=== PATIENT | female | born 1950 | race Caucasian/White ===

== ENCOUNTER → 2016-10-18 | Day surgery (SDC) | payer OTHER, BC ==
[2016-10-15 11:25] VITALS: Ht 160 cm; Wt 55.5 kg
[~2016-10-18] VITALS: Ht 160 cm; Wt 55.5 kg
[~2016-10-18] MED LIST: 500ML BSS 0.3ML EPI 1:1000PF IRRIG ONE; ACETAMINOPHEN 325 MG TAB PO PRN; AMVISC PLUS 0.8ML SYRINGE INT OCU ONE; ATROPINE SULFATE 0.1 MG/ML 5ML SYR IV PRN; BRIMONIDINE TART 0.2% OP SOLN PER DROP CHARGE ONE; BSS FLUSH ONE; ENDOCOAT 0.85ML SYRINGE INT OCU ONE; EpHEDrine SULFATE INJ 50 MG/ML AMP IV PRN; EpINEphrine INJ 1MG/ML AMP 1 MG/ML AMP ONE; FLUO20CA20 PO; GABA-112 PO; LACTATED RINGER'S 1000ML 500 ML IV SCH; LIDOCAINE 4% OP SOLN DROP CHARGE ONE; LIDOCAINE 4% OP SOLN DROP CHARGE OPR SCH; LIDOCAINE HCL 1% MPF 2 ML VIAL ONE; MACULAR HEALTH PO; MELATAB2 PO; MIDAZOLAM HCL 1 MG/ML 2ML VIAL ONE; MOXIFLOXACIN OPH SOLN PER DROP CHARGE ONE; MULT-506 PO; POLYSOL4 OPB; POVIDONE-IODINE OP SOLN 30 ML BTL ONE; PREG1CAP36 PO; PROPARACAINE 0.5% OP SOLN PER DROP CHARGE OPR SCH; TOBRAMYCIN/DEXAMETHASONE OPH OINT PER APPLN CHARGE ONE; TRAZ100T29 PO
[2016-10-18] MEDS: PHENYLEPHRINE HCL 2.5% OP SOLN PER DROP CHARGE OPR SCH ×2 (10:38→10:43)
[2016-10-18] MEDS: TROPICAMIDE 1% OP SOLN PER DROP CHARGE OPR SCH ×2 (10:39→10:44)
[2016-10-18] MEDS: CYCLOPENTOLATE HCL 1% OP SOLN PER DROP CHARGE OPR SCH ×2 (10:40→10:45)
[2016-10-18] MEDS: KETOROLAC 0.5% OP SOLN PER DROP CHARGE OPR SCH ×2 (10:41→10:46)
[2016-10-18] MEDS: MOXIFLOXACIN OPH SOLN PER DROP CHARGE OPR SCH ×2 (10:42→10:52)
--- NOTE | 2016-10-18 11:25 | History & Physical Bridge - [place] ---
H&P Re-Evaluation Bridge Note: I have examined the patient, reviewed the History & Physical and in the interval since the performance of the History & Physical I have noted the following changes of clinical significance: No changes noted
--- NOTE | 2016-10-18 12:25 | Discharge Instructions-SurgCtr ---
Discharge Instructions Date of Service Oct 18, 2016. Visit Reason for Visit: Cataract Right Eye Discharge Discharge Diagnosis / Problem: cataract right eye Discharge Goals Goal(s): Improve function Activity Recommendations Activity Limitations: per Instructions/Follow-up section Lifting Limitations: no more than 5 pounds Anesthesia . Post Anesthesia Instructions: If you have had General Anesthesia or IV Sedation: * Do not drive today. * Resume driving when surgeon permits. * Do not make important decisions or sign legal documents today. * Call surgeon for: 1. Temperature elevations greater than 101 degrees F. 2. Uncontrollable pain. 3. Excessive bleeding. 4. Persistent nausea and vomiting. 5. Medication intolerance (nausea, vomiting or rash). * For nausea and vomiting use only clear liquids such as: tea, soda, bouillon until nausea subsides, then gradually increase diet as tolerated. * If you have any concerns or questions, call your surgeon's office. If physician is unavailable and it is an emergency, call 911 or go to the nearest emergency room. . Instructions / Follow-Up Instructions / Follow-Up ACTIVITY RECOMMENDATIONS: * Light activities * You may walk outside, read, watch television. * Mild irritation and blurred vision are common for the first few days, redness around the white part of the eye is common. MEDICATIONS: Resume previous medications unless instructed otherwise by your surgeon. Eye drops (today and tomorrow): Cipro - one drop in operative eye every 2 hours while awake Prednisolone 1% - one drop in operative eye every 2 hours while awake Bromfenac - one drop in operative eye once daily SPECIAL CARE INSTRUCTIONS: * If any problems or concerns, please call Dr. Lin's office at . * Keep plastic shield taped over eye to sleep at night. * Keep plastic shield taped over eye except to administer eye drops. * Keep plastic shield on until office visit the following day. FOLLOW UP VISIT: Follow-up with Dr. Lin in the [place] office as scheduled. If not already scheduled, please call the office at . Diet Recommendations Home Diet: resume previous diet Procedures Procedures Performed: Right Cataract Phacoemulsification With Intraocular Lens Implant Pending Studies Studies pending at discharge: no Medical Emergencies . Who to Call and When: Medical Emergencies: If at any time you feel your situation is an emergency, please call 911 immediately. . Non-Emergent Contact Non-Emergency issues call your: Moccasin Sewer . . "Provider Documentation" section prepared by Giancarlo Lin.
[2016-10-18 12:26] VITALS: TEMP 36.3
--- NOTE | 2016-10-18 12:27 | [facility] Post Operative Brief Note ---
Immediate Operative Summary Operative Date Oct 18, 2016. Pre-Operative Diagnosis Cataract Right Eye Post-Operative Diagnosis Same Procedure(s) Performed Right Cataract Phacoemulsification With Intraocular Lens Implant Surgeon Dr. Lin Surveyor Hydrographic Surgeon(s) None Estimated Blood Loss 0 Findings cataract right eye Specimens None Complication(s) None Disposition Recovery Room / PACU
--- NOTE | 2016-10-18 12:42 | OPERATIVE REPORT ---
DATE OF OPERATION: 10/18/2016 PREOPERATIVE DIAGNOSIS: Cataract, right eye. POSTOPERATIVE DIAGNOSIS: Cataract, right eye. PROCEDURE: Phacoemulsification cataract extraction with intraocular lens placement, right eye. SURGEON: Dr. Lin. COMPLICATIONS: None. ESTIMATED BLOOD LOSS: None. ANESTHESIA: Topical with sedation. OPERATION AND FINDINGS: After informed consent was obtained in the holding area the patient was wheeled back to the Operating Room where cardiac monitoring leads and oxygen by nasal cannula was administered by Anesthesia. Gentle IV sedation was given, and the patient's right eye was prepped and draped in usual sterile fashion. A wire lid speculum was placed into the right eye and the operating microscope was swung into position. Using 0.12 forceps and a Supersharp blade a paracentesis port was made 3 o'clock hours away from the 12 o'clock position of patient's right eye. 1% non-preserved Lidocaine was then injected into the anterior chamber for anesthesia. A 2.2 mm keratotome blade was then used to make a shelved clear corneal incision at the 12 o'clock position of her right eye. Amvisc was injected into the anterior chamber and a cystotome and Utrata forceps were used to perform a curvilinear capsulorrhexis. BSS on a hydrodissection cannula was used to hydrodissect the lens nucleus away from the capsular bag. The phacoemulsification handpiece was then used in a stop and chop fashion to remove the lens nucleus. The irrigation and aspiration handpiece was then used to remove the residual cortical material. Amvisc was injected into the capsular bag and anterior chamber and a Bausch \T\ Lomb MX60 24.5 Diopter intraocular lens was injected into the capsular bag. Irrigation and aspiration handpiece was used to remove the residual viscoelastic material. The wounds were hydrated and noted to be watertight. The wire lid speculum was removed from the eye. Vigamox, Brimonidine, and TobraDex ointment were placed on the eye and it was shielded. DISPOSITION: The patient tolerated the procedure well and was wheeled to the post anesthesia care unit in stable condition. I attest to the content of the Intraoperative Record and any orders documented therein. Any exceptions are noted below. It should be noted that EndoCoat was used during the case to protect the cornea endothelium. I attest to the content of the Intraoperative Record and any orders documented therein. Any exceptio ns are noted below.
[2016-10-18 12:55] VITALS: BP 112/70; PULSE 78; O2SAT 98
--- NOTE | 2016-10-18 13:00 | Anesthesia Progress Nt - [facility] ---
Anesthesia Post Op Note Date & Time Oct 18, 2016 at 13:00 Vital Signs Pain Intensity: 0 Vital Signs Past 12 Hours Date Time Temp Pulse Resp B/P Pulse Ox O2 Delivery O2 Flow Rate FiO2 10/18/16 12:26 36.3 78 16 114/68 98 Room Air 10/18/16 10:18 37.0 76 16 111/74 97 Room Air Notes Mental Status: alert / awake / arousable, participated in evaluation Pt Amnestic to Procedure: Yes Nausea / Vomiting: adequately controlled Pain: adequately controlled Airway Patency, RR, SpO2: stable & adequate BP & HR: stable & adequate Hydration State: stable & adequate Anesthetic Complications: no major complications apparent
== END | disposition home or self-care (01) ==
LOC: X.SURG 09:55
PROVIDERS: ATTEND Ophthalmology
DX: H25.11 Age-related nuclear cataract, right eye (principal); G35 Multiple sclerosis; Z96.642 Presence of left artificial hip joint

== ENCOUNTER → 2017-07-25 | Day surgery (SDC) | payer OTHER, BC ==
[2017-06-21 13:38] VITALS: Ht 160 cm; Wt 53.6 kg
[~2017-07-25] VITALS: Ht 160 cm; Wt 53.6 kg
[~2017-07-25] MED LIST changes: +FENTANYL CITRATE INJ 50 MCG/1 ML 2 ML VIAL ONE; +LIDOCAINE 4% OP SOLN DROP CHARGE OPL SCH; -LIDOCAINE 4% OP SOLN DROP CHARGE OPR SCH; +ONDANSETRON INJ 2 MG/ML 2 ML VIAL IV PRN; -PREG1CAP36 PO; +PROPARACAINE 0.5% OP SOLN PER DROP CHARGE OPL SCH; -PROPARACAINE 0.5% OP SOLN PER DROP CHARGE OPR SCH
[2017-07-25] MEDS: PHENYLEPHRINE HCL 2.5% OP SOLN PER DROP CHARGE OPL SCH ×2 (07:56→08:02)
[2017-07-25] MEDS: TROPICAMIDE 1% OP SOLN PER DROP CHARGE OPL SCH ×2 (07:57→08:03)
[2017-07-25] MEDS: CYCLOPENTOLATE HCL 1% OP SOLN PER DROP CHARGE OPL SCH ×2 (07:59→08:04)
[2017-07-25] MEDS: KETOROLAC 0.5% OP SOLN PER DROP CHARGE OPL SCH ×2 (08:00→08:05)
[2017-07-25] MEDS: MOXIFLOXACIN OPH SOLN PER DROP CHARGE OPL SCH ×2 (08:01→08:11)
--- NOTE | 2017-07-25 08:57 | [facility] Operative Report ---
Operative Report Operative Date Jul 25, 2017. Pre-Operative Diagnosis Cataract left eye Post-Operative Diagnosis same Procedure(s) Performed Left Cataract Phacoemulsification With Intraocular Lens Implant Surgeon Dr. Lin Tankroom Worker Surgeon(s) none Estimated Blood Loss 0 Findings cataract left eye Fluids (cc crystalloids) see anesthesia record Specimens none Drains none Anesthesia local with sedation Complication(s) None Disposition Recovery Room / PACU Implants [id number] 21.5 Indications decreased vision left eye Description of Procedure After informed consent was obtained in the holding area the patient was wheeled back to the operating room where cardiac monitoring leads and oxygen by nasal cannula was administered by Anesthesia. Gentle IV sedation was given, and the patient's left eye was prepped and draped in usual sterile fashion. A wire lid speculum was placed into the left eye and the operating microscope was swung into position. Using 0.12 forceps and a Supersharp blade a paracentesis port was made 2 o'clock hours away from the 3 o'clock position of the patient's left eye. 1% non-preserved Lidocaine was then injected into the anterior chamber for anesthesia. A 2.0 mm keratotome blade was then used to make a shelved clear corneal incision at the 3 o'clock position of the left eye. Amvisc was injected into the anterior chamber and a cystotome and Utrata forceps were used to perform a curvilinear capsulorrhexis. BSS on a hydrodissection cannula was used to hydrodissect the lens nucleus away from the capsular bag. The phacoemulsification handpiece was then used in a stop and chop fashion to remove the lens nucleus. The irrigation and aspiration handpiece was then used to remove the residual cortical material. Amvisc was injected into the capsular bag and anterior chamber and a Bausch & Lomb MX60 21.5 Diopter intraocular lens was injected into the capsular bag. Irrigation and aspiration handpiece was used to remove the residual viscoelastic material. The wounds were hydrated and noted to be watertight. The wire lid speculum was removed from the eye. Vigamox, Brimonidine, and TobraDex ointment were placed on the eye and it was shielded. It should be noted that EndoCoat was used extensively during the case to protect the cornea endothelium. DISPOSITION: The patient tolerated the procedure well and was wheeled to the post anesthesia care unit in stable condition. I attest to the content of the Intraoperative Record and any orders documented therein. Any exceptions are noted below. I attest to the content of the Intraoperative Record and any orders documented therein. Any exceptions are noted below.
--- NOTE | 2017-07-25 08:58 | Discharge Instructions-SurgCtr ---
Discharge Instructions Date of Service Jul 25, 2017. Visit Reason for Visit: Cataract Left Eye Discharge Discharge Diagnosis / Problem: cataract left eye Discharge Goals Goal(s): Improve function Activity Recommendations Activity Limitations: per Instructions/Follow-up section Lifting Limitations: no more than 5 pounds Anesthesia . Post Anesthesia Instructions: If you have had General Anesthesia or IV Sedation: * Do not drive today. * Resume driving when surgeon permits. * Do not make important decisions or sign legal documents today. * Call surgeon for: 1. Temperature elevations greater than 101 degrees F. 2. Uncontrollable pain. 3. Excessive bleeding. 4. Persistent nausea and vomiting. 5. Medication intolerance (nausea, vomiting or rash). * For nausea and vomiting use only clear liquids such as: tea, soda, bouillon until nausea subsides, then gradually increase diet as tolerated. * If you have any concerns or questions, call your surgeon's office. If physician is unavailable and it is an emergency, call 911 or go to the nearest emergency room. . Instructions / Follow-Up Instructions / Follow-Up ACTIVITY RECOMMENDATIONS: * Light activities * You may walk outside, read, watch television. * Mild irritation and blurred vision are common for the first few days, redness around the white part of the eye is common. MEDICATIONS: Resume previous medications unless instructed otherwise by your surgeon. Eye drops (today and tomorrow): Cipro - one drop in operative eye every 2 hours while awake Prednisolone 1% - one drop in operative eye every 2 hours while awake Bromfenac - one drop in operative eye once daily SPECIAL CARE INSTRUCTIONS: * If any problems or concerns, please call Dr. Lin's office at . * Keep plastic shield taped over eye to sleep at night. * Keep plastic shield taped over eye except to administer eye drops. * Keep plastic shield on until office visit the following day. FOLLOW UP VISIT: Follow-up with Dr. Lin in the [place] office as scheduled. If not already scheduled, please call the office at . Diet Recommendations Home Diet: resume previous diet Procedures Procedures Performed: Left Cataract Phacoemulsification With Intraocular Lens Implant Pending Studies Studies pending at discharge: no Medical Emergencies . Who to Call and When: Medical Emergencies: If at any time you feel your situation is an emergency, please call 911 immediately. . Non-Emergent Contact Non-Emergency issues call your: Water Technician . . "Provider Documentation" section prepared by Giancarlo Lin. .
[2017-07-25 09:00] VITALS: TEMP 36.6
--- NOTE | 2017-07-25 09:25 | Anesthesia Progress Nt - [facility] ---
Anesthesia Post Op Note Date & Time Jul 25, 2017 at 09:25 Vital Signs Pain Intensity: 0 Vital Signs Past 12 Hours Date Time Temp Pulse Resp B/P (MAP) Pulse Ox O2 Delivery O2 Flow Rate FiO2 07/25/17 09:00 36.6 80 16 106/66 (79) 96 Room Air 07/25/17 07:48 36.7 86 16 128/80 (96) 96 Room Air Notes Mental Status: alert / awake / arousable, participated in evaluation Pt Amnestic to Procedure: Yes Nausea / Vomiting: adequately controlled Pain: adequately controlled Airway Patency, RR, SpO2: stable & adequate BP & HR: stable & adequate Hydration State: stable & adequate Anesthetic Complications: no major complications apparent
[2017-07-25 09:29] VITALS: BP 110/66; PULSE 80; O2SAT 98
== END | disposition home or self-care (01) ==
LOC: X.SURG 07:16
PROVIDERS: ATTEND Ophthalmology
DX: H25.12 Age-related nuclear cataract, left eye (principal); G70.00 Myasthenia gravis without (acute) exacerbation; G35 Multiple sclerosis; J44.9 Chronic obstructive pulmonary disease, unspecified; M19.90 Unspecified osteoarthritis, unspecified site; F41.9 Anxiety disorder, unspecified; F32.9 Major depressive disorder, single episode, unspecified; Z79.899 Other long term (current) drug therapy

== ENCOUNTER 2017-10-12 14:41 | Emergency (ER) | payer OTHER, BC ==
[~2017-10-12] VITALS: Ht 160 cm; Wt 53.0 kg
[~2017-10-12 14:41] MED LIST changes: -500ML BSS 0.3ML EPI 1:1000PF IRRIG ONE; -ACETAMINOPHEN 325 MG TAB PO PRN; -AMVISC PLUS 0.8ML SYRINGE INT OCU ONE; -ATROPINE SULFATE 0.1 MG/ML 5ML SYR IV PRN; -BRIMONIDINE TART 0.2% OP SOLN PER DROP CHARGE ONE; -BSS FLUSH ONE; -ENDOCOAT 0.85ML SYRINGE INT OCU ONE; -EpHEDrine SULFATE INJ 50 MG/ML AMP IV PRN; -EpINEphrine INJ 1MG/ML AMP 1 MG/ML AMP ONE; -FENTANYL CITRATE INJ 50 MCG/1 ML 2 ML VIAL ONE; -LACTATED RINGER'S 1000ML 500 ML IV SCH; -LIDOCAINE 4% OP SOLN DROP CHARGE ONE; -LIDOCAINE 4% OP SOLN DROP CHARGE OPL SCH; -LIDOCAINE HCL 1% MPF 2 ML VIAL ONE; -MIDAZOLAM HCL 1 MG/ML 2ML VIAL ONE; -MOXIFLOXACIN OPH SOLN PER DROP CHARGE ONE; -ONDANSETRON INJ 2 MG/ML 2 ML VIAL IV PRN; -POVIDONE-IODINE OP SOLN 30 ML BTL ONE; -PROPARACAINE 0.5% OP SOLN PER DROP CHARGE OPL SCH; -TOBRAMYCIN/DEXAMETHASONE OPH OINT PER APPLN CHARGE ONE
[2017-10-12 14:47] VITALS: TEMP 36.9; Ht 160 cm; Wt 53.0 kg
[2017-10-12] MEDS ORDERED: MULT1CAP53 PO (15:20)
[2017-10-12] MEDS ORDERED: MELA1TAB54 PO (15:20)
[2017-10-12] MEDS ORDERED: MULT-602 PO (15:20)
[2017-10-12] MEDS ORDERED: FLUO20CA36 PO (15:20)
[2017-10-12] MEDS ORDERED: NRN100 PO (15:20)
--- NOTE | 2017-10-12 15:58 | DIAGNOSTIC IMAGING REPORT ---
HEAD WITHOUT CONTRAST (CT) CLINICAL HISTORY: 66 years-old Female presenting with Fall. Posterior head injury. TECHNIQUE: Multidetector CT imaging of the head was performed without the use of intravenous contrast. IV contrast: None. A dose lowering technique was used consistent with the principles of ALARA (as low as reasonably achievable). COMPARISON: MR brain from 01/14/2015. CT DOSE (mGy.cm): The estimated cumulative dose is 1003.45 mGycm. FINDINGS: Firearms Sales Associate topogram: Unremarkable. Proportional ventricular and sulcal prominence, likely age-related parenchymal volume loss. Brain parenchyma normal in appearance with preserved johnson-white differentiation. No mass effect or midline shift. No hemorrhage or acute territorial infarct. No extra-axial fluid collection. Postsurgical changes of right frontotemporal craniotomy with plate and screw fixation across the diastatic and smoothly sclerotic margins. Extra-axial hyperdense thin material likely postsurgical change. Paranasal sinuses and mastoid air cells clear. IMPRESSION: 1. No acute intracranial abnormality. 2. Stable postsurgical changes. Electronically signed by: Albaro Martell M.D. 10/12/2017 3:56 PM Dictated Date/Time: 10/12/2017 3:53 PM
[2017-10-12 16:34] VITALS: BP 99/78; PULSE 86; O2SAT 98
--- NOTE | 2017-10-12 21:57 | EMERGENCY ROOM VISIT NOTE ---
History First contact with patient: 15:00 Chief Complaint: FALL Stated Complaint: DIZZINESS, LIGHT IN HEAD AFTER FALL & HIT HEAD History of Present Illness The patient is a 66 year old female who presents to the Emergency Room with complaints of head pain and lightheadedness after falling yesterday. Patient states that she suffered a mechanical fall in her living room when she tripped over a rug, fell awkwardly, and struck the back of her head on a table. She did not lose consciousness. The patient is not on blood thinners. She is not reporting neck pain, chest pain, chest tightness, or shortness of breath. She woke up today and was feeling dizzy so she called her family doctor who referred her to the ER for evaluation. The patient does not have additional complaints and rates her current pain at 2/10. She has not taken anything over- the-counter for her discomfort. Review of Systems More than 10 systems were reviewed and otherwise negative with the exception of history of present illness. Past Medical/Surgical History Medical Problems: (1) Breast enlargement (2) Depression (3) Multiple sclerosis (4) Myasthenia gravis Surgical Problems: (1) H/O tubal ligation (2) Post-operative state (3) S/P T&A (status post tonsillectomy and adenoidectomy) (4) S/P total hip arthroplasty Family History Cancer FH: heart disease FH: suicide Kidney disease Stroke Social History Smoking Status: Never Smoker Alcohol Use: none Drug Use: none Marital Status: Housing Status: lives with family Occupation Status: employed Current/Historical Medications Scheduled Fluoxetine HCl (Fluoxetine HCl), 20 MG PO QAM Gabapentin (Gabapentin), 100 MG PO TID Melatonin (Melatonin), 5 MG PO HS Multiple Vitamins W/ Minerals (Womens 50+ Multi Vitamin), 1 TAB PO DAILY Multiple Vitamins W/ Minerals (Macular Health Formula), 1 CAP PO BID Trazodone Hcl (Trazodone), 100 MG PO HS Scheduled PRN Polyethylene Glycol-Propylene (Systane), 1 DROP OPB UD PRN for Dry Eye(s) Physical Exam Vital Signs Date Time Temp Pulse Resp B/P (MAP) Pulse Ox O2 Delivery O2 Flow Rate FiO2 10/12/17 16:34 86 16 99/78 98 10/12/17 14:47 36.9 81 18 110/76 96 Physical Exam VITALS: Vitals are noted on the nurse's note and reviewed by myself. Vital signs stable. GENERAL: Well-developed, well-nourished, white female, who is in no acute distress and resting comfortably. Patient is cooperative with the examination. HEAD: There is a small 1.5 cm hematoma appreciated on the left side occiput. No chua sign or raccoon eyes. EARS: External ear normal. External auditory canals clear, tympanic membranes pearly johnson without erythema or effusion bilaterally. EYES: Pupils equal round and reactive to light and accommodation. Conjunctivae without injection, sclerae without icterus. Extraocular movements intact. NOSE: Patent, turbinates without inflammation or discharge. MOUTH: Mucous membranes moist. Tonsils are not enlarged. Pharynx without erythema, blood, or exudate. Uvula midline. Airway patent. NECK: Supple without nuchal rigidity. No lymphadenopathy. No thyromegaly. Cervical spine is nontender. HEART: Regular rate and rhythm without murmurs gallops or rubs. LUNGS: Clear to auscultation bilaterally without wheezes, rales or rhonchi. No retractions or accessory muscle use. MUSCULOSKELETAL: No muscle atrophy, erythema, or edema noted. Full range of motion in all extremities. No tenderness to palpation. Normal gait. Strength 5/5 throughout. NEURO: Patient was alert and oriented to person place and time. CN II through XII grossly intact. No focal neurological deficits. Deep tendon reflexes 2+ throughout. SKIN: The skin was without rashes, erythema, edema, or bruising. Capillary refill less than 2 seconds. Medical Decision & Procedures ER Provider Diagnostic Interpretation: HEAD WITHOUT CONTRAST (CT) CLINICAL HISTORY: 66 years-old Female presenting with Fall. Posterior head injury. TECHNIQUE: Multidetector CT imaging of the head was performed without the use of intravenous contrast. IV contrast: None. A dose lowering technique was used consistent with the principles of ALARA (as low as reasonably achievable). COMPARISON: MR brain from 01/14/2015. CT DOSE (mGy.cm): The estimated cumulative dose is 1003.45 mGycm. FINDINGS: Cover Cutter Machine topogram: Unremarkable. Proportional ventricular and sulcal prominence, likely age-related parenchymal volume loss. Brain parenchyma normal in appearance with preserved johnson-white differentiation. No mass effect or midline shift. No hemorrhage or acute territorial infarct. No extra-axial fluid collection. Postsurgical changes of right frontotemporal craniotomy with plate and screw fixation across the diastatic and smoothly sclerotic margins. Extra-axial hyperdense thin material likely postsurgical change. Paranasal sinuses and mastoid air cells clear. IMPRESSION: 1. No acute intracranial abnormality. 2. Stable postsurgical changes. ED Course Physical exam and history were performed. Nursing notes, EMR, and Medication List were personally reviewed. Patient appears to have fallen yesterday and suffered a posterior head injury. I discussed options of care with the patient and we elected to perform a CT scan. The patient's CT scan does not show evidence of acute fracture or bleed per my and radiology's interpretation. Overall the patient appears well for discharge home. I suspect her symptoms are related to the head injury. She will need to have follow-up with her primary care physician in the next few days. She was otherwise invited back to the ER with any new, worsening, or concerning symptoms. The chart was completed utilizing [employer] Speech Voice Recognition Software. Grammatical errors, random word insertions, pronoun errors, and incomplete sentences are an occasional consequence of this system due to software limitations, ambient noise, and hardware issues. Any formal questions or concerns about the content, text, or information contained within the body of this dictation should be directly addressed to the provider for clarification. . Medical Decision Differential diagnosis: Etiologies such as concussion, contusion, fracture, subdural hematoma, epidural hematoma, intraparenchymal hemorrhage, as well as other traumatic pathologies were entertained. Impression Primary Impression: Fall Additional Impression: Closed head injury Departure Information Dispostion Home / Self-Care Condition GOOD Forms HOME CARE DOCUMENTATION FORM, IMPORTANT VISIT INFORMATION Patient Instructions [facility] Additional Instructions You were seen and evaluated today on an emergency basis only. This is not a substitute for, or an effort to provide, complete comprehensive medical care. It is not possible to recognize and treat all injuries or illnesses in a single emergency department visit. For this reason it is recommended that you followup with your primary care physician with any ongoing or persistent symptoms. You are welcome to return to the emergency department anytime with new, worsening, or concerning symptoms. Problem Qualifiers
== END 2017-10-12 16:35 | disposition home or self-care (01) ==
LOC: C.EDB 14:43 → C.EDD 16:35
DX: S09.90XA Unspecified injury of head, initial encounter (principal); W18.09XA Striking against other object with subsequent fall, initial encounter; G35 Multiple sclerosis; G70.00 Myasthenia gravis without (acute) exacerbation; F32.9 Major depressive disorder, single episode, unspecified; Z98.51 Tubal ligation status; Z96.649 Presence of unspecified artificial hip joint; Z90.89 Acquired absence of other organs; Z82.3 Family history of stroke; Z81.8 Family history of other mental and behavioral disorders; Z79.899 Other long term (current) drug therapy

== ENCOUNTER 2020-05-13 18:30 | Inpatient (IN) ==
[2020-05-13] MEDS ORDERED: SODIUM CHLORIDE 0.9% 1000ML 500 ML IV ONE (19:00)
--- NOTE | 2020-05-13 19:24 | CT Scan Report ---
CT head/brain wo con CLINICAL HISTORY: 69 years-old Female with Stroke evaluation . Acute strokelike symptoms with right- sided facial droop TECHNIQUE: Multiple axial CT images of the head were obtained without contrast. A dose lowering tech nique was utilized adhering to the principles of ALARA. CT DOSE: 912.22 mGycm COMPARISON: Head CT 10/12/2017 FINDINGS: No acute intracranial hemorrhage, midline shift, intracranial mass, hydrocephalus, territorial ischem ia or abnormal extra-axial collection. Motion degraded exam. Postoperative changes of prior right fro ntotemporal craniotomy. Senescent calcifications of the left lentiform nuclei. Cerebral vascular calc ifications. The calvarium is intact. The paranasal sinuses, mastoid air cells, and middle ear cavities are clear . IMPRESSION: Chronic findings as above without acute intracranial abnormality. ACT 112: Negative or not required by law. The above report was generated using voice recognition software. It may contain grammatical, syntax o r spelling errors. Electronically signed by: Yrn Biswas M.D. 05/13/2020 7:23 PM
[2020-05-13] MEDS ORDERED: OPTIRAY 320 125ml IV ONE (19:30)
[2020-05-13 19:40] LABS: Basophils # (auto) 0.01 K/uL (0-0.2); Basophils % (auto) 0.2 %; Eosinophils # (auto) 0.01 K/uL (0-0.5); Eosinophils % (auto) 0.2 %; Hematocrit (blood only) 39.2 % (37-47); Hemoglobin 13.2 g/dL (12.0-16.0); Immature Granulocytes # (auto) 0.01 K/uL (0.00-0.02); Immature Granulocytes % (auto) 0.2 %; Lymphocytes # (auto) 0.58 K/uL (1.2-3.4); Lymphocytes % (auto) 10.5 %; Mean Corpuscular Hemoglobin 31.6 pg (25-34); Mean Corpuscular Hgb Conc 33.7 g/dL (32-36); Mean Corpuscular Volume 93.8 fL (80-100); Mean Platelet Volume 10.9 fL (7.4-10.4); Monocytes # (auto) 0.04 K/uL (0.11-0.59); Monocytes % (auto) 0.7 %; Neutrophils # (auto) 4.89 K/uL (1.4-6.5); Neutrophils % (auto) 88.2 %; Platelet Count 302 K/uL (130-400); RDW Coefficient of Variation 12.5 % (11.5-14.5); RDW Standard Deviation 42.6 fL (36.4-46.3); Red Blood Count 4.18 M/uL (4.2-5.4); White Blood Count 5.54 K/uL (4.8-10.8)
--- NOTE | 2020-05-13 19:41 | Emergency Department Note ---
Impression & Plan Weakness, Myasthenia gravis, SOB (shortness of breath), Facial droop ED Provider Note NAME: TARAH FAM AGE: 69 SEX: F : 1950 ARRIVES VIA: Walk-In INFORMANT: [Patient][family] ED PROVIDER(S): [Baljeet Mcgregor MD] Patient initially was seen by me at 1855. CHIEF COMPLAINT: Shortness of breath and weakness HISTORY OF PRESENT ILLNESS: The patient is a 69-year-old female who presents to the ER with shortness of breath and weakness. The patient has a history of myasthenia gravis. In the last several months, she has had some more fatigability and some more difficulty with her right face. Her speech is noticeably slurred towards the evening. Since last week, her symptoms have escalated. Her right eye became droopy and her speech became worse. She saw her neurologist who placed her on prednisone. The patient states that today, about 3 hours ago or so, she suddenly felt short of breath walking around her house. There was no headache. No one arm or leg weakness. No chest pain. She has not had fever or increased cough. Patient presented to our triage. A stroke alert was called by the nursing staff and she was immediately taken to CT scan. REVIEW OF SYSTEMS: See HPI for pertinent positives and negatives. A total of ten systems were reviewed and were otherwise negative. PMHx/PSHx: See Below SOCIAL HISTORY: See Below. PHYSICAL EXAM: GENERAL: Patient is in no acute distress. HEENT: No acute trauma, normocephalic atraumatic, mucous membranes moist, no nasal congestion, no scleral icterus. NECK: No stridor, no adenopathy, no meningismus, trachea is midline. LUNGS: Clear to auscultation bilaterally, no wheeze, no rhonchi, breath sounds equal. Increased respiratory rate, seems short of breath with speaking. HEART: Without murmurs gallops or rubs, regular rate and rhythm. ABDOMEN: Soft, nontender, bowel sounds positive, no hernias, no peritonitis. EXTREMITIES: No cyanosis or edema, full range of motion of all the joints without pain or difficulty, no signs for acute trauma. NEUROLOGIC: Oriented x 3, patient does have a right facial droop and some speech thickening/slurring. There is no cerebellar dysfunction or extremity drift. SKIN: No rash, no jaundice, no diaphoresis. DIFFERENTIAL DIAGNOSIS: Infection, dehydration, metabolic abnormality, hypo/hyperglycemia, MS flare, myasthenia gravis flare, stroke, TIA, electrolyte disturbance, anemia, hypoxia, cardiac sources, intracerebral event, toxicologic, neurologic, as well as other pathologies. EMERGENCY DEPARTMENT COURSE/PROCEDURES: Continuous Cardiac Monitoring: An order was placed for continuous cardiac monitoring. The monitor shows a rate of 89 with normal sinus rhythm. Critical Care Note: I have personally spent 38 minutes of critical care time in the direct management of this patient. This includes bedside care, interpretation of diagnostic studies, and testing, discussion with consultants, patient, and family members, and other required patient management activities. This 38 minutes is in excess of all separately billable procedures. MEDICAL DECISION MAKING: There is no leukocytosis or concerning anemia. There is a normal platelet count. No coagulopathy. No significant electrolyte abnormality or kidney failure. No liver enzyme elevation. The patient appears to be in a euthyroid state. Urinalysis does not show evidence for infection. Urine tox was negative. Coronavirus testing was negative. Chest film did not show pneumonia or CHF. Brain CT showed no acute bleed or mass-effect. CT angiogram of the head and neck were performed, there was no stenosis, no thrombus seen. On my exam, the patient had a right facial droop and some slight thickening of her speech. Her right eyelid was droopy. No extremity deficits. She seemed to have an increased respiratory rate but she was not hypoxic, her lungs were clear. The patient was given oxygen, this helped her greatly. She felt markedly im proved. Patient was given a 500 cc saline bolus. I did speak with neurology. The patient certainly may be having a myasthenia gravis flare. The possibility of administering IVIG was discussed. Of note, the patient does not meet any criteria for TPA administration. Her symptoms began last week. I did speak to the patient, I spoke with case management. I did talk to the on- call hospitalist. Hospitalization, further work-up and care is required. Past Med/Surg History Medical History Depression Myasthenia gravis Social History Smoking Status: Never smoker Preferred Language: Macedonian Feels Safe at Home: Yes Allergies Allergies Allergy/AdvReac Type Severity Reaction Status Date / Time prochlorperazine Allergy Severe THROAT Verified 05/13/20 21:24 CONSTRICTING clarithromycin Allergy Intermediate RASH Verified 05/13/20 21:24 Penicillins Allergy Intermediate RASH Verified 05/13/20 21:24 carbamazepine Allergy Unknown UNKNOWN Verified 05/13/20 21:24 cephalexin Allergy Unknown RASH Verified 05/13/20 21:24 erythromycin base Allergy Unknown RASH Verified 05/13/20 21:24 amoxicillin Allergy Rash Verified 05/13/20 21:26 azithromycin Allergy Rash Verified 05/13/20 21:24 oxycodone AdvReac Unknown HALLUCINATI Verified 05/13/20 21:24 ONS promethazine AdvReac Unknown LEGS SHOOK Verified 05/13/20 21:24 aspirin [From Percodan] AdvReac Hallucinati Verified 05/13/20 21:26 ng Home Meds Home Medications Medication Instructions Recorded Confirmed Sustane 1 drp OPB BID PRN 05/13/20 05/13/20 acetaminophen [Tylenol Extra 1,000 mg PO Q6H PRN 05/13/20 05/13/20 Strength] albuterol sulfate 2 inh INHALATION Q4 PRN 05/13/20 05/13/20 fluoxetine [Prozac] 20 mg PO DAILY 05/13/20 05/13/20 gabapentin [Neurontin] 200 mg PO TID PRN 05/13/20 05/13/20 melatonin 5 mg PO HS 05/13/20 05/13/20 multivitamin 1 tab PO DAILY 05/13/20 05/13/20 prednisone 30 mg PO Q OTHER DAY 05/13/20 05/13/20 trazodone 100 mg PO HS 05/13/20 05/13/20 Results & Data (ED) Vital Signs Vital Signs - 24 hr 05/13/20 18:50 05/13/20 19:18 05/13/20 19:20 Temperature 36.9 C Temperature Source Oral Pulse Rate 80 88 Pulse Rate from SpO2 Sensor 89 Respiratory Rate 26 H 34 H Respiratory Effort / Characteristics Non-Labored Spontaneous Labored Short of Breath SOB on Exertion Respiratory Depth Normal Deep Respiratory Pattern Regular Blood Pressure 124/86 143/83 H Blood Pressure Mean 98 99 Blood Pressure Position Sitting Pulse Oximetry 98 99 Oxygen Delivery Method Room Air Room Air Oxygen Flow Rate Sepsis Recent Fever Within 48 Hours No Sepsis New/Unexplained Change in Mental Status N/A Sepsis Action Taken by Nursing No Action Required Oxygen Flow Rate - Titration Pulse Oximetry Post Tiitration 05/13/20 19:29 05/13/20 19:30 05/13/20 20:00 Temperature Temperature Source Pulse Rate 87 82 Pulse Rate from SpO2 Sensor 88 83 Respiratory Rate 31 H 18 Respiratory Effort / Characteristics Respiratory Depth Respiratory Pattern Blood Pressure 132/77 126/78 Blood Pressure Mean 87 92 Blood Pressure Position Pulse Oximetry 97 100 99 Oxygen Delivery Method Oxymask Oxymask Oxymask Oxygen Flow Rate 0 4 4 Sepsis Recent Fever Within 48 Hours Sepsis New/Unexplained Change in Mental Status Sepsis Action Taken by Nursing Oxygen Flow Rate - Titration 4 Pulse Oximetry Post Tiitration 100 05/13/20 20:30 05/13/20 20:54 05/13/20 21:00 Temperature Temperature Source Pulse Rate 83 85 84 Pulse Rate from SpO2 Sensor 83 87 82 Respiratory Rate 19 21 22 Respiratory Effort / Characteristics Respiratory Depth Respiratory Pattern Blood Pressure 126/79 130/74 127/73 Blood Pressure Mean 95 87 87 Blood Pressure Position Pulse Oximetry 99 98 98 Oxygen Delivery Method Oxymask Oxymask Oxygen Flow Rate 4 4 4 Sepsis Recent Fever Within 48 Hours Sepsis New/Unexplained Change in Mental Status Sepsis Action Taken by Nursing Oxygen Flow Rate - Titration Pulse Oximetry Post Tiitration 05/13/20 21:30 05/13/20 22:00 05/13/20 22:30 Temperature Temperature Source Pulse Rate 113 H 92 H 90 Pulse Rate from SpO2 Sensor 114 H 92 H Respiratory Rate 17 23 20 Respiratory Effort / Characteristics Respiratory Depth Respiratory Pattern Blood Pressure 137/81 133/80 125/73 Blood Pressure Mean 103 89 91 Blood Pressure Position Pulse Oximetry 98 98 98 Oxygen Delivery Method Oxymask Room Air Room Air Oxygen Flow Rate 4 Sepsis Recent Fever Within 48 Hours Sepsis New/Unexplained Change in Mental Status Sepsis Action Taken by Nursing Oxygen Flow Rate - Titration Pulse Oximetry Post Tiitration 05/13/20 23:00 05/13/20 23:01 05/13/20 23:30 Temperature Temperature Source Pulse Rate Pulse Rate from SpO2 Sensor 92 H Respiratory Rate 17 19 21 Respiratory Effort / Characteristics Respiratory Depth Respiratory Pattern Blood Pressure 121/70 124/77 Blood Pressure Mean 83 95 Blood Pressure Position Pulse Oximetry 95 Oxygen Delivery Method Oxygen Flow Rate Sepsis Recent Fever Within 48 Hours Sepsis New/Unexplained Change in Mental Status Sepsis Action Taken by Nursing Oxygen Flow Rate - Titration Pulse Oximetry Post Tiitration 05/13/20 23:31 Temperature Temperature Source Pulse Rate Pulse Rate from SpO2 Sensor 92 H Respiratory Rate 19 Respiratory Effort / Characteristics Respiratory Depth Respiratory Pattern Blood Pressure Blood Pressure Mean Blood Pressure Position Pulse Oximetry 95 Oxygen Delivery Method Oxygen Flow Rate Sepsis Recent Fever Within 48 Hours Sepsis New/Unexplained Change in Mental Status Sepsis Action Taken by Nursing Oxygen Flow Rate - Titration Pulse Oximetry Post Tiitration Home Medications Current Medication List: was personally reviewed by me Laboratory Data Attestation: I reviewed the patient's lab results. Result diagrams: 05/13/20 19:05/13/20 19: Lab Results 05/13/20 05/13/20 05/13/20 Range/Units 19:: 19: WBC 5.54 (4.8-10.8) K/uL RBC 4.18 L (4.2-5.4) M/uL Hgb 13.2 (12.0-16.0) g/dL Hct 39.2 (37-47) % MCV 93.8 (80-100) fL MCH 31.6 (25-34) pg MCHC 33.7 (32-36) g/dL RDW Std Deviation 42.6 (36.4-46.3) fL RDW Coeff of Sandra 12.5 (11.5-14.5) % Plt Count 302 (130-400) K/uL MPV 10.9 H (7.4-10.4) fL Immature Gran % (Auto) 0.2 % Neut % (Auto) 88.2 % Lymph % (Auto) 10.5 % [place] % (Auto) 0.7 % Eos % (Auto) 0.2 % Baso % (Auto) 0.2 % Neut # (Auto) 4.89 (1.4-6.5) K/uL Lymph # (Auto) 0.58 L (1.2-3.4) K/uL [place] # (Auto) 0.04 L (0.11-0.59) K/uL Eos # (Auto) 0.01 (0-0.5) K/uL Baso # (Auto) 0.01 (0-0.2) K/uL Immature Gran # (Auto) 0.01 (0.00-0.02) K/uL PT 10.8 (9.0-12.0) Seconds INR 1.0 (0.9-1.1) APTT 25.6 (21.0-31.0) Seconds PTT Ratio 0.9 D-Dimer (0-500) ug/L FEU Sodium (136-145) mmol/L Potassium (3.5-5.1) mmol/L Chloride (98-107) mmol/L Carbon Dioxide (21-32) mmol/L Anion Gap (3-11) BUN (7-18) mg/dl Creatinine (0.6-1.2) mg/dl Est Cr Clr Drug Dosing ml/min Est GFR ( Amer) Est GFR (Non-Af Amer) BUN/Creatinine Ratio (10-20) Glucose (70-99) mg/dl Calcium (8.5-10.1) mg/dl Magnesium (1.8-2.4) mg/dl Total Bilirubin (0.2-1) mg/dl AST (15-37) U/L ALT (12-78) U/L Alkaline Phosphatase (45-117) U/L Troponin I (0-0.045) ng/ml Total Protein (6.4-8.2) gm/dl Albumin (3.4-5.0) gm/dl Globulin (2.5-4.0) gm/dl Albumin/Globulin Ratio (0.9-2) TSH (0.300-4.500) uIu/ml Urine Color Urine Appearance (Clear) Urine pH (4.5-7.5) Ur Specific Lowman (1.000-1.030) Urine Protein (Negative) Urine Glucose (UA) (Negative) Urine Ketones (Negative) Urine Blood (Negative) Urine Nitrite (Negative) Urine Bilirubin (Negative) Urine Urobilinogen (Negative) Ur Leukocyte Esterase (Negative) Urine WBC (Auto) (0-5) /hpf Urine RBC (Auto) (0-4) /hpf U Hyaline Cast (Auto) (0-5) /lpf U Epithel Cells (Auto) (0-5) /lpf Urine Bacteria (Auto) (Negative) Urine Opiates Screen (Neg) Ur Methadone, Qual (Neg) Urine Barbiturates (Neg) Ur Phencyclidine (PCP) (Neg) U Amphetamin/Meth Scrn (Neg) MDMA (Ecstasy) Screen (Neg) U Benzodiazepines Scrn (Neg) Ur Cocaine Metabolite (Neg) U Marijuana (THC) Screen (Neg) COVID-19 Eval Order COVID-19 PCR (Negative) Blood Type A Positive Antibody Screen NEGATIVE 05/13/20 05/13/20 05/13/20 Range/Units 19:27 19:27 20:50 WBC (4.8-10.8) K/uL RBC (4.2-5.4) M/uL Hgb (12.0-16.0) g/dL Hct (37-47) % MCV (80-100) fL MCH (25-34) pg MCHC (32-36) g/dL RDW Std Deviation (36.4-46.3) fL RDW Coeff of Sandra (11.5-14.5) % Plt Count (130-400) K/uL MPV (7.4-10.4) fL Immature Gran % (Auto) % Neut % (Auto) % Lymph % (Auto) % [place] % (Auto) % Eos % (Auto) % Baso % (Auto) % Neut # (Auto) (1.4-6.5) K/uL Lymph # (Auto) (1.2-3.4) K/uL [place] # (Auto) (0.11-0.59) K/uL Eos # (Auto) (0-0.5) K/uL Baso # (Auto) (0-0.2) K/uL Immature Gran # (Auto) (0.00-0.02) K/uL PT (9.0-12.0) Seconds INR (0.9-1.1) APTT (21.0-31.0) Seconds PTT Ratio D-Dimer 390 (0-500) ug/L FEU Sodium 135 L (136-145) mmol/L Potassium 3.9 (3.5-5.1) mmol/L Chloride 104 (98-107) mmol/L Carbon Dioxide 28 (21-32) mmol/L Anion Gap 3.0 (3-11) BUN 15 (7-18) mg/dl Creatinine 0.86 (0.6-1.2) mg/dl Est Cr Clr Drug Dosing 49.6 ml/min Est GFR ( Amer) 78.8 Est GFR (Non-Af Amer) 68.0 BUN/Creatinine Ratio 17.1 (10-20) Glucose 97 (70-99) mg/dl Calcium 8.5 (8.5-10.1) mg/dl Magnesium 2.3 (1.8-2.4) mg/dl Total Bilirubin 0.6 (0.2-1) mg/dl AST 15 (15-37) U/L ALT 18 (12-78) U/L Alkaline Phosphatase 53 (45-117) U/L Troponin I < 0.015 (0-0.045) ng/ml Total Protein 6.7 (6.4-8.2) gm/dl Albumin 3.5 (3.4-5.0) gm/dl Globulin 3.2 (2.5-4.0) gm/dl Albumin/Globulin Ratio 1.1 (0.9-2) TSH 0.695 (0.300-4.500) uIu/ml Urine Color Yellow Urine Appearance Cloudy A (Clear) Urine pH 8.5 H (4.5-7.5) Ur Specific Lowman > 1.045 H (1.000-1.030) Urine Protein Negative (Negative) Urine Glucose (UA) Negative (Negative) Urine Ketones Trace H (Negative) Urine Blood Negative (Negative) Urine Nitrite Negative (Negative) Urine Bilirubin Negative (Negative) Urine Urobilinogen Negative (Negative) Ur Leukocyte Esterase Negative (Negative) Urine WBC (Auto) 1-5 (0-5) /hpf Urine RBC (Auto) 0-4 (0-4) /hpf U Hyaline Cast (Auto) 0 (0-5) /lpf U Epithel Cells (Auto) 10-20 H (0-5) /lpf Urine Bacteria (Auto) Negative (Negative) Urine Opiates Screen (Neg) Ur Methadone, Qual (Neg) Urine Barbiturates (Neg) Ur Phencyclidine (PCP) (Neg) U Amphetamin/Meth Scrn (Neg) MDMA (Ecstasy) Screen (Neg) U Benzodiazepines Scrn (Neg) Ur Cocaine Metabolite (Neg) U Marijuana (THC) Screen (Neg) COVID-19 Eval Order COVID-19 PCR (Negative) Blood Type Antibody Screen 05/13/20 05/13/20 05/13/20 Range/Units 20:50 22:15 22:15 WBC (4.8-10.8) K/uL RBC (4.2-5.4) M/uL Hgb (12.0-16.0) g/dL Hct (37-47) % MCV (80-100) fL MCH (25-34) pg MCHC (32-36) g/dL RDW Std Deviation (36.4-46.3) fL RDW Coeff of Sandra (11.5-14.5) % Plt Count (130-400) K/uL MPV (7.4-10.4) fL Immature Gran % (Auto) % Neut % (Auto) % Lymph % (Auto) % [place] % (Auto) % Eos % (Auto) % Baso % (Auto) % Neut # (Auto) (1.4-6.5) K/uL Lymph # (Auto) (1.2-3.4) K/uL [place] # (Auto) (0.11-0.59) K/uL Eos # (Auto) (0-0.5) K/uL Baso # (Auto) (0-0.2) K/uL Immature Gran # (Auto) (0.00-0.02) K/uL PT (9.0-12.0) Seconds INR (0.9-1.1) APTT (21.0-31.0) Seconds PTT Ratio D-Dimer (0-500) ug/L FEU Sodium (136-145) mmol/L Potassium (3.5-5.1) mmol/L Chloride (98-107) mmol/L Carbon Dioxide (21-32) mmol/L Anion Gap (3-11) BUN (7-18) mg/dl Creatinine (0.6-1.2) mg/dl Est Cr Clr Drug Dosing ml/min Est GFR ( Amer) Est GFR (Non-Af Amer) BUN/Creatinine Ratio (10-20) Glucose (70-99) mg/dl Calcium (8.5-10.1) mg/dl Magnesium (1.8-2.4) mg/dl Total Bilirubin (0.2-1) mg/dl AST (15-37) U/L ALT (12-78) U/L Alkaline Phosphatase (45-117) U/L Troponin I (0-0.045) ng/ml Total Protein (6.4-8.2) gm/dl Albumin (3.4-5.0) gm/dl Globulin (2.5-4.0) gm/dl Albumin/Globulin Ratio (0.9-2) TSH (0.300-4.500) uIu/ml Urine Color Urine Appearance (Clear) Urine pH (4.5-7.5) Ur Specific Low[place] (1.000-1.030) Urine Protein (Negative) Urine Glucose (UA) (Negative) Urine Ketones (Negative) Urine Blood (Negative) Urine Nitrite (Negative) Urine Bilirubin (Negative) Urine Urobilinogen (Negative) Ur Leukocyte Esterase (Negative) Urine WBC (Auto) (0-5) /hpf Urine RBC (Auto) (0-4) /hpf U Hyaline Cast (Auto) (0-5) /lpf U Epithel Cells (Auto) (0-5) /lpf Urine Bacteria (Auto) (Negative) Urine Opiates Screen Neg (Neg) Ur Methadone, Qual Neg (Neg) Urine Barbiturates Neg (Neg) Ur Phencyclidine (PCP) Neg (Neg) U Amphetamin/Meth Scrn Neg (Neg) MDMA (Ecstasy) Screen Neg (Neg) U Benzodiazepines Scrn Neg (Neg) Ur Cocaine Metabolite Neg (Neg) U Marijuana (THC) Screen Neg (Neg) COVID-19 Eval Order Covid19 Done at [facility] COVID-19 PCR NEGATIVE (Negative) Blood Type Antibody Screen Administered Medications Discontinued Medications Sodium Chloride (Nss 1000ml) 500 mls @ 999 mls/hr IV .Q31M ONE Stop: 05/13/20 19:30 Last Infusion: 05/13/20 20:36 Dose: 0 mls/hr Documented by: [id number] Admin: 05/13/20 19:40 Dose: 999 mls/hr Documented by: [id number] Parenteral Electrolytes (Normosol-R) 500 mls @ 999 mls/hr IV .Q31M ONE Stop: 05/13/20 22:09 Last Infusion: 05/13/20 23:32 Dose: 0 mls/hr Documented by: [id number] Admin: 05/13/20 22:36 Dose: 999 mls/hr Documented by: [id number] Ioversol (Optiray 320 125ml) 119 ml IV ONCE ONE Stop: 05/13/20 19:31 Last Admin: 05/13/20 19:30 Dose: 1 ml Documented by: [id number] Imaging Data Radiologist's Impression: XR chest 1V portable HISTORY: 69 years-old Female sob acute shortness of breath COMPARISON: Chest radiographs 08/16/2014 TECHNIQUE: Portable AP view of the chest FINDINGS: Cardiomediastinal and hilar silhouettes are within normal limits. Calcified breast implants. Pleural thickening of the lung apices. Mild chronic interstitial coarsening. No pneumothorax, pleural effusion, airspace consolidation or overt pulmonary edema. Degenerative changes of the shoulders and spine. Lumbar levoscoliosis. Contrast noted within the bilateral renal collecting systems. IMPRESSION: No acute process. CT head/brain wo con CLINICAL HISTORY: 69 years-old Female with Stroke evaluation . Acute strokelike symptoms with right-sided facial droop TECHNIQUE: Multiple axial CT images of the head were obtained without contrast. A dose lowering technique was utilized adhering to the principles of ALARA. CT DOSE: 912.22 mGycm COMPARISON: Head CT 10/12/2017 FINDINGS: No acute intracranial hemorrhage, midline shift, intracranial mass, hydrocephalus, territorial ischemia or abnormal extra-axial collection. Motion degraded exam. Postoperative changes of prior right frontotemporal craniotomy. Senescent calcifications of the left lentiform nuclei. Cerebral vascular calcif ications. The calvarium is intact. The paranasal sinuses, mastoid air cells, and middle ear cavities are clear. IMPRESSION: Chronic findings as above without acute intracranial abnormality. CT angio neck with con, CT angio head w con CLINICAL HISTORY: 69 years-old Female with stroke. Acute strokelike symptoms COMPARISON STUDY: Head CT of same day TECHNIQUE: Following the IV administration of 119 mL of Optiray 320, CT angiogram of the head and neck was performed from the aortic arch to the skull apex. Images are reviewed in the axial, sagittal, and coronal planes. 3-D MIPS images are created and assessed. IV contrast was administered without complication. All measurements were calculated based on NASCET criteria. A dose lowering technique was utilized adhering to the principles of ALARA. CT DOSE: 1092.36 mGycm FINDINGS: The imaged opacified pulmonary artery is patent. Three-vessel morphology of the thoracic aortic arch. Patency of the imaged subclavian arteries, innominate and common carotid arteries. No significant atherosclerotic plaque of the left carotid bulb. There is minimal calcified plaque of the right carotid bulb and proximal right ICA without significant stenosis. The bilateral middle and anterior cerebral arteries are patent. Dominant left vertebral artery. Bilateral vertebral arteries are widely patent and within normal limits. Basilar and posterior cerebral arteries are also widely patent. The cerebral venous sinuses are patent. There is no abnormal intracranial enhancement. Postoperative changes of right calvarial craniotomy. There is no pneumothorax. Multinodular thyroid. Calcifications with metallic density focus is noted within the posterior epidural distribution the foramen magnum. IMPRESSION:Unremarkable CTA of the head and neck without aneurysm, dissection, high-grade stenosis or proximal branch occlusion. Discharge Plan Visit Data Chief Complaint: Shortness of Breath/Dyspnea Stated Complaint: SOB ED Provider: Baljeet Mcgregor Discharge Problem: Weakness, Myasthenia gravis, SOB (shortness of breath), Facial droop Patient Disposition: Admitted As Inpatient Condition: Fair Forms Stand Alone Forms: [facility] Prescriptions Prescriptions: No Action multivitamin Tablet 1 tab PO DAILY RF: 0 prednisone 20 mg tablet 30 mg PO Q OTHER DAY RF: 0 acetaminophen [Tylenol Extra Strength] 500 mg Tablet 1,000 mg PO Q6H PRN (Reason: Pain) RF: 0 trazodone 100 mg tablet 100 mg PO HS RF: 0 gabapentin [Neurontin] 100 mg capsule 200 mg PO TID PRN (Reason: Pain) RF: 0 albuterol sulfate 90 mcg/actuation HFA aerosol inhaler 2 inh INHALATION Q4 PRN (Reason: Wheezing) RF: 0 fluoxetine [Prozac] 20 mg capsule 20 mg PO DAILY RF: 0 melatonin 5 mg Tablet 5 mg PO HS RF: 0 Sustane 1 drp OPB BID PRN (Reason: Dry Eyes) RF: 0 Referrals Referrals: Nafisa Fernandez MD [Primary Care Provider] -
[2020-05-13 19:58] LABS: Alanine Aminotransferase 18 U/L (12-78); Albumin Level 3.5 gm/dl (3.4-5.0); Aspartate Aminotransferase 15 U/L (15-37); BUN Creatinine Ratio 17.1 (10-20); Blood Urea Nitrogen 15 mg/dl (7-18); Calcium 8.5 mg/dl (8.5-10.1); Carbon Dioxide 28 mmol/L (21-32); Chloride 104 mmol/L (98-107); Creatinine Clr Calc Pharmacy 49.6 ml/min; Est GFR (African American) 78.8; Glucose 97 mg/dl (70-99); Magnesium 2.3 mg/dl (1.8-2.4); Potassium 3.9 mmol/L (3.5-5.1); Sodium 135 mmol/L (136-145)
--- NOTE | 2020-05-13 19:58 | XRay Report ---
XR chest 1V portable HISTORY: 69 years-old Female sob acute shortness of breath COMPARISON: Chest radiographs 08/16/2014 TECHNIQUE: Portable AP view of the chest FINDINGS: Cardiomediastinal and hilar silhouettes are within normal limits. Calcified breast implants. Pleural thickening of the lung apices. Mild chronic interstitial coarsening. No pneumothorax, pleural effusio n, airspace consolidation or overt pulmonary edema. Degenerative changes of the shoulders and spine. Lumbar levoscoliosis. Contrast noted within the bilateral renal collecting systems. IMPRESSION: No acute process. ACT 112: Negative or not required by law. The above report was generated using voice recognition software. It may contain grammatical, syntax o r spelling errors. Electronically signed by: Yrn Biswas M.D. 05/13/2020 7:57 PM
[2020-05-13 20:02] LABS: Partial Thromboplastin Ratio 0.9; Partial Thromboplastin Time 25.6 Seconds (21.0-31.0); Prothrombin Time 10.8 Seconds (9.0-12.0)
[2020-05-13 20:04] LABS: Albumin Globulin Ratio 1.1 (0.9-2); Alkaline Phosphatase 53 U/L (45-117); Bilirubin,Total 0.6 mg/dl (0.2-1); Globulin 3.2 gm/dl (2.5-4.0); Total Protein 6.7 gm/dl (6.4-8.2); Troponin I < 0.015 ng/ml (0-0.045)
--- NOTE | 2020-05-13 20:48 | CT Scan Report ---
CT angio neck with con, CT angio head w con CLINICAL HISTORY: 69 years-old Female with stroke. Acute strokelike symptoms COMPARISON STUDY: Head CT of same day TECHNIQUE: Following the IV administration of 119 mL of Optiray 320, CT angiogram of the head and nec k was performed from the aortic arch to the skull apex. Images are reviewed in the axial, sagittal, a nd coronal planes. 3-D MIPS images are created and assessed. IV contrast was administered without com plication. All measurements were calculated based on NASCET criteria. A dose lowering technique was utilized adhering to the principles of ALARA. CT DOSE: 1092.36 mGycm FINDINGS: The imaged opacified pulmonary artery is patent. Three-vessel morphology of the thoracic aortic arch. Patency of the imaged subclavian arteries, innominate and common carotid arteries. No significant at herosclerotic plaque of the left carotid bulb. There is minimal calcified plaque of the right carotid bulb and proximal right ICA without significant stenosis. The bilateral middle and anterior cerebral arteries are patent. Dominant left vertebral artery. Bilateral vertebral arteries are widely patent and within normal limits. Basilar and posterior cerebral arteries are also widely patent. The cerebra l venous sinuses are patent. There is no abnormal intracranial enhancement. Postoperative changes of right calvarial craniotomy. There is no pneumothorax. Multinodular thyroid. Calcifications with metallic density focus is noted w ithin the posterior epidural distribution the foramen magnum. IMPRESSION:Unremarkable CTA of the head and neck without aneurysm, dissection, high-grade stenosis or proximal branch occlusion. ACT 112: Negative or not required by law. The above report was generated using voice recognition software. It may contain grammatical, syntax o r spelling errors. Electronically signed by: Yrn Biswas M.D. 05/13/2020 8:47 PM
[2020-05-13 21:06] LABS: Appearance Urine Cloudy (Clear); Bacteria Urine Automated Negative (Negative); Bilirubin Urine Negative (Negative); Blood Urine Negative (Negative); Cast Urine Automated 0 /lpf (0-5); Color Urine Yellow; Glucose Urine UA Negative (Negative); Ketones Urine Trace (Negative); Leukocyte Esterase Urine Negative (Negative); Nitrite Urine Negative (Negative); Protein Urine Negative (Negative); RBC Urine Automated 0-4 /hpf (0-4); Specific Gravity Urine > 1.045 (1.000-1.030); Urobilinogen Urine Negative (Negative); pH Urine 8.5 (4.5-7.5)
[2020-05-13 21:35] LABS: Amphetamines+Metham, Urine Neg (Neg); Barbiturates, Urine Neg (Neg); Benzodiazepine, Urine Neg (Neg); Cocaine, Urine Neg (Neg); MDMA (Ecstacy), Urine Neg (Neg); Methadone, Urine Neg (Neg); Opiate, Urine Neg (Neg); Phencyclidine, Urine Neg (Neg)
[2020-05-13] MEDS ORDERED: NORMOSOL-R 500 ML IV ONE (21:39)
[2020-05-13 21:58] LABS: Thyroid Stimulating Hormone 0.695 uIu/ml (0.300-4.500)
--- NOTE | 2020-05-13 22:45 | History & Physical Report ---
Date of Service May 13, 2020 Assessment & Plan (1) SOB (shortness of breath): ? 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 Mac) DVT prophylaxis. Lovenox subcu Full code Patient's requesting updates from providers. Mr. Nicho Burgess, [phone]. Case discussed with Dr. Mac who is in agreement with plan of care and will make a decision regarding IVIG after he evaluates patient in AM. Text document was generated using [email or web address] voice recognition software. It may contain grammatical or spelling errors. Kindly contact undersigned for clarification of any documentation item in question. History of Present Illness Stroke, breast cancer, esophageal cancer, colon cancer Chief Complaint: Shortness of breath Primary Care Provider: Nafisa Fernandez MD History obtained from patient, family, and records. Medical history significant for multiple sclerosis, trigeminal neuralgia, myasthenia gravis, history of vestibular schwannoma surgery, Patient has had multiple sclerosis for about 20 years. 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 Better response to prednisone over Mestinon Rx. Some intolerance to Mestinon. CT chest in 2015 was negative for thymoma. 6 months ago patient noted trouble with chewing things and intermittent ptosis/double vision symptoms as per records. Some improvement with outpatient steroid prescription from neurologist. Patient also dealing with intermittent memory issues, urinary/fecal incontinence, some slurred speech symptoms, fatigue as well. Outpatient MRIs done last month. No new lesions on MRI brain and C-spine. MRI T-spine showed subtle focus within spinal cord at the level of T7 nonspecific but could represent demyelination focus. A few days ago, patient noted increased slurring speech, some incontinence symptoms. Neurologist recommended steroid course and outpatient appointment in a couple of days. After taking first dose of prednisone today, patient felt more short of breath. No chest pain. Usual dry cough symptoms. Some fluttering of the chest. 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 Patient directed by PCP to ER after being seen at the office today. Improvement of shortness of breath/tachypnea with IV fluid administration at the ER. 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 Allergies Allergy/AdvReac Type Severity Reaction Status Date / Time prochlorperazine Allergy Severe THROAT Verified 05/13/20 21:24 CONSTRICTING clarithromycin Allergy Intermediate RASH Verified 05/13/20 21:24 Penicillins Allergy Intermediate RASH Verified 05/13/20 21:24 carbamazepine Allergy Unknown UNKNOWN Verified 05/13/20 21:24 cephalexin Allergy Unknown RASH Verified 05/13/20 21:24 erythromycin base Allergy Unknown RASH Verified 05/13/20 21:24 amoxicillin Allergy Rash Verified 05/13/20 21:26 azithromycin Allergy Rash Verified 05/13/20 21:24 oxycodone AdvReac Unknown HALLUCINATI Verified 05/13/20 21:24 ONS promethazine AdvReac Unknown LEGS SHOOK Verified 05/13/20 21:24 aspirin [From Percodan] AdvReac Hallucinati Verified 05/13/20 21:26 ng Home Medications Home Medications Medication Instructions Recorded Confirmed Type Sustane 1 drp OPB BID PRN 05/13/20 05/13/20 History acetaminophen [Tylenol Extra 1,000 mg PO Q6H PRN 05/13/20 05/13/20 History Strength] albuterol sulfate 2 inh INHALATION Q4 PRN 05/13/20 05/13/20 History fluoxetine [Prozac] 20 mg PO DAILY 05/13/20 05/13/20 History gabapentin [Neurontin] 200 mg PO TID PRN 05/13/20 05/13/20 History melatonin 5 mg PO HS 05/13/20 05/13/20 History multivitamin 1 tab PO DAILY 05/13/20 05/13/20 History prednisone 30 mg PO Q OTHER DAY 05/13/20 05/13/20 History trazodone 100 mg PO HS 05/13/20 05/13/20 History Past Med/Surg History Medical History Depression Myasthenia gravis Social History Smoking Status: Never smoker Second Hand Exposure: No; Do You Dip or Chew Tobacco: No; Tobacco Cessation Education Requested by Patient: No Hx Alcohol Use: No Hx Substance Use: No Preferred Language: Telugu Communication Ability: Effective Physical Chemist Required: No Beliefs That Will Affect Care: None Current Living Situation: Spouse Other Information That Helps Us Care for You: No Feels Safe at Home: Yes Safety Concerns: Feels Safe At This Time Assistive Devices: None Review of Systems Review of Systems: As per HPI, all 10 systems reviewed, all other ROS negative Physical Exam Physical Exam: GENERAL: Comfortable, slightly anxious, no respiratory distress, mild dysarthria SKIN: Normal color, warm HEENT: Bespectacled, ptosis right, pink palpebral conjunctivae, dry buccal mucosa, nasal cannula in place NECK : Supple, no tenderness CHEST : CTA, no tenderness HEART : RRR, no obvious murmurs ABDOMEN: Some distention, nontender EXTREMITIES : No LE swelling/tenderness, no other conspicuous deformities noted NEUROLOGIC : Coherent, ptosis right, R facial asymmetry, gait and stance not assessed Results & Data Results & Data ([facility]) Vital Signs (Past 12 Hours) Vital Signs Temp Pulse Resp BP Pulse Ox 05/13/20 21:30 113 H 17 137/81 98 05/13/20 21:00 84 22 127/73 98 05/13/20 20:54 85 21 130/74 98 05/13/20 20:30 83 19 126/79 99 05/13/20 20:00 82 18 126/78 99 05/13/20 19:30 87 31 H 132/77 100 05/13/20 19:29 97 05/13/20 19:20 88 34 H 143/83 H 99 05/13/20 18:50 36.9 C 80 26 H 124/86 98 Laboratory Results 05/13/20 05/13/20 05/13/20 19:27 19:27 19:27 WBC 5.54 RBC 4.18 L Hgb 13.2 Hct 39.2 MCV 93.8 MCH 31.6 MCHC 33.7 RDW Std Deviation 42.6 RDW Coeff of Sandra 12.5 Plt Count 302 MPV 10.9 H Immature Gran % (Auto) 0.2 Neut % (Auto) 88.2 Lymph % (Auto) 10.5 [place] % (Auto) 0.7 Eos % (Auto) 0.2 Baso % (Auto) 0.2 Neut # (Auto) 4.89 Lymph # (Auto) 0.58 L [place] # (Auto) 0.04 L Eos # (Auto) 0.01 Baso # (Auto) 0.01 Immature Gran # (Auto) 0.01 PT 10.8 INR 1.0 APTT 25.6 PTT Ratio 0.9 D-Dimer Sodium Potassium Chloride Carbon Dioxide Anion Gap BUN Creatinine Est Cr Clr Drug Dosing Est GFR ( Amer) Est GFR (Non-Af Amer) BUN/Creatinine Ratio Glucose Calcium Magnesium Total Bilirubin AST ALT Alkaline Phosphatase Troponin I Total Protein Albumin Globulin Albumin/Globulin Ratio TSH Urine Color Urine Appearance Urine pH Ur Specific [place] Urine Protein Urine Glucose (UA) Urine Ketones Urine Blood Urine Nitrite Urine Bilirubin Urine Urobilinogen Ur Leukocyte Esterase Urine WBC (Auto) Urine RBC (Auto) U Hyaline Cast (Auto) U Epithel Cells (Auto) Urine Bacteria (Auto) Urine Opiates Screen Ur Methadone, Qual Urine Barbiturates Ur Phencyclidine (PCP) U Amphetamin/Meth Scrn MDMA (Ecstasy) Screen U Benzodiazepines Scrn Ur Cocaine Metabolite U Marijuana (THC) Screen COVID-19 Eval Order COVID-19 PCR Blood Type A Positive Antibody Screen NEGATIVE 05/13/20 05/13/20 05/13/20 19:27 19:27 20:50 WBC RBC Hgb Hct MCV MCH MCHC RDW Std Deviation RDW Coeff of Sandra Plt Count MPV Immature Gran % (Auto) Neut % (Auto) Lymph % (Auto) [place] % (Auto) Eos % (Auto) Baso % (Auto) Neut # (Auto) Lymph # (Auto) [place] # (Auto) Eos # (Auto) Baso # (Auto) Immature Gran # (Auto) PT INR APTT PTT Ratio D-Dimer 390 Sodium 135 L Potassium 3.9 Chloride 104 Carbon Dioxide 28 Anion Gap 3.0 BUN 15 Creatinine 0.86 Est Cr Clr Drug Dosing 49.6 Est GFR ( Amer) 78.8 Est GFR (Non-Af Amer) 68.0 BUN/Creatinine Ratio 17.1 Glucose 97 Calcium 8.5 Magnesium 2.3 Total Bilirubin 0.6 AST 15 ALT 18 Alkaline Phosphatase 53 Troponin I < 0.015 Total Protein 6.7 Albumin 3.5 Globulin 3.2 Albumin/Globulin Ratio 1.1 TSH 0.695 Urine Color Yellow Urine Appearance Cloudy A Urine pH 8.5 H Ur Specific [place] > 1.045 H Urine Protein Negative Urine Glucose (UA) Negative Urine Ketones Trace H Urine Blood Negative Urine Nitrite Negative Urine Bilirubin Negative Urine Urobilinogen Negative Ur Leukocyte Esterase Negative Urine WBC (Auto) 1-5 Urine RBC (Auto) 0-4 U Hyaline Cast (Auto) 0 U Epithel Cells (Auto) 10-20 H Urine Bacteria (Auto) Negative Urine Opiates Screen Ur Methadone, Qual Urine Barbiturates Ur Phencyclidine (PCP) U Amphetamin/Meth Scrn MDMA (Ecstasy) Screen U Benzodiazepines Scrn Ur Cocaine Metabolite U Marijuana (THC) Screen COVID-19 Eval Order COVID-19 PCR Blood Type Antibody Screen 05/13/20 05/13/20 05/13/20 20:50 22:15 22:15 WBC RBC Hgb Hct MCV MCH MCHC RDW Std Deviation RDW Coeff of Sandra Plt Count MPV Immature Gran % (Auto) Neut % (Auto) Lymph % (Auto) [place] % (Auto) Eos % (Auto) Baso % (Auto) Neut # (Auto) Lymph # (Auto) [place] # (Auto) Eos # (Auto) Baso # (Auto) Immature Gran # (Auto) PT INR APTT PTT Ratio D-Dimer Sodium Potassium Chloride Carbon Dioxide Anion Gap BUN Creatinine Est Cr Clr Drug Dosing Est GFR ( Amer) Est GFR (Non-Af Amer) BUN/Creatinine Ratio Glucose Calcium Magnesium Total Bilirubin AST ALT Alkaline Phosphatase Troponin I Total Protein Albumin Globulin Albumin/Globulin Ratio TSH Urine Color Urine Appearance Urine pH Ur Specific [place] Urine Protein Urine Glucose (UA) Urine Ketones Urine Blood Urine Nitrite Urine Bilirubin Urine Urobilinogen Ur Leukocyte Esterase Urine WBC (Auto) Urine RBC (Auto) U Hyaline Cast (Auto) U Epithel Cells (Auto) Urine Bacteria (Auto) Urine Opiates Screen Neg Ur Methadone, Qual Neg Urine Barbiturates Neg Ur Phencyclidine (PCP) Neg U Amphetamin/Meth Scrn Neg MDMA (Ecstasy) Screen Neg U Benzodiazepines Scrn Neg Ur Cocaine Metabolite Neg U Marijuana (THC) Screen Neg COVID-19 Eval Order Covid19 Done at [facility] COVID-19 PCR NEGATIVE Blood Type Antibody Screen Diagnostic Findings CT head: Chronic findings as above without acute intracranial abnormality. CTA head neck: Unremarkable CTA of the head and neck without aneurysm, dissection, high-grade stenosis or proximal branch occlusion. Chest x-ray : No acute process EKG as per my interpretation : Rate 85, NSR, LAD, LAFB, incomplete RBBB, T wave abnormalities septal leads
[2020-05-13 22:51] LABS: D Dimer 390 ug/L FEU (0-500)
[2020-05-14] MEDS ORDERED: GABAPENTIN 100 MG CAP PO PRN (04:47)
[2020-05-14] MEDS ORDERED: ONDANSETRON INJ 2 MG/ML 2 ML VIAL IV PRN (04:47)
[2020-05-14] MEDS ORDERED: ACETAMINOPHEN 325 MG TAB PO PRN (04:47)
[2020-05-14] MEDS ORDERED: ARTIFICIAL TEARS OP PRN (04:57)
[2020-05-14] MEDS ORDERED: MULTIVITAMIN TAB PO SCH (09:00)
[2020-05-14] MEDS ORDERED: ENOXAPARIN INJ 30 MG/0.3 ML SYR SQ SCH (09:00)
[2020-05-14] MEDS ORDERED: FLUoxetine HCL 20 MG CAP PO SCH (09:00)
--- NOTE | 2020-05-14 10:26 | Hospitalist Progress Note ---
Date of Service May 14, 2020 Assessment & Plan (1) Myasthenia gravis: History of myasthenia gravis, now with apparent flare. No acute findings on CT brain or CTA head & neck. Worsening symptoms despite initiation of prednisone as outpatient. NIF has worsened from -30 last night to -20 this morning. Patient is in no distress and is able to speak in full sentences; she is able to count to 39 with one breath. Case discussed with Neurology. Plasmapheresis recommended. It is not performed here, so pt will need transfer to tertiary care. (2) Dyspnea: Presented with SOB Oxymask 4 LPM utilized in ED, but no documented hypoxia. O2 sats now in mid 90's on RA. No infiltrates on chest x-ray. D-dimer normal, so pulmonary embolism very unlikely. SARS-CoV-2 PCR negative. NIFS -30 --> -20. Dyspnea probably secondary to flare of myasthenia gravis. (3) COVID-19 ruled out: SARS-CoV-2 in ED negative. (4) DVT prophylaxis: SQ enoxaparin. Ambulate. (5) Discharge planning issues: Patient requires transfer to tertiary care for plasmapheresis. Case discussed with Ko Buitrago (CCM at [facility]) who accepts the patient in transfer. Internal Medicine follow-up with Dr. Nafisa Fernandez. Neurology follow-up with Dr. Hanson. Daughter Vicky given update by phone. Admission and Anticipated Discharge Date Admission Date: May 14, 2020 Subjective Recheck for weakness and SOB. Patient seen in their room around 0910. Admitted last night with SOB, dysarthria, worsening right ptosis and right facial palsy. History of myasthenia gravis. Feels a little better this morning- less SOB. NIF performed by respiratory therapy was -20. Able to swallow her meds this morning, but having trouble swallowing saliva. No fever or cough. Ambulatory. Review of Systems: Constitutional- as noted above. Cardiac- no chest pain. Pulmonary- as noted above. GI- no nausea, vomiting, diarrhea, melena, hematochezia. - no urinary symptoms. Otherwise, as noted above. Physical Exam Constitutional: no acute distress Respiratory: no respiratory distress Auscultation: lungs clear to auscultation bilaterally Cardiovascular: Rate/Rhythm: regular rate and regular rhythm Heart Sounds: no gallop, no murmur and no cardiac rub Vessels: no JVD Extremities: no calf tenderness and no edema Gastrointestinal (Abdomen): normal bowel sounds, soft, nontender, no hepatosplenomegaly Musculoskeletal: Extremities: no cyanosis Skin: no rashes, warm and dry Neurologic: alert right ptosis right facial palsy pupils reactive moderate dysarthria motor strength upper and lower extremities 5/5 Psychiatric: Orientation: alert and oriented x 3 Results & Data Results & Data ([facility]) Vital Signs (Past 12 Hours) Vital Signs Temp Pulse Pulse Resp BP BP BP 05/14/20 06:59 37.1 C 81 19 116/70 05/14/20 02:12 37.0 C 79 18 131/83 05/13/20 23:31 19 05/13/20 23:30 21 124/77 05/13/20 23:01 19 05/13/20 23:00 17 121/70 05/13/20 22:30 90 20 125/73 Pulse Ox 05/14/20 06:59 96 05/14/20 02:12 96 05/13/20 23:31 95 05/13/20 23:30 95 05/13/20 23:01 05/13/20 23:00 05/13/20 22:30 98 Laboratory Results Laboratory Results - last 24 hr 05/13/20 05/13/20 05/13/20 19:27 19:27 19:27 WBC 5.54 RBC 4.18 L Hgb 13.2 Hct 39.2 MCV 93.8 MCH 31.6 MCHC 33.7 RDW Std Deviation 42.6 RDW Coeff of Sandra 12.5 Plt Count 302 MPV 10.9 H Immature Gran % (Auto) 0.2 Neut % (Auto) 88.2 Lymph % (Auto) 10.5 [place] % (Auto) 0.7 Eos % (Auto) 0.2 Baso % (Auto) 0.2 Neut # (Auto) 4.89 Lymph # (Auto) 0.58 L [place] # (Auto) 0.04 L Eos # (Auto) 0.01 Baso # (Auto) 0.01 Immature Gran # (Auto) 0.01 PT 10.8 INR 1.0 APTT 25.6 PTT Ratio 0.9 D-Dimer Sodium Potassium Chloride Carbon Dioxide Anion Gap BUN Creatinine Est Cr Clr Drug Dosing Est GFR ( Amer) Est GFR (Non-Af Amer) BUN/Creatinine Ratio Glucose Calcium Magnesium Total Bilirubin AST ALT Alkaline Phosphatase Troponin I Total Protein Albumin Globulin Albumin/Globulin Ratio TSH Urine Color Urine Appearance Urine pH Ur Specific [place] Urine Protein Urine Glucose (UA) Urine Ketones Urine Blood Urine Nitrite Urine Bilirubin Urine Urobilinogen Ur Leukocyte Esterase Urine WBC (Auto) Urine RBC (Auto) U Hyaline Cast (Auto) U Epithel Cells (Auto) Urine Bacteria (Auto) Urine Opiates Screen Ur Methadone, Qual Urine Barbiturates Ur Phencyclidine (PCP) U Amphetamin/Meth Scrn MDMA (Ecstasy) Screen U Benzodiazepines Scrn Ur Cocaine Metabolite U Marijuana (THC) Screen COVID-19 Eval Order COVID-19 PCR Blood Type A Positive Antibody Screen NEGATIVE 05/13/20 05/13/20 05/13/20 19:27 19:27 20:50 WBC RBC Hgb Hct MCV MCH MCHC RDW Std Deviation RDW Coeff of Sandra Plt Count MPV Immature Gran % (Auto) Neut % (Auto) Lymph % (Auto) [place] % (Auto) Eos % (Auto) Baso % (Auto) Neut # (Auto) Lymph # (Auto) [place] # (Auto) Eos # (Auto) Baso # (Auto) Immature Gran # (Auto) PT INR APTT PTT Ratio D-Dimer 390 Sodium 135 L Potassium 3.9 Chloride 104 Carbon Dioxide 28 Anion Gap 3.0 BUN 15 Creatinine 0.86 Est Cr Clr Drug Dosing 49.6 Est GFR ( Amer) 78.8 Est GFR (Non-Af Amer) 68.0 BUN/Creatinine Ratio 17.1 Glucose 97 Calcium 8.5 Magnesium 2.3 Total Bilirubin 0.6 AST 15 ALT 18 Alkaline Phosphatase 53 Troponin I < 0.015 Total Protein 6.7 Albumin 3.5 Globulin 3.2 Albumin/Globulin Ratio 1.1 TSH 0.695 Urine Color Yellow Urine Appearance Cloudy A Urine pH 8.5 H Ur Specific [place] > 1.045 H Urine Protein Negative Urine Glucose (UA) Negative Urine Ketones Trace H Urine Blood Negative Urine Nitrite Negative Urine Bilirubin Negative Urine Urobilinogen Negative Ur Leukocyte Esterase Negative Urine WBC (Auto) 1-5 Urine RBC (Auto) 0-4 U Hyaline Cast (Auto) 0 U Epithel Cells (Auto) 10-20 H Urine Bacteria (Auto) Negative Urine Opiates Screen Ur Methadone, Qual Urine Barbiturates Ur Phencyclidine (PCP) U Amphetamin/Meth Scrn MDMA (Ecstasy) Screen U Benzodiazepines Scrn Ur Cocaine Metabolite U Marijuana (THC) Screen COVID-19 Eval Order COVID-19 PCR Blood Type Antibody Screen 05/13/20 05/13/20 05/13/20 20:50 22:15 22:15 WBC RBC Hgb Hct MCV MCH MCHC RDW Std Deviation RDW Coeff of Sandra Plt Count MPV Immature Gran % (Auto) Neut % (Auto) Lymph % (Auto) [place] % (Auto) Eos % (Auto) Baso % (Auto) Neut # (Auto) Lymph # (Auto) [place] # (Auto) Eos # (Auto) Baso # (Auto) Immature Gran # (Auto) PT INR APTT PTT Ratio D-Dimer Sodium Potassium Chloride Carbon Dioxide Anion Gap BUN Creatinine Est Cr Clr Drug Dosing Est GFR ( Amer) Est GFR (Non-Af Amer) BUN/Creatinine Ratio Glucose Calcium Magnesium Total Bilirubin AST ALT Alkaline Phosphatase Troponin I Total Protein Albumin Globulin Albumin/Globulin Ratio TSH Urine Color Urine Appearance Urine pH Ur Specific [place] Urine Protein Urine Glucose (UA) Urine Ketones Urine Blood Urine Nitrite Urine Bilirubin Urine Urobilinogen Ur Leukocyte Esterase Urine WBC (Auto) Urine RBC (Auto) U Hyaline Cast (Auto) U Epithel Cells (Auto) Urine Bacteria (Auto) Urine Opiates Screen Neg Ur Methadone, Qual Neg Urine Barbiturates Neg Ur Phencyclidine (PCP) Neg U Amphetamin/Meth Scrn Neg MDMA (Ecstasy) Screen Neg U Benzodiazepines Scrn Neg Ur Cocaine Metabolite Neg U Marijuana (THC) Screen Neg COVID-19 Eval Order Covid19 Done at [facility] COVID-19 PCR NEGATIVE Blood Type Antibody Screen
--- NOTE | 2020-05-14 10:54 | Discharge Summary ---
Date of Service Date of Admission: 05/13/20 Date of Discharge: 05/14/20 Admission HPI Per Admitting Provider History obtained from patient, family, and records. Medical history significant for multiple sclerosis, trigeminal neuralgia, myasthenia gravis, history of vestibular schwannoma surgery, Patient has had multiple sclerosis for about 20 years. 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 Better response to prednisone over Mestinon Rx. Some intolerance to Mestinon. CT chest in 2015 was negative for thymoma. 6 months ago patient noted trouble with chewing things and intermittent ptosi s/double vision symptoms as per records. Some improvement with outpatient steroid prescription from neurologist. Patient also dealing with intermittent memory issues, urinary/fecal incontinence, some slurred speech symptoms, fatigue as well. Outpatient MRIs done last month. No new lesions on MRI brain and C-spine. MRI T-spine showed subtle focus within spinal cord at the level of T7 nonspecific but could represent demyelination focus. A few days ago, patient noted increased slurring speech, some incontinence symptoms. Neurologist recommended steroid course and outpatient appointment in a couple of days. After taking first dose of prednisone today, patient felt more short of breath. No chest pain. Usual dry cough symptoms. Some fluttering of the chest. 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 Patient directed by PCP to ER after being seen at the office today. Improvement of shortness of breath/tachypnea with IV fluid administration at the ER. Principal Diagnosis flare myasthenia gravis Discharge Data Allergies Allergy/AdvReac Type Severity Reaction Status Date / Time prochlorperazine Allergy Severe THROAT Verified 05/13/20 21:24 CONSTRICTING clarithromycin Allergy Intermediate RASH Verified 05/13/20 21:24 Penicillins Allergy Intermediate RASH Verified 05/13/20 21:24 carbamazepine Allergy Unknown UNKNOWN Verified 05/13/20 21:24 cephalexin Allergy Unknown RASH Verified 05/13/20 21:24 erythromycin base Allergy Unknown RASH Verified 05/13/20 21:24 amoxicillin Allergy Rash Verified 05/13/20 21:26 azithromycin Allergy Rash Verified 05/13/20 21:24 oxycodone AdvReac Unknown HALLUCINATI Verified 05/13/20 21:24 ONS promethazine AdvReac Unknown LEGS SHOOK Verified 05/13/20 21:24 aspirin [From Percodan] AdvReac Hallucinati Verified 05/13/20 21:26 ng Consultations 05/13/20 20:57 ED Decision to Admit Stat 05/14/20 10:03 Burn CD for patient Routine Ordered Studies 05/13/20 19:00 CT angio head w con Stat CT angio neck with con Stat CT head/brain wo con Stat Hospital Course (1) Myasthenia gravis: Presented to ED with weakness, right ptosis, right facial palsy, dysarthria, dysphagia (saliva), SOB. History of myasthenia gravis, now with apparent flare. No acute findings on CT brain or CTA head & neck. Worsening symptoms despite initiation of prednisone as outpatient. NIF has worsened from -30 last night to -20 this morning. Patient is in no distress and is able to speak in full sentences; she is able to count to 39 with one breath. Case discussed with Neurology. Plasmapheresis recommended. It is not performed here, so pt will need transfer to tertiary care. (2) Dyspnea: Presented with SOB Oxymask 4 LPM utilized in ED, but no documented hypoxia. O2 sats now in mid 90's on RA. No infiltrates on chest x-ray. D-dimer normal, so pulmonary embolism very unlikely. SARS-CoV-2 PCR negative. NIF's -30 --> -20. Dyspnea probably secondary to flare of myasthenia gravis. (3) COVID-19 ruled out: SARS-CoV-2 in ED negative. (4) DVT prophylaxis: SQ enoxaparin. Ambulate. (5) Discharge planning issues: Patient requires transfer to tertiary care for plasmapheresis. Case discussed with [facility] ([facility]) who accepts the patient in transfer. Internal Medicine follow-up with Dr. Nafisa Fernandez. Neurology follow-up with Dr. Hanson. Active Inpatient Medications Acetaminophen (Acetaminophen 325 Mg Tab) 650 mg PO Q4H PRN PRN Reason: Pain or Fever Stop: 06/13/20 04:46 Artificial Tears (Artificial Tears) 1 drops OP BID PRN PRN Reason: Dry Eyes Stop: 06/13/20 04:56 Enoxaparin Sodium (Enoxaparin Inj 30 Mg/0.3 Ml Syr) 30 mg SQ QAM CORNELIA Stop: 06/13/20 08:59 Last Admin: 05/14/20 08:15 Dose: 30 mg Documented by: Fluoxetine HCl (Fluoxetine Hcl 20 Mg Cap) 20 mg PO DAILY CORNELIA Stop: 06/13/20 08:59 Last Admin: 05/14/20 08:16 Dose: 20 mg Documented by: Gabapentin (Gabapentin 100 Mg Cap) 200 mg PO TID PRN PRN Reason: Pain Stop: 06/13/20 04:46 Last Admin: 05/14/20 08:16 Dose: 200 mg Documented by: Melatonin (Melatonin 3 Mg Tab) 3 mg PO HS CORNELIA Stop: 06/13/20 20:59 Multivitamins (Multivitamin Tab) 1 tab PO DAILY CORNELIA Stop: 06/13/20 08:59 Last Admin: 05/14/20 08:16 Dose: 1 tab Documented by: Ondansetron HCl (Ondansetron Inj 2 Mg/Ml 2 Ml Vial) 4 mg IV Q6H PRN PRN Reason: nv Stop: 06/13/20 04:46 Prednisone (Prednisone 10 Mg Tablet) 30 mg PO Q2D@0900 CORNELIA Stop: 06/14/20 08:59 Trazodone HCl (Trazodone Hcl 100 Mg Tab) 100 mg PO HS CORNELIA Stop: 06/13/20 20:59 Total Time Total Time Spent Total Time Spent (In Minutes): 50 Discharge Plan Discharge Items Patient Disposition: Transfer Acute Care Hospital Reason For Visit: weakness, shortness of breath Discharge Diagnosis: flare of myasthenia gravis Condition on Discharge: Fair Activity: As commented below Activity Comment: with assistance Non-emergency contact: Primary Care Provider and Neurologist Call non-emergency contact if: you have any medication questions and your symptoms worsen Follow-up/Referrals: Theo Hanson MD [Physician] - Nafisa Fernandez MD [Primary Care Provider] - Diet: Nothing by Mouth Addtl Attending Provider Instructions: NPO pending swallowing evaluation by [facility]. Aspiration precautions. Fall precautions. Images sent to [facility] PACS and should also accompany patient. Please note: Home medications noted below are patient's usual home medications. Current inpatient meds are listed at the end of Hospital Course in the DC summary. Thank you for receiving this patient in transfer. Please call or TigerText if you have any questions. hTeo Sánchez Pending Studies at Discharge: No Stand-Alone Forms: My [facility] Skilled Items Patient informed of condition?: Yes DNR: No Discharge Level of Care: Other Communicable Disease: No Discharge Prognosis: Stable Lines: Peripheral IV Urinary Catheter: No Medications and DC Order Prescriptions: Continued multivitamin Tablet 1 tab PO DAILY RF: 0 prednisone 20 mg tablet 30 mg PO Q OTHER DAY RF: 0 acetaminophen [Tylenol Extra Strength] 500 mg Tablet 1,000 mg PO Q6H PRN (Reason: Pain) RF: 0 trazodone 100 mg tablet 100 mg PO HS RF: 0 gabapentin [Neurontin] 100 mg capsule 200 mg PO TID PRN (Reason: Pain) RF: 0 albuterol sulfate 90 mcg/actuation HFA aerosol inhaler 2 inh INHALATION Q4 PRN (Reason: Wheezing) RF: 0 fluoxetine [Prozac] 20 mg capsule 20 mg PO DAILY RF: 0 melatonin 5 mg Tablet 5 mg PO HS RF: 0 Sustane 1 drp OPB BID PRN (Reason: Dry Eyes) RF: 0 Admission Data Admit Date/Time: 05/14/20 09:04 Attending Provider: Theo Sánchez Admit Provider: Reese Aguilar Primary Care Provider: Nafisa Fernandez Other Providers: Reese Aguilar
[2020-05-14] MEDS ORDERED: traZODone HCL 100 MG TAB PO SCH (21:00)
[2020-05-14] MEDS ORDERED: MELATONIN 3 MG TAB PO SCH (21:00)
[2020-05-15] MEDS ORDERED: predniSONE 10 MG TABLET PO SCH (09:00)
== END 2020-05-14 13:01 | disposition short-term general hospital (02) | DRG 57 ==
LOC: 2S 18:30 → ED 18:30 → 2S 05-14 02:01

== ENCOUNTER 2021-02-12 18:31 | Observation (INO) ==
[2021-02-12] MEDS ORDERED: SODIUM CHLORIDE 0.9% 1000ML 1,000 ML IV SCH (22:30)
--- NOTE | 2021-02-12 22:51 | Emergency Department Note ---
History of Present Illness General Chief complaint: Weakness Stated complaint: MYASTHENIA GRAVIS, RGT HIP CAN'T SUPPORT WT, Time Seen by Provider: 02/12/21 21:17 Source: patient and family Mode of arrival: wheelchair Limitations: no limitations History of Present Illness Provider complaint: needs admitted for evaluation for [facility] Maximum Pain Intensity: 7 This is a 70-year-old female presents the emergency department stating she needs admitted here overnight for neurology and cardiology evaluation prior to being able to be admitted at [facility]. Patient was recently admitted at a [facility] as while she was on vacation with family she had a flare of her myasthenia gravis. Family bedside states she spent 11 days in the ICU. States she was just discharged yesterday. They drove to family's house yesterday and then drove the rest of the way home today. The original plan from the [place] facility was for her to be admitted at [facility] where she has been previously. While they were driving here, they were called and told by [facility] that they could not be directly admitted there that they need to be reevaluated here as they had just been hospitalized elsewhere and should see her local neurologist Dr. Hanson. Patient also has a history of MS, she is on chronic steroids. Family states they did bring accompanying paperwork from the prior facility for review. Family also states there was some concern about pain in her right hip. Patient states this began while she was hospitalized and she feels it was from laying in certain positions for too long. Pt seen during a time of high acuity and national emergency pandemic while wearing PPE. Home Medications Medication Instructions Recorded Confirmed Type albuterol sulfate 90 mcg/actuation 2 inh INHALATION Q4 PRN 05/13/20 02/12/21 History aerosol inhaler fluoxetine 20 mg capsule (Prozac) 20 mg FEEDING TUBE QAM 05/13/20 02/12/21 History gabapentin 100 mg capsule 200 mg FEEDING TUBE TIDM 05/13/20 02/12/21 History (Neurontin) melatonin 5 mg tablet 5 mg FEEDING TUBE HS 05/13/20 02/12/21 History trazodone 100 mg tablet 100 mg FEEDING TUBE HS 05/13/20 02/12/21 History glycopyrrolate 1 mg tablet 1 mg FEEDING TUBE TIDM 12/19/20 02/12/21 History pyridostigmine bromide 60 mg tablet 60 mg FEEDING TUBE QID 12/19/20 02/12/21 History apixaban 5 mg tablet (Eliquis) 5 mg FEEDING TUBE AMHS 02/12/21 02/12/21 History azathioprine 50 mg tablet 50 mg FEEDING TUBE QAM 02/12/21 02/12/21 History famotidine 20 mg tablet 20 mg FEEDING TUBE QAM 02/12/21 02/12/21 History prednisone 20 mg tablet 60 mg FEEDING TUBE QAM 02/12/21 02/12/21 History amiodarone 200 mg PEG DAILY 02/13/21 02/13/21 History quetiapine 25 mg PEG HS 02/13/21 02/13/21 History Allergies Allergy/AdvReac Type Severity Reaction Status Date / Time prochlorperazine Allergy Severe THROAT Verified 02/12/21 21:21 CONSTRICTING clarithromycin Allergy Intermediate RASH Verified 02/12/21 21:21 Penicillins Allergy Intermediate RASH Verified 02/12/21 21:21 amoxicillin Allergy Mild Rash Verified 02/12/21 21:21 azithromycin Allergy Mild Rash Verified 02/12/21 21:21 cephalexin Allergy Mild RASH Verified 02/12/21 21:21 erythromycin base Allergy Mild RASH Verified 02/12/21 21:21 carbamazepine Allergy Unknown UNKNOWN Verified 02/12/21 21:21 aspirin [From Percodan] AdvReac Intermediate Hallucinati Verified 02/12/21 21:21 ng oxycodone AdvReac Intermediate HALLUCINATI Verified 02/12/21 21:21 ONS promethazine AdvReac Intermediate LEGS SHOOK Verified 02/12/21 21:21 Past Med/Surg History Medical History (Updated 02/14/21 @ 00:07 by Carmen Cifuentes) Depression Hip pain, right Multiple sclerosis Myasthenia gravis Myasthenia gravis Trochanteric bursitis of left hip Trochanteric bursitis, right hip Weakness Surgical History (Updated 12/19/20 @ 19:38 by Malick Alves DO) S/P T&A (status post tonsillectomy and adenoidectomy) S/P total hip arthroplasty Social History Smoking Status: Never smoker Tobacco Type: Cigarettes Second Hand Exposure: No; Do You Dip or Chew Tobacco: No; Tobacco Cessation Education Requested by Patient: No Hx Alcohol Use: No Hx Substance Use: No Preferred Language: Albanian Communication Ability: Effective Legal Compliance Officer Required: No Beliefs That Will Affect Care: None Current Living Situation: Spouse Other Information That Helps Us Care for You: No Feels Safe at Home: Yes Safety Concerns: Feels Safe At This Time Assistive Devices: None and Walker Review of Systems A total of 10 systems reviewed and were otherwise negative All systems reviewed & are unremarkable except as noted in HPI & below Physical Exam Vital Signs Vital Signs - 24 hr 02/12/21 18:59 02/12/21 21:40 02/12/21 21:43 Temperature 36.4 C L Temperature Source Temporal Artery Scan Pulse Rate 67 Pulse Rate [Radial] 65 Pulse Rhythm [Radial] Respiratory Rate 18 16 Respiratory Effort / Characteristics Non-Labored Spontaneous Respiratory Depth Normal Blood Pressure 110/65 Blood Pressure [Left Arm] 125/79 Blood Pressure Mean 80 Blood Pressure Mean [Left Arm] 94 Pulse Oximetry 96 97 Oxygen Delivery Method Room Air Room Air Room Air Sepsis Recent Fever Within 48 Hours No Sepsis New/Unexplained Change in Mental Status No Sepsis Action Taken by Nursing No Action Required 02/12/21 23:00 Temperature Temperature Source Pulse Rate Pulse Rate [Radial] 64 Pulse Rhythm [Radial] Regular Respiratory Rate 18 Respiratory Effort / Characteristics Respiratory Depth Blood Pressure Blood Pressure [Left Arm] 117/71 Blood Pressure Mean Blood Pressure Mean [Left Arm] 86 Pulse Oximetry 96 Oxygen Delivery Method Room Air Sepsis Recent Fever Within 48 Hours Sepsis New/Unexplained Change in Mental Status Sepsis Action Taken by Nursing GENERAL: alert, well appearing, well nourished, no distress, non-toxic EYE EXAM: normal conjunctiva, PERRL and EOM's grossly intact OROPHARYNX: no exudate, no erythema, lips, buccal mucosa, and tongue normal and mucous membranes are moist NECK: supple, no nuchal rigidity, no adenopathy, non-tender LUNGS: Clear to auscultation. Normal chest wall mechanics, no w/r/r HEART: no murmurs, S1 normal and S2 normal ABDOMEN: abdomen soft, non-tender, normo-active bowel sounds, no masses, no rebound or guarding. PEG tube noted. BACK: Back is symmetrical on inspection and there is no deformity, no midline tenderness, no CVA tenderness. SKIN: no rashes and no bruising UPPER EXTREMITIES: upper extremities are grossly normal. FROM, nml pulses b/l. LOWER EXTREMITIES: No pitting edema. FROM, nml pulses b/l. NEURO EXAM: Normal sensorium, cranial nerves II-XII grossly intact, normal speech, no gross weakness of arms, no gross weakness of legs. Gross sensation intact. Course Course 2310: Discussed with Dr. Mayers. Case management did confirm the events with [facility]. [facility] Mayers was aware that the patient may arrive. Administered Medications Discontinued Medications Acetaminophen (Acetaminophen Susp 325 Mg/10.15 Ml Udc) 325 mg PEG Q6H PRN PRN Reason: Mild Pain Stop: 03/15/21 03:25 Last Admin: 02/13/21 04:52 Dose: 325 mg Documented by: [id number] Apixaban (Apixaban 2.5 Mg Tab) 5 mg PO NOW STA Stop: 02/13/21 02:18 Last Admin: 02/13/21 04:44 Dose: 5 mg Documented by: [id number] Apixaban (Apixaban 5 Mg Tablet) 5 mg PO AMHS CORNELIA Stop: 03/15/21 08:59 Last Admin: 02/13/21 09:27 Dose: 5 mg Documented by: [id number] Azathioprine (Azathioprine 50 Mg Tab) 50 mg PO QAM CORNELIA Stop: 02/14/21 09:01 Last Admin: 02/13/21 09:27 Dose: 50 mg Documented by: [id number] Famotidine (Famotidine Susp 20 Mg/2.5 Ml Udp) 20 mg NG QAM CORNELIA Stop: 03/15/21 08:59 Last Admin: 02/13/21 09:28 Dose: 20 mg Documented by: [id number] Fluoxetine HCl (Fluoxetine Hcl 20 Mg/5 Ml Udp) 20 mg GT QAM CORNELIA Stop: 03/15/21 08:59 Last Admin: 02/13/21 09:28 Dose: 20 mg Documented by: [id number] Gabapentin (Gabapentin 250 Mg/5 Ml 470 Ml Btl) 200 mg PEG TIDM CORNELIA Stop: 03/15/21 07:59 Last Admin: 02/13/21 12:55 Dose: Not Given Documented by: [id number] Admin: 02/13/21 09:25 Dose: 200 mg Documented by: [id number] Gabapentin (Gabapentin 100 Mg Cap) 200 mg PO TIDM CORNELIA Stop: 03/15/21 11:59 Last Admin: 02/13/21 16:45 Dose: 200 mg Documented by: [id number] Admin: 02/13/21 12:38 Dose: 200 mg Documented by: [id number] Glycopyrrolate (Glycopyrrolate 1 Mg Tab) 1 mg PO TIDM CORNELIA Stop: 03/15/21 07:59 Last Admin: 02/13/21 17:27 Dose: 1 mg Documented by: [id number] Admin: 02/13/21 12:37 Dose: 1 mg Documented by: [id number] Admin: 02/13/21 09:26 Dose: 1 mg Documented by: [id number] Sodium Chloride (Nss 1000ml) 1,000 mls @ 125 mls/hr IV .Q8H CORNELIA Stop: 03/14/21 22:29 Last Infusion: 02/13/21 07:30 Dose: 0 mls/hr Documented by: [id number] Admin: 02/12/21 23:12 Dose: 125 mls/hr Documented by: [id number] Metoprolol Tartrate (Metoprolol Tartrate 50 Mg Tab) 50 mg PEG AMHS CORNELIA Stop: 03/15/21 08:59 Last Admin: 02/13/21 09:26 Dose: 50 mg Documented by: [id number] Prednisone (Prednisone 20 Mg Tab) 60 mg GT QAM CORNELIA Stop: 03/15/21 08:59 Last Admin: 02/13/21 09:26 Dose: 60 mg Documented by: [id number] Pyridostigmine Diana (Pyridostigmine Diana 60 Mg Tab) 60 mg PO QID CORNELIA Stop: 03/15/21 08:59 Last Admin: 02/13/21 16:45 Dose: 60 mg Documented by: [id number] Admin: 02/13/21 12:37 Dose: 60 mg Documented by: [id number] Admin: 02/13/21 09:27 Dose: 60 mg Documented by: [id number] Sterile Water (Tube Feeding Water Flush) 60 ml GT Q4H CORNELIA Stop: 03/15/21 14:59 Last Admin: 02/13/21 16:28 Dose: 60 ml Documented by: [id number] Medical Decision Making Differential Diagnosis Differential Diagnosis includes but is not limited to dehydration, stroke, anemia, hypoglycemia, hyponatremia, hypernatremia, urinary tract infection, pneumonia, bronchitis, sepsis, gastroenteritis, additional abdominal pathology, metabolic abnormalities and infections. Medical Records Attestation: I reviewed the patient's medical records. Home Medications Current Medication List: was personally reviewed by me Laboratory Data Attestation: I reviewed the patient's lab results. Result diagrams: 02/13/21 08:39 02/13/21 08:39 Lab Results 02/12/21 02/12/21 02/12/21 Range/Units 22:45 22:45 23:31 WBC 10.97 H (4.8-10.8) K/uL RBC 3.50 L (4.2-5.4) M/uL Hgb 11.0 L (12.0-16.0) g/dL Hct 32.2 L (37-47) % MCV 92.0 (80-100) fL MCH 31.4 (25-34) pg MCHC 34.2 (32-36) g/dL RDW Std Deviation 52.8 H (36.4-46.3) fL RDW Coeff of Sandra 17.0 H (11.5-14.5) % Plt Count 392 (130-400) K/uL MPV 10.3 (7.4-10.4) fL Immature Gran % (Auto) 0.5 % Neut % (Auto) 89.3 % Lymph % (Auto) 6.1 % Mcmullen % (Auto) 4.1 % Eos % (Auto) 0.0 % Baso % (Auto) 0.0 % Neut # (Auto) 9.80 H (1.4-6.5) K/uL Lymph # (Auto) 0.67 L (1.2-3.4) K/uL Mcmullen # (Auto) 0.45 (0.11-0.59) K/uL Eos # (Auto) 0.00 (0-0.5) K/uL Baso # (Auto) 0.00 (0-0.2) K/uL Immature Gran # (Auto) 0.05 H (0.00-0.02) K/uL Absolute Nucleated RBC 0.03 H (0-0) K/uL Nucleated RBC % (auto) 0.2 % Sodium 137 (136-145) mmol/L Potassium 4.3 (3.5-5.1) mmol/L Chloride 104 (98-107) mmol/L Carbon Dioxide 30 (21-32) mmol/L Anion Gap 3.0 (3-11) BUN 28 H (7-18) mg/dl Creatinine 0.83 (0.6-1.2) mg/dl Est Cr Clr Drug Dosing Not Reportable Est GFR ( Amer) 81.7 ml/min Est GFR (Non-Af Amer) 70.4 ml/min BUN/Creatinine Ratio 33.3 H (10-20) Glucose 94 (70-99) mg/dl Calcium 8.5 (8.5-10.1) mg/dl Magnesium 2.6 H (1.8-2.4) mg/dl Total Bilirubin 0.6 (0.2-1) mg/dl AST 43 H (15-37) U/L ALT 44 (12-78) U/L Alkaline Phosphatase 45 (45-117) U/L Total Creatine Kinase 15 L (26-192) U/L Total Protein 8.8 H (6.4-8.2) gm/dl Albumin 2.4 L (3.4-5.0) gm/dl Globulin 6.4 H (2.5-4.0) gm/dl Albumin/Globulin Ratio 0.4 L (0.9-2) Lipase 819 H (73-393) U/L TSH 0.468 (0.300-4.500) uIu/ml Urine Color Urine Appearance (Clear) Urine pH (4.5-7.5) Ur Specific Marshall (1.000-1.030) Urine Protein (Negative) Urine Glucose (UA) (Negative) Urine Ketones (Negative) Urine Blood (Negative) Urine Nitrite (Negative) Urine Bilirubin (Negative) Urine Urobilinogen (Negative) Ur Leukocyte Esterase (Negative) Urine WBC (Auto) (0-5) /hpf Urine RBC (Auto) (0-4) /hpf U Hyaline Cast (Auto) (0-5) /lpf U Epithel Cells (Auto) (0-5) /lpf Urine Bacteria (Auto) (Negative) Ur Renal Epithelial Cell (0-5) /lpf Urine Yeast (None Prsent) COVID-19 Eval Order Covid19 at [facility] SARS-CoV-2 (PCR) (Negative) 02/12/21 02/12/21 Range/Units 23:31 Unknown WBC (4.8-10.8) K/uL RBC (4.2-5.4) M/uL Hgb (12.0-16.0) g/dL Hct (37-47) % MCV (80-100) fL MCH (25-34) pg MCHC (32-36) g/dL RDW Std Deviation (36.4-46.3) fL RDW Coeff of Sandra (11.5-14.5) % Plt Count (130-400) K/uL MPV (7.4-10.4) fL Immature Gran % (Auto) % Neut % (Auto) % Lymph % (Auto) % Mcmullen % (Auto) % Eos % (Auto) % Baso % (Auto) % Neut # (Auto) (1.4-6.5) K/uL Lymph # (Auto) (1.2-3.4) K/uL Mcmullen # (Auto) (0.11-0.59) K/uL Eos # (Auto) (0-0.5) K/uL Baso # (Auto) (0-0.2) K/uL Immature Gran # (Auto) (0.00-0.02) K/uL Absolute Nucleated RBC (0-0) K/uL Nucleated RBC % (auto) % Sodium (136-145) mmol/L Potassium (3.5-5.1) mmol/L Chloride (98-107) mmol/L Carbon Dioxide (21-32) mmol/L Anion Gap (3-11) BUN (7-18) mg/dl Creatinine (0.6-1.2) mg/dl Est Cr Clr Drug Dosing Est GFR ( Amer) ml/min Est GFR (Non-Af Amer) ml/min BUN/Creatinine Ratio (10-20) Glucose (70-99) mg/dl Calcium (8.5-10.1) mg/dl Magnesium (1.8-2.4) mg/dl Total Bilirubin (0.2-1) mg/dl AST (15-37) U/L ALT (12-78) U/L Alkaline Phosphatase (45-117) U/L Total Creatine Kinase (26-192) U/L Total Protein (6.4-8.2) gm/dl Albumin (3.4-5.0) gm/dl Globulin (2.5-4.0) gm/dl Albumin/Globulin Ratio (0.9-2) Lipase (73-393) U/L TSH (0.300-4.500) uIu/ml Urine Color Yellow Urine Appearance Cloudy A (Clear) Urine pH 7.5 (4.5-7.5) Ur Specific Marshall 1.017 (1.000-1.030) Urine Protein Negative (Negative) Urine Glucose (UA) Negative (Negative) Urine Ketones Negative (Negative) Urine Blood Negative (Negative) Urine Nitrite Negative (Negative) Urine Bilirubin Negative (Negative) Urine Urobilinogen Negative (Negative) Ur Leukocyte Esterase 1+ H (Negative) Urine WBC (Auto) 5-10 H (0-5) /hpf Urine RBC (Auto) 0-4 (0-4) /hpf U Hyaline Cast (Auto) 1-5 (0-5) /lpf U Epithel Cells (Auto) >30 H (0-5) /lpf Urine Bacteria (Auto) Negative (Negative) Ur Renal Epithelial Cell 0-5 (0-5) /lpf Urine Yeast Budding A (None Prsent) COVID-19 Eval Order SARS-CoV-2 (PCR) NEGATIVE (Negative) Imaging Data My Impression: X-ray: I interpreted the following studies. Chest: A single view study of the chest was reviewed and was negative for cardiomegaly, focal infiltrate, effusion, pulmonary edema, or wide mediastinum. ECG Data Attestation: I personally reviewed and interpreted this ECG as follows: Indication: + weakness Rate (beats per minute): 64 Rhythm: + normal sinus ECG Intervals/blocks: + Normal QRS and + Normal QT ECG [place]: + Normal ECG ST segments: + Normal ST segments MDM Narrative This is a 70-year-old presents emergency department for inpatient neurology evaluation prior to going to [facility] rehab facility. Patient recently admitted for almost 2 weeks in a [facility] and [place] due to a flare of her myasthenia gravis. Patient states she does need inpatient rehab and has been at [facility] previously however after this was arranged and they were driving home she was told she needed to come here for additional local evaluation. Case discussed with hospitalist who was aware of the patient by name. Basic labs and chest x-ray ordered. IV fluids started. Case discussed with hospitalist for additional evaluation and management. An order was placed for continuous cardiac monitoring. The monitor shows a rate of _66_ with _normal sinus__ rhythm. Impression & Plan Weakness, Myasthenia gravis, Multiple sclerosis, Hip pain, right Discharge Plan Visit Data Chief Complaint: Weakness Stated Complaint: MYASTHENIA GRAVIS, RGT HIP CAN'T SUPPORT WT, ED Provider: Otilia Gibbs Discharge Problem: Weakness, Myasthenia gravis, Multiple sclerosis, Hip pain, right Patient Disposition: Admitted As Inpatient Condition: Fair Discharge Instructions Interventions: ED Discharge Assessment Last Done: 02/13/21 02:32
[2021-02-12 22:59] LABS: Hematocrit (blood only) 32.2 % (37-47); Immature Granulocytes # (auto) 0.05 K/uL (0.00-0.02); Immature Granulocytes % (auto) 0.5 %; Lymphocytes # (auto) 0.67 K/uL (1.2-3.4); Lymphocytes % (auto) 6.1 %; Mean Corpuscular Hemoglobin 31.4 pg (25-34); Mean Corpuscular Hgb Conc 34.2 g/dL (32-36); Mean Platelet Volume 10.3 fL (7.4-10.4); Monocytes # (auto) 0.45 K/uL (0.11-0.59); Monocytes % (auto) 4.1 %; Neutrophils % (auto) 89.3 %; Nucleated RBC # (auto) 0.03 K/uL (0-0); Nucleated RBC % (auto) 0.2 %; Platelet Count 392 K/uL (130-400); RDW Standard Deviation 52.8 fL (36.4-46.3); White Blood Count 10.97 K/uL (4.8-10.8)
[2021-02-12 23:15] LABS: Alanine Aminotransferase 44 U/L (12-78); Albumin Level 2.4 gm/dl (3.4-5.0); Aspartate Aminotransferase 43 U/L (15-37); BUN Creatinine Ratio 33.3 (10-20); Blood Urea Nitrogen 28 mg/dl (7-18); Calcium 8.5 mg/dl (8.5-10.1); Carbon Dioxide 30 mmol/L (21-32); Chloride 104 mmol/L (98-107); Est GFR (African American) 81.7 ml/min; Est GFR (Non-African American) 70.4 ml/min; Glucose 94 mg/dl (70-99); Lipase 819 U/L (73-393); Magnesium 2.6 mg/dl (1.8-2.4); Potassium 4.3 mmol/L (3.5-5.1); Sodium 137 mmol/L (136-145)
[2021-02-12 23:18] LABS: Albumin Globulin Ratio 0.4 (0.9-2); Alkaline Phosphatase 45 U/L (45-117); Bilirubin,Total 0.6 mg/dl (0.2-1); Globulin 6.4 gm/dl (2.5-4.0); Total Protein 8.8 gm/dl (6.4-8.2)
[2021-02-12 23:22] LABS: Appearance Urine Cloudy (Clear); Bacteria Urine Automated Negative (Negative); Bilirubin Urine Negative (Negative); Blood Urine Negative (Negative); Color Urine Yellow; Epithelial Cell Urine Auto >30 /lpf (0-5); Glucose Urine UA Negative (Negative); Ketones Urine Negative (Negative); Leukocyte Esterase Urine 1+ (Negative); Nitrite Urine Negative (Negative); Protein Urine Negative (Negative); RBC Urine Automated 0-4 /hpf (0-4); Specific Gravity Urine 1.017 (1.000-1.030); Urobilinogen Urine Negative (Negative); pH Urine 7.5 (4.5-7.5)
[2021-02-12 23:42] LABS: Renal Epithelial Cells Urine 0-5 /lpf (0-5)
[2021-02-12 23:57] LABS: Thyroid Stimulating Hormone 0.468 uIu/ml (0.300-4.500)
--- NOTE | 2021-02-13 00:52 | History & Physical Report ---
Date of Service February 13, 2021 Assessment & Plan (1) Hip pain, right: Plan: Rule out bleed given NOAC rx myasthenia gravis currently on steroid and azathioprine, sp recent myasthenic crisis hx PAF/paroxysmal atrial flutter, px NSR on Eliquis, new Amiodarone rx foll owing recent [place] confinement COPD as per records, stable multiple sclerosis, in remission pharyngoesophageal dysphagia, hx PEG tube placement New onset anemia noted on discharge from [facility] asymptomatic hyperlipasemia OBS Analgesia CT right hip Further management pending CT hip results Neurology consult Re: Follow-up eval post recent myasthenic crisis Follow serum lipase levels in a.m. PT OT Social service RE discharge planning ([facility] rehab placement) DVT prophylaxis. Eliquis if no bleed on right CT hip Full code Patient's family requesting updates from providers. Ms. Vicky Simpson (daughter), contact #[phone]. Mr. Conrad Puckett (son), contact #[phone]. Text document was generated using [employer] voice recognition software. It may contain grammatical or spelling errors. Kindly contact undersigned for clarification of any documentation item in question. History of Present Illness Chief Complaint: Right hip pain; need to be checked out by neurologist in the hospital before [facility] rehab as per family Primary Care Provider: Tish King MD History obtained from patient, family, and records. Medical history significant for PAF/paroxysmal atrial flutter as per records on Eliquis, COPD as per records, multiple sclerosis, trigeminal neuralgia, myasthenia gravis on steroid and azathioprine, pharyngoesophageal dysphagia, hx PEG tube placement, anemia (new baseline hemoglobin of 10 following recent confinement at [facility]). Patient confined at [facility] December 2020 for myasthenia gravis exacerbation status post IVIG. Metoprolol and Eliquis started for proximal A. fib during confinement. Feeding tube placed for nutrition secondary to oropharyngeal dysphagia. Patient still allowed liquid diet but prefers home medications to be administered via PEG tube. Patient subsequently discharged to [facility] rehab facility on steroid regimen where patient stayed until January 15, 2021. Patient Imuran later added to daily prednisone by [facility] neurologist for myasthenia gravis. Patient went to [place] with her family 2 weeks ago for a vacation. A day after arriving at [place], patient noted to have fever, cough symptoms, dysphagia symptoms, and generalized weakness, and hypotension. Patient admitted at [facility] from January 31-2020 for septic shock secondary to pneumonia, myasthenia gravis exacerbation. Patient went into rapid A. fib during confinement requiring amiodarone drip. Patient's Lopressor switched by cardiology to Amiodarone on discharge as per records. Seroquel also added to nighttime medications. [facility] recommended for PEG tube feeds on discharge. Hemoglobin noted to be 10 upon discharge from hospital. Recommendation was for patient to proceed to [facility] rehab facility upon discharge from [facility]. Patient noted achy right hip pain a few hours prior to leaving [facility] 2 days ago Unable to bear weight. No fever, no chills. Patient denies headache, chest pain, S OB, abdominal pain, black/bloody stools. Patient family notified en route to [facility] facility in [place] yesterday that they cannot be accepted as a direct admission at rehab facility. Neurology assessment required at local hospital prior to rehab facility admission. Patient directed to [facility] ER by local outpatient providers. 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, [employer] Allergies Allergy/AdvReac Type Severity Reaction Status Date / Time prochlorperazine Allergy Severe THROAT Verified 02/12/21 21:21 CONSTRICTING clarithromycin Allergy Intermediate RASH Verified 02/12/21 21:21 Penicillins Allergy Intermediate RASH Verified 02/12/21 21:21 amoxicillin Allergy Mild Rash Verified 02/12/21 21:21 azithromycin Allergy Mild Rash Verified 02/12/21 21:21 cephalexin Allergy Mild RASH Verified 02/12/21 21:21 erythromycin base Allergy Mild RASH Verified 02/12/21 21:21 carbamazepine Allergy Unknown UNKNOWN Verified 02/12/21 21:21 aspirin [From Percodan] AdvReac Intermediate Hallucinati Verified 02/12/21 21:21 ng oxycodone AdvReac Intermediate HALLUCINATI Verified 02/12/21 21:21 ONS promethazine AdvReac Intermediate LEGS SHOOK Verified 02/12/21 21:21 Home Medications Medication Instructions Recorded Confirmed Type albuterol sulfate 90 mcg/actuation 2 inh INHALATION Q4 PRN 05/13/20 02/12/21 History aerosol inhaler fluoxetine 20 mg capsule (Prozac) 20 mg FEEDING TUBE QAM 05/13/20 02/12/21 History gabapentin 100 mg capsule 200 mg FEEDING TUBE TIDM 05/13/20 02/12/21 History (Neurontin) melatonin 5 mg tablet 5 mg FEEDING TUBE HS 05/13/20 02/12/21 History trazodone 100 mg tablet 100 mg FEEDING TUBE HS 05/13/20 02/12/21 History glycopyrrolate 1 mg tablet 1 mg FEEDING TUBE TIDM 12/19/20 02/12/21 History pyridostigmine bromide 60 mg tablet 60 mg FEEDING TUBE QID 12/19/20 02/12/21 History apixaban 5 mg tablet (Eliquis) 5 mg FEEDING TUBE AMHS 02/12/21 02/12/21 History azathioprine 50 mg tablet 50 mg FEEDING TUBE QAM 02/12/21 02/12/21 History famotidine 20 mg tablet 20 mg FEEDING TUBE QAM 02/12/21 02/12/21 History prednisone 20 mg tablet 60 mg FEEDING TUBE QAM 02/12/21 02/12/21 History amiodarone 200 mg PEG DAILY 02/13/21 02/13/21 History quetiapine 25 mg PEG HS 02/13/21 02/13/21 History Past Med/Surg History Medical History (Updated 02/13/21 @ 02:02 by Otilia Gibbs DO) Depression Myasthenia gravis Trochanteric bursitis of left hip Trochanteric bursitis, right hip Surgical History (Updated 12/19/20 @ 19:38 by Malick Alves DO) S/P T&A (status post tonsillectomy and adenoidectomy) S/P total hip arthroplasty Social History Smoking Status: Never smoker Tobacco Type: Cigarettes Second Hand Exposure: No; Do You Dip or Chew Tobacco: No; Tobacco Cessation Education Requested by Patient: No Hx Alcohol Use: No Hx Substance Use: No Preferred Language: Vietnamese Communication Ability: Effective Hoist Mechanic Required: No Beliefs That Will Affect Care: None Current Living Situation: Spouse Other Information That Helps Us Care for You: No Feels Safe at Home: Yes Safety Concerns: Feels Safe At This Time Assistive Devices: None and Walker Review of Systems Review of Systems: As per HPI, all 10 systems reviewed, all other ROS negative Physical Exam Physical Exam: GENERAL: Comfortable, slightly anxious, no respiratory distress SKIN: Pallor, warm HEENT: Bespectacled, pale palpebral conjunctivae, dry buccal mucosa, nasal cannu la in place NECK : Supple, no tenderness CHEST : CTA, no tenderness HEART : RRR, no obvious murmurs ABDOMEN: Some distention, PEG tube in place, no tenderness EXTREMITIES : No LE swelling, minimal right hip tenderness, no other conspicuous deformities noted NEUROLOGIC : Coherent, no gross facial asymmetry, gait and stance not assessed Results & Data Results & Data ([facility]) Vital Signs (Past 12 Hours) Vital Signs Temp Pulse Pulse Resp BP BP Pulse Ox 02/12/21 23:00 64 18 117/71 96 02/12/21 21:43 65 16 125/79 97 02/12/21 18:59 36.4 C L 67 18 110/65 96 Laboratory Results Laboratory Results WBC 10.97 K/uL (4.8-10.8) H 02/12/21 22:45 RBC 3.50 M/uL (4.2-5.4) L 02/12/21 22:45 Hgb 11.0 g/dL (12.0-16.0) L 02/12/21 22:45 Hct 32.2 % (37-47) L 02/12/21 22:45 MCV 92.0 fL (80-100) 02/12/21 22:45 MCH 31.4 pg (25-34) 02/12/21 22:45 MCHC 34.2 g/dL (32-36) 02/12/21 22:45 RDW Std Deviation 52.8 fL (36.4-46.3) H 02/12/21 22:45 RDW Coeff of Sandra 17.0 % (11.5-14.5) H 02/12/21 22:45 Plt Count 392 K/uL (130-400) 02/12/21 22:45 MPV 10.3 fL (7.4-10.4) 02/12/21 22:45 Immature Gran % (Auto) 0.5 % 02/12/21 22:45 Neut % (Auto) 89.3 % 02/12/21 22:45 Lymph % (Auto) 6.1 % 02/12/21 22:45 [place] % (Auto) 4.1 % 02/12/21 22:45 Eos % (Auto) 0.0 % 02/12/21 22:45 Baso % (Auto) 0.0 % 02/12/21 22:45 Neut # (Auto) 9.80 K/uL (1.4-6.5) H 02/12/21 22:45 Lymph # (Auto) 0.67 K/uL (1.2-3.4) L 02/12/21 22:45 [place] # (Auto) 0.45 K/uL (0.11-0.59) 02/12/21 22:45 Eos # (Auto) 0.00 K/uL (0-0.5) 02/12/21 22:45 Baso # (Auto) 0.00 K/uL (0-0.2) 02/12/21 22:45 Immature Gran # (Auto) 0.05 K/uL (0.00-0.02) H 02/12/21 22:45 Absolute Nucleated RBC 0.03 K/uL (0-0) H 02/12/21 22:45 Nucleated RBC % (auto) 0.2 % 02/12/21 22:45 Sodium 137 mmol/L (136-145) 02/12/21 22:45 Potassium 4.3 mmol/L (3.5-5.1) 02/12/21 22:45 Chloride 104 mmol/L (98-107) 02/12/21 22:45 Carbon Dioxide 30 mmol/L (21-32) 02/12/21 22:45 Anion Gap 3.0 (3-11) 02/12/21 22:45 BUN 28 mg/dl (7-18) H 02/12/21 22:45 Creatinine 0.83 mg/dl (0.6-1.2) 02/12/21 22:45 Est Cr Clr Drug Dosing Not Reportable 02/12/21 22:45 Est GFR ( Amer) 81.7 ml/min 02/12/21 22:45 Est GFR (Non-Af Amer) 70.4 ml/min 02/12/21 22:45 BUN/Creatinine Ratio 33.3 (10-20) H 02/12/21 22:45 Glucose 94 mg/dl (70-99) 02/12/21 22:45 Calcium 8.5 mg/dl (8.5-10.1) 02/12/21 22:45 Magnesium 2.6 mg/dl (1.8-2.4) H 02/12/21 22:45 Total Bilirubin 0.6 mg/dl (0.2-1) 02/12/21 22:45 AST 43 U/L (15-37) H 02/12/21 22:45 ALT 44 U/L (12-78) 02/12/21 22:45 Alkaline Phosphatase 45 U/L (45-117) 02/12/21 22:45 Total Protein 8.8 gm/dl (6.4-8.2) H 02/12/21 22:45 Albumin 2.4 gm/dl (3.4-5.0) L 02/12/21 22:45 Globulin 6.4 gm/dl (2.5-4.0) H 02/12/21 22:45 Albumin/Globulin Ratio 0.4 (0.9-2) L 02/12/21 22:45 Lipase 819 U/L (73-393) H 02/12/21 22:45 TSH 0.468 uIu/ml (0.300-4.500) 02/12/21 22:45 Urine Color Yellow 02/12/21 Unknown Urine Appearance Cloudy (Clear) A 02/12/21 Unknown Urine pH 7.5 (4.5-7.5) 02/12/21 Unknown Ur Specific [place] 1.017 (1.000-1.030) 02/12/21 Unknown Urine Protein Negative (Negative) 02/12/21 Unknown Urine Glucose (UA) Negative (Negative) 02/12/21 Unknown Urine Ketones Negative (Negative) 02/12/21 Unknown Urine Blood Negative (Negative) 02/12/21 Unknown Urine Nitrite Negative (Negative) 02/12/21 Unknown Urine Bilirubin Negative (Negative) 02/12/21 Unknown Urine Urobilinogen Negative (Negative) 02/12/21 Unknown Ur Leukocyte Esterase 1+ (Negative) H 02/12/21 Unknown Urine WBC (Auto) 5-10 /hpf (0-5) H 02/12/21 Unknown Urine RBC (Auto) 0-4 /hpf (0-4) 02/12/21 Unknown U Hyaline Cast (Auto) 1-5 /lpf (0-5) 02/12/21 Unknown U Epithel Cells (Auto) >30 /lpf (0-5) H 02/12/21 Unknown Urine Bacteria (Auto) Negative (Negative) 02/12/21 Unknown Ur Renal Epithelial Cell 0-5 /lpf (0-5) 02/12/21 Unknown Urine Yeast Budding (None Prsent) A 02/12/21 Unknown COVID-19 Eval Order Covid19 at [facility] 02/12/21 23:31 SARS-CoV-2 (PCR) NEGATIVE (Negative) 02/12/21 23:31 Diagnostic Findings Chest x-ray as per my interpretation hyperinflation, cardiomegaly EKG as per my interpretation : Rate 65, NSR, normal axis, incomplete RBBB, T wave flattening septal leads
[2021-02-13 02:05] LABS: Creatine Kinase 15 U/L (26-192)
[2021-02-13] MEDS ORDERED: APIXABAN 2.5 MG TAB PO STA (02:17)
[2021-02-13] MEDS ORDERED: ALBUTEROL HFA 8 GM INHALER INH PRN (03:26)
[2021-02-13] MEDS ORDERED: ACETAMINOPHEN SUSP 325 MG/10.15 ML UDC PEG PRN (03:26)
[2021-02-13] MEDS ORDERED: ONDANSETRON INJ 2 MG/ML 2 ML VIAL IV PRN (03:26)
[2021-02-13] MEDS ORDERED: MELATONIN 3 MG TAB PO PRN (03:47)
--- NOTE | 2021-02-13 07:48 | XRay Report ---
XR chest 1V portable HISTORY: difficulty swallowing COMPARISON: Chest 12/19/2020. FINDINGS: No pneumothorax. No pleural effusions. Hyperexpanded lungs with emphysema, unchanged. The h eart remains enlarged. No new focal lung consolidations to suggest pneumonia. No evidence for pulmona ry edema. IMPRESSION: No significant change compared to the prior study. No acute process. Emphysema is again noted. ACT 112: Negative or not required by law. Electronically signed by: Trenton Orourke M.D. 02/13/2021 7:47 AM
[2021-02-13] MEDS ORDERED: azaTHIOprine 50 MG TAB PO SCH (09:00)
[2021-02-13] MEDS ORDERED: FAMOTIDINE SUSP 20 MG/2.5 ML UDP NG SCH (09:00)
[2021-02-13] MEDS ORDERED: predniSONE 20 MG TAB GT SCH (09:00)
[2021-02-13] MEDS ORDERED: METOPROLOL TARTRATE 50 MG TAB PEG SCH (09:00)
[2021-02-13] MEDS ORDERED: APIXABAN 5 MG TABLET PO SCH (09:00)
[2021-02-13 09:05] VITALS: BP 114/64; PULSE 64; TEMP 98.6; O2SAT 97
[2021-02-13 09:17] LABS: Eosinophils # (auto) 0.02 K/uL (0-0.5); Eosinophils % (auto) 0.2 %; Hematocrit (blood only) 31.1 % (37-47); Hemoglobin 10.3 g/dL (12.0-16.0); Immature Granulocytes # (auto) 0.03 K/uL (0.00-0.02); Immature Granulocytes % (auto) 0.3 %; Lymphocytes # (auto) 1.14 K/uL (1.2-3.4); Lymphocytes % (auto) 13.1 %; Mean Corpuscular Hemoglobin 31.2 pg (25-34); Mean Corpuscular Hgb Conc 33.1 g/dL (32-36); Mean Corpuscular Volume 94.2 fL (80-100); Mean Platelet Volume 10.5 fL (7.4-10.4); Monocytes # (auto) 0.65 K/uL (0.11-0.59); Monocytes % (auto) 7.4 %; Neutrophils # (auto) 6.89 K/uL (1.4-6.5); Platelet Count 393 K/uL (130-400); RDW Coefficient of Variation 17.6 % (11.5-14.5); RDW Standard Deviation 54.6 fL (36.4-46.3); Reticulocyte % 6.1 % (0.5-2.0); White Blood Count 8.73 K/uL (4.8-10.8)
[2021-02-13] MEDS: GABAPENTIN 250 MG/5 ML 470 ML BTL PEG SCH ×2 (09:25→12:55)
[2021-02-13] MEDS: GLYCOPYRROLATE 1 MG TAB PO SCH ×3 (09:26→17:27)
[2021-02-13] MEDS: PYRIDOSTIGMINE BROMIDE 60 MG TAB PO SCH ×3 (09:27→16:45)
--- NOTE | 2021-02-13 09:37 | CT Scan Report ---
CT hip RT wo con CT DOSE: 182.44 mGy.cm CLINICAL HISTORY: R hip pain TECHNIQUE: A dose lowering technique was utilized adhering to the principles of ALARA. COMPARISON STUDY: None. Correlation is made with CT of the abdomen and pelvis performed on January 22, 2014. FINDINGS: Interval total right hip replacement. No evidence of acute fracture or dislocation. Appropriate position of the prosthetic components. No d efinite evidence of loosening however evaluation is limited due to beam hardening artifact. Mild oste openia. Visualized portion of the lower pelvis show stool-filled loops of bowel and mild diverticulosis of di stal sigmoid colon. IMPRESSION: Interval right total hip arthroplasty without evidence of fracture or dislocation. ACT 112: Negative or not required by law. The above report was generated using voice recognition software. It may contain grammatical, syntax o r spelling errors. Electronically signed by: Ana Grewal DO 02/13/2021 9:36 AM
--- NOTE | 2021-02-13 09:45 | Electrocardiogram Report ---
Test Reason : Blood Pressure : / mmHG Vent. Rate : 064 BPM Atrial Rate : 064 BPM P-R Int : 192 ms QRS Dur : 092 ms QT Int : 454 ms P-R-T Axes : 039 -19 025 degrees QTc Int : 468 ms Normal sinus rhythm Left atrial enlargement Incomplete right bundle branch block Old Septal infarct Abnormal ECG When compared with ECG of 19-DEC-2020 20:03, Criteria for Septal infarct is now Present Confirmed by Josh Devlin ([id number]) on 02/13/2021 9:44:38 AM Referred By: REFERRED SELF Confirmed By:Josh Devlin
--- NOTE | 2021-02-13 09:55 | Consultation Report ---
DATE OF CONSULTATION: 02/13/2021. Distribution of this note is to no specific providers. CHIEF COMPLAINT: Myasthenia gravis. 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 The patient was in [place] for vacation and underwent a myasthenia exacerbation and received treatment. She then traveled back to [place] and arrived last night and was unable to be admitted to [facility]. She states she feels tired this morning, although denies any other specific complaints. She does wish to try eating solid foods. She does have an NG tube. She is on prednisone and reports compliance with her medications. She denies any pain or difficulty breathing. She did get up to go to the bathroom this morning with assistance. Neurology was consulted upon admission for assessment. ALLERGIES: PROCHLORPERAZINE, CLARITHROMYCIN, PENICILLIN, AMOXICILLIN, AZITHROMYCIN, CEPHALEXIN, ERYTHROMYCIN, CARBAMAZEPINE, ASPIRIN, OXYCODONE, PROMETHAZINE. HOME MEDICATIONS: Albuterol, Prozac, gabapentin, melatonin, trazodone, glycopyrrolate, Mestinon, apixaban, Imuran 50 mg in the morning, Pepcid, prednisone 60 mg daily, metoprolol tartrate 50 mg. PAST MEDICAL HISTORY: Acetylcholine receptor antibody positive, myasthenia gravis, multiple sclerosis, depression. PAST SURGICAL HISTORY: Status post tonsillectomy and adenoidectomy, hip arthroplasty. FAMILY HISTORY: No family history of myasthenia gravis. SOCIAL HISTORY: She is a nonsmoker. No illicit drug use. No alcohol use. ROS: Right hip pain, otherwise, negative except as noted above in the HPI. PHYSICAL EXAMINATION: VITAL SIGNS: Blood pressure 114/64, pulse is 64, respiratory rate 18, temperature 37.0 degrees Celsius, oxygen saturation 97% on room air. GENERAL: The patient appears stated age. She is in no distress, thin-appearing woman. HEENT: Her head is normocephalic and atraumatic. She has normal eyelids and normal conjunctivae and mild right eye ptosis. NECK: Supple. CHEST: Normal respiratory effort. CARDIAC: Pulses were normal. ABDOMEN: Nontender. DERM: No skin rash. No swelling in the lower extremities. PSYCHIATRIC: Normal mood and normal affect. NEUROLOGICAL: She is in no distress. She is awake, alert and oriented to person, place, and time. Memory is normal. Attention is normal. Knowledge is appropriate. Comprehension is intact and she is following commands. She is able to repeat. Speech is clear, although soft. Pupils are symmetric. Eyes are midline. Extraocular muscles are intact. Facial sensation is intact. She has a chronic right facial droop due to previous acoustic neuroma surgery. Tongue is midline without fasciculations or atrophy. Shoulder shrug is normal. Palate is symmetric. Intact hearing. Gait evaluation, deferred. She has no tremor or myoclonic jerks. No ataxia with [id number] testing. Sensation is intact to light touch. Muscle tone is normal. Muscle examination is 5/5 in the upper and lower extremities. No focal weakness appreciated. Reflexes, negative Farhan sign bilaterally. No ankle clonus. DIAGNOSTIC TESTING AND LABORATORY VALUES: WBC 8.73, hemoglobin 10.3, platelet count 393. Sodium 137, potassium 4.3, chloride 104, carbon dioxide 30, BUN 28, creatinine 0.83, AST is 43, mildly elevated, ALT is 44, total creatine kinase is 15. Urinalysis showed cloudy appearance, 1+ leukocyte esterase, greater than 30 epithelial cells, budding yeast. ASSESSMENT AND PLAN: A pleasant 70-year-old woman well known to Neurology for acetylcholine receptor antibody positive, myasthenia gravis, currently being treated with Imuran 50 mg daily and prednisone 60 mg daily, admitted and pending an admission to rehabilitation. The patient is certainly not in any myasthenia exacerbation or crisis. Neurological condition appears stable. I would recommend to continue current myasthenia gravis medications. No additional neurodiagnostic testing is needed on this admission. Please contact Neurology with any additional questions, or concerns. In regards to her swallowing, I would recommend she be seen by speech therapy for recommendations on diet modifications. Otherwise, physical therapy and occupational for rehabilitation needs. Job ID: [id number] [facility]
[2021-02-13 10:00] LABS: Albumin Globulin Ratio 0.4 (0.9-2); Albumin Level 2.1 gm/dl (3.4-5.0); BUN Creatinine Ratio 30.2 (10-20); Bilirubin,Total 0.8 mg/dl (0.2-1); Creatinine Clr Calc Pharmacy 54.6 ml/min; Est GFR (African American) 89.4 ml/min; Est GFR (Non-African American) 77.1 ml/min; Ferritin 382.4 ng/ml (8-388); Globulin 5.7 gm/dl (2.5-4.0); Potassium 3.4 mmol/L (3.5-5.1); Total Protein 7.8 gm/dl (6.4-8.2)
[2021-02-13 10:11] LABS: Folate (Folic Acid) 10.8 ng/ml (>5.38)
[2021-02-13] MEDS ORDERED: Nursing to Pharmacy Communication SCH (12:00)
[2021-02-13] MEDS ORDERED: ACETAMINOPHEN 325 MG TAB PO PRN (12:03)
[2021-02-13] MEDS: GABAPENTIN 100 MG CAP PO SCH ×2 (12:38→16:45)
[2021-02-13] MEDS ORDERED: TUBE FEEDING WATER FLUSH GT SCH (15:00)
--- NOTE | 2021-02-13 15:48 | Discharge Summary ---
Date of Service February 13, 2021 Admission HPI Per Admitting Provider History obtained from patient, family, and records. Medical history significant for PAF/paroxysmal atrial flutter as per records on Eliquis, COPD as per records, multiple sclerosis, trigeminal neuralgia, myasthenia gravis on steroid and azathioprine, pharyngoesophageal dysphagia, hx PEG tube placement, anemia (new baseline hemoglobin of 10 following recent confinement at [facility]). Patient confined at [facility] December 2020 for myasthenia gravis exacerbation status post IVIG. Metoprolol and Eliquis started for proximal A. fib during confinement. Feeding tube placed for nutrition secondary to oropharyngeal dysphagia. Patient still allowed liquid diet but prefers home medications to be administered via PEG tube. Patient subsequently discharged to [facility] rehab facility on steroid regimen where patient stayed until January 15, 2021. Patient Imuran later added to daily prednisone by [facility] neurologist for myasthenia gravis. Patient went to [place] with her family 2 weeks ago for a vacation. A day after arriving at [place], patient noted to have fever, cough symptoms, dysphagia symptoms, and generalized weakness, and hypotension. Patient admitted at [facility] from January 31-2020 for septic shock secondary to pneumonia, myasthenia gravis exacerbation. Patient went into rapid A. fib during confinement requiring amiodarone drip. Patient's Lopressor switched by cardiology to Amiodarone on discharge as per records. Seroquel also added to nighttime medications. Jevity recommended for PEG tube feeds on discharge. Hemoglobin noted to be 10 upon discharge from hospital. Recommendation was for patient to proceed to [facility] rehab facility upon discharge from [facility]. Patient noted achy right hip pain a few hours prior to leaving [facility] 2 days ago Unable to bear weight. No fever, no chills. Patient denies headache, chest pain, S OB, abdominal pain, black/bloody stools. Patient family notified en route to [facility] facility in [place] yesterday that they cannot be accepted as a direct admission at rehab facility. Neurology assessment required at local hospital prior to rehab facility admission. Patient directed to [facility] ER by local outpatient providers. 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 Admission Exam Per Admitting Provider GENERAL: Comfortable, slightly anxious, no respiratory distress SKIN: Pallor, warm HEENT: Bespectacled, pale palpebral conjunctivae, dry buccal mucosa, nasal cannula in place NECK : Supple, no tenderness CHEST : CTA, no tenderness HEART : RRR, no obvious murmurs ABDOMEN: Some distention, PEG tube in place, no tenderness EXTREMITIES : No LE swelling, minimal right hip tenderness, no other conspicuous deformities noted NEUROLOGIC : Coherent, no gross facial asymmetry, gait and stance not assessed Principal Diagnosis Right hip pain Myasthenia gravis-not in exacerbation Paroxysmal atrial fibrillation on anticoagulation Multiple sclerosis, in remission Pharyngeal esophageal dysphagia status post PEG tube placement but tolerating oral intake with solid food. Asymptomatic hypelipasemia Anemia Discharge Exam CONSTITUTIONAL: WNWD, vitals stable, generally well-appearing EYES: normal conjunctivae, no scleral icterus ENT: external ear and nose normal, MMM RESPIRATORY: clear to auscultation bilaterally, no crackles, rales or wheezes, normal respiratory effort CARDIOVASCULAR: regular rate and rhythm, S1 and 2 heard without murmurs, gallops or rubs, no JVD, no peripheral edema GASTROINTESTINAL: soft, nontender, ND, +PEG tube, no surrounding erythema, no guarding MUSCULOSKELETAL: moves all extremities equally SKIN: warm and dry NEUROLOGIC: CN 2-12 grossly intact, normal cognition, normal speech, no tremor PSYCHIATRIC: alert and cooperative, answers questions appropriately but cannot accurately remember recent events. Discharge Data Allergies Allergy/AdvReac Type Severity Reaction Status Date / Time prochlorperazine Allergy Severe THROAT Verified 02/12/21 21:21 CONSTRICTING clarithromycin Allergy Intermediate RASH Verified 02/12/21 21:21 Penicillins Allergy Intermediate RASH Verified 02/12/21 21:21 amoxicillin Allergy Mild Rash Verified 02/12/21 21:21 azithromycin Allergy Mild Rash Verified 02/12/21 21:21 cephalexin Allergy Mild RASH Verified 02/12/21 21:21 erythromycin base Allergy Mild RASH Verified 02/12/21 21:21 carbamazepine Allergy Unknown UNKNOWN Verified 02/12/21 21:21 aspirin [From Percodan] AdvReac Intermediate Hallucinati Verified 02/12/21 21:21 ng oxycodone AdvReac Intermediate HALLUCINATI Verified 02/12/21 21:21 ONS promethazine AdvReac Intermediate LEGS SHOOK Verified 02/12/21 21:21 Consultations 02/12/21 23:19 ED Decision to Admit Stat 02/13/21 01:04 Consult Neurology Routine Ordered Studies 02/13/21 00:39 CT hip RT wo con Urgent Hospital Course (1) Hip pain, right: Rule out bleed given NOAC rx myasthenia gravis currently on steroid and azathioprine, sp recent myasthenic crisis hx PAF/paroxysmal atrial flutter, px NSR on Eliquis, new Amiodarone rx following recent [place] confinement COPD as per records, stable multiple sclerosis, in remission pharyngoesophageal dysphagia, hx PEG tube placement New onset anemia noted on discharge from [facility] asymptomatic hyperlipasemia OBS Analgesia CT right hip Further management pending CT hip results Neurology consult Re: Follow-up eval post recent myasthenic crisis Follow serum lipase levels in a.m. PT OT Social service RE discharge planning ([facility] rehab placement) DVT prophylaxis. Eliquis if no bleed on right CT hip Full code Patient's family requesting updates from providers. Ms. Vicky Simpson (daughter), contact #[phone]. Mr. Conrad Puckett (son), contact #[phone]. Text document was generated using [employer] voice recognition software. It may contain grammatical or spelling errors. Kindly contact undersigned for clarification of any documentation item in question. (2) DVT prophylaxis: (3) Weakness: (4) Myasthenia gravis: (5) Multiple sclerosis: The patient is a 70-year-old female who presents to the ER with right leg weakness. She was recently at a [facility] on vacation with her family when she reportedly had a flare of her myasthenia gravis. Per ER notes the family stated she spent 11 days in the ICU and was recently discharged 1 day prior to arrival, 02/11. The family had called a local rehab, [facility], who required the patient to be evaluated at an inpatient facility and specifically by a neurologist prior to admission. The patient's local neurologist is Dr. Hanson from [facility]. She has a history of MS in addition to myasthenia and is on chronic steroids. There is no paperwork available from her recent hospi talization to review. She was admitted to the hospitalist team. Per neurology consultation notes, she is well-known for acetylcholine receptor antibody positive myasthenia gravis currently being treated with Imuran 50 mg daily and prednisone 60 mg daily. It is felt that she is certainly not in any myasthenia exacerbation or crisis at this time and her neurologic condition appears stable. Continuing her current myasthenia gravis medications was recommended with no additional neurodiagnostic testing this admission. There was also some question of her ability to swallow and she does have a PEG tube present. She had recently been confined at [facility] in December 2020 for myasthenia gravis exacerbation status post IVIG. During that admission metoprolol and Eliquis were started for paroxysmal atrial fibrillation that had developed. She also had a feeding tube placed for nutrition secondary to oropharyngeal dysphagia. She was subsequently discharged to [facility] rehab facility on a steroid regimen where she stayed until January 15, 2021. Imuran was later added to daily prednisone by [facility] neurology for myasthenia gravis. Per recent notes, her family took her to [place] for vacation. Shortly after arriving she was noted to have fever, cough, dysphagia and generalized weakness with hypotension. She was admitted to [facility] from January 31- for septic shock secondary to pneumonia as well as a myasthenia gravis exacerbation. She went into rapid atrial fibrillation during confinement requiring an amiodarone drip. Her Lopressor was switched by cardiology to amiodarone on discharge per records. Seroquel was also added to nighttime medications. Jevity was recommended for PEG tube feeds on discharge. She was recommended to proceed to [facility] rehab facility upon discharge from the [facility]. A few hours prior to leaving [facility] she was unable to bear weight noting acute right hip pain. The patient is unable to give a history of any of the events listed above and is also uncertain about her hip pain today. A CT scan was performed without contrast of the right hip revealing history of right hip placement with no evidence of acute fracture or dislocation. Prosthetic components appear to be in appropriate positioning. Mild osteopenia was noted. She was evaluated by physical therapy who felt her functional ability was independent with a rolling walker. Her gait was described as slow and shuffling, antalgic. Deficits in gait and balance coordination were noted. Rehabilitation was recommended. She was tolerating food and drink by mouth with no issues. Total Time Total Time Spent Total Time Spent (In Minutes): 60 Discharge Plan Discharge Items Patient Disposition: Transfer Inpatient Rehab Fac Reason For Visit: R HIP PAIN, WEAKNESS Discharge Diagnosis: Right hip pain Myasthenia gravis-not in exacerbation Paroxysmal atrial fibrillation on anticoagulation Multiple sclerosis, in remission Pharyngeal esophageal dysphagia status post PEG tube placement but tolerating oral intake with solid food. Asymptomatic hypelipasemia Anemia Condition on Discharge: Fair Activity: Resume your previous activity Non-emergency contact: Primary Care Provider Call non-emergency contact if: you have any medication questions, your symptoms worsen, your pain is not controlled, your pain is worsening, your pain is unusual for you and your pain is concerning for you Follow-up/Referrals: Tish King MD [Primary Care Provider] - Diet: Heart Healthy Diet Texture: Easy to Chew Addtl Attending Provider Instructions: Please take all medications as instructed on discharge list below. Please continue with rehab and use Tylenol as needed for right hip pain. You were evaluated in the hospital with a CT scan and there is no evidence of displaced hardware, fracture or bleeding in your hip to cause pain. Please follow-up with your primary care physician within one week to ensure they are touching base with you after multiple significant hospitalizations and medication changes. It was a pleasure taking care of you! Please call if you have any questions or problems. You can reach a [facility] hospitalist on duty at [facility] 24 hours a day by calling [phone]. Take care of yourself. Natasha Melendez, DO [facility] Hospitalist Pending Studies at Discharge: No Stand-Alone Forms: My [facility] Skilled Items Patient informed of condition?: Yes DNR: No Discharge Level of Care: Acute rehab Communicable Disease: No Discharge Prognosis: Stable Lines: None Urinary Catheter: No Medications and DC Order Prescriptions: Continued trazodone 100 mg tablet 100 mg feeding tube HS RF: 0 gabapentin [Neurontin] 100 mg capsule 200 mg feeding tube TIDM RF: 0 albuterol sulfate 90 mcg/actuation HFA aerosol inhaler 2 inh INHALATION Q4 PRN (Reason: Wheezing) RF: 0 fluoxetine [Prozac] 20 mg capsule 20 mg feeding tube QAM RF: 0 melatonin 5 mg Tablet 5 mg feeding tube HS RF: 0 glycopyrrolate 1 mg tablet 1 mg feeding tube TIDM RF: 0 pyridostigmine bromide 60 mg tablet 60 mg feeding tube QID RF: 0 prednisone 20 mg tablet 60 mg feeding tube QAM RF: 0 azathioprine 50 mg tablet 50 mg feeding tube QAM RF: 0 famotidine 20 mg tablet 20 mg feeding tube QAM RF: 0 Eliquis 5 mg tablet 5 mg feeding tube AMHS RF: 0 amiodarone 200 mg PEG DAILY RF: 0 quetiapine 25 mg PEG HS RF: 0 Discharge Orders: Discharge Order (Routine); Ordered 02/13/21 Ordered By: Natasha Melendez Admission Data Admit Date/Time: 02/13/21 00:54 Attending Provider: Natasha Melendez Admit Provider: Reese Aguilar Primary Care Provider: Tish King Other Providers: Reese Aguilar ; Susan Ruiz ; Theo Hanson ; Susan Mims ; Po Mac ; [facility] Other Interventions: Discharge Summary Assessment (RN) Last Done: 02/13/21 16:56
[2021-02-13] MEDS ORDERED: QUEtiapine FUMARATE 25 MG TABLET PO SCH (21:00)
[2021-02-13] MEDS ORDERED: traZODone HCL 100 MG TAB PO SCH (21:00)
[2021-02-14] MEDS ORDERED: AMIODARONE 200 MG TAB PO SCH (09:00)
[2021-02-14] MEDS ORDERED: FAMOTIDINE 20 MG TAB PO SCH (09:00)
[2021-02-14] MEDS ORDERED: FLUoxetine HCL 20 MG CAP PO SCH (09:00)
[2021-02-15] MEDS ORDERED: azaTHIOprine 50 MG TAB PO SCH (09:00)
== END 2021-02-13 19:10 ==
LOC: 3W 18:31 → ED 18:31 → SUATTDRO 02-13 00:54 → 3W 02-13 02:32

== ENCOUNTER 2021-03-10 13:32 | Inpatient (IN) ==
[2021-03-10] MEDS ORDERED: HYDROmorphone INJ 0.5 MG/0.5 ML SYR IV STA ×2 (13:39→15:03)
[2021-03-10] MEDS ORDERED: ONDANSETRON INJ 2 MG/ML 2 ML VIAL IV STA (13:39)
--- NOTE | 2021-03-10 13:46 | Emergency Department Note ---
History of Present Illness General Chief complaint: Hip Pain Time Seen by Provider: 03/10/21 13:33 Source: patient and EMS Mode of arrival: EMS History of Present Illness Provider complaint: Right hip pain Onset (ago): hour(s) Location: hip and right Severity: severe Pain Consistency: + constant Maximum Pain Intensity: 2 Quality: + sharp Relieved By: + medication (IV fentanyl) Exacerbated By: + movement Associated symptoms: no chest pain, no cough, no fever/chills, no headaches, no nausea/vomiting or no shortness of breath Treatments prior to arrival: other (100 mcg of IV fentanyl) This is a 70-year-old female with a history of right hip replacement presenting with right hip pain starting approximately an hour prior to arrival. The patient states that she was in the shower shaving her leg when she felt her right hip pop out. She has severe pain to the right leg. Is worse with movement. She describes it as sharp. No associated numbness or weakness in her toes. She denies any fall. She was unable to get to a phone for about an hour but eventually EMS was called. She has no recent illness and denies fever, vomiting, cough or cold symptoms, headache, chest pain, shortness of breath, abdominal pain, diarrhea or urinary symptoms. Home Medications Medication Instructions Recorded Confirmed Type albuterol sulfate 90 mcg/actuation 2 inh INHALATION Q4 PRN 05/13/20 03/10/21 History aerosol inhaler fluoxetine 20 mg capsule (Prozac) 20 mg PO QAM 05/13/20 03/10/21 History gabapentin 100 mg capsule 200 mg PO TID 05/13/20 03/10/21 History (Neurontin) melatonin 5 mg tablet 5 mg PO HS 05/13/20 03/10/21 History trazodone 100 mg tablet 100 mg PO HS 05/13/20 03/10/21 History glycopyrrolate 1 mg tablet 1 mg PO TIDM 12/19/20 03/10/21 History pyridostigmine bromide 60 mg tablet 60 mg PO QID 12/19/20 03/10/21 History apixaban 5 mg tablet (Eliquis) 5 mg PO DAILY 02/12/21 03/10/21 History azathioprine 50 mg tablet 100 mg PO QAM 02/12/21 03/10/21 History famotidine 20 mg tablet 20 mg PO QAM 02/12/21 03/10/21 History prednisone 20 mg tablet 60 mg PO QAM 02/12/21 03/10/21 History amiodarone 200 mg tablet 200 mg PO DAILY 03/10/21 03/10/21 History metoprolol tartrate 50 mg tablet 50 mg PO BID 03/10/21 03/10/21 History Allergies Allergy/AdvReac Type Severity Reaction Status Date / Time prochlorperazine Allergy Severe THROAT Verified 03/10/21 16:52 CONSTRICTING clarithromycin Allergy Intermediate RASH Verified 03/10/21 16:52 Penicillins Allergy Intermediate RASH Verified 03/10/21 16:52 amoxicillin Allergy Mild Rash Verified 03/10/21 16:52 azithromycin Allergy Mild Rash Verified 03/10/21 16:52 cephalexin Allergy Mild RASH Verified 03/10/21 16:52 erythromycin base Allergy Mild RASH Verified 03/10/21 16:52 carbamazepine Allergy Unknown UNKNOWN Verified 03/10/21 16:52 aspirin [From Percodan] AdvReac Intermediate Hallucinati Verified 03/10/21 16:52 ng oxycodone AdvReac Intermediate HALLUCINATI Verified 03/10/21 16:52 ONS promethazine AdvReac Intermediate LEGS SHOOK Verified 03/10/21 16:52 Past Med/Surg History Medical History Depression Hip pain, right Multiple sclerosis Myasthenia gravis Myasthenia gravis Trochanteric bursitis of left hip Trochanteric bursitis, right hip Weakness Surgical History S/P T&A (status post tonsillectomy and adenoidectomy) S/P total hip arthroplasty Social History Smoking Status: Never smoker Tobacco Type: Cigarettes Second Hand Exposure: No; Hx Alcohol Use: No Hx Substance Use: No Preferred Language: Cymraes Communication Ability: Effective 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 and A total of 10 systems reviewed and were otherwise negative Physical Exam Vital Signs Vital Signs - 24 hr 03/10/21 13:38 03/10/21 14:22 03/10/21 14:36 Temperature 36.9 C Temperature Source Oral Pulse Rate 61 58 L Pulse Rate [Apical] 94 H Pulse Rate from SpO2 Sensor 60 57 L Pulse Rhythm Regular Pulse Rhythm [Apical] Regular Pulse Strength Normal Pulse Strength [Apical] Respiratory Rate 24 19 16 Respiratory Effort / Characteristics Non-Labored Spontaneous Non-Labored Spontaneous Respiratory Depth Normal Normal Respiratory Pattern Regular Regular Blood Pressure 156/80 H 136/62 Blood Pressure [Right Arm] 122/68 Blood Pressure Mean 105 86 Blood Pressure Mean [Right Arm] 86 Blood Pressure Position Lying Blood Pressure Position [Right Arm] Lying Pulse Oximetry 96 97 98 Oxygen Delivery Method Room Air Room Air Oxygen Flow Rate Sepsis Recent Fever Within 48 Hours No Sepsis New/Unexplained Change in Mental Status N/A Sepsis Action Taken by Nursing No Action Required End-Tidal CO2 End Tidal CO2 (18-54mmHg) 03/10/21 17:24 03/10/21 17:30 03/10/21 17:55 Temperature Temperature Source Pulse Rate 63 60 55 L Pulse Rate [Apical] Pulse Rate from SpO2 Sensor 63 60 Pulse Rhythm Pulse Rhythm [Apical] Pulse Strength Pulse Strength [Apical] Respiratory Rate 17 18 Respiratory Effort / Characteristics Respiratory Depth Respiratory Pattern Blood Pressure 162/86 H 149/76 H Blood Pressure [Right Arm] 149/76 H 128/74 Blood Pressure Mean 111 100 Blood Pressure Mean [Right Arm] Blood Pressure Position Blood Pressure Position [Right Arm] Pulse Oximetry 97 95 99 Oxygen Delivery Method Nasal Cannula Oxygen Flow Rate 6 Sepsis Recent Fever Within 48 Hours Sepsis New/Unexplained Change in Mental Status Sepsis Action Taken by Nursing End-Tidal CO2 29 27 End Tidal CO2 (18-54mmHg) 31 27 03/10/21 18:00 03/10/21 18:05 03/10/21 18:31 Temperature 36.7 C Temperature Source Oral Pulse Rate 54 L 54 L Pulse Rate [Apical] 55 L 58 L Pulse Rate from SpO2 Sensor 53 L Pulse Rhythm Pulse Rhythm [Apical] Regular Pulse Strength Pulse Strength [Apical] Normal Respiratory Rate 18 16 20 Respiratory Effort / Characteristics Respiratory Depth Respiratory Pattern Blood Pressure 140/72 140/71 Blood Pressure [Right Arm] 140/72 140/71 133/76 Blood Pressure Mean 94 94 Blood Pressure Mean [Right Arm] 94 95 Blood Pressure Position Blood Pressure Position [Right Arm] Semi-fowlers Pulse Oximetry 98 100 94 Oxygen Delivery Method Nasal Cannula Non-rebreather Oxygen Flow Rate 6 Sepsis Recent Fever Within 48 Hours Sepsis New/Unexplained Change in Mental Status Sepsis Action Taken by Nursing End-Tidal CO2 22 End Tidal CO2 (18-54mmHg) 28 25 Constitutional: Vital signs reviewed. Eyes: Pupils are equal round reactive to light. Conjunctiva are noninjected. ENT: Pharynx is clear without erythema or exudate. Mucous membranes are moist. Neck supple without meningeal signs. Respiratory: Clear to auscultation bilaterally. Breath sounds are equal bilaterally. Cardiovascular: Regular rate and rhythm. No rubs or gallops. GI: Soft, nondistended and nontender. Bowel sounds are present. Musculoskeletal: The right leg is held at flexion at the hip and joint. Normal distal pulse in the right foot. Integumentary: No cyanosis. or jaundice. Neurological: The patient is awake and alert. No focal deficits. Neurovascularly intact in the right foot. Psychiatric: Anxious. Procedures Free Text Procedures Procedural Sedation Indication right hip dislocation. Total time: 35 minutes. Written consent was obtained after the risks and benefits were explained to the the patient and her , including, but not limited to aspiration, allergic reaction, breathing difficulties, cardiac complications, vomiting, pain, event recall, bleeding, and/or infection. Pre-sedation examination and paperwork completed. The patient was on 100% oxygen via NRB prior to the procedure. Continous end tidal CO2 monitoring, pulse oximetry, and cardiac monitoring were utilized. Suction, airway equipment, medications, respiratory equipment, and appropriate personnel were prepared prior to the initiation of the procedure. A time out was taken. Sedation was achieved utilizing 25 mg of ketamine and 25 mg of propofol IV. She was not deeply sedated enough and she was given another total of 50 mg of propofol in additional boluses. Multiple attempts were made and unsuccessful. She did require [id number] briefly. Her O2 saturation never dipped below 88. We did have a brief pause. She was awake and alert. She was able to speak. We did explain to her that the reduction was unsuccessful and she is willing to give it another attempt. I did treat her with propofol 55 mg IV.. After I observed the patient had reached the appropriate level of sedation the main procedure was performed but without success. sedation was discontinued and the monitoring continued. The patient was taken to the operating room for reduction under general anesthesia. Course Administered Medications Discontinued Medications Hydromorphone HCl (Hydromorphone Inj 0.5 Mg/0.5 Ml Syr) 0.25 mg IV NOW STA Stop: 03/10/21 13:40 Last Admin: 03/10/21 13:50 Dose: 0.25 mg Documented by: [id number] Hydromorphone HCl (Hydromorphone Inj 0.5 Mg/0.5 Ml Syr) 0.25 mg IV NOW STA Stop: 03/10/21 15:04 Last Admin: 03/10/21 15:10 Dose: 0.25 mg Documented by: [id number] Ketamine HCl (Ketamine Hcl Inj 50 Mg/Ml 10 Ml Vial) Confirm Administered Dose 500 mg .ROUTE .STK-MED ONE Stop: 03/10/21 16:00 Last Increment: 03/10/21 18:50 Dose: 25 mg Documented by: [id number] Ondansetron HCl (Ondansetron Inj 2 Mg/Ml 2 Ml Vial) 4 mg IV NOW STA Stop: 03/10/21 13:40 Last Admin: 03/10/21 13:50 Dose: 4 mg Documented by: [id number] Propofol (Propofol Iv Emulsion 10 Mg/Ml 20 Ml Vial) Confirm Administered Dose 200 mg IV .STK-MED ONE Stop: 03/10/21 16:00 Last Admin: 03/10/21 18:51 Dose: 130 mg Documented by: [id number] Cosigned by: [id number] Medical Decision Making Differential Diagnosis Hip dislocation, hip fracture, periprosthetic fracture, prostatic disarticulation, muscle strain, pelvic fracture Medical Records Attestation: I reviewed the patient's medical records. I did perform a limited focused review of portions of the patient's old chart on the electronic medical record. The patient was seen by orthopedics March 03 for trochanteric bursitis and was treated with injection of Kenalog. Home Medications Current Medication List: was personally reviewed by me Laboratory Data Attestation: I reviewed the patient's lab results. Result diagrams: 03/10/21 13:49 03/10/21 13:49 Lab Results 03/10/21 03/10/21 03/10/21 Range/Units 13:45 13:45 13:49 WBC (4.8-10.8) K/uL RBC (4.2-5.4) M/uL Hgb (12.0-16.0) g/dL Hct (37-47) % MCV (80-100) fL MCH (25-34) pg MCHC (32-36) g/dL RDW Std Deviation (36.4-46.3) fL RDW Coeff of Sandra (11.5-14.5) % Plt Count (130-400) K/uL MPV (7.4-10.4) fL Immature Gran % (Auto) % Neut % (Auto) % Lymph % (Auto) % [place] % (Auto) % Eos % (Auto) % Baso % (Auto) % Neut # (Auto) (1.4-6.5) K/uL Lymph # (Auto) (1.2-3.4) K/uL [place] # (Auto) (0.11-0.59) K/uL Eos # (Auto) (0-0.5) K/uL Baso # (Auto) (0-0.2) K/uL Immature Gran # (Auto) (0.00-0.02) K/uL Sodium 143 (136-145) mmol/L Potassium 4.2 (3.5-5.1) mmol/L Chloride 113 H (98-107) mmol/L Carbon Dioxide 26 (21-32) mmol/L Anion Gap 4.0 (3-11) BUN 15 (7-18) mg/dl Creatinine 0.82 (0.6-1.2) mg/dl Est Cr Clr Drug Dosing 51.3 ml/min Est GFR ( Amer) 82.9 ml/min Est GFR (Non-Af Amer) 71.5 ml/min BUN/Creatinine Ratio 18.4 (10-20) Glucose 130 H (70-99) mg/dl Calcium 8.4 L (8.5-10.1) mg/dl COVID-19 Eval Order Covid19 at [facility] SARS-CoV-2 (PCR) NEGATIVE (Negative) 03/10/21 Range/Units 13:49 WBC 7.09 (4.8-10.8) K/uL RBC 3.96 L (4.2-5.4) M/uL Hgb 12.8 (12.0-16.0) g/dL Hct 40.0 (37-47) % MCV 101.0 H (80-100) fL MCH 32.3 (25-34) pg MCHC 32.0 (32-36) g/dL RDW Std Deviation 63.2 H (36.4-46.3) fL RDW Coeff of Sandra 16.9 H (11.5-14.5) % Plt Count 329 (130-400) K/uL MPV 10.3 (7.4-10.4) fL Immature Gran % (Auto) 0.1 % Neut % (Auto) 93.5 % Lymph % (Auto) 5.6 % [place] % (Auto) 0.8 % Eos % (Auto) 0.0 % Baso % (Auto) 0.0 % Neut # (Auto) 6.62 H (1.4-6.5) K/uL Lymph # (Auto) 0.40 L (1.2-3.4) K/uL [place] # (Auto) 0.06 L (0.11-0.59) K/uL Eos # (Auto) 0.00 (0-0.5) K/uL Baso # (Auto) 0.00 (0-0.2) K/uL Immature Gran # (Auto) 0.01 (0.00-0.02) K/uL Sodium (136-145) mmol/L Potassium (3.5-5.1) mmol/L Chloride (98-107) mmol/L Carbon Dioxide (21-32) mmol/L Anion Gap (3-11) BUN (7-18) mg/dl Creatinine (0.6-1.2) mg/dl Est Cr Clr Drug Dosing ml/min Est GFR ( Amer) ml/min Est GFR (Non-Af Amer) ml/min BUN/Creatinine Ratio (10-20) Glucose (70-99) mg/dl Calcium (8.5-10.1) mg/dl COVID-19 Eval Order SARS-CoV-2 (PCR) (Negative) Imaging Data Attestation: I personally reviewed and interpreted this imaging study as follows: Radiologist's Impression: Hip/Pelvis X-Ray 03/10/21 13:39 XR hip RT 2V w pelvis CLINICAL HISTORY: Right hip pain. COMPARISON STUDY: Right hip 02/03/2016. FINDINGS: There is superior dislocation of the right femoral prosthesis in relation to the acetabular cup. No fractures within the pelvis or hips. There is evidence for a left total hip arthroplasty. IMPRESSION: Superior dislocation of the right femoral prosthesis in relation to the acetabular cup. No fractures. ACT 112: Negative or not required by law. Electronically signed by: Trenton Orourke M.D. 03/10/2021 2:58 PM Hip X-Ray 03/10/21 17:42 XR hip RT 1V CLINICAL HISTORY: post reduction COMPARISON: Right hip radiographs March 10, 2021 at 1:55 PM. FINDINGS: There is persistent superior dislocation of the femoral component of the right hip arthroplasty with respect to the acetabular cup. No acute fracture is identified. IMPRESSION: Persistent superior dislocation of the femoral component of the right hip arthroplasty. ACT 112: Negative or not required by law. Electronically signed by: Ayaz Infante M.D. 03/10/2021 6:03 PM MDM Narrative I did evaluate the patient as noted above. She is presenting with what appears to be clinically a hip dislocation. It occurred spontaneously as she was shaving her legs in the shower. She was given fentanyl 100 mcg IV prior to arrival. I did place an order for continuous cardiac monitoring. The monitor showed normal sinus rhythm at a rate of 60 bpm. She is still in pain and was given Dilaudid 0.25 mg IV and Zofran 4 mg IV. I did order and personally rev iewed the images of the patient's right hip and pelvis x-rays as described above. She has a hip dislocation without fracture. The patient had continued pain and was given Dilaudid 0.25 mg IV. I did order and review the patient's blood work as noted in the electronic medical record. CBC is unremarkable without leukocytosis or anemia. Electrolytes are unremarkable other than a chloride of 113. I did discuss the case with Dr. De Leon of orthopedics. He stated since the hip was placed by Dr. Vernon I should call [facility]. We did attempt to call [facility]. After multiple pages I did speak to Reyes Lennon. He stated that he cannot put the hip back in and I would need an attending to help. Dr. He called back and came in to reduce the hip. I did obtain conscious sedation consent from the patient and . She stated that she last ate at 6 AM although she told the nurse at 9 AM. Conscious sedation was performed by myself and Dr. He did attempt reduction of the hip. This was unsuccessful and the patient was immediately taken to the operating room for further care. Impression & Plan Hip dislocation, right Discharge Plan Visit Data Chief Complaint: Hip Pain ED Provider: Quentin Mares Discharge Problem: Hip dislocation, right Patient Disposition: Admitted As Inpatient Discharge Instructions Interventions: ED Discharge Assessment Last Done: 03/10/21 18:52 Discharge Problem: Hip dislocation, right Qualifiers: Encounter type: initial encounter Qualified Code(s): S73.004A - Unspecified dislocation of right hip, initial encounter
[2021-03-10 14:01] LABS: Hemoglobin 12.8 g/dL (12.0-16.0); Immature Granulocytes # (auto) 0.01 K/uL (0.00-0.02); Immature Granulocytes % (auto) 0.1 %; Lymphocytes % (auto) 5.6 %; Mean Corpuscular Hemoglobin 32.3 pg (25-34); Mean Platelet Volume 10.3 fL (7.4-10.4); Monocytes # (auto) 0.06 K/uL (0.11-0.59); Monocytes % (auto) 0.8 %; Neutrophils # (auto) 6.62 K/uL (1.4-6.5); Neutrophils % (auto) 93.5 %; Platelet Count 329 K/uL (130-400); RDW Coefficient of Variation 16.9 % (11.5-14.5); RDW Standard Deviation 63.2 fL (36.4-46.3); Red Blood Count 3.96 M/uL (4.2-5.4); White Blood Count 7.09 K/uL (4.8-10.8)
[2021-03-10 14:23] LABS: BUN Creatinine Ratio 18.4 (10-20); Calcium 8.4 mg/dl (8.5-10.1); Creatinine Clr Calc Pharmacy 51.3 ml/min; Est GFR (African American) 82.9 ml/min; Est GFR (Non-African American) 71.5 ml/min; Potassium 4.2 mmol/L (3.5-5.1)
--- NOTE | 2021-03-10 14:59 | XRay Report ---
XR hip RT 2V w pelvis CLINICAL HISTORY: Right hip pain. COMPARISON STUDY: Right hip 02/03/2016. FINDINGS: There is superior dislocation of the right femoral prosthesis in relation to the acetabular cup. No fractures within the pelvis or hips. There is evidence for a left total hip arthroplasty. IMPRESSION: Superior dislocation of the right femoral prosthesis in relation to the acetabular cup. No fractures. ACT 112: Negative or not required by law. Electronically signed by: Trenton Orourke M.D. 03/10/2021 2:58 PM
[2021-03-10] MEDS ORDERED: KETAMINE HCL INJ 50 MG/ML 10 ML VIAL ONE (15:59)
[2021-03-10] MEDS ORDERED: PROPOFOL IV EMULSION 10 MG/ML 20 ML VIAL IV ONE ×3 (15:59→19:34)
--- NOTE | 2021-03-10 17:12 | Emergency Department Note ---
Pre Sedation Assessment Vital Signs Temp Pulse Pulse Resp BP BP Pulse Ox 03/10/21 14:36 94 H 16 122/68 98 03/10/21 14:22 58 L 19 136/62 97 03/10/21 13:38 36.9 C 61 24 156/80 H 96 Cardiovascular RRR, no murmur, no edema Respiratory normal respiratory effort, lungs clear to auscultation Pre-Sedation Airway Assessment Smoking Status: Never smoker Hx Sleep Apnea: No Short, Thick Neck: No Thyromental Distance: > or= 3.5 Finger Breadths Oral Cavity: + WNL Mallampati Class: II ASA: ASA2 NPO Status Date of Last Intake of Fluids: 03/10/21 Time of Last Intake of Fluids: 09:00 Date of Last Intake of Solid Food: 03/10/21 Time of Last Intake of Solid Foods: 09:00 Procedure Planning Contraindications for Sedation: none Current Medications Reviewed: Yes Notes The planned sedation has been discussed with the patient. Informed Consent was obtained. I have identified the patient, determined the appropriateness of sedation and have assessed the patient immediately prior to the procedure. All medicine(s) and interventions are by my order.
--- NOTE | 2021-03-10 18:05 | XRay Report ---
XR hip RT 1V CLINICAL HISTORY: post reduction COMPARISON: Right hip radiographs March 10, 2021 at 1:55 PM. FINDINGS: There is persistent superior dislocation of the femoral component of the right hip arthrop lasty with respect to the acetabular cup. No acute fracture is identified. IMPRESSION: Persistent superior dislocation of the femoral component of the right hip arthroplasty. ACT 112: Negative or not required by law. Electronically signed by: Ayaz Infante M.D. 03/10/2021 6:03 PM
[2021-03-10] MEDS ORDERED: LIDOCAINE 2% 2 ML VIAL/AMP(20MG/ML) INFIL ONE (18:13)
[2021-03-10] MEDS ORDERED: SUCCINYLCHOLINE CHLORIDE 20 MG/ML 10 ML VIAL IV ONE (18:13)
[2021-03-10] MEDS ORDERED: fentaNYL citrate 100 MCG/2 ML VIAL ONE (18:14)
--- NOTE | 2021-03-10 18:19 | Anesthesiology Consultation ---
Date of Service March 10, 2021 Assessment & Plan (1) Encounter for pre-operative examination: Chart Review Chart Review: Acceptable Risk for Surgery and Patient NOT seen in Pre Admission Testing Consults Requested none ASA [id number] Proposed Anesthesia Anesthesia Type: General Risk / Benefits Reviewed With: PT / POA / Parent / Guardian, Accepts Plan and Informed Consent Obtained History Surgery Operation Date: 03/10/21 18:30 Proposed Procedures p Closed Reduction Extremity - Santos He DO Height/Weight Height: 5 ft 3 in Weight: 53.9 kg Allergies Allergy/AdvReac Type Severity Reaction Status Date / Time prochlorperazine Allergy Severe THROAT Verified 03/10/21 16:52 CONSTRICTING clarithromycin Allergy Intermediate RASH Verified 03/10/21 16:52 Penicillins Allergy Intermediate RASH Verified 03/10/21 16:52 amoxicillin Allergy Mild Rash Verified 03/10/21 16:52 azithromycin Allergy Mild Rash Verified 03/10/21 16:52 cephalexin Allergy Mild RASH Verified 03/10/21 16:52 erythromycin base Allergy Mild RASH Verified 03/10/21 16:52 carbamazepine Allergy Unknown UNKNOWN Verified 03/10/21 16:52 aspirin [From Percodan] AdvReac Intermediate Hallucinati Verified 03/10/21 16:52 ng oxycodone AdvReac Intermediate HALLUCINATI Verified 03/10/21 16:52 ONS promethazine AdvReac Intermediate LEGS SHOOK Verified 03/10/21 16:52 Medications Home Medications Medication Instructions Recorded Confirmed Last Taken albuterol sulfate 90 mcg/actuation 2 inh INHALATION Q4 PRN 05/13/20 03/10/21 Unknown aerosol inhaler fluoxetine 20 mg capsule (Prozac) 20 mg PO QAM 05/13/20 03/10/21 02/12/21 gabapentin 100 mg capsule 200 mg PO TID 05/13/20 03/10/21 02/12/21 (Neurontin) melatonin 5 mg tablet 5 mg PO HS 05/13/20 03/10/21 02/11/21 trazodone 100 mg tablet 100 mg PO HS 05/13/20 03/10/21 02/11/21 glycopyrrolate 1 mg tablet 1 mg PO TIDM 12/19/20 03/10/21 02/12/21 pyridostigmine bromide 60 mg tablet 60 mg PO QID 12/19/20 03/10/21 02/12/21 18:00 apixaban 5 mg tablet (Eliquis) 5 mg PO DAILY 02/12/21 03/10/21 02/12/21 08:00 azathioprine 50 mg tablet 100 mg PO QAM 02/12/21 03/10/21 02/12/21 famotidine 20 mg tablet 20 mg PO QAM 02/12/21 03/10/21 02/12/21 prednisone 20 mg tablet 60 mg PO QAM 02/12/21 03/10/21 02/12/21 amiodarone 200 mg tablet 200 mg PO DAILY 03/10/21 03/10/21 Unknown metoprolol tartrate 50 mg tablet 50 mg PO BID 03/10/21 03/10/21 Unknown NPO Date Last Intake of Fluids: 03/10/21 Time Last Intake of Fluids: 09:00 Date Last Intake of Solids: 03/10/21 Time Last Intake of Solids: 09:00 Past Medical History Medical History Depression Hip pain, right Multiple sclerosis Myasthenia gravis Myasthenia gravis Trochanteric bursitis of left hip Trochanteric bursitis, right hip Weakness Exercise / Class Metabolic Activity II 4-5 Yardwork/Stairs/Walk up hill Past Surgical History Surgical History S/P T&A (status post tonsillectomy and adenoidectomy) S/P total hip arthroplasty Past Anesthesia History No Hx of Anesthesia Complications and No Family Hx of Anesthesia Complications History of PONV No Hx of PONV and No Hx of Motion Sickness Social History Smoking Status: Never smoker Hx Alcohol Use: No Hx Substance Use: No substance use type: does not use Physical Exam Vital Signs Last Vital Signs Temp 36.9 C 03/10/21 13:38 Pulse 63 03/10/21 17:24 Resp 16 03/10/21 14:36 BP 162/86 H 03/10/21 17:24 Pulse Ox 97 03/10/21 17:24 ENMT Mouth: no dentition abnormality Thyromental Distance: > or= 3.5 Finger Breadths Mallampati Class: II Neck normal visual inspection Respiratory normal respiratory effort Auscultation: lungs clear to auscultation bilaterally Cardiovascular Rate/Rhythm: regular rate and regular rhythm Psychiatric Orientation: alert Testing Laboratory Results 03/10/21 13:49 03/10/21 13:49
[2021-03-10] MEDS ORDERED: ePHEDrine sulfate 50 MG/ML AMP IV PRN (18:28)
[2021-03-10] MEDS ORDERED: ONDANSETRON INJ 2 MG/ML 2 ML VIAL IV PRN ×2 (18:28→21:28)
[2021-03-10] MEDS ORDERED: fentaNYL citrate 100 MCG/2 ML VIAL IV PRN (18:28)
[2021-03-10] MEDS ORDERED: ATROPINE SULFATE 0.1 MG/ML 10ML SYR IV PRN (18:28)
--- NOTE | 2021-03-10 18:28 | History & Physical Bridge Note ---
Date of Service March 10, 2021 History & Physical Bridge Note I have examined the patient, reviewed the History & Physical and in the interval since the performance of the History & Physical I have noted the following changes of clinical significance: Patient had multiple attempts at conscious sedation with closed reduction multiple attempts right hip in the emergency department earlier today. Failed to achieve adequate sedation and relaxation due to concern for airway management therefore patient will need to go to the operating room for general anesthesia for right total hip arthroplasty close reduction.
--- NOTE | 2021-03-10 18:39 | History & Physical Report ---
Date of Service March 10, 2021 Assessment & Plan (1) Hip dislocation, right: Plan: Maintain n.p.o. Consent signed and on chart. Plan general anesthesia with close reduction right hip dislocation. Abduction pillow brace. Total hip precautions. Discharge home with close follow-up by Dr. Vernon preferably next week. (2) Right hip pain: History of Present Illness Chief Complaint: Right dislocated total hip arthroplasty. Primary Care Provider: Tish King MD Patient attempted to shave her legs earlier today and felt a painful pop of her right total of arthroplasty and noted something was wrong. She was unable to ambulate. She then transported to [facility] for further care and management. ER physician attempted to contact [facility]/ Dr. Garnett who the patient was under his care for, however since the patient had prior arthroplasty by Dr. Vernon there is service argued that this was a [facility] patient and the patient was then referred to [facility]. Allergies Allergy/AdvReac Type Severity Reaction Status Date / Time prochlorperazine Allergy Severe THROAT Verified 03/10/21 16:52 CONSTRICTING clarithromycin Allergy Intermediate RASH Verified 03/10/21 16:52 Penicillins Allergy Intermediate RASH Verified 03/10/21 16:52 amoxicillin Allergy Mild Rash Verified 03/10/21 16:52 azithromycin Allergy Mild Rash Verified 03/10/21 16:52 cephalexin Allergy Mild RASH Verified 03/10/21 16:52 erythromycin base Allergy Mild RASH Verified 03/10/21 16:52 carbamazepine Allergy Unknown UNKNOWN Verified 03/10/21 16:52 aspirin [From Percodan] AdvReac Intermediate Hallucinati Verified 03/10/21 16:52 ng oxycodone AdvReac Intermediate HALLUCINATI Verified 03/10/21 16:52 ONS promethazine AdvReac Intermediate LEGS SHOOK Verified 03/10/21 16:52 Home Medications Medication Instructions Recorded Confirmed Type albuterol sulfate 90 mcg/actuation 2 inh INHALATION Q4 PRN 05/13/20 03/10/21 History aerosol inhaler fluoxetine 20 mg capsule (Prozac) 20 mg PO QAM 05/13/20 03/10/21 History gabapentin 100 mg capsule 200 mg PO TID 05/13/20 03/10/21 History (Neurontin) melatonin 5 mg tablet 5 mg PO HS 05/13/20 03/10/21 History trazodone 100 mg tablet 100 mg PO HS 05/13/20 03/10/21 History glycopyrrolate 1 mg tablet 1 mg PO TIDM 12/19/20 03/10/21 History pyridostigmine bromide 60 mg tablet 60 mg PO QID 12/19/20 03/10/21 History apixaban 5 mg tablet (Eliquis) 5 mg PO DAILY 02/12/21 03/10/21 History azathioprine 50 mg tablet 100 mg PO QAM 02/12/21 03/10/21 History famotidine 20 mg tablet 20 mg PO QAM 02/12/21 03/10/21 History prednisone 20 mg tablet 60 mg PO QAM 02/12/21 03/10/21 History amiodarone 200 mg tablet 200 mg PO DAILY 03/10/21 03/10/21 History metoprolol tartrate 50 mg tablet 50 mg PO BID 03/10/21 03/10/21 History Past Med/Surg History Medical History Depression Hip pain, right Multiple sclerosis Myasthenia gravis Myasthenia gravis Trochanteric bursitis of left hip Trochanteric bursitis, right hip Weakness Surgical History S/P T&A (status post tonsillectomy and adenoidectomy) S/P total hip arthroplasty Social History Smoking Status: Never smoker Tobacco Type: Cigarettes Second Hand Exposure: No; Hx Alcohol Use: No Hx Substance Use: No Preferred Language: Togolese Communication Ability: Effective Closing Specialist Required: No Beliefs That Will Affect Care: None Current Living Situation: Spouse Feels Safe at Home: Yes Assistive Devices: None and Walker Review of Systems Musculoskeletal: Right hip pain with obvious deformity. Physical Exam Constitutional: No acute distress with the exception of right hip pain. Eyes: EOMI, PERRLA Neck: Supple, nontender, no JVD Respiratory: CTAB bilateral Cardiovascular: Regular rate and rhythm. Chest (Breasts): Additional Comments: Symmetric. Gastrointestinal (Abdomen): Soft nontender nondistended. Musculoskeletal: Unable to ambulate due to right hip pain and obvious dislocation. Right hip abnormality and obvious deformity. Well-healed anterior surgical scar. Right lower limb shortened and internally rotated compared to left. Limited range of motion right hip due to pain and dislocation. Strength limited right lower extremity. Pedal pulses 2/4 bilateral lower extremities. Feet warm. Cap refill less than 2 seconds bilateral. Skin: Warm, dry, intact Neurologic: Tearful, CN II through XII GI. A&O x3. Psychiatric: Anxious, tearful. Genitourinary: N/A Lymphatic: No lymphedema. Results & Data Results & Data ([facility]) Vital Signs (Past 12 Hours) Vital Signs Temp Pulse Pulse Resp BP BP Pulse Ox 03/10/21 18:05 140/71 03/10/21 18:00 53 L 140/72 100 03/10/21 17:30 60 149/76 H 95 03/10/21 17:24 63 162/86 H 97 03/10/21 14:36 94 H 16 122/68 98 03/10/21 14:22 58 L 19 136/62 97 03/10/21 13:38 36.9 C 61 24 156/80 H 96 Diagnostic Findings Radiographs right hip demonstrate dislocated total hip arthroplasty. No obvious fractures. Stable acetabular component. Stable femoral component. Code Status & VTE Plan VTE Prophylaxis Plan Reason for no VTE mechanical prophylaxis: Treatment not indicated
--- NOTE | 2021-03-10 18:49 | Emergency Department Note ---
Post Sedation Assessment Vital Signs Temp Pulse Pulse Resp BP BP Pulse Ox 03/10/21 18:31 36.7 C 58 L 20 133/76 94 03/10/21 18:05 140/71 03/10/21 18:00 53 L 55 L 18 140/72 140/72 100 03/10/21 17:30 60 149/76 H 95 03/10/21 17:24 63 162/86 H 97 03/10/21 14:36 94 H 16 122/68 98 03/10/21 14:22 58 L 19 136/62 97 03/10/21 13:38 36.9 C 61 24 156/80 H 96 Recovery Score Activity: Moves 4 extremities Respiration: Deep Breath/Cough Circulation: +/-20% PreAnes Value Consciousness: Fully Awake Oxygen Saturation: > 92% On Room Air Post Anesthesia Score: 10 Discharge Sedation Unexpected Event: Ambu Bag Post Sedation Plan The patient was taken directly to the operating room for hip reduction under general anesthesia. Sedation Data Time Out Team Members Agree on the Following: Correct Patient, Correct Procedure, Correct Site-Side and Allergies Verified Site Marking Visible after Draping: Yes Team Agrees: Yes Time Out Performed Time: 17:24 Sedation Times Sedation Start Date: 03/10/21 Sedation Start Time: 17:25 Sedation End Date: 03/10/21 Sedation End Time: 18:00 Total Sedation Time: 35 Procedure Times Procedure Start Time:: 17:25 Procedure End Time: 18:00
--- NOTE | 2021-03-10 19:37 | Fluoroscopy Report ---
FL hip RT 2-3V CLINICAL HISTORY: POST REDUCTION W/ DR. ARMIJO COMPARISON STUDY: Right hip radiographs March 10, 2021 at 5:36 PM. FLUOROSCOPY TIME: 2 minutes. FLUOROSCOPIC IMAGES: 2 FINDINGS: Fluoroscopy was provided during reduction of the right hip arthroplasty. Alignment appears anatomic on this exam. IMPRESSION: Fluoroscopy provided during reduction of the right hip arthroplasty. Anatomic alignment. ACT 112: Negative or not required by law. Electronically signed by: Ayaz Infante M.D. 03/10/2021 7:36 PM
--- NOTE | 2021-03-10 19:54 | Post Operative Brief Note ---
Immediate Post Op Note v1 Date of Surgery March 10, 2021 Pre & Post Diagnosis Operation Date: 03/10/21 18:30 Pre-Op Diagnosis: Right hip dislocation total hip arthroplasty, right hip pain, myasthenia gravis Post-Op Diagnosis: Right hip dislocation total hip arthroplasty, right hip pain, myasthenia gravis I identified the patient and participated in the time-out.: Yes Procedure Operation Date: 03/10/21 18:30 Actual Procedures p Closed Reduction Right dislocated total hip arthroplasty (Right) - Santos He DO Surgeon Santos He DO Mechanical Maintenance Supervisor None Estimated Blood Loss 0 Findings Consistent with Post-Op Diagnosis Anesthesia Type General Complications none Disposition Accompanied Patient To Recovery: Yes
--- NOTE | 2021-03-10 20:24 | Anesthesiology Progress Note ---
Date of Service March 10, 2021 Anesthesia Post Procedure Vital Signs Vital Signs: Temp Pulse Pulse Resp BP BP Pulse Ox 03/10/21 20:15 63 16 136/78 98 03/10/21 20:00 36.3 C L 53 L 18 139/68 99 03/10/21 19:45 58 L 18 134/64 99 03/10/21 19:35 58 L 18 125/65 96 03/10/21 19:27 36.2 C L 59 L 12 121/68 98 03/10/21 18:31 36.7 C 58 L 20 133/76 94 03/10/21 18:05 54 L 16 140/71 140/71 100 03/10/21 18:00 54 L 55 L 18 140/72 140/72 98 03/10/21 17:55 55 L 18 128/74 99 03/10/21 17:30 60 17 149/76 H 149/76 H 95 03/10/21 17:24 63 162/86 H 97 03/10/21 14:36 94 H 16 122/68 98 03/10/21 14:22 58 L 19 136/62 97 03/10/21 13:38 36.9 C 61 24 156/80 H 96 Pain Intensity Right Hip: Pain Intensity: 2 Transfer of Care Handoff Completed per policy Notes Mental Status: alert / awake / arousable Patient Amnestic to Procedure: Yes Nausea / Vomiting: adequately controlled Pain: adequately controlled Airway Patency, RR, SpO2: stable & adequate BP & HR: stable & adequate Hydration State: stable & adequate Anesthetic Complications: no major complications apparent
[2021-03-10] MEDS ORDERED: traZODone HCL 100 MG TAB PO SCH (21:28)
[2021-03-10] MEDS ORDERED: bisacodyL 10 MG SUPP PR PRN (21:28)
[2021-03-10] MEDS ORDERED: ALBUTEROL HFA 8 GM INHALER INH PRN (21:28)
[2021-03-10] MEDS ORDERED: NALOXONE HCL 0.4 MG/1 ML VIAL/CARP IV PRN (21:28)
[2021-03-10] MEDS ORDERED: SODIUM CHLORIDE 0.9% 1000ML 1,000 ML IV SCH (21:28)
[2021-03-10] MEDS ORDERED: MAGNESIUM HYDROXIDE SUSP 30 ML UDC PO PRN (21:28)
[2021-03-10] MEDS ORDERED: MELATONIN 3 MG TAB PO SCH (21:28)
[2021-03-10] MEDS ORDERED: HYDROCODONE/ACETAMOPHEN 5/325MG TAB PO PRN ×2 (21:28→21:48)
[2021-03-10] MEDS ORDERED: HYDROmorphone INJ 0.5 MG/0.5 ML SYR IV PRN (21:28)
[2021-03-10] MEDS ORDERED: SODIUM CHLORIDE 0.45 % 1,000 ML IV ONE (22:26)
--- NOTE | 2021-03-10 22:32 | Hospitalist Consultation ---
Date of Consultation March 10, 2021 Assessment & Plan (1) Hip dislocation, right: Final Assessment and Recommendations as follows : Right hip dislocation status post surgery Clinically well myasthenia gravis, at baseline on current steroid and azathioprine regimen hx PAF/paroxysmal atrial flutter, px NSR on Amiodarone COPD as per records, stable multiple sclerosis, in remission pharyngoesophageal dysphagia sp PEG tube placement, patient tolerating oral intake since last confinement. Steroid-induced hyperglycemia rule out DM Chronic anemia, hemoglobin better than baseline Patient requesting to follow-up with Dr. Garnett ([facility]) upon discharge. Resume home Eliquis for PAF once bleeding risk is deemed to be minimal and negligible pending orthopedics postop eval. Check hemoglobin A1c DVT prophylaxis. SCDs as per postop orthopedic orders. Thank you very much for this consultation. Dr. Wood will follow patient's progress. Text document was generated using [employer] 14[employer] voice recognition software. It may contain grammatical or spelling errors. Kindly contact undersigned for clarification of any documentation item in question. History of Present Illness Reason for Consultation: Medical management Requesting Physician: Dr. He Attending Physician: Santos He DO History of Present Illness PCP : Dr. King History obtained from patient and records. Medical history significant for PAF/paroxysmal atrial flutter as per records on Eliquis, COPD as per records, multiple sclerosis, trigeminal neuralgia, myasthenia gravis on steroid and azathioprine, pharyngoesophageal dysphagia sp PEG tube placement, chronic anemia (baseline hemoglobin of 10) Last confinement January 2021 for right hip pain. Patient subsequently discharged to [facility] facility. Outpatient steroid injection by [facility] for right lateral hip pain attributed to greater trochanteric bursitis. Patient was in the shower today shaving her leg when she felt her right hip pop out. Worsening pain with motion. Right hip dislocation noted on imaging at the ER. Unsuccessful closed reduction of dislocated right hip under conscious sedation in the ER. Patient subsequently underwent closed reduction of dislocated right total hip arthroplasty under general anesthesia. Patient currently comfortable. Denies chest pain, S OB. Complaining of some swelling on the right upper lip. Patient was told that she may have bit her lip inadvertently during the procedure. 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 Allergies Allergy/AdvReac Type Severity Reaction Status Date / Time prochlorperazine Allergy Severe THROAT Verified 03/10/21 16:52 CONSTRICTING clarithromycin Allergy Intermediate RASH Verified 03/10/21 16:52 Penicillins Allergy Intermediate RASH Verified 03/10/21 16:52 amoxicillin Allergy Mild Rash Verified 03/10/21 16:52 azithromycin Allergy Mild Rash Verified 03/10/21 16:52 cephalexin Allergy Mild RASH Verified 03/10/21 16:52 erythromycin base Allergy Mild RASH Verified 03/10/21 16:52 carbamazepine Allergy Unknown UNKNOWN Verified 03/10/21 16:52 aspirin [From Percodan] AdvReac Intermediate Hallucinati Verified 03/10/21 16:52 ng oxycodone AdvReac Intermediate HALLUCINATI Verified 03/10/21 16:52 ONS promethazine AdvReac Intermediate LEGS SHOOK Verified 03/10/21 16:52 Home Medications Medication Instructions Recorded Confirmed Type albuterol sulfate 90 mcg/actuation 2 inh INHALATION Q4 PRN 05/13/20 03/10/21 History aerosol inhaler fluoxetine 20 mg capsule (Prozac) 20 mg PO QAM 05/13/20 03/10/21 History gabapentin 100 mg capsule 200 mg PO TID 05/13/20 03/10/21 History (Neurontin) melatonin 5 mg tablet 5 mg PO HS 05/13/20 03/10/21 History trazodone 100 mg tablet 100 mg PO HS 05/13/20 03/10/21 History glycopyrrolate 1 mg tablet 1 mg PO TIDM 12/19/20 03/10/21 History pyridostigmine bromide 60 mg tablet 60 mg PO QID 12/19/20 03/10/21 History apixaban 5 mg tablet (Eliquis) 5 mg PO DAILY 02/12/21 03/10/21 History azathioprine 50 mg tablet 100 mg PO QAM 02/12/21 03/10/21 History famotidine 20 mg tablet 20 mg PO QAM 02/12/21 03/10/21 History prednisone 20 mg tablet 60 mg PO QAM 02/12/21 03/10/21 History amiodarone 200 mg tablet 200 mg PO DAILY 03/10/21 03/10/21 History metoprolol tartrate 50 mg tablet 50 mg PO BID 03/10/21 03/10/21 History hydrocodone 5 mg-acetaminophen 325 1 - 2 tab PO Q6H PRN #18 tab MDD 6 03/11/21 Rx mg tablet Patient History Medical History Depression Hip pain, right Multiple sclerosis Myasthenia gravis Myasthenia gravis Trochanteric bursitis of left hip Trochanteric bursitis, right hip Weakness Surgical History S/P T&A (status post tonsillectomy and adenoidectomy) S/P total hip arthroplasty Social History Smoking Status: Never smoker Tobacco Type: Cigarettes Second Hand Exposure: No; Do You Dip or Chew Tobacco: No; Tobacco Cessation Education Requested by Patient: No Hx Alcohol Use: No Hx Substance Use: No Preferred Language: Yi Communication Ability: Effective Hospital Intern Required: No Beliefs That Will Affect Care: None Current Living Situation: Spouse Current Living Situation Comment: Caregivers at night Other Information That Helps Us Care for You: No Feels Safe at Home: Yes Safety Concerns: Feels Safe At This Time Assistive Devices: Walker Review of Systems Review of Systems: As per HPI, all 10 systems reviewed, all other ROS negative Physical Exam Physical Exam: GENERAL: Comfortable, slightly anxious, no respiratory distress SKIN: Pallor, warm HEENT: Bespectacled, pale palpebral conjunctivae, moist buccal mucosa, right nasolabial fold flattening with minimal tenderness NECK : Supple, no tenderness CHEST : CTA, no tenderness HEART : Bradycardic, no obvious murmurs ABDOMEN: Some distention, PEG tube in place, no tenderness EXTREMITIES : No LE swelling, minimal right hip tenderness, no other conspicuous deformities noted NEUROLOGIC : Coherent, facial asymmetry, gait and stance not assessed Results & Data Results & Data ([facility]) Vital Signs (Past 12 Hours) Vital Signs Temp Pulse Pulse Resp BP BP Pulse Ox 03/10/21 21:52 36.9 C 03/10/21 21:42 36.8 C 55 L 16 135/72 99 03/10/21 20:45 55 L 16 135/68 95 03/10/21 20:30 57 L 12 139/65 96 03/10/21 20:15 63 16 136/78 98 03/10/21 20:00 36.3 C L 53 L 18 139/68 99 03/10/21 19:45 58 L 18 134/64 99 03/10/21 19:35 58 L 18 125/65 96 03/10/21 19:27 36.2 C L 59 L 12 121/68 98 03/10/21 18:31 36.7 C 58 L 20 133/76 94 03/10/21 18:05 54 L 16 140/71 140/71 100 03/10/21 18:00 54 L 55 L 18 140/72 140/72 98 03/10/21 17:55 55 L 18 128/74 99 03/10/21 17:30 60 17 149/76 H 149/76 H 95 03/10/21 17:24 63 162/86 H 97 03/10/21 14:36 94 H 16 122/68 98 03/10/21 14:22 58 L 19 136/62 97 03/10/21 13:38 36.9 C 61 24 156/80 H 96 Laboratory Results Laboratory Results WBC 7.09 K/uL (4.8-10.8) 03/10/21 13:49 RBC 3.96 M/uL (4.2-5.4) L 03/10/21 13:49 Hgb 12.8 g/dL (12.0-16.0) 03/10/21 13:49 Hct 40.0 % (37-47) 03/10/21 13:49 MCV 101.0 fL (80-100) H 03/10/21 13:49 MCH 32.3 pg (25-34) 03/10/21 13:49 MCHC 32.0 g/dL (32-36) 03/10/21 13:49 RDW Std Deviation 63.2 fL (36.4-46.3) H 03/10/21 13:49 RDW Coeff of Sandra 16.9 % (11.5-14.5) H 03/10/21 13:49 Plt Count 329 K/uL (130-400) 03/10/21 13:49 MPV 10.3 fL (7.4-10.4) 03/10/21 13:49 Immature Gran % (Auto) 0.1 % 03/10/21 13:49 Neut % (Auto) 93.5 % 03/10/21 13:49 Lymph % (Auto) 5.6 % 03/10/21 13:49 [place] % (Auto) 0.8 % 03/10/21 13:49 Eos % (Auto) 0.0 % 03/10/21 13:49 Baso % (Auto) 0.0 % 03/10/21 13:49 Neut # (Auto) 6.62 K/uL (1.4-6.5) H 03/10/21 13:49 Lymph # (Auto) 0.40 K/uL (1.2-3.4) L 03/10/21 13:49 [place] # (Auto) 0.06 K/uL (0.11-0.59) L 03/10/21 13:49 Eos # (Auto) 0.00 K/uL (0-0.5) 03/10/21 13:49 Baso # (Auto) 0.00 K/uL (0-0.2) 03/10/21 13:49 Immature Gran # (Auto) 0.01 K/uL (0.00-0.02) 03/10/21 13:49 Sodium 143 mmol/L (136-145) 03/10/21 13:49 Potassium 4.2 mmol/L (3.5-5.1) 03/10/21 13:49 Chloride 113 mmol/L (98-107) H 03/10/21 13:49 Carbon Dioxide 26 mmol/L (21-32) 03/10/21 13:49 Anion Gap 4.0 (3-11) 03/10/21 13:49 BUN 15 mg/dl (7-18) 03/10/21 13:49 Creatinine 0.82 mg/dl (0.6-1.2) 03/10/21 13:49 Est Cr Clr Drug Dosing 51.3 ml/min 03/10/21 13:49 Est GFR ( Amer) 82.9 ml/min 03/10/21 13:49 Est GFR (Non-Af Amer) 71.5 ml/min 03/10/21 13:49 BUN/Creatinine Ratio 18.4 (10-20) 03/10/21 13:49 Glucose 130 mg/dl (70-99) H 03/10/21 13:49 Calcium 8.4 mg/dl (8.5-10.1) L 03/10/21 13:49 COVID-19 Eval Order Covid19 at [facility] 03/10/21 13:45 SARS-CoV-2 (PCR) NEGATIVE (Negative) 03/10/21 13:45 Impressions Hip/Pelvis X-Ray 03/10/21 13:39 XR hip RT 2V w pelvis CLINICAL HISTORY: Right hip pain. COMPARISON STUDY: Right hip 02/03/2016. FINDINGS: There is superior dislocation of the right femoral prosthesis in relation to the acetabular cup. No fractures within the pelvis or hips. There is evidence for a left total hip arthroplasty. IMPRESSION: Superior dislocation of the right femoral prosthesis in relation to the acetabular cup. No fractures. ACT 112: Negative or not required by law. Electronically signed by: Trenton Orourke M.D. 03/10/2021 2:58 PM Hip X-Ray 03/10/21 18:02 FL hip RT 2-3V CLINICAL HISTORY: POST REDUCTION W/ DR. HE COMPARISON STUDY: Right hip radiographs March 10, 2021 at 5:36 PM. FLUOROSCOPY TIME: 2 minutes. FLUOROSCOPIC IMAGES: 2 FINDINGS: Fluoroscopy was provided during reduction of the right hip arthroplasty. Alignment appears anatomic on this exam. IMPRESSION: Fluoroscopy provided during reduction of the right hip arthroplasty. Anatomic alignment. ACT 112: Negative or not required by law. Electronically signed by: Ayaz Infante M.D. 03/10/2021 7:36 PM (1) Hip dislocation, right Encounter type: initial encounter Qualified Code(s): S73.004A - Unspecified dislocation of right hip, initial encounter
[2021-03-10] MEDS: GABAPENTIN 100 MG CAP PO SCH (22:58)
[2021-03-10] MEDS: METOPROLOL TARTRATE 50 MG TAB PO SCH (23:00)
--- NOTE | 2021-03-10 23:05 | Consultation Report ---
EMERGENCY ROOM CONSULTATION DATE OF CONSULTATION: 03/10/2021. HISTORY OF PRESENT ILLNESS: This is a 70-year-old female who was shaving her legs at home sometime e jose this morning. She felt a painful pop in her right hip, unable to ambulate, had obvious deformi ty and was then transferred to [facility]. She was evaluated. Radiographs were ob tained and noted to have a dislocation of her right hip arthroplasty. The patient had been under the care of Dr. Garnett over the last several years; however, when contacted, stated that the patient walton d a prior hip replacement by Dr. Vernon. Therefore, he preferred that she be under the care of [facility]. ER physician then contacted our service who then therefore contacted me and then I consulted for car e of this patient. The patient had no other falls. No other injuries. No other associated complain ts. The patient had never had a dislocation of her hip prior to today. She has been receiving troch anteric bursa injections with steroids from Dr. Garnett for the last approximately 2-3 years. PAST MEDICAL HISTORY: Myasthenia gravis, depression, osteoarthritis, multiple sclerosis, left hip tr ochanteric bursitis, chronic right hip weakness. PAST SURGICAL HISTORY: T and A, total hip arthroplasty bilateral, left ileostomy. ALLERGIES: PROCHLORPERAZINE, CLARITHROMYCIN, PENICILLIN, AMOXICILLIN, AZITHROMYCIN, CEPHALEXIN, ERYT HROMYCIN BASE, CARBAMAZEPINE, ASPIRIN, OXYCODONE, PROMETHAZINE. MEDICATIONS: Albuterol sulfate, fluoxetine, gabapentin, melatonin, trazodone, glycopyrrolate, pyrido stigmine bromide, apixaban 5 mg, azathioprine, famotidine, prednisone 20 mg, amiodarone 200 mg and az toprolol tartrate 50 mg. SOCIAL HISTORY: She is . She denies tobacco. Denies alcohol use. Denies drug use. She is . PHYSICAL EXAMINATION: GENERAL: This is a 70-year-old female lying in ER bed with her present. She has obvious dis comfort due to her right hip. She is alert and oriented x3. She is tearful. Speech is clear and fl uent. EXTREMITIES: Examination of the right hip demonstrated shortened and internally rotated right hip. Leg length discrepancy. Limited range of motion, limited strength due to pain and guarding. Cap ref ill less than 2 seconds. Bilateral pedal pulses 2/4. Sensation intact. RADIOGRAPHS: Demonstrate a superiorly dislocated right total hip arthroplasty. The femoral stem and acetabular component appeared well fixed. IMPRESSION: 1. Right dislocation of total hip arthroplasty. 2. Right hip pain. 3. Myasthenia gravis. RECOMMENDATION: Conscious sedation, closed reduction and discharge home in an abduction pillow brace. DESCRIPTION OF PROCEDURE: After obtaining oral and written consent for reduction of right total hip arthroplasty, the patient was sedated by the Emergency Department physician and multiple attempts wer e made at closed reduction using a counterforce on the pelvis by an refinery operator assistant. I could not achieve t he adequate or deep enough sedation. After multiple attempts, this was abandoned as a treatment moda lity and the patient was then scheduled to the operative department for full anesthetic and greater c ontrol of the airway due to the mitigating circumstances surrounding her myasthenia gravis. The jackie ent was then awakened and she was then transported to the operative suite as indicated. Further docu mentation to follow. Job ID: [id number]
--- NOTE | 2021-03-10 23:07 | Operative Report (OR) ---
DATE OF PROCEDURE: 03/10/2021. PREOPERATIVE DIAGNOSES: 1. Right total hip dislocation. 2. Pain. 3. Myasthenia gravis. POSTOPERATIVE DIAGNOSES: 1. Right total hip dislocation. 2. Pain. 3. Myasthenia gravis. PROCEDURE: Closed reduction, right dislocated total hip arthroplasty. SURGEON: Santos He DO PROPOSAL LEAD WRITER: None. ANESTHESIA: General. SPECIMENS: None. DRAINS: None. COMPLICATIONS: None. ESTIMATED BLOOD LOSS: Zero. PERTINENT HISTORY: This is a 70-year-old female with myasthenia gravis, who had prior right anterior total hip arthroplasty performed by Dr. Bertram Vernon. The patient was shaving her legs at home ea rlier today, felt a painful clunk in her right hip, unable to ambulate, felt obvious deformity, and w as then transported to [facility] where she was evaluated. Radiographs were obtain ed and then orthopedic consult was attempted by Dr. Garnett who had been treating her multiple times over the last 2 to 3 years; however, he referred her back to [facility] due to the fact Dr. Vernon had done her right hip replacement. I had seen the patient, noted hip dislocation. Radiographs were reviewed and multiple attempts were made at closed reduction using sedation with the assistance of the ER physician. Unable to achieve adequate sedation and the patient was then schedu led for general anesthesia with greater ability to protect her airway. The patient was scheduled for surgery as indicated. All potential risks, benefits, complications, alternatives, rehab potential for incomplete relief of symptoms, need for further surgery, DVT, PE, , persistent pain, swelling, scarring, weakness, ne urovascular injury, wound complications, hardware failure, need for further reconstructive procedure was discussed with the patient. The patient decided to proceed with the procedure as indicated. DESCRIPTION OF PROCEDURE: The patient was taken to the operative suite and placed supine on the oper ating room table. After review of consent and identification of proper operative site, the patient w as anesthetized and bag valve mask was used to maintain airway. Next, using gentle stabilization of the pelvis, the right total hip arthroplasty and right lower extremity was then gently manipulated un erika live fluoroscopic assistance to achieve closed reduction of the right total hip arthroplasty. Th e patient tolerated it well. She was awakened and then taken to recovery after final radiographs wer e obtained with an abduction pillow brace. The patient tolerated the procedure well. Job ID: [id number]
[2021-03-11] MEDS: TUBE FEEDING WATER FLUSH GT SCH ×2 (00:48→09:10)
--- NOTE | 2021-03-11 06:38 | Orthopedic Progress Note ---
Date of Service March 11, 2021 Assessment & Plan (1) Hip dislocation, right: Plan: POD#1 right hip closed reduction by Dr. He -PT/OT, hip precautions, abduction pillow -AM labs pending -DVT prophylaxis-SCDs -Pain management -D/C planning-plan on discharge home likely today if PT goes well. Discussed f/u with Dr. Vernon with [facility] as he did her hip replacement however she prefers to follow up with Dr. Garnett. Admission and Anticipated Discharge Date Admission Date: March 10, 2021 Subjective Patient is resting in bed comfortably. No pain currently. No other complaints. Denies chest pain, sob, dizziness, headache, fever, chills. Review of Systems Review of Systems: All systems reviewed & are unremarkable except as noted in Subjective Physical Exam Physical Exam: Right leg is non tender. Distally, n/v status and sensation are intact, good dorsiflexion. No calf tenderness. Hip is in neutral position. Leg lengths equal Results & Data ([facility]) Vital Signs (Past 12 Hours) Vital Signs Temp Pulse Pulse Resp BP Pulse Ox 03/11/21 02:54 36.5 C 55 L 14 119/67 97 03/10/21 23:11 75 112/63 03/10/21 22:36 36.9 C 62 16 106/54 L 96 03/10/21 21:52 36.9 C 03/10/21 21:42 36.8 C 55 L 16 135/72 99 03/10/21 20:45 55 L 16 135/68 95 03/10/21 20:30 57 L 12 139/65 96 03/10/21 20:15 63 16 136/78 98 03/10/21 20:00 36.3 C L 53 L 18 139/68 99 03/10/21 19:45 58 L 18 134/64 99 03/10/21 19:35 58 L 18 125/65 96 03/10/21 19:27 36.2 C L 59 L 12 121/68 98 (1) Hip dislocation, right Encounter type: initial encounter Qualified Code(s): S73.004A - Unspecified dislocation of right hip, initial encounter
[2021-03-11 07:09] LABS: Hematocrit (blood only) 38.5 % (37-47); Hemoglobin 12.2 g/dL (12.0-16.0); Mean Corpuscular Hemoglobin 32.2 pg (25-34); Mean Corpuscular Hgb Conc 31.7 g/dL (32-36); Mean Corpuscular Volume 101.6 fL (80-100); Mean Platelet Volume 10.1 fL (7.4-10.4); Platelet Count 281 K/uL (130-400); RDW Standard Deviation 63.3 fL (36.4-46.3); Red Blood Count 3.79 M/uL (4.2-5.4); White Blood Count 8.17 K/uL (4.8-10.8)
[2021-03-11 07:43] LABS: Estimated Average Glucose 80 mg/dl; Hemoglobin A1C 4.4 % (4.5-5.6)
[2021-03-11 07:49] LABS: BUN Creatinine Ratio 19.3 (10-20); Calcium 8.1 mg/dl (8.5-10.1); Est GFR (African American) 100.8 ml/min; Potassium 3.7 mmol/L (3.5-5.1)
[2021-03-11] MEDS ORDERED: FLUoxetine HCL 20 MG CAP PO SCH (09:00)
[2021-03-11] MEDS ORDERED: azaTHIOprine 50 MG TAB PO SCH (09:00)
[2021-03-11] MEDS ORDERED: predniSONE 20 MG TAB PO SCH (09:00)
[2021-03-11] MEDS ORDERED: FAMOTIDINE 20 MG TAB PO SCH (09:00)
[2021-03-11] MEDS ORDERED: AMIODARONE 200 MG TAB PO SCH (09:00)
[2021-03-11] MEDS ORDERED: MULTIVITAMIN TAB PO SCH (09:00)
[2021-03-11] MEDS: GABAPENTIN 100 MG CAP PO SCH (09:09)
[2021-03-11] MEDS: GLYCOPYRROLATE 1 MG TAB PO SCH ×2 (09:10→11:36)
[2021-03-11] MEDS: METOPROLOL TARTRATE 50 MG TAB PO SCH (09:10)
--- NOTE | 2021-03-11 12:04 | Hospitalist Progress Note ---
Date of Service March 11, 2021 Assessment & Plan (1) Hip dislocation, right: Plan: Was unable to move her right lower extremity following a pop in the right hip while she was shaving Appreciate Ortho input and recommendation Status post the position of the right hip Has had PT and OT evaluation and the patient will be going home this afternoon Medically stable to be discharged Start anticoagulation as soon as possible (2) Myasthenia gravis: Plan: No acute symptoms (3) Facial droop: Plan: Has been chronic with a new problem with communication Admission and Anticipated Discharge Date Admission Date: March 10, 2021 Subjective 03/11/2021 The patient was seen and examined in medical floor She is status post closed reduction of right hip She has had physical therapy and recommended that she can be discharged today Review of Systems Review of Systems: All systems reviewed and are unremarkable except as noted below Musculoskeletal: Right hip pain with movement Physical Exam Physical Exam: Lying in bed comfortably Constitutional: well developed and well nourished; not ill appearing Eyes: PERRL, conjunctivae normal, anicteric sclerae ENMT: external ear and nose normal, oropharynx normal Neck: trachea midline, no thyromegaly Respiratory: normal respiratory effort, lungs clear to auscultation Cardiovascular: Rate/Rhythm: regular rate, regular rhythm and + bradycardic Heart Sounds: normal S1 and normal S2; no murmur Gastrointestinal (Abdomen): normal bowel sounds, soft, nontender, no h epatosplenomegaly Musculoskeletal: No acute arthritis involving any joint Neurologic: Alert, awake and oriented x3. Has left facial asymmetry but conversing well Results & Data Results & Data ([facility]) Vital Signs (Past 12 Hours) Vital Signs Temp Pulse Pulse Resp BP Pulse Ox 03/11/21 07:14 36.8 C 49 L 16 120/69 96 03/11/21 02:54 36.5 C 55 L 14 119/67 97 Laboratory Results Short CBC 03/10/21 03/11/21 Range/Units 13:49 07:00 WBC 7.09 8.17 (4.8-10.8) K/uL Hgb 12.8 12.2 (12.0-16.0) g/dL Hct 40.0 38.5 (37-47) % Plt Count 329 281 (130-400) K/uL BMP 03/10/21 03/11/21 13:49 07:00 Sodium 143 142 Potassium 4.2 3.7 Chloride 113 H 111 H Carbon Dioxide 26 27 BUN 15 13 Creatinine 0.82 0.69 Glucose 130 H 81 Calcium 8.4 L 8.1 L Medications Administered Current Inpatient Medications Hydrocodone Bitart/Acetaminophen (Hydrocodone/Acetamophen 5/325mg Tab) 1 - 2 tab PO Q6H PRN PRN Reason: Pain Stop: 03/24/21 21:47 Last Admin: 03/11/21 09:11 Dose: 2 tab Documented by: Albuterol (Albuterol Hfa 8 Gm Inhaler) 2 puffs INH Q4 PRN PRN Reason: Wheezing Stop: 04/09/21 21:27 Amiodarone HCl (Amiodarone 200 Mg Tab) 200 mg PO DAILY [facility] Stop: 04/10/21 08:59 Last Admin: 03/11/21 09:10 Dose: 200 mg Documented by: Azathioprine (Azathioprine 50 Mg Tab) 100 mg PO QAM [facility] Stop: 04/10/21 08:59 Last Admin: 03/11/21 09:09 Dose: 100 mg Documented by: Bisacodyl (Bisacodyl 10 Mg Supp) 10 mg MI DAILY PRN PRN Reason: Constipation Stop: 04/09/21 21:27 Famotidine (Famotidine 20 Mg Tab) 20 mg PO QAM [facility] Stop: 04/10/21 08:59 Last Admin: 03/11/21 09:09 Dose: 20 mg Documented by: Fluoxetine HCl (Fluoxetine Hcl 20 Mg Cap) 20 mg PO QAM [facility] Stop: 04/10/21 08:59 Last Admin: 03/11/21 09:09 Dose: 20 mg Documented by: Gabapentin (Gabapentin 100 Mg Cap) 200 mg PO TID [facility] Stop: 04/09/21 21:27 Last Admin: 03/11/21 09:09 Dose: 200 mg Documented by: Glycopyrrolate (Glycopyrrolate 1 Mg Tab) 1 mg PO TIDM [facility] Stop: 04/10/21 07:59 Last Admin: 03/11/21 11:36 Dose: 1 mg Documented by: Hydromorphone HCl (Hydromorphone Inj 0.5 Mg/0.5 Ml Syr) 0.25 mg IV Q4H PRN PRN Reason: Pain or Pre PT Stop: 03/24/21 21:27 Magnesium Hydroxide (Magnesium Hydroxide Susp 30 Ml Udc) 30 ml PO Q6H PRN PRN Reason: Constipation Stop: 04/09/21 21:27 Melatonin (Melatonin 3 Mg Tab) 6 mg PO [facility] Stop: 04/09/21 21:27 Last Admin: 03/10/21 22:59 Dose: 6 mg Documented by: Metoprolol Tartrate (Metoprolol Tartrate 50 Mg Tab) 50 mg PO BID [facility] Stop: 04/09/21 21:27 Last Admin: 03/11/21 09:10 Dose: Not Given Documented by: Multivitamins (Multivitamin Tab) 1 tab PO QAM [facility] Stop: 04/10/21 08:59 Last Admin: 03/11/21 09:08 Dose: 1 tab Documented by: Naloxone HCl (Naloxone Hcl 0.4 Mg/1 Ml Vial/Carp) 0.1 mg IV Q5M PRN PRN Reason: Oversedation/Resp Depression Stop: 04/09/21 21:27 Ondansetron HCl (Ondansetron Inj 2 Mg/Ml 2 Ml Vial) 4 mg IV Q6H PRN PRN Reason: Nausea And Vomiting Stop: 04/09/21 21:27 Prednisone (Prednisone 20 Mg Tab) 60 mg PO QAM [facility] Stop: 04/10/21 08:59 Last Admin: 03/11/21 09:08 Dose: 60 mg Documented by: Sterile Water (Tube Feeding Water Flush) 30 ml GT QID [facility] Stop: 04/09/21 23:34 Last Admin: 03/11/21 09:10 Dose: 30 ml Documented by: Trazodone HCl (Trazodone Hcl 100 Mg Tab) 100 mg PO [facility] Stop: 04/09/21 21:27 Last Admin: 03/10/21 23:03 Dose: 100 mg Documented by: (1) Hip dislocation, right Encounter type: initial encounter Qualified Code(s): S73.004A - Unspecified dislocation of right hip, initial encounter
--- NOTE | 2021-03-13 06:49 | Discharge Summary ---
Date of Service March 13, 2021 Admission HPI Per Admitting Provider Patient attempted to shave her legs earlier today and felt a painful pop of her right total of arthroplasty and noted something was wrong. She was unable to ambulate. She then transported to [facility] for further care and management. ER physician attempted to contact [facility]/ Dr. Garnett who the patient was under his care for, however since the patient had prior arthroplasty by Dr. Vernon there is service argued that this was a [facility] patient and the patient was then [place] [facility] [place] Admission Exam Per Admitting Provider Constitutional: No acute distress with the exception of right hip pain. Eyes: EOMI, PERRLA Neck: Supple, nontender, no JVD Respiratory: CTAB bilateral Cardiovascular: Regular rate and rhythm. Chest (Breasts): Additional Comments: Symmetric. Gastrointestinal (Abdomen): Soft nontender nondistended. Musculoskeletal: Unable to ambulate due to right hip pain and obvious dislocation. Right hip abnormality and obvious deformity. Well-healed anterior surgical scar. Right lower limb shortened and internally rotated compared to left. Limited range of motion right hip due to pain and dislocation. Strength limited right lower extremity. Pedal pulses 2/4 bilateral lower extremities. Feet warm. Cap refill less than 2 seconds bilateral. Skin: Warm, dry, intact Neurologic: Tearful, CN II through XII GI. A&O x3. Psychiatric: Anxious, tearful. Genitourinary: N/A Lymphatic: No lymphedema. Principal Diagnosis Right total hip disolocation Discharge Exam Right leg is non tender. Distally, n/v status and sensation are intact, good dorsiflexion. No calf tenderness. Hip is in neutral position. Leg lengths equal Constitutional well developed and well nourished; no acute distress Discharge Data Allergies Allergy/AdvReac Type Severity Reaction Status Date / Time prochlorperazine Allergy Severe THROAT Verified 03/10/21 16:52 CONSTRICTING clarithromycin Allergy Intermediate RASH Verified 03/10/21 16:52 Penicillins Allergy Intermediate RASH Verified 03/10/21 16:52 amoxicillin Allergy Mild Rash Verified 03/10/21 16:52 azithromycin Allergy Mild Rash Verified 03/10/21 16:52 cephalexin Allergy Mild RASH Verified 03/10/21 16:52 erythromycin base Allergy Mild RASH Verified 03/10/21 16:52 carbamazepine Allergy Unknown UNKNOWN Verified 03/10/21 16:52 aspirin [From Percodan] AdvReac Intermediate Hallucinati Verified 03/10/21 16:52 ng oxycodone AdvReac Intermediate HALLUCINATI Verified 03/10/21 16:52 ONS promethazine AdvReac Intermediate LEGS SHOOK Verified 03/10/21 16:52 Consultations 03/10/21 21:28 Consult Hospitalist Routine Procedures Performed Operation Date: 03/10/21 18:30 Actual Procedures p Closed Reduction Right Extremity(Right) - Santos He DO Ordered Studies 03/10/21 18:02 FL hip RT 2-3V Routine Hospital Course (1) Hip dislocation, right: Patient presented to the emergency room on 03/10/21 after suffering a right hip injury. She was found to have a dislocated right total hip. She was subsequently brought the the operating room and a closed reduction was successfully completed. She tolerated the procedure well. On POD#1 her activity was progressed and well tolerated. She did well with therapy. After exam on 03/11/21 patient was felt to be stable for discharge home, following posterior hip precautions. She will follow up in the office for reevaluation post operatively. POD#1 right hip closed reduction by Dr. He -PT/OT, hip precautions, abduction pillow -AM labs pending -DVT prophylaxis-SCDs -Pain management -D/C planning-plan on discharge home likely today if PT goes well. Discussed f/u with Dr. Vernon with [facility] as he did her hip replacement however she prefers to follow up with Dr. Garnett. Total Time Total Time Spent Total Time Spent (In Minutes): 20 Discharge Plan Discharge Items Patient Disposition: Home - Self-Care Reason For Visit: FALL Discharge Diagnosis: Right hip dislocation Activity: Per Instructions section Non-emergency contact: Surgeon Call non-emergency contact if: you have any medication questions, your pain is not controlled, your pain is worsening, you have a fever and your temperature is above 101 Follow-up/Referrals: Tish King MD [Primary Care Provider] - Diet: Regular Addtl Attending Provider Instructions: ACTIVITY RECOMMENDATIONS: SELF CARE INSTRUCTIONS AFTER TOTAL HIP REPLACEMENT Until the incision and soft tissues around your hip have healed, there is a possibility that the hip prosthesis could dislocate. A. Observe the following precautions to prevent dislocation: 1. Don't bend your hip greater than 90 degrees. 2. Avoid crossing your legs or ankles while standing or lying. 3. Sit with your feet placed 6 inches apart. 4. When sitting, keep your knees below your hips. Sit on a firm surface, avoid deep, soft chairs and couches. Use an elevated toilet seat in the bathroom. 5. Don't bend over at the waist. Use a long handled shoehorn and a sock aid to help you put on your shoes and socks. A physician coding specialist can help you corn picker objects that are too high or too low to reach. 6. Keep car riding to a minimum for at least one month after surgery. B. Your balance may be shaky for a while. Use crutches or a walker until directed by your doctor. C. Use hand rails when walking on stairs. D. Wear low heeled shoes with non-slip soles. E. Be sure that your floors are free of things that could trip you - throw rugs, electrical cords, small objects. Avoid wet and waxed floors, especially with crutches and canes. F. Try to walk several times a day with rest periods between. G. Continue with all the exercises taught to you in the hospital. Again, make walking a part of your daily routine. SPECIAL CARE INSTRUCTIONS: . Please call the office at if you have any concerns or questions about your operation or recovery. * WEAR EVELYN HOSE 20 HOURS PER DAY FOR 2 WEEKS. * YOU SHOULD USE A WALKER OR CRUTCHES FOR 2-4 WEEKS. THIS WILL HELP PREVENT STRAIN ON YOUR HIP MUSCLE AND ALLOW IT TO HEAL PROPERLY. YOU MAY WEAN TO A CANE TOLERATED. FOLLOW UP VISIT: If appointment is not already scheduled: Please call [facility] to make a follow-up appointment for next week at with Dr. Vernon if you wish. If you decide you would like to follow up with another provider you may call there office for an appointment as well to follow up next week. Stand-Alone Forms: My [employer], Opioid Pain Management, Smoking Cessation Medications and DC Order Prescriptions: New tramadol 50 mg tablet 50 mg PO Q6H PRN (Reason: pain) Qty: 30 RF: 0 Continued trazodone 100 mg tablet 100 mg PO HS RF: 0 gabapentin [Neurontin] 100 mg capsule 200 mg PO TID RF: 0 albuterol sulfate 90 mcg/actuation HFA aerosol inhaler 2 inh INHALATION Q4 PRN (Reason: Wheezing) RF: 0 fluoxetine [Prozac] 20 mg capsule 20 mg PO QAM RF: 0 melatonin 5 mg Tablet 5 mg PO HS RF: 0 glycopyrrolate 1 mg tablet 1 mg PO TIDM RF: 0 pyridostigmine bromide 60 mg tablet 60 mg PO QID RF: 0 prednisone 20 mg tablet 60 mg PO QAM RF: 0 azathioprine 50 mg tablet 100 mg PO QAM RF: 0 famotidine 20 mg tablet 20 mg PO QAM RF: 0 Eliquis 5 mg tablet 5 mg PO DAILY RF: 0 amiodarone 200 mg tablet 200 mg PO DAILY RF: 0 metoprolol tartrate 50 mg tablet 50 mg PO BID RF: 0 Discharge Orders: Discharge Order (Routine); Ordered 03/11/21 Ordered By: Theo Duarte/Other Patient Handouts: Hip Safety: Mastering Daily Tasks, Hip Safety: Dressing, Hip Precautions, Hip Safety: Sleeping Positions, Hip Safety: Sitting, Hip Safety: Using the Toilet Admission Data Admit Date/Time: 03/10/21 19:59 Attending Provider: Santos He Admit Provider: Santos He Primary Care Provider: Tish King Other Providers: Pita Wood Other Interventions: Discharge Summary Assessment (RN) Last Done: 03/11/21 12:02
== END 2021-03-11 13:43 | disposition home or self-care (01) | DRG 921 ==
LOC: ED 13:32 → OR 17:08 → 3W 19:59
DX: G35 Multiple sclerosis; Y82.8 Other medical devices associated with adverse incidents; D64.9 Anemia, unspecified; T85.698A Other mechanical complication of other specified internal prosthetic devices, implants and grafts, initial encounter; F32.9 Major depressive disorder, single episode, unspecified; R29.810 Facial weakness; Z88.0 Allergy status to penicillin; Z88.5 Allergy status to narcotic agent; G70.00 Myasthenia gravis without (acute) exacerbation; Z88.6 Allergy status to analgesic agent; Z96.641 Presence of right artificial hip joint

== ENCOUNTER 2021-09-02 14:32 | Inpatient (IN) ==
[2021-09-02] MEDS ORDERED: SODIUM CHLORIDE 0.9% 500 ML IV STA (14:56)
[2021-09-02 15:06] LABS: Eosinophils # (auto) 0.01 K/uL (0-0.5); Eosinophils % (auto) 0.1 %; Hematocrit (blood only) 41.5 % (37-47); Hemoglobin 13.5 g/dL (12.0-16.0); Immature Granulocytes # (auto) 0.04 K/uL (0.00-0.02); Immature Granulocytes % (auto) 0.4 %; Lymphocytes # (auto) 1.25 K/uL (1.2-3.4); Lymphocytes % (auto) 11.2 %; Mean Corpuscular Hemoglobin 31.5 pg (25-34); Mean Corpuscular Hgb Conc 32.5 g/dL (32-36); Mean Corpuscular Volume 96.7 fL (80-100); Mean Platelet Volume 10.1 fL (7.4-10.4); Monocytes # (auto) 0.37 K/uL (0.11-0.59); Monocytes % (auto) 3.3 %; Neutrophils # (auto) 9.47 K/uL (1.4-6.5); Platelet Count 254 K/uL (130-400); RDW Coefficient of Variation 15.6 % (11.5-14.5); RDW Standard Deviation 55.2 fL (36.4-46.3); Red Blood Count 4.29 M/uL (4.2-5.4); White Blood Count 11.14 K/uL (4.8-10.8)
[2021-09-02 15:23] LABS: INR 0.9 (0.9-1.1); Prothrombin Time 9.4 Seconds (9.0-12.0)
[2021-09-02 15:29] LABS: Alanine Aminotransferase 24 U/L (7-52); Albumin Globulin Ratio 1.3 (0.9-2); Albumin Level 3.4 gm/dl (3.4-5.0); Alkaline Phosphatase 45 U/L (34-104); Anion Gap 7 (3-11); Aspartate Aminotransferase 33 U/L (13-39); BUN Creatinine Ratio 11.1 (10-20); Bilirubin,Total 0.5 mg/dl (0.2-1.0); Blood Urea Nitrogen 11 mg/dl (6-23); Calcium 8.4 mg/dl (8.5-10.1); Carbon Dioxide 28 mmol/L (21-32); Chloride 104 mmol/L (98-107); Creatinine Clr Calc Pharmacy 47.2 ml/min; Est GFR (Non-African American) 56.9 ml/min; Globulin 2.7 gm/dl (2.5-4.0); Glucose 74 mg/dl (70-99(Fasting)); Lipase 36 U/L (11-82); Potassium 3.7 mmol/L (3.5-5.1); Sodium 139 mmol/L (136-145); Total Protein 6.1 gm/dl (6.0-8.3)
[2021-09-02 15:30] LABS: Troponin I < 0.03 ng/ml (0-0.04)
--- NOTE | 2021-09-02 15:30 | XRay Report ---
XR chest 1V portable CLINICAL HISTORY: Fever, hypoxia TECHNIQUE: Single frontal radiograph of the chest was obtained. Comparison: Comparison is made to rib series 06/03/2021 FINDINGS: No lines and tubes are seen. Cardiomegaly is noted. Airspace opacity is seen in the right lower lung. No evidence of pleural effusion or pneumothorax. IMPRESSION: Airspace opacity in the right lower lung may represent atelectasis, pneumonia, and/or aspiration. ACT 112: Negative or not required by law. Electronically signed by: Kenrick Méndez M.D. 09/02/2021 3:28 PM
[2021-09-02] MEDS ORDERED: MEROPENEM 500 MG in SYRINGE 0 ML IV ONE (15:43)
[2021-09-02] MEDS ORDERED: dexAMETHasone**PF** 10 MG/ML VIAL IV ONE (15:43)
[2021-09-02] MEDS ORDERED: MEROPENEM CONSULT ACTIVE PRN (15:43)
[2021-09-02] MEDS ORDERED: DOXYCYCLINE HYCLATE 100 MG CAP PO STA (15:43)
--- NOTE | 2021-09-02 15:53 | Emergency Department Note ---
Impression & Plan COVID-19, Myasthenia gravis, RLL pneumonia, Hypoxia, Weakness ED Provider Note Provider: Alex Myers MD DATE OF SERVICE: 09/02/2021 CHIEF COMPLAINT: Shortness of breath, weakness HISTORY OF PRESENT ILLNESS: Patient is a 70-year-old female past medical history of myasthenia gravis, multiple sclerosis, paroxysmal atrial flutter on amiodarone as well as Eliquis presenting the ambulance today reported for the past approximately week increasing shortness of breath and now mildly productive cough. Having some generalized weakness. Patient denies any difficulty swallowing or choking. Patient denies any abdominal pain or chest pain. Denies any falls. Denies sick contact. She states he is vaccinated and boosted for coronavirus. Has been on her home medications which include immunosuppressants and has been taking her anticoagulants. No history of smoking or oxygen usage. EMS report the patient was in the mid 80s on oxygen at home. Did desaturate here for us. Patient denies leg swelling. REVIEW OF SYSTEMS: A total of 10 review of systems was obtained and negative except as stated above in the HPI. PAST MEDICAL HISTORY: As noted above MEDICATIONS: Reviewed home medications SOCIAL HISTORY: Lives at home, non-smoker PHYSICAL EXAM: GENERAL: alert and oriented in no acute distress on stretcher fatigued in appearance occasionally coughing Head: normocephalic and atraumatic EYES: No injection, discharge or icterus. NECK: Trachea midline. Supple. ENT: Mucous membranes pink and moist. LUNGS: Airway patent. No retractions. Breath sounds clear with occasional cough HEART: Regular rate and rhythm. No chest wall tenderness ABDOMEN: Soft and non-tender, without guarding or rebound. SKIN: Acyanotic, warm, dry, without rashes EXTREMITIES: Without swelling, tenderness or deformity NEUROLOGICAL: No focal deficits. No aphasia. No facial droop or slurred speech. EK bpm normal sinus rhythm left anterior fascicular block. No PVC or PAC. No acute ST segment elevation or depression with a QTC of 456. CONTINUOUS CARDIAC MONITORING: was ordered and showed a heart rate of 70s-90s bpm in normal sinus rhythm Patient's laboratory studies and imaging reviewed. Differential includes Infection, dehydration, metabolic abnormality, hypo/hyperglycemia, electrolyte disturbance, anemia, hypoxia, cardiac sources, intracerebral event, toxicologic, neurologic, as well as other pathologies. IMPRESSION/MEDICAL DECISION MAKING: Patient hypoxic but on anticoagulation lowers a physician for PE. Febrile upon arrival. Tylenol ordered. Given a small amount of IV fluids upon arrival. X- ray concerning for possible right lower lobe pneumonia. Covid test does return positive. Mild leukocytosis. Procalcitonin not severely elevated. Not hypotensive or tachycardic. Doubt sepsis or shock at this time. Question pneumonia plus some component of Covid pneumonia. Discussed with pharmacy given her significant allergy list as well as myasthenia restrictions. Covered with meropenem and doxycycline at this time. MRSA nasal swab is ordered. Given small amount of dexamethasone given hypoxia with a COVID. EKG and troponin not indicative of acute heart injury at this time. No evidence of hepatitis or pancreatitis based on labs. Urinalysis pending collection. Discussed with the patient finding him her hypoxia as well as her comorbidities and Covid/pneumonia will discuss with the hospitalist further care here at the hospital. Lactate not elevated. Influenza negative. DIAGNOSIS: COVID-19, hypoxia, right lower lobe pneumonia, myasthenia gravis, weakness DISPOSITION: Hospitalist will evaluate Patient was agreeable with this plan. Past Med/Surg History Medical History (Updated 09/02/21 @ 16:21 by Jennifer Moss PA-C) Depression Hip pain, right Multiple sclerosis Myasthenia gravis Myasthenia gravis Trochanteric bursitis of left hip Trochanteric bursitis, right hip Weakness Surgical History S/P T&A (status post tonsillectomy and adenoidectomy) S/P total hip arthroplasty Social History Smoking Status: Never smoker Tobacco Type: Cigarettes Second Hand Exposure: No; Hx Alcohol Use: No Hx Substance Use: No Preferred Language: Belarusian Communication Ability: Effective Dinker Required: No Beliefs That Will Affect Care: None Current Living Situation: Spouse Current Living Situation Comment: Caregivers at night Feels Safe at Home: Yes Assistive Devices: Walker Allergies Allergies Allergy/AdvReac Type Severity Reaction Status Date / Time prochlorperazine Allergy Severe THROAT Verified 06/03/21 19:07 CONSTRICTING clarithromycin Allergy Intermediate RASH Verified 06/03/21 19:07 Penicillins Allergy Intermediate RASH Verified 06/03/21 19:07 amoxicillin Allergy Mild Rash Verified 06/03/21 19:07 azithromycin Allergy Mild Rash Verified 06/03/21 19:07 cephalexin Allergy Mild RASH Verified 06/03/21 19:07 erythromycin base Allergy Mild RASH Verified 06/03/21 19:07 aspirin [From Percodan] AdvReac Intermediate Hallucinati Verified 06/03/21 19:07 ng carbamazepine AdvReac Intermediate ELEVATED Verified 06/03/21 19:07 LFT LEVELS oxycodone AdvReac Intermediate HALLUCINATI Verified 06/03/21 19:07 ONS promethazine AdvReac Intermediate LEGS SHOOK Verified 06/03/21 19:07 Home Meds Home Medications Medication Instructions Recorded Confirmed albuterol sulfate 90 mcg/actuation 2 inh INHALATION Q4 PRN 05/13/20 09/02/21 aerosol inhaler fluoxetine 20 mg capsule (Prozac) 20 mg PO QAM 05/13/20 09/02/21 gabapentin 100 mg capsule 200 mg PO TIDM 05/13/20 09/02/21 (Neurontin) melatonin 5 mg tablet 5 mg PO HS 05/13/20 09/02/21 trazodone 100 mg tablet 100 mg PO HS 05/13/20 09/02/21 glycopyrrolate 1 mg tablet 1 mg PO TIDM 12/19/20 09/02/21 pyridostigmine bromide 60 mg tablet 60 mg FEEDING TUBE QID 12/19/20 09/02/21 apixaban 5 mg tablet (Eliquis) 5 mg PO BIDM 02/12/21 09/02/21 azathioprine 50 mg tablet (Imuran) 150 mg PO DAILY 02/12/21 09/02/21 famotidine 20 mg tablet 20 mg FEEDING TUBE QAM 02/12/21 09/02/21 prednisone 20 mg tablet 30 mg PO Q2D 02/12/21 09/02/21 amiodarone 200 mg tablet 200 mg PO QAM 03/10/21 09/02/21 [id number] 5 mg-zeaxanth 1 cap PO QAM 05/26/21 09/02/21 1 mg-bilberry 7.5 mg-herbal capsule (Macular Health Formula) multivitamin 1 tab PO QAM 05/26/21 09/02/21 acetaminophen 500 mg tablet 500 mg PO HS 06/03/21 09/02/21 (Tylenol Extra Strength) acetaminophen 500 mg tablet 500 mg PO Q6H PRN 06/03/21 09/02/21 (Tylenol Extra Strength) peg 400-propylene glycol 0.4 %-0.3 1 drp OPHTHALMIC (EYE) DIRECTED 06/03/21 09/02/21 % eye drops (Systane (propylene PRN glycol)) simethicone 40 mg/0.6 mL oral 20 mg FEEDING TUBE Q6H PRN 06/03/21 09/02/21 drops,suspension meloxicam 7.5 mg tablet 7.5 mg PO DAILY 09/02/21 09/02/21 Results & Data (ED) Vital Signs Vital Signs - 24 hr 09/02/21 14:39 Temperature 38.3 C H Temperature Source Oral Pulse Rate 89 Respiratory Rate 20 Respiratory Effort / Characteristics Non-Labored Spontaneous Respiratory Depth Normal Respiratory Pattern Regular Blood Pressure 120/64 Blood Pressure Mean 82 Blood Pressure Position Sitting Pulse Oximetry 93 Oxygen Delivery Method Nasal Cannula Oxygen Flow Rate 4 Sepsis Recent Fever Within 48 Hours Yes Sepsis New/Unexplained Change in Mental Status N/A Sepsis Action Taken by Nursing No Action Required Laboratory Data Result diagrams: 09/02/21 14:48 09/02/21 14:48 Lab Results 09/02/21 09/02/21 09/02/21 Range/Units 14:48 14:48 14:48 WBC 11.14 H (4.8-10.8) K/uL RBC 4.29 (4.2-5.4) M/uL Hgb 13.5 (12.0-16.0) g/dL Hct 41.5 (37-47) % MCV 96.7 (80-100) fL MCH 31.5 (25-34) pg MCHC 32.5 (32-36) g/dL RDW Std Deviation 55.2 H (36.4-46.3) fL RDW Coeff of Sandra 15.6 H (11.5-14.5) % Plt Count 254 (130-400) K/uL MPV 10.1 (7.4-10.4) fL Immature Gran % (Auto) 0.4 % Neut % (Auto) 85.0 % Lymph % (Auto) 11.2 % [place] % (Auto) 3.3 % Eos % (Auto) 0.1 % Baso % (Auto) 0.0 % Neut # (Auto) 9.47 H (1.4-6.5) K/uL Lymph # (Auto) 1.25 (1.2-3.4) K/uL [place] # (Auto) 0.37 (0.11-0.59) K/uL Eos # (Auto) 0.01 (0-0.5) K/uL Baso # (Auto) 0.00 (0-0.2) K/uL Immature Gran # (Auto) 0.04 H (0.00-0.02) K/uL PT 9.4 (9.0-12.0) Seconds INR 0.9 (0.9-1.1) Sodium 139 (136-145) mmol/L Potassium 3.7 (3.5-5.1) mmol/L Chloride 104 (98-107) mmol/L Carbon Dioxide 28 (21-32) mmol/L Anion Gap 7 (3-11) BUN 11 (6-23) mg/dl Creatinine 0.99 (0.6-1.2) mg/dl Est Cr Clr Drug Dosing 47.2 ml/min Est GFR ( Amer) 66.0 ml/min Est GFR (Non-Af Amer) 56.9 ml/min BUN/Creatinine Ratio 11.1 (10-20) Glucose 74 (70-99(Fasting)) mg/dl Lactate (0.4-2.0) mmol/L Calcium 8.4 L (8.5-10.1) mg/dl Total Bilirubin 0.5 (0.2-1.0) mg/dl AST 33 (13-39) U/L ALT 24 (7-52) U/L Alkaline Phosphatase 45 (34-104) U/L Troponin I < 0.03 (0-0.04) ng/ml C-Reactive Protein (0-0.5) mg/dl Total Protein 6.1 (6.0-8.3) gm/dl Albumin 3.4 (3.4-5.0) gm/dl Globulin 2.7 (2.5-4.0) gm/dl Albumin/Globulin Ratio 1.3 (0.9-2) Lipase 36 (11-82) U/L Procalcitonin (0-0.5) ng/ml Influ A Molecular Assay (Negative) Influ B Molecular Assay (Negative) SARS-CoV-2, RNA, NAAT (NEGATIVE) 09/02/21 09/02/21 09/02/21 Range/Units 14:48 15:08 16:15 WBC (4.8-10.8) K/uL RBC (4.2-5.4) M/uL Hgb (12.0-16.0) g/dL Hct (37-47) % MCV (80-100) fL MCH (25-34) pg MCHC (32-36) g/dL RDW Std Deviation (36.4-46.3) fL RDW Coeff of Sandra (11.5-14.5) % Plt Count (130-400) K/uL MPV (7.4-10.4) fL Immature Gran % (Auto) % Neut % (Auto) % Lymph % (Auto) % [place] % (Auto) % Eos % (Auto) % Baso % (Auto) % Neut # (Auto) (1.4-6.5) K/uL Lymph # (Auto) (1.2-3.4) K/uL [place] # (Auto) (0.11-0.59) K/uL Eos # (Auto) (0-0.5) K/uL Baso # (Auto) (0-0.2) K/uL Immature Gran # (Auto) (0.00-0.02) K/uL PT (9.0-12.0) Seconds INR (0.9-1.1) Sodium (136-145) mmol/L Potassium (3.5-5.1) mmol/L Chloride (98-107) mmol/L Carbon Dioxide (21-32) mmol/L Anion Gap (3-11) BUN (6-23) mg/dl Creatinine (0.6-1.2) mg/dl Est Cr Clr Drug Dosing ml/min Est GFR ( Amer) ml/min Est GFR (Non-Af Amer) ml/min BUN/Creatinine Ratio (10-20) Glucose (70-99(Fasting)) mg/dl Lactate 0.9 (0.4-2.0) mmol/L Calcium (8.5-10.1) mg/dl Total Bilirubin (0.2-1.0) mg/dl AST (13-39) U/L ALT (7-52) U/L Alkaline Phosphatase (34-104) U/L Troponin I (0-0.04) ng/ml C-Reactive Protein (0-0.5) mg/dl Total Protein (6.0-8.3) gm/dl Albumin (3.4-5.0) gm/dl Globulin (2.5-4.0) gm/dl Albumin/Globulin Ratio (0.9-2) Lipase (11-82) U/L Procalcitonin 0.12 (0-0.5) ng/ml Influ A Molecular Assay (Negative) Influ B Molecular Assay (Negative) SARS-CoV-2, RNA, NAAT POSITIVE A* (NEGATIVE) 09/02/21 09/02/21 Range/Units 16:15 16:16 WBC (4.8-10.8) K/uL RBC (4.2-5.4) M/uL Hgb (12.0-16.0) g/dL Hct (37-47) % MCV (80-100) fL MCH (25-34) pg MCHC (32-36) g/dL RDW Std Deviation (36.4-46.3) fL RDW Coeff of Sandra (11.5-14.5) % Plt Count (130-400) K/uL MPV (7.4-10.4) fL Immature Gran % (Auto) % Neut % (Auto) % Lymph % (Auto) % [place] % (Auto) % Eos % (Auto) % Baso % (Auto) % Neut # (Auto) (1.4-6.5) K/uL Lymph # (Auto) (1.2-3.4) K/uL [place] # (Auto) (0.11-0.59) K/uL Eos # (Auto) (0-0.5) K/uL Baso # (Auto) (0-0.2) K/uL Immature Gran # (Auto) (0.00-0.02) K/uL PT (9.0-12.0) Seconds INR (0.9-1.1) Sodium (136-145) mmol/L Potassium (3.5-5.1) mmol/L Chloride (98-107) mmol/L Carbon Dioxide (21-32) mmol/L Anion Gap (3-11) BUN (6-23) mg/dl Creatinine (0.6-1.2) mg/dl Est Cr Clr Drug Dosing ml/min Est GFR ( Amer) ml/min Est GFR (Non-Af Amer) ml/min BUN/Creatinine Ratio (10-20) Glucose (70-99(Fasting)) mg/dl Lactate (0.4-2.0) mmol/L Calcium (8.5-10.1) mg/dl Total Bilirubin (0.2-1.0) mg/dl AST (13-39) U/L ALT (7-52) U/L Alkaline Phosphatase (34-104) U/L Troponin I (0-0.04) ng/ml C-Reactive Protein 7.27 H (0-0.5) mg/dl Total Protein (6.0-8.3) gm/dl Albumin (3.4-5.0) gm/dl Globulin (2.5-4.0) gm/dl Albumin/Globulin Ratio (0.9-2) Lipase (11-82) U/L Procalcitonin (0-0.5) ng/ml Influ A Molecular Assay Negative (Negative) Influ B Molecular Assay Negative (Negative) SARS-CoV-2, RNA, NAAT (NEGATIVE) Administered Medications Remdesivir 200 mg/ Sodium (Chloride) 250 mls @ 125 mls/hr IV ONE STA; Protocol Stop: 09/02/21 18:27 Last Admin: 09/02/21 17:12 Dose: 125 mls/hr Documented by: [id number] Discontinued Medications Acetaminophen (Acetaminophen 500 Mg Tab) 1,000 mg PO NOW STA Stop: 09/02/21 15:55 Last Admin: 09/02/21 16:04 Dose: 1,000 mg Documented by: [id number] Dexamethasone Sodium Phosphate (DexamethasonePf 10 Mg/Ml Vial) 6 mg IV NOW ONE Stop: 09/02/21 15:44 Last Admin: 09/02/21 16:05 Dose: 6 mg Documented by: [id number] Doxycycline Hyclate (Doxycycline Hyclate 100 Mg Cap) 100 mg PO NOW STA Stop: 09/02/21 15:44 Last Admin: 09/02/21 16:04 Dose: 100 mg Documented by: [id number] Sodium Chloride (Nss) 500 mls @ 999 mls/hr IV .Q31M STA Stop: 09/02/21 15:26 Last Infusion: 09/02/21 16:26 Dose: 0 mls/hr Documented by: [id number] Admin: 09/02/21 15:15 Dose: 999 mls/hr Documented by: [id number] Meropenem 500 mg/ Syringe 10 mls @ 2 mls/min IV ONCE ONE; Protocol Stop: 09/02/21 15:47 Last Admin: 09/02/21 16:05 Dose: 2 mls/min Documented by: [id number] Imaging Data Radiologist's Impression: Chest X-Ray 09/02/21 14:56 XR chest 1V portable CLINICAL HISTORY: Fever, hypoxia TECHNIQUE: Single frontal radiograph of the chest was obtained. Comparison: Comparison is made to rib series 06/03/2021 FINDINGS: No lines and tubes are seen. Cardiomegaly is noted. Airspace opacity is seen in the right lower lung. No evidence of pleural effusion or pneumothorax. IMPRESSION: Airspace opacity in the right lower lung may represent atelectasis, pneumonia, and/or aspiration. ACT 112: Negative or not required by law. Electronically signed by: Kenrick Méndez M.D. 09/02/2021 3:28 PM Discharge Plan Visit Data Chief Complaint: Shortness of Breath/Dyspnea Stated Complaint: SOB, COUGH, WEAKNESS ED Provider: Alex Myers Discharge Problem: COVID-19, Myasthenia gravis, RLL pneumonia, Hypoxia, Weakness Patient Disposition: Being Evaluated by Hospitalist Forms Stand Alone Forms: [facility] Prescriptions Prescriptions: No Action trazodone 100 mg tablet 100 mg PO HS RF: 0 gabapentin [Neurontin] 100 mg capsule 200 mg PO TIDM RF: 0 albuterol sulfate 90 mcg/actuation HFA aerosol inhaler 2 inh INHALATION Q4 PRN (Reason: Wheezing) RF: 0 fluoxetine [Prozac] 20 mg capsule 20 mg PO QAM RF: 0 melatonin 5 mg Tablet 5 mg PO HS RF: 0 glycopyrrolate 1 mg tablet 1 mg PO TIDM RF: 0 pyridostigmine bromide 60 mg tablet 60 mg feeding tube QID RF: 0 prednisone 20 mg tablet 30 mg PO Q2D RF: 0 azathioprine [Imuran] 50 mg tablet 150 mg PO DAILY RF: 0 famotidine 20 mg tablet 20 mg feeding tube QAM RF: 0 Eliquis 5 mg tablet 5 mg PO BIDM RF: 0 amiodarone 200 mg tablet 200 mg PO QAM RF: 0 multivitamin Tablet 1 tab PO QAM RF: 0 Macular Health Formula 5-1-7.5 mg Capsule 1 cap PO QAM RF: 0 acetaminophen [Tylenol Extra Strength] 500 mg Tablet 500 mg PO Q6H PRN (Reason: Pain) RF: 0 acetaminophen [Tylenol Extra Strength] 500 mg Tablet 500 mg PO HS RF: 0 simethicone 40 mg/0.6 mL Drops,Suspension 20 mg feeding tube Q6H PRN (Reason: Gastric Reflux) RF: 0 Systane (propylene glycol) 0.4-0.3 % Drops 1 drp OPHTHALMIC (EYE) DIRECTED PRN (Reason: Dry Eyes) RF: 0 meloxicam 7.5 mg Tablet 7.5 mg PO DAILY RF: 0 Referrals Referrals: Tish King MD [Primary Care Provider] - Discharge Problem: RLL pneumonia Qualifiers: Pneumonia type: due to unspecified organism Qualified Code(s): J18.9 - Pneumonia, unspecified organism
[2021-09-02] MEDS ORDERED: ACETAMINOPHEN 500 MG TAB PO STA (15:54)
--- NOTE | 2021-09-02 16:08 | History & Physical Report ---
Date of Service September 02, 2021 Assessment & Plan (1) COVID-19: (2) RLL pneumonia: (3) Acute respiratory failure with hypoxia: Plan: - COVID-19 positive, symptoms started 1 week ago and progressively worsening, unknown source. Pt is vaccinated and boosted. - Procalcitonin 0.12 - Lymphocytes 1.25, neutrophils 9.47 - CXR reviewed: Airspace opacity in the right lower lung may represent atelectasis, pneumonia, and/or aspiration. - O2 sats in mid 80s on room air at rest, currently on 4L via NC maintaining sats at 93% - WBC = 11K - Remdesivir 200 mg IV x 1 then 100 mg daily therafter - Cont decadron 6 mg IV daily - hold [place] prednisone - Continue meropenum and doxycycline with risk of aspiration pna with CXR findings in the RLL, peg tube in place. Does take some meds and food PO. - Proning, supportive therapy, pulmonary toilet including incentive spirometry, flutter, albuterol inhaler - Anticoagulated on Eliquis, see below (4) Myasthenia gravis: Plan: - On Imuran 150 mg daily as immunosuppresant, as well as pyridostigmine bromide 60 mg daily, simethicone via PEG tube - Chronic, stable for now - Pt is high risk for myasthenia crisis - discussed with her neurologist - ok to continue dexamethasone without prednisone. Dosing converted to give equivalent steroid to help prevent crisis. At home pt takes prednisone 30 mg and 50 mg alternating doses daily. She did not take meds this morning. (5) Multiple sclerosis: Plan: - Hx of such, stable (6) Paroxysmal A-fib: (7) Paroxysmal atrial flutter: Plan: - Continue on amiodarone, eliquis BID, follows with Dr. Grider as outpt DVT ppx: - teds, scds, Eliquis twice daily CODE: Full code Dispo: From home, likely to remain in the hospital x 1-2 days. If any worsening or decompensation the patient will likely need transfer to [facility]. History of Present Illness Chief Complaint: Cough, fever, shortness of breath Primary Care Provider: Tish King MD This is a 70 yo F with PMHx of myasthenia gravis, multiple sclerosis with PEG tube, paroxysmal A. fib/a flutter on Eliquis, chronic anemia, osteoarthritis, depression, who presents with acute onset of shortness of breath, cough and fever over the past 1 week. No history of smoking or COPD. She is vaccinated and boosted for COVID-19, however has tested positive. Here in the ER she is requiring 4 L to maintain adequate O2 sats as she was in the mid 80s off oxygen. She is found to be febrile with temp of 38.3 once here in the ER. Patient notes today and yesterday she feel significantly worse, increased cough, significant fatigue where she feels like she cannot do anything. Patient is having difficulty speaking to me over the phone because of her cough and feeling so worn out. She cannot confirm her meds, but says she didn't take them today. She is agreeable to intubation in the setting of supportive ventilation for short timeframe but does not wish to remain on artificial life support. Allergies Allergy/AdvReac Type Severity Reaction Status Date / Time prochlorperazine Allergy Severe THROAT Verified 06/03/21 19:07 CONSTRICTING clarithromycin Allergy Intermediate RASH Verified 06/03/21 19:07 Penicillins Allergy Intermediate RASH Verified 06/03/21 19:07 amoxicillin Allergy Mild Rash Verified 06/03/21 19:07 azithromycin Allergy Mild Rash Verified 06/03/21 19:07 cephalexin Allergy Mild RASH Verified 06/03/21 19:07 erythromycin base Allergy Mild RASH Verified 06/03/21 19:07 aspirin [From Percodan] AdvReac Intermediate Hallucinati Verified 06/03/21 19:07 ng carbamazepine AdvReac Intermediate ELEVATED Verified 06/03/21 19:07 LFT LEVELS oxycodone AdvReac Intermediate HALLUCINATI Verified 06/03/21 19:07 ONS promethazine AdvReac Intermediate LEGS SHOOK Verified 06/03/21 19:07 Home Medications Medication Instructions Recorded Confirmed Type albuterol sulfate 90 mcg/actuation 2 inh INHALATION Q4 PRN 05/13/20 09/02/21 History aerosol inhaler fluoxetine 20 mg capsule (Prozac) 20 mg PO QAM 05/13/20 09/02/21 History gabapentin 100 mg capsule 200 mg PO TIDM 05/13/20 09/02/21 History (Neurontin) melatonin 5 mg tablet 5 mg PO HS 05/13/20 09/02/21 History trazodone 100 mg tablet 100 mg PO HS 05/13/20 09/02/21 History glycopyrrolate 1 mg tablet 1 mg PO TIDM 12/19/20 09/02/21 History pyridostigmine bromide 60 mg tablet 60 mg FEEDING TUBE QID 12/19/20 09/02/21 History apixaban 5 mg tablet (Eliquis) 5 mg PO BIDM 02/12/21 09/02/21 History azathioprine 50 mg tablet (Imuran) 150 mg PO DAILY 02/12/21 09/02/21 History famotidine 20 mg tablet 20 mg FEEDING TUBE QAM 02/12/21 09/02/21 History prednisone 20 mg tablet 30 mg PO Q2D 02/12/21 09/02/21 History amiodarone 200 mg tablet 200 mg PO QAM 03/10/21 09/02/21 History kganshpp-cze-xjjmss 5 mg-zeaxanth 1 cap PO QAM 05/26/21 09/02/21 History 1 mg-bilberry 7.5 mg-herbal capsule ([employer] Formula) multivitamin 1 tab PO QAM 05/26/21 09/02/21 History acetaminophen 500 mg tablet 500 mg PO HS 06/03/21 09/02/21 History (Tylenol Extra Strength) acetaminophen 500 mg tablet 500 mg PO Q6H PRN 06/03/21 09/02/21 History (Tylenol Extra Strength) peg 400-propylene glycol 0.4 %-0.3 1 drp OPHTHALMIC (EYE) DIRECTED 06/03/21 09/02/21 History % eye drops (Systane (propylene PRN glycol)) simethicone 40 mg/0.6 mL oral 20 mg FEEDING TUBE Q6H PRN 06/03/21 09/02/21 History drops,suspension meloxicam 7.5 mg tablet 7.5 mg PO DAILY 09/02/21 09/02/21 History Past Med/Surg History Medical History (Updated 09/02/21 @ 16:21 by Jennifer Moss PA-C) Depression Hip pain, right Multiple sclerosis Myasthenia gravis Myasthenia gravis Trochanteric bursitis of left hip Trochanteric bursitis, right hip Weakness Surgical History S/P T&A (status post tonsillectomy and adenoidectomy) S/P total hip arthroplasty Social History Smoking Status: Never smoker Tobacco Type: Cigarettes Second Hand Exposure: No; Hx Alcohol Use: No Hx Substance Use: No Preferred Language: Khmer Communication Ability: Effective Community Living Coach Required: No Beliefs That Will Affect Care: None Current Living Situation: Spouse Current Living Situation Comment: caregivers HS Other Information That Helps Us Care for You: No Feels Safe at Home: Yes Safety Concerns: Feels Safe At This Time Assistive Devices: Oxygen - Continuous and Walker Review of Systems Review of Systems: Constitutional: +fever, sweats and chills, fatigue Eyes: No diplopia, no worsening or blurred vision ENT: normal hearing, no trouble swallowing Respiratory: +cough, occasional sputum, no dyspnea at rest, + dyspnea on exertion Cardiovascular: No chest pain, tightness or palpitations Abdomen: No pain, nausea, vomiting, diarrhea or constipation Musculoskeletal: No joint pain, calf pain, swelling Neurologic: + weakness, no numbness/tingling, or balance problems, hx of myasthenia gravis Psychiatric: No anxiety or depression Skin: No rash or itch Physical Exam Physical Exam: Please refer to attending addendum as I did not see the patient in person due to being COVID-19 positive. Results & Data Results & Data ([facility]) Vital Signs (Past 12 Hours) Vital Signs Temp Pulse Resp BP Pulse Ox 09/02/21 14:39 38.3 C H 89 20 120/64 93 Laboratory Results 09/02/21 15:07 Aerobic Blood Culture - Pending Blood Anaerobic Blood Culture - Pending 09/02/21 14:48 Aerobic Blood Culture - Pending Blood Anaerobic Blood Culture - Pending 09/02/21 09/02/21 09/02/21 15:08 14:48 14:48 WBC RBC Hgb Hct MCV MCH MCHC RDW Std Deviation RDW Coeff of Sandra Plt Count MPV Immature Gran % (Auto) Neut % (Auto) Lymph % (Auto) [place] % (Auto) Eos % (Auto) Baso % (Auto) Neut # (Auto) Lymph # (Auto) [place] # (Auto) Eos # (Auto) Baso # (Auto) Immature Gran # (Auto) PT INR Sodium 139 Potassium 3.7 Chloride 104 Carbon Dioxide 28 Anion Gap 7 BUN 11 Creatinine 0.99 Est Cr Clr Drug Dosing 47.2 Est GFR ( Amer) 66.0 Est GFR (Non-Af Amer) 56.9 BUN/Creatinine Ratio 11.1 Glucose 74 Calcium 8.4 L Total Bilirubin 0.5 AST 33 ALT 24 Alkaline Phosphatase 45 Troponin I < 0.03 Total Protein 6.1 Albumin 3.4 Globulin 2.7 Albumin/Globulin Ratio 1.3 Lipase 36 Procalcitonin 0.12 SARS-CoV-2, RNA, NAAT POSITIVE A* 09/02/21 09/02/21 14:48 14:48 WBC 11.14 H RBC 4.29 Hgb 13.5 Hct 41.5 MCV 96.7 MCH 31.5 MCHC 32.5 RDW Std Deviation 55.2 H RDW Coeff of Sandra 15.6 H Plt Count 254 MPV 10.1 Immature Gran % (Auto) 0.4 Neut % (Auto) 85.0 Lymph % (Auto) 11.2 [place] % (Auto) 3.3 Eos % (Auto) 0.1 Baso % (Auto) 0.0 Neut # (Auto) 9.47 H Lymph # (Auto) 1.25 [place] # (Auto) 0.37 Eos # (Auto) 0.01 Baso # (Auto) 0.00 Immature Gran # (Auto) 0.04 H PT 9.4 INR 0.9 Sodium Potassium Chloride Carbon Dioxide Anion Gap BUN Creatinine Est Cr Clr Drug Dosing Est GFR ( Amer) Est GFR (Non-Af Amer) BUN/Creatinine Ratio Glucose Calcium Total Bilirubin AST ALT Alkaline Phosphatase Troponin I Total Protein Albumin Globulin Albumin/Globulin Ratio Lipase Procalcitonin SARS-CoV-2, RNA, NAAT Diagnostic Findings Chest X-Ray 09/02/21 14:56 XR chest 1V portable CLINICAL HISTORY: Fever, hypoxia TECHNIQUE: Single frontal radiograph of the chest was obtained. Comparison: Comparison is made to rib series 06/03/2021 FINDINGS: No lines and tubes are seen. Cardiomegaly is noted. Airspace opacity is seen in the right lower lung. No evidence of pleural effusion or pneumothorax. IMPRESSION: Airspace opacity in the right lower lung may represent atelectasis, pneumonia, and/or aspiration. ACT 112: Negative or not required by law. Electronically signed by: Kenrick Méndez M.D. 09/02/2021 3:28 PM ECG Additional Comments: 02-SEP-2021 15:09:54 [facility]-EDSTAT ROUTINE RETRIEVAL Normal sinus rhythm Left anterior fascicular block Abnormal ECG When compared with ECG of 12-FEB-2021 22:37, Criteria for Septal infarct are no longer Present 25mm/s10mm/[id number] 241CID: 13 Unconfirmed Vent. rate 79 BPM IN interval 166 ms QRS duration 86 ms QT/QTc 398/456 ms Code Status & VTE Plan Code Status Full code- discussed with the patient at bedside Supervising Physician Co-Signing Physician Notes Patient is a 70-year-old female with history of myasthenia gravis, multiple sclerosis, paroxysmal atrial fibrillation on chronic anticoagulation with Eliquis and other medical problems presents with history of worsening shortness of breath, cough, fever since 1 week duration. She was tested positive for Covid while in ED. She is vaccinated and positive for COVID-19. Please review HPI for complete details of presentation. At work suggestive of leukocytosis 11K, CRP elevated at 7.27. Chest x-ray showed airspace opacity in the right lower lung. Physical Exam: Vitals signs as noted above General Appearance:Moderately built and nourished, no apparent distress Head: normocephalic, Atraumatic Eyes: normal inspection, EOMI Neck: supple, Trachea midline Respiratory/Chest: Decreased breath sounds, CTA, No accessory muscle use Cardiovascular: S1, S2, No murmur Abdomen/GI:Soft, Non tender, Bowel sounds present Extremities/Musculoskeletal:normal inspection, no edema Neurologic/Psych:AAOX3, grossly no focal neurological deficits Skin: normal color, warm Acute respiratory failure with hypoxia COVID-19 pneumonia Started on dexamethasone, remdesivir Patient agrees with starting remdesivir. Started on broad-spectrum antibiotics given immunocompromised state Lasix, nebs as needed Encouraged to prone Continue supplemental oxygen as needed Monitor respiratory status closely given history of myasthenia gravis Consider pulmonology evaluation if needed I personally reviewed the record. Patient is interviewed and examined at bedside. Patient's care is coordinated with Jennifer Moss PA-C. Please refer to the documentation above for details of patient's presentation and for discussion of other issues. (1) RLL pneumonia Pneumonia type: due to unspecified organism Qualified Code(s): J18.9 - Pneumonia, unspecified organism
[2021-09-02] MEDS ORDERED: REMDESIVIR 200 MG in SODIUM CHLORIDE 0.9% 210 ML IV STA (16:28)
[2021-09-02] MEDS ORDERED: traMADol HCL 50 MG TABLET PO PRN (16:30)
[2021-09-02] MEDS ORDERED: predniSONE 10 MG TABLET PO SCH (16:45)
[2021-09-02 16:47] LABS: Influenza A virus by PCR Negative (Negative); Influenza B virus by PCR Negative (Negative)
[2021-09-02] MEDS ORDERED: ONDANSETRON INJ 2 MG/ML 2 ML VIAL IV PRN (18:59)
[2021-09-02] MEDS ORDERED: ALBUTEROL HFA 8 GM INHALER INH PRN (19:17)
[2021-09-02] MEDS ORDERED: CONSULT PHARMACY STA (19:19)
[2021-09-02] MEDS: GLYCOPYRROLATE 1 MG TAB PO SCH (20:23)
[2021-09-02] MEDS: GABAPENTIN 100 MG CAP PO SCH (20:23)
[2021-09-02] MEDS: PYRIDOSTIGMINE BROMIDE 60 MG TAB PO SCH ×2 (20:24→20:26)
[2021-09-02] MEDS: APIXABAN 5 MG TABLET PO SCH (20:24)
[2021-09-02] MEDS: ALBUTEROL HFA 8 GM INHALER INH SCH (20:42)
[2021-09-02] MEDS: ACETAMINOPHEN 325 MG TAB PO PRN (21:45)
[2021-09-02] MEDS: DOXYCYCLINE HYCLATE 100 MG CAP PO SCH (21:46)
[2021-09-02] MEDS: BENZONATATE 100 MG CAPSULE PO SCH (21:46)
[2021-09-03] MEDS: MEROPENEM 500 MG in SYRINGE 0 ML IV SCH ×2 (00:04→08:53)
[2021-09-03 00:46] LABS: Appearance Urine Clear (Clear); Bacteria Urine Automated Negative (Negative); Bilirubin Urine Negative (Negative); Blood Urine 1+ (Negative); Color Urine Yellow; Epithelial Cell Urine Auto 20-30 /lpf (0-5); Glucose Urine UA 2+ (Negative); Ketones Urine Negative (Negative); Leukocyte Esterase Urine Negative (Negative); Nitrite Urine Negative (Negative); Protein Urine Trace (Negative); RBC Urine Automated 0-4 /hpf (0-4); Specific Gravity Urine 1.015 (1.000-1.030); Urobilinogen Urine Negative (Negative); pH Urine 5.5 (4.5-7.5)
[2021-09-03 07:03] LABS: Hematocrit (blood only) 41.8 % (37-47); Hemoglobin 13.4 g/dL (12.0-16.0); Mean Corpuscular Hemoglobin 31.2 pg (25-34); Mean Corpuscular Hgb Conc 32.1 g/dL (32-36); Mean Corpuscular Volume 97.4 fL (80-100); Mean Platelet Volume 9.9 fL (7.4-10.4); Platelet Count 264 K/uL (130-400); RDW Coefficient of Variation 15.8 % (11.5-14.5); RDW Standard Deviation 56.3 fL (36.4-46.3); Red Blood Count 4.29 M/uL (4.2-5.4); White Blood Count 8.71 K/uL (4.8-10.8)
[2021-09-03 07:29] LABS: Albumin Globulin Ratio 1.3 (0.9-2); Albumin Level 3.2 gm/dl (3.4-5.0); Bilirubin,Total 0.4 mg/dl (0.2-1.0); Calcium 8.4 mg/dl (8.5-10.1); Creatinine Clr Calc Pharmacy 60.8 ml/min; Est GFR (African American) 92.3 ml/min; Est GFR (Non-African American) 79.6 ml/min; Globulin 2.5 gm/dl (2.5-4.0); Magnesium 2.2 mg/dl (1.7-2.4); Potassium 4.2 mmol/L (3.5-5.1); Total Protein 5.7 gm/dl (6.0-8.3)
[2021-09-03] MEDS: ALBUTEROL HFA 8 GM INHALER INH SCH ×2 (07:33→13:09)
[2021-09-03] MEDS ORDERED: Nursing to Pharmacy Communication SCH (08:00)
[2021-09-03] MEDS: azaTHIOprine 50 MG TAB PO SCH (08:11)
[2021-09-03] MEDS: DEXTROMETHORPHAN POLYMR COMPLX 30 MG/5 ML UDP PO PRN ×2 (08:11→17:53)
[2021-09-03] MEDS: AMIODARONE 200 MG TAB PO SCH (08:11)
[2021-09-03] MEDS: DOXYCYCLINE HYCLATE 100 MG CAP PO SCH (08:12)
[2021-09-03] MEDS: PYRIDOSTIGMINE BROMIDE 60 MG TAB PO SCH ×4 (08:12→21:16)
[2021-09-03] MEDS: APIXABAN 5 MG TABLET PO SCH ×2 (08:12→17:14)
[2021-09-03] MEDS: GABAPENTIN 100 MG CAP PO SCH ×3 (08:12→17:14)
[2021-09-03] MEDS: FLUoxetine HCL 20 MG CAP PO SCH (08:12)
[2021-09-03] MEDS: dexAMETHasone 6 MG in SYRINGE 0 ML IV SCH (08:12)
[2021-09-03] MEDS: BENZONATATE 100 MG CAPSULE PO SCH ×3 (08:12→20:37)
[2021-09-03] MEDS: GLYCOPYRROLATE 1 MG TAB PO SCH ×3 (08:12→17:14)
[2021-09-03] MEDS: FAMOTIDINE 20 MG TAB PO SCH (08:13)
[2021-09-03] MEDS ORDERED: FAMOTIDINE 20 MG TAB JT SCH (09:00)
[2021-09-03] MEDS: REMDESIVIR 100 MG in SODIUM CHLORIDE 0.9% 230 ML IV SCH (11:57)
[2021-09-03] MEDS ORDERED: ALBUTEROL HFA 8 GM INHALER INH PRN (13:10)
--- NOTE | 2021-09-03 14:46 | Electrocardiogram Report ---
Test Reason : Blood Pressure : / mmHG Vent. Rate : 079 BPM Atrial Rate : 079 BPM P-R Int : 166 ms QRS Dur : 086 ms QT Int : 398 ms P-R-T Axes : 028 -45 039 degrees QTc Int : 456 ms Normal sinus rhythm Left anterior fascicular block Abnormal ECG When compared with ECG of 12-FEB-2021 22:37, Criteria for Septal infarct are no longer Present Confirmed by Josh Devlin ([id number]) on 09/03/2021 2:46:35 PM Referred By: Confirmed By:Josh Devlin
--- NOTE | 2021-09-03 15:01 | Critical Care Consultation ---
Date of Consultation September 03, 2021 Assessment & Plan (1) Myasthenia gravis: (2) COVID-19: (3) Hypoxia: Impression: 70-year-old female with history of myasthenia on chronic immune suppression in the form of prednisone and azathioprine admitted now with hypoxemic respiratory failure and positive Covid test. Recommendations: 1. Covid pneumonitis: The patient is hypoxemic. Her situation is somewhat complicated she is already chronically immunosuppressed. She is on dexamethasone 6 mg daily and I would certainly not increase it beyond that. She is not a candidate for other immune suppression regimens given her chronic immune suppressed status with azathioprine. Her CRP is elevated but would not recommend additional therapy based on the above explanation. 2. Myasthenia: The patient's negative inspiratory force currently is adequate. Will observe her for the next 24 hours and see how she does. We will ask respiratory therapy to perform twice daily assessments of negative inspiratory force and forced vital capacity. Should the patient's clinical status deteriorate, consideration for noninvasive positive pressure ventilation may be appropriate. 3. The patient has a normal white blood cell count and a normal procalcitonin. Do not believe additional antimicrobial agents are required. These will be discontinued. We will follow clinically. 4. The patient is fully anticoagulated for her atrial fibrillation so do not think additional evaluation for hypoxemia is required currently. We will follow the patient closely at this point in time. If she demonstrates clinical stability with improved oxygenation and improved respiratory muscle strength parameters over the next 24 hours, she can likely be returned back to telemetry with continued monitoring. The above recommendations and plan were discussed with the patient in detail. She expressed understanding with the plan as outlined History of Present Illness Attending Physician: David Martins MD History of Present Illness Asked by hospitalist to evaluate this patient with a history of myasthenia admitted with Covid. Neurology had recommended ICU monitoring. History is obtained from reviewed electronic medical record as well as discussion with the patient. Patient is a 70-year-old female with a longstanding history of myasthenia who is followed in the [facility] neurology clinic. She is fully vaccinated against Covid. She also has a history of atrial fibrillation on chronic Eliquis. She is immunosuppressed with azathioprine and prednisone. She presented to the emergency room 09/02/2021 with 1 week history of cough and subjective fevers. She tested positive for Covid. She required oxygen at 4 L/min which is new for her. She was also febrile. She was admitted to the hospitalist service. Neurology consultation was obtained. Their formal consult is currently pending but there was concern about potential myasthenic crisis. The patient has had crisis previously requiring IVIG. She has never been intubated but is willing to undergo mechanical ventilation if needed. Patient reports that her breathing is okay currently. Her only complaint is c ough. She is having no difficulty taking deep breath. No diplopia. No dysphagia. She is not having any difficulty clearing secretions or swallowing. Allergies Allergy/AdvReac Type Severity Reaction Status Date / Time prochlorperazine Allergy Severe THROAT Verified 06/03/21 19:07 CONSTRICTING clarithromycin Allergy Intermediate RASH Verified 06/03/21 19:07 Penicillins Allergy Intermediate RASH Verified 06/03/21 19:07 amoxicillin Allergy Mild Rash Verified 06/03/21 19:07 azithromycin Allergy Mild Rash Verified 06/03/21 19:07 cephalexin Allergy Mild RASH Verified 06/03/21 19:07 erythromycin base Allergy Mild RASH Verified 06/03/21 19:07 aspirin [From Percodan] AdvReac Intermediate Hallucinati Verified 06/03/21 19:07 ng carbamazepine AdvReac Intermediate ELEVATED Verified 06/03/21 19:07 LFT LEVELS oxycodone AdvReac Intermediate HALLUCINATI Verified 06/03/21 19:07 ONS promethazine AdvReac Intermediate LEGS SHOOK Verified 06/03/21 19:07 Home Medications Medication Instructions Recorded Confirmed Type albuterol sulfate 90 mcg/actuation 2 inh INHALATION Q4 PRN 05/13/20 09/02/21 History aerosol inhaler fluoxetine 20 mg capsule (Prozac) 20 mg PO QAM 05/13/20 09/02/21 History gabapentin 100 mg capsule 200 mg PO TIDM 05/13/20 09/02/21 History (Neurontin) melatonin 5 mg tablet 5 mg PO HS 05/13/20 09/02/21 History trazodone 100 mg tablet 100 mg PO HS 05/13/20 09/02/21 History glycopyrrolate 1 mg tablet 1 mg PO TIDM 12/19/20 09/02/21 History pyridostigmine bromide 60 mg tablet 60 mg PO QID 12/19/20 09/03/21 History apixaban 5 mg tablet (Eliquis) 5 mg PO BIDM 02/12/21 09/02/21 History azathioprine 50 mg tablet (Imuran) 150 mg PO DAILY 02/12/21 09/02/21 History famotidine 20 mg tablet 20 mg PO QAM 02/12/21 09/03/21 History prednisone 20 mg tablet 30 mg PO Q2D 02/12/21 09/02/21 History amiodarone 200 mg tablet 200 mg PO QAM 03/10/21 09/02/21 History uxuztcgi-hvj-mliqsg 5 mg-zeaxanth 1 cap PO QAM 05/26/21 09/02/21 History 1 mg-bilberry 7.5 mg-herbal capsule ([employer] Formula) multivitamin 1 tab PO QAM 05/26/21 09/02/21 History acetaminophen 500 mg tablet 500 mg PO HS 06/03/21 09/02/21 History (Tylenol Extra Strength) acetaminophen 500 mg tablet 500 mg PO Q6H PRN 06/03/21 09/02/21 History (Tylenol Extra Strength) peg 400-propylene glycol 0.4 %-0.3 1 drp OPHTHALMIC (EYE) DIRECTED 06/03/21 09/02/21 History % eye drops (Systane (propylene PRN glycol)) simethicone 40 mg/0.6 mL oral 20 mg PO Q6H PRN 06/03/21 09/03/21 History drops,suspension meloxicam 7.5 mg tablet 7.5 mg PO DAILY 09/02/21 09/02/21 History Patient History Medical History (Updated 09/02/21 @ 16:21 by Jennifer Moss PA-C) Depression Hip pain, right Multiple sclerosis Myasthenia gravis Myasthenia gravis Trochanteric bursitis of left hip Trochanteric bursitis, right hip Weakness Surgical History S/P T&A (status post tonsillectomy and adenoidectomy) S/P total hip arthroplasty Social History Smoking Status: Never smoker Tobacco Type: Cigarettes Second Hand Exposure: No; Hx Alcohol Use: No Hx Substance Use: No Preferred Language: Slovenian Communication Ability: Effective Soda Clerk Required: No Beliefs That Will Affect Care: None Current Living Situation: Spouse Current Living Situation Comment: caregivers HS Other Information That Helps Us Care for You: No Feels Safe at Home: Yes Safety Concerns: Feels Safe At This Time Assistive Devices: Walker Review of Systems Review of Systems: All systems reviewed & are unremarkable except as noted in HPI & below Physical Exam Constitutional: WD/WN, vitals as above Cushingoid appearance Neck: trachea midline, no thyromegaly Respiratory: normal respiratory effort, lungs clear to auscultation Cardiovascular: RRR, no murmur, no edema Gastrointestinal (Abdomen): normal bowel sounds, soft, nontender, no hepatosplenomegaly Musculoskeletal: Extremities: extremities normal to inspection Skin: no rashes, warm and dry Neurologic: Nonfocal exam Lymphatic: no cervical lymphadenopathy Results & Data Results & Data ([facility]) Vital Signs (Past 12 Hours) Vital Signs Temp Pulse Pulse Resp BP Pulse Ox Pulse Ox 09/03/21 10:58 36.8 C 78 22 125/75 95 09/03/21 09:58 90 09/03/21 08:06 94 09/03/21 07:34 68 22 92 09/03/21 07:13 36.9 C 83 20 132/60 88 L 09/03/21 07:00 65 09/03/21 04:11 75 09/03/21 03:40 37.4 C 68 21 125/75 97 Pulse Ox Pulse Ox 09/03/21 10:58 09/03/21 09:58 92 92 09/03/21 08:06 09/03/21 07:34 09/03/21 07:13 09/03/21 07:00 09/03/21 04:11 09/03/21 03:40 Critical Care Results & Data Vital Signs (Past 12 Hours) Vital Signs Temp Pulse Pulse Resp BP Pulse Ox Pulse Ox 09/03/21 10:58 36.8 C 78 22 125/75 95 09/03/21 09:58 90 09/03/21 08:06 94 09/03/21 07:34 68 22 92 09/03/21 07:13 36.9 C 83 20 132/60 88 L 09/03/21 07:00 65 09/03/21 04:11 75 09/03/21 03:40 37.4 C 68 21 125/75 97 Pulse Ox Pulse Ox 09/03/21 10:58 09/03/21 09:58 92 92 09/03/21 08:06 09/03/21 07:34 09/03/21 07:13 09/03/21 07:00 09/03/21 04:11 09/03/21 03:40 Lab & Micro Results (Past 24 Hours) RBC 4.29 M/uL (4.2-5.4) 09/03/21 WBC 8.71 K/uL (4.8-10.8) 09/03/21 Hgb 13.4 g/dL (12.0-16.0) 09/03/21 Hct 41.8 % (37-47) 09/03/21 MCV 97.4 fL (80-100) 09/03/21 MCH 31.2 pg (25-34) 09/03/21 MCHC 32.1 g/dL (32-36) 09/03/21 RDW Standard Deviation 56.3 fL (36.4-46.3) H 09/03/21 RDW Coefficient of Variation 15.8 % (11.5-14.5) H 09/03/21 Plt Count 264 K/uL (130-400) 09/03/21 MPV 9.9 fL (7.4-10.4) 09/03/21 Na 140 mmol/L (136-145) 09/03/21 K 4.2 mmol/L (3.5-5.1) 09/03/21 Cl 108 mmol/L (98-107) H 09/03/21 CO2 26 mmol/L (21-32) 09/03/21 Anion Gap 6 (3-11) 09/03/21 BUN 15 mg/dl (6-23) 09/03/21 Creatinine 0.75 mg/dl (0.6-1.2) 09/03/21 Estimated GFR ( Amer) 92.3 ml/min 09/03/21 Estimated GFR (Non-Af Amer) 79.6 ml/min 09/03/21 BUN/Creatinine Ratio 20.0 (10-20) 09/03/21 Glu 91 mg/dl (70-99(Fasting)) 09/03/21 Ca 8.4 mg/dl (8.5-10.1) L 09/03/21 Total Bilirubin 0.4 mg/dl (0.2-1.0) 09/03/21 AST 31 U/L (13-39) 09/03/21 ALT 23 U/L (7-52) 09/03/21 Alkaline Phosphatase 42 U/L (34-104) 09/03/21 TP 5.7 gm/dl (6.0-8.3) L 09/03/21 Albumin 3.2 gm/dl (3.4-5.0) L 09/03/21 Globulin 2.5 gm/dl (2.5-4.0) 09/03/21 Albumin/Globulin Ratio 1.3 (0.9-2) 09/03/21 Mg 2.2 mg/dl (1.7-2.4) 09/03/21 06:46 09/03/21 Calcium Level 8.4 mg/dl (8.5-10.1) L 09/03/21 06:46 09/03/21 Microbiology 09/03/21 09:30 Gram Stain - Final Sputum, Expectorated Diagnostic Findings (Past 24 Hours) Chest X-Ray 09/02/21 14:56 XR chest 1V portable CLINICAL HISTORY: Fever, hypoxia TECHNIQUE: Single frontal radiograph of the chest was obtained. Comparison: Comparison is made to rib series 06/03/2021 FINDINGS: No lines and tubes are seen. Cardiomegaly is noted. Airspace opacity is seen in the right lower lung. No evidence of pleural effusion or pneumothorax. IMPRESSION: Airspace opacity in the right lower lung may represent atelectasis, pneumonia, and/or aspiration. ACT 112: Negative or not required by law. Electronically signed by: Kenrick Méndez M.D. 09/02/2021 3:28 PM I & O Totals 24 Hours 09/02/21 09/03/21 09/04/21 06:59 06:59 06:59 Intake Total 870 / 870 250 / 250 Output Total 400 / 400 Balance 470 / 470 250 / 250 Cumulative 09/02/21 14:15 thru 09/03/21 14:29 Intake Total 1120 Output Total 400 Balance 720 RT Ventilator Mngmt (Last Documented) Ventilator Ordered Settings Respiratory Rate 22 09/03/21 10:58 Ventilator - PT Measurements Respiratory Rate 22 Coding Level of Care Code 37370 Inpt Consult Level 4 Diagnoses Myasthenia gravis G70.00 COVID-19 U07.1 Hypoxia R09.02
--- NOTE | 2021-09-03 16:31 | Communication Note ---
Date of Service: September 03, 2021 Colleen is 70 years old and is well-known to me from about 20+ years of caring for her initially for gait disturbance that was subsequently found to be due to primary progressive multiple sclerosis which fortunately has been relatively quiesced sent save for the production of incontinence of bowel and bladder which recently has been flaring up a bit. She has a long history of bilateral ptosis and in fact had oculoplastic surgery but then developed full-blown myasthenia gravis within the past several years manifested by increasing ptosis diplopia and dysphagia but during those intervals of time there was not a lot of muscular weakness and no particular respiratory insufficiency She had a protracted myasthenic crisis last spring was in [place] received IVIG and emerged from that in a fairly stable condition but we then started immunosuppressive therapy with azathioprine and high-dose prednisone. Unfortunately she had another flareup while on vacation in [place] I believe in December and required hospitalization there was some IVIG then emerged and has done reasonably well. She initially had a PEG tube in place but that was removed in June I believe by the GI service We have had trouble communicating with her regarding increasing her medications and eventually we have reached a target dose of Imuran at 150 mg a day and are beginning to shave off on the daily prednisone now down to 50 mg alternating with 30 mg but for a while she was on 60 mg daily and is quite cushingoid because of Unfortunately despite having two mRNA vaccines had a booster she developed Covid during the last several days and then a Covid pneumonitis with productive cough and hypoxemia with saturations being 80% on room air and requiring 3 to 4 L of oxygen to maintain 90% saturation. She was admitted to the hospital is now on antibiotics which have been reviewed and are not of the kind that will exacerbate her myasthenia and has been maint ained on her Imuran, she is on Decadron and doses equivalent to her daily steroid doses and continues on her Mestinon Her other medications are listed below along with her other medical problems which in addition to the myasthenia and multiple sclerosis include recurrent trochanteric bursitis status post total hip arthroplasty, left shoulder osteoarthritis and paroxysmal atrial fibrillation for which she is currently on Eliquis Neurologic systems review reveals some flareup of her longstanding MS related incontinence and she has had imaging studies of her cervical spine and thoracic spine done on an outpatient basis but I do not know the results as yet and was due to have an MRI of her brain to restage the illness in anticipation of a consultation with our multiple sclerosis group in [place]. I find it unlikely that any active disease modifying therapy will be recommended but I think she was interested in the steering this Otherwise from a myasthenia point of view she denies any diplopia she has not had any dysphagia she feels her breathing has been fine and her muscular strength is been fine so it appears that the pneumonia is at least at this point the primary cause of her hypoxemia Exam at present time reveals blood pressure 129/78 pulse 69 respirations are 20 and she is afebrile Incentive spirometry at the bedside reveals she can easily place a ball at the top of the container and it appears that her negative volumes are around 1000 cc and she did this consistently on 3 sequential trials without fatigue I certainly encouraged her to continue to do this frequently but unfortunately the effort does exacerbate her cough which is quite prominent and interferes with conversation. Mentally she is alert she never has been able to name her medications or really understand her drug regimen so her inability to do this now is not that different and I do not pick up driver any gross memory deficits or evidence for encephalopathy and she denies a headache. Eye movements are fine there is no ptosis facial movements are fine she can puff her cheeks against resistance her neck flexors are strong neck extensors are strong left shoulder pain prevents testing of proximal muscles on that side but on the right her proximal muscles are excellent including the deltoid supra and infraspinatus biceps triceps and forearm flexors extensors and finger muscles are excellent she can extend her lower extremities I cannot break her quadriceps dorsiflexion of the feet is normal and sensory examination is normal than the limits of this type of interaction and I did not test reflexes as I did not bring my reflex hammer into the Covid unit I reviewed the recommendations of the intensive care unit teamcenter consultant and agree at this point that her myasthenia seems to be under excellent control but that in this setting she could deteriorate at any time and will need close observation frequent negative inspiratory force assessments, and some index of her negative inspiratory force can easily be assessed by looking at her incentive promontory efforts at the bedside I would make no changes in her myasthenic regimen we will continue the Decadron at the current dosing long with the remdesivir and the antibiotics I have made Dr. Po Mac aware of her presence in the hospital long with Susan Ruiz PA-C and Susan Mims MD who will be assuming neurologic consult service on Tuesday and Tuesday I also spoke with Dr. Antoni Saxena at [facility] who is a neurologist compensation business partner this weekend and all of us are on board with the policy of keeping her here at [facility] as well as her myasthenic status remained stable and her negative inspiratory forces other indices of respiratory function remain unimpaired by the myasthenia Should she decline due to myasthenia then we can either transfer to [place] if there is a bed available for which things with the use of IVIG Hopefully the latter will not be necessary Theo Hanson MD The above note was generated utilizing voice recognition technology and may have punctuation error spelling errors pronoun usage errors and syntax errors
--- NOTE | 2021-09-03 17:37 | Hospitalist Progress Note ---
Date of Service September 03, 2021 Assessment & Plan (1) COVID-19: (2) RLL pneumonia: (3) Acute respiratory failure with hypoxia: Plan: per admitting service notes with addendum: - COVID-19 positive, symptoms started 1 week ago and progressively worsening, unknown source. Pt is vaccinated and boosted. - Procalcitonin 0.12 - Lymphocytes 1.25, neutrophils 9.47 - CXR reviewed: Airspace opacity in the right lower lung may represent atelectasis, pneumonia, and/or aspiration. - O2 sats in mid 80s on room air at rest, currently on 4L via NC maintaining sats at 93% - WBC = 11K - Remdesivir 200 mg IV x 1 then 100 mg daily therafter - Cont decadron 6 mg IV daily - hold CANE PUSHER prednisone - Continue meropenum and doxycycline with risk of aspiration pna with CXR findings in the RLL, peg tube in place. Does take some meds and food PO. - Proning, supportive therapy, pulmonary toilet including incentive spirometry, flutter, albuterol inhaler - Anticoagulated on Eliquis, see below 09/03 remains on 4 L NC continue Decadron, Remdesivir, Meropenem, Doxycycline Incentive spirometer, flutter valve on Eliquis discussed with Dr. Hanson, recommend transfer to [facility] recommends to have patient staty in [facility], IVIg if patient develops MG Crisis NIF qshift continue usual MG medication regimen monitor closely in ICU discussed with Dr. San (4) Myasthenia gravis: Plan: - On Imuran 150 mg daily as immunosuppresant, as well as pyridostigmine bromide 60 mg daily, simethicone via PEG tube - Chronic, stable for now - Pt is high risk for myasthenia crisis - discussed with her neurologist - ok to continue dexamethasone without prednisone. Dosing converted to give equivalent steroid to help prevent crisis. At home pt takes prednisone 30 mg and 50 mg alternating doses daily. She did not take meds this morning. 09/03 management per above (5) Multiple sclerosis: Plan: monitor closely (6) Paroxysmal A-fib: (7) Paroxysmal atrial flutter: Plan: - Continue on amiodarone, eliquis BID, follows with Dr. Grider as outpt DVT ppx: - teds, scds, Eliquis twice daily CODE: Full code Dispo: pending will need PT/OT evaluation lives at home with her plan of care discussed with patient in detail and at length all questions answered she is understanding, agreeable, comfortable with the plan of care Admission and Anticipated Discharge Date Admission Date: September 02, 2021 Subjective ff up for COVID 19 pneumonia, MG, etc seen resting in bed, on 4 L NC not in distress appears comfortable states she feels about the same has dry cough on exam no dyspnea on exam no chest pain, palpitations, dizziness no leg pain no dysphagia, weakness/numbness no other symptoms Review of Systems Review of Systems: all noted and negative except for above Physical Exam Physical Exam: General- oriented x 3, not in distress, speaks in sentences with no effort or accessory muscle use Head- atraumatic Eyes- PERRL, EOMI, anicteric ENT- oropharynx clear Neck- supple, no JVD, no adenopathy, no thyromegaly; carotids +2/2, no bruits appreciated Lungs- (+) mild rhonchi in the right lower lobe Heart- normal rate, regular rhythm; no murmur, no gallop, no rub appreciated Abdomen- normal bowel sounds, nondistended, soft, nontender, no masses or hepatosplenomegaly Extremities- no pretibial edema, no calf tenderness; peripheral pulses intact Neuro- alert, oriented x 3; CN 2-12 grossly intact; motor 5/5 bilaterally;sensation 100% on all extremities; no other gross focal neurologic deficits Skin- warm & dry Results & Data Results & Data ([facility]) Vital Signs (Past 12 Hours) Vital Signs Temp Pulse Pulse Resp BP Pulse Ox Pulse Ox 09/03/21 15:19 36.6 C 69 20 129/78 97 09/03/21 15:00 72 09/03/21 10:58 36.8 C 78 22 125/75 95 09/03/21 09:58 90 09/03/21 08:06 94 09/03/21 07:34 68 22 92 09/03/21 07:13 36.9 C 83 20 132/60 88 L 09/03/21 07:00 65 Pulse Ox Pulse Ox 09/03/21 15:19 09/03/21 15:00 09/03/21 10:58 09/03/21 09:58 92 92 09/03/21 08:06 09/03/21 07:34 09/03/21 07:13 09/03/21 07:00 all noted and reviewed including below (1) RLL pneumonia Pneumonia type: due to unspecified organism Qualified Code(s): J18.9 - Pneumonia, unspecified organism
[2021-09-03] MEDS ORDERED: ICU PROTOCOL FOR HYPERGLYCEMIA PRN (18:55)
[2021-09-03] MEDS ORDERED: COUGH DROP (SUGAR FREE) LOZ 24 LOZ/1 BOX BUCCAL STA (22:56)
[2021-09-03] MEDS: ACETAMINOPHEN 325 MG TAB PO PRN (22:57)
[2021-09-04 07:18] LABS: Hematocrit (blood only) 40.7 % (37-47); Hemoglobin 13.3 g/dL (12.0-16.0); Mean Corpuscular Hemoglobin 31.2 pg (25-34); Mean Corpuscular Hgb Conc 32.7 g/dL (32-36); Mean Corpuscular Volume 95.5 fL (80-100); Mean Platelet Volume 10.2 fL (7.4-10.4); Platelet Count 269 K/uL (130-400); RDW Coefficient of Variation 15.4 % (11.5-14.5); RDW Standard Deviation 53.9 fL (36.4-46.3); Red Blood Count 4.26 M/uL (4.2-5.4); White Blood Count 11.26 K/uL (4.8-10.8)
[2021-09-04 07:34] LABS: Albumin Globulin Ratio 1.2 (0.9-2); Albumin Level 3.2 gm/dl (3.4-5.0); BUN Creatinine Ratio 24.7 (10-20); Bilirubin,Total 0.6 mg/dl (0.2-1.0); C Reactive Protein 9.48 mg/dl (0-0.5); Calcium 8.2 mg/dl (8.5-10.1); Creatinine Clr Calc Pharmacy 57.6 ml/min; Est GFR (African American) 95.4 ml/min; Est GFR (Non-African American) 82.3 ml/min; Globulin 2.7 gm/dl (2.5-4.0); Total Protein 5.9 gm/dl (6.0-8.3)
--- NOTE | 2021-09-04 09:15 | Critical Care Progress Note ---
Date of Service September 04, 2021 Assessment & Plan (1) Myasthenia gravis: (2) COVID-19: (3) Hypoxia: Plan: Impression: 70-year-old female with history of myasthenia on chronic immune suppression in the form of prednisone and azathioprine admitted now with hypoxemic respiratory failure and positive Covid test. Recommendations: 1. Covid pneumonitis: The patient is hypoxemic. Her situation is somewhat complicated she is already chronically immunosuppressed. She is on dexamethasone 6 mg daily and I would not increase it beyond that. She is not a candidate for other immune suppression regimens given her chronic immune suppressed status with azathioprine. Her CRP is elevated but would not recommend additional therapy based on the above explanation. 2. Myasthenia: The patient's negative inspiratory force and forced vital capacity are both within normal limits. Continue twice daily assessments with respiratory therapy. She appears stable and can downgrade out of the ICU at this point in time. If her if should fall below -20 her forced vital capacity should decrease below a liter, reconsultation of critical care may be appropriate as she may benefit from noninvasive positive pressure ventilation. 3. Follow clinically for signs of secondary infection 4. The patient is fully anticoagulated for her atrial fibrillation so do not think additional evaluation for hypoxemia is required currently. Case was discussed on multidisciplinary rounds and with the bedside critical care nurse as well as with the patient at bedside. Critical care services will sign off at this point time. Feel free to contact us should the patient's clinical condition change. Admission and Anticipated Discharge Date Admission Date: September 02, 2021 Subjective Patient seen and examined. EMR reviewed. The patient is awake alert. She is ambulatory to the bathroom. She is complaining of a cough. Is nonproductive. She is not experiencing any shortness of breath. Her respiratory muscle strength assessments remain normal. Neph is greater than 40 and forced vital capacity is about 1.4 L. Review of Systems Review of Systems: All systems reviewed & are unremarkable except as noted in Subjective Physical Exam Constitutional: WD/WN, vitals as above Neck: trachea midline, no thyromegaly Respiratory: normal respiratory effort, lungs clear to auscultation Cardiovascular: RRR, no murmur, no edema Gastrointestinal (Abdomen): normal bowel sounds, soft, nontender, no hepatosplenomegaly Musculoskeletal: Extremities: extremities normal to inspection Skin: no rashes, warm and dry Lymphatic: no cervical lymphadenopathy Results & Data Results & Data ([facility]) Vital Signs (Past 12 Hours) Vital Signs Temp Pulse Pulse Resp BP BP Pulse Ox 09/04/21 07:46 37.5 C 74 20 152/85 H 91 09/04/21 07:00 72 19 95 09/04/21 06:50 69 29 H 95 09/04/21 06:40 69 28 H 95 09/04/21 06:30 68 28 H 94 09/04/21 06:20 68 20 95 09/04/21 06:10 75 26 H 95 09/04/21 06:00 69 25 H 95 09/04/21 05:50 65 30 H 95 09/04/21 05:40 68 28 H 95 09/04/21 05:30 71 18 95 09/04/21 05:20 67 28 H 94 09/04/21 05:10 68 30 H 94 09/04/21 05:00 76 23 87 L 09/04/21 04:40 68 17 95 09/04/21 04:30 69 18 94 09/04/21 04:20 71 19 95 09/04/21 04:10 70 19 95 09/04/21 04:03 36.8 C 09/04/21 04:00 91 H 20 143/67 H 92 09/04/21 03:50 73 16 94 09/04/21 03:40 68 15 97 09/04/21 03:30 65 24 96 09/04/21 03:20 67 25 H 97 09/04/21 03:10 63 22 96 09/04/21 03:00 64 22 96 09/04/21 02:50 66 22 96 09/04/21 02:40 66 21 96 09/04/21 02:30 64 24 96 09/04/21 02:20 67 26 H 96 09/04/21 02:10 70 21 95 09/04/21 02:00 79 23 95 09/04/21 01:50 66 26 H 96 09/04/21 01:40 70 26 H 95 09/04/21 01:30 72 24 93 09/04/21 01:10 71 23 96 09/04/21 01:00 69 24 96 09/04/21 00:50 70 26 H 96 09/04/21 00:40 70 27 H 96 09/04/21 00:30 66 23 96 09/04/21 00:20 69 17 96 09/04/21 00:10 68 22 96 09/04/21 00:00 72 17 131/79 95 09/03/21 23:50 70 23 95 09/03/21 23:40 71 23 96 09/03/21 23:30 72 25 H 96 09/03/21 23:20 70 22 94 09/03/21 23:10 74 19 95 09/03/21 23:00 76 23 135/80 92 09/03/21 22:59 37.2 C 90 70 28 H 143/79 H 135/80 93 09/03/21 22:50 70 24 95 09/03/21 22:40 70 32 H 95 09/03/21 22:30 74 25 H 94 09/03/21 22:20 89 18 86 L 09/03/21 22:10 85 32 H 87 L 09/03/21 21:50 80 14 92 09/03/21 21:40 70 21 94 09/03/21 21:30 72 18 92 09/03/21 21:20 76 22 93 Critical Care Results & Data Vital Signs (Past 12 Hours) Vital Signs Temp Pulse Pulse Resp BP BP Pulse Ox 09/04/21 07:46 37.5 C 74 20 152/85 H 91 09/04/21 07:00 72 19 95 09/04/21 06:50 69 29 H 95 09/04/21 06:40 69 28 H 95 09/04/21 06:30 68 28 H 94 09/04/21 06:20 68 20 95 09/04/21 06:10 75 26 H 95 09/04/21 06:00 69 25 H 95 09/04/21 05:50 65 30 H 95 09/04/21 05:40 68 28 H 95 09/04/21 05:30 71 18 95 09/04/21 05:20 67 28 H 94 09/04/21 05:10 68 30 H 94 09/04/21 05:00 76 23 87 L 09/04/21 04:40 68 17 95 09/04/21 04:30 69 18 94 09/04/21 04:20 71 19 95 09/04/21 04:10 70 19 95 09/04/21 04:03 36.8 C 09/04/21 04:00 91 H 20 143/67 H 92 09/04/21 03:50 73 16 94 09/04/21 03:40 68 15 97 09/04/21 03:30 65 24 96 09/04/21 03:20 67 25 H 97 09/04/21 03:10 63 22 96 09/04/21 03:00 64 22 96 09/04/21 02:50 66 22 96 09/04/21 02:40 66 21 96 09/04/21 02:30 64 24 96 09/04/21 02:20 67 26 H 96 09/04/21 02:10 70 21 95 09/04/21 02:00 79 23 95 09/04/21 01:50 66 26 H 96 09/04/21 01:40 70 26 H 95 09/04/21 01:30 72 24 93 09/04/21 01:10 71 23 96 09/04/21 01:00 69 24 96 09/04/21 00:50 70 26 H 96 09/04/21 00:40 70 27 H 96 09/04/21 00:30 66 23 96 09/04/21 00:20 69 17 96 09/04/21 00:10 68 22 96 09/04/21 00:00 72 17 131/79 95 09/03/21 23:50 70 23 95 09/03/21 23:40 71 23 96 09/03/21 23:30 72 25 H 96 09/03/21 23:20 70 22 94 09/03/21 23:10 74 19 95 09/03/21 23:00 76 23 135/80 92 09/03/21 22:59 37.2 C 90 70 28 H 143/79 H 135/80 93 09/03/21 22:50 70 24 95 09/03/21 22:40 70 32 H 95 09/03/21 22:30 74 25 H 94 09/03/21 22:20 89 18 86 L 09/03/21 22:10 85 32 H 87 L 09/03/21 21:50 80 14 92 09/03/21 21:40 70 21 94 09/03/21 21:30 72 18 92 09/03/21 21:20 76 22 93 Lab & Micro Results (Past 24 Hours) RBC 4.26 M/uL (4.2-5.4) 09/04/21 WBC 11.26 K/uL (4.8-10.8) H 09/04/21 Hgb 13.3 g/dL (12.0-16.0) 09/04/21 Hct 40.7 % (37-47) 09/04/21 MCV 95.5 fL (80-100) 09/04/21 MCH 31.2 pg (25-34) 09/04/21 MCHC 32.7 g/dL (32-36) 09/04/21 RDW Standard Deviation 53.9 fL (36.4-46.3) H 09/04/21 RDW Coefficient of Variation 15.4 % (11.5-14.5) H 09/04/21 Plt Count 269 K/uL (130-400) 09/04/21 MPV 10.2 fL (7.4-10.4) 09/04/21 Na 138 mmol/L (136-145) 09/04/21 K 4.0 mmol/L (3.5-5.1) 09/04/21 Cl 106 mmol/L (98-107) 09/04/21 CO2 25 mmol/L (21-32) 09/04/21 Anion Gap 7 (3-11) 09/04/21 BUN 18 mg/dl (6-23) 09/04/21 Creatinine 0.73 mg/dl (0.6-1.2) 09/04/21 Estimated GFR ( Amer) 95.4 ml/min 09/04/21 Estimated GFR (Non-Af Amer) 82.3 ml/min 09/04/21 BUN/Creatinine Ratio 24.7 (10-20) H 09/04/21 Glu 99 mg/dl (70-99(Fasting)) 09/04/21 Ca 8.2 mg/dl (8.5-10.1) L 09/04/21 Total Bilirubin 0.6 mg/dl (0.2-1.0) 09/04/21 AST 36 U/L (13-39) 09/04/21 ALT 24 U/L (7-52) 09/04/21 Alkaline Phosphatase 43 U/L (34-104) 09/04/21 TP 5.9 gm/dl (6.0-8.3) L 09/04/21 Albumin 3.2 gm/dl (3.4-5.0) L 09/04/21 Globulin 2.7 gm/dl (2.5-4.0) 09/04/21 Albumin/Globulin Ratio 1.2 (0.9-2) 09/04/21 Calcium Level 8.2 mg/dl (8.5-10.1) L 09/04/21 06:02 09/04/21 Microbiology 09/02/21 15:07 Aerobic Blood Culture - Preliminary Blood No growth in Aerobic bottle after 24 hours. Anaerobic Blood Culture - Preliminary No growth in Anaerobic bottle after 24 hours. 09/02/21 14:48 Aerobic Blood Culture - Preliminary Blood No growth in Aerobic bottle after 24 hours. Anaerobic Blood Culture - Preliminary No growth in Anaerobic bottle after 24 hours. 09/03/21 09:30 Gram Stain - Final Sputum, Expectorated I & O Totals 24 Hours 09/03/21 09/04/21 09/05/21 06:59 06:59 06:59 Intake Total 870 / 870 1130 / 1130 Output Total 400 / 400 2 / 2 Balance 470 / 470 1128 / 1128 Cumulative 09/02/21 14:15 thru 09/04/21 05:45 Intake Total 1999 Output Total 402 Balance 1598 RT Ventilator Mngmt (Last Documented) Ventilator Ordered Settings Respiratory Rate 20 09/04/21 07:46 Ventilator - PT Measurements Respiratory Rate 20 Coding Level of Care Code 16113 Subseq Hosp Care Lvl 2 Diagnoses Myasthenia gravis G70.00 COVID-19 U07.1 Hypoxia R09.02
[2021-09-04] MEDS: GABAPENTIN 100 MG CAP PO SCH ×3 (09:52→17:14)
[2021-09-04] MEDS: PYRIDOSTIGMINE BROMIDE 60 MG TAB PO SCH ×4 (09:52→20:43)
[2021-09-04] MEDS: FAMOTIDINE 20 MG TAB PO SCH (09:53)
[2021-09-04] MEDS: BENZONATATE 100 MG CAPSULE PO SCH ×3 (09:53→20:43)
[2021-09-04] MEDS: AMIODARONE 200 MG TAB PO SCH (09:53)
[2021-09-04] MEDS: azaTHIOprine 50 MG TAB PO SCH (09:54)
[2021-09-04] MEDS: FLUoxetine HCL 20 MG CAP PO SCH (09:54)
[2021-09-04] MEDS: APIXABAN 5 MG TABLET PO SCH ×2 (09:54→17:14)
[2021-09-04] MEDS: GLYCOPYRROLATE 1 MG TAB PO SCH ×3 (09:55→17:14)
[2021-09-04] MEDS: REMDESIVIR 100 MG in SODIUM CHLORIDE 0.9% 230 ML IV SCH (11:38)
[2021-09-04] MEDS: dexAMETHasone 6 MG in SYRINGE 0 ML IV SCH (11:39)
--- NOTE | 2021-09-04 12:05 | XRay Report ---
XR chest 1V portable CLINICAL HISTORY: Dyspnea TECHNIQUE: Single frontal radiograph of the chest was obtained. Comparison: Comparison is made to chest one view 09/02/2021 FINDINGS: No lines and tubes are seen. The cardiomediastinal silhouette is normal. Interval somewhat increased conspicuity of bilateral airspace opacities. No evidence of pleural effusion or pneumothorax. IMPRESSION: Overall worsening of bilateral airspace opacities compatible with pneumonia and/or aspiration. ACT 112: Negative or not required by law. Electronically signed by: Kenrick Méndez M.D. 09/04/2021 12:04 PM
--- NOTE | 2021-09-04 15:07 | Communication Note ---
Date of Service: September 04, 2021 Colleen looks basically unchanged from yesterday. She feels more fatigued and tired but is able to walk to the bathroom and she does not complain of any new muscle weakness but rather a sense of global malaise anorexia and really has very little appetite but has retained her sense of taste and smell Her chest x-ray is apparently worsening but this may reflect hydration as clinically she looks much the same and her vital signs show that she is still maintaining her oxygen saturations at 90% with 3 L of oxygen rather than 3-1/2-4 Her negative inspiratory forced vital capacity numbers are good and stable with the NIF being -40 and today at bedside visiting her incentive spirometer again easily put the ball to the top of the goal and maintain a negative volume of the 1000 cc on 3 repeats. She seem to cough a little less with each effort but still had a fairly vigorous cough without any productivity The rest of the exam revealed a temperature of 38.2 blood pressure 140/90 pulse rate was 65 and she was awake alert oriented and no extraocular muscle weakness no ptosis could puff her cheeks out and hold it there against resistance had no ndysarthric speech not appear breathless when speaking had good proximal weakness of the right arm good distal weakness of the right arm and left arm has a shoulder issue so it is very difficult to test that. Both legs had excellent antigravity strength At this point primary problem appears to be the Covid pneumonia rather than myasthenia gravis she still has a potential for decompensation the latter. Her pattern in the past has been to have increasing problems with dysphagia and ptosis as the indicators of her myasthenic crisis along with I believe neck flexor weakness rather than ventilatory issues but things can change obviously She is now off ICU status but the ICU team can be called should her NIF begin to approach -20 begin to fall significantly from her current level Dr. Gomez will be around for neurology and I will let her know about Colleen's presence in the Covid unit. If her vital signs and NIF remained stable she probably does not to be seen on a regular basis by neurology Obviously if things change clinically and her respiratory status declines and she appears to be developing respiratory or bulbar muscle weakness then we will need to get involved and I think IVIG will probably have to be started, [facility] have to be contacted regarding possible transfer but hopefully this will not be necessary Theo Hanson MD
[2021-09-04] MEDS: BENZONATATE 100 MG CAPSULE PO PRN (16:58)
[2021-09-04] MEDS: LIDOCAINE 5% 1 PATCH TD SCH (17:11)
--- NOTE | 2021-09-04 18:54 | Hospitalist Progress Note ---
Date of Service September 04, 2021 Assessment & Plan (1) COVID-19: (2) RLL pneumonia: (3) Acute respiratory failure with hypoxia: Plan: per admitting service notes with addendum: - COVID-19 positive, symptoms started 1 week ago and progressively worsening, unknown source. Pt is vaccinated and boosted. - Procalcitonin 0.12 - Lymphocytes 1.25, neutrophils 9.47 - CXR reviewed: Airspace opacity in the right lower lung may represent atelectasis, pneumonia, and/or aspiration. - O2 sats in mid 80s on room air at rest, currently on 4L via NC maintaining sats at 93% - WBC = 11K - Remdesivir 200 mg IV x 1 then 100 mg daily therafter - Cont decadron 6 mg IV daily - hold [employer]INGER prednisone - Continue meropenum and doxycycline with risk of aspiration pna with CXR findings in the RLL, peg tube in place. Does take some meds and food PO. - Proning, supportive therapy, pulmonary toilet including incentive spirometry, flutter, albuterol inhaler - Anticoagulated on Eliquis, see below 09/04 remains on 3 L NC clinically about the same repeat CXR: increased infiltrates? no signs of MG crisis continue Decadron, Remdesivir renal function and LFTs stable d/c Meropenem, Doxycycline as per Pulm Incentive spirometer, flutter valve on Eliquis already NIF qshift continue usual MG medication regimen (4) Myasthenia gravis: Plan: - On Imuran 150 mg daily as immunosuppresant, as well as pyridostigmine bromide 60 mg daily, simethicone via PEG tube - Chronic, stable for now - Pt is high risk for myasthenia crisis - discussed with her neurologist - ok to continue dexamethasone without prednisone. Dosing converted to give equivalent steroid to help prevent crisis. At home pt takes prednisone 30 mg and 50 mg alternating doses daily. She did not take meds this morning. management per above (5) Multiple sclerosis: Plan: monitor closely (6) Paroxysmal A-fib: (7) Paroxysmal atrial flutter: Plan: - Continue on amiodarone, eliquis BID, follows with Dr. Grider as outpt DVT ppx: - teds, scds, Eliquis twice daily CODE: Full code Dispo: pending will need PT/OT evaluation lives at home with her plan of care discussed with patient in detail and at length all questions answered she is understanding, agreeable, comfortable with the plan of care Admission and Anticipated Discharge Date Admission Date: September 02, 2021 Subjective ff up for COVID 19 pneumonia, etc seen resting in bed, on 3 L NC not in distress states she feels about the same as yesterday no active dyspnea has dry cough no chest pain, palpitations, dizziness no dysphagia, new neuro deficits no other symptoms Review of Systems Review of Systems: all noted and negative except for above Physical Exam Physical Exam: General- oriented x 3, not in distress, speaks in sentences with no effort or accessory muscle use Eyes- anicteric Neck- no JVD Lungs- (+) rhonchi BL lower bases Heart- normal rate, regular rhythm; no murmurs Abdomen- normal bowel sounds, nondistended, soft, nontender Extremities- no pretibial edema, no calf tenderness Neuro- alert, oriented x 3; no new gross focal neurologic deficits Skin- warm & dry Results & Data Results & Data ([facility]) Vital Signs (Past 12 Hours) Vital Signs Temp Pulse Pulse Resp BP Pulse Ox 09/04/21 15:24 37.0 C 70 17 140/58 L 90 09/04/21 13:02 65 09/04/21 11:08 38.2 C H 82 22 148/90 H 90 09/04/21 07:46 37.5 C 74 20 152/85 H 91 09/04/21 07:00 72 19 95 09/04/21 06:50 69 29 H 95 all noted and reviewed including below (1) RLL pneumonia Pneumonia type: due to unspecified organism Qualified Code(s): J18.9 - Pneumonia, unspecified organism
[2021-09-05] MEDS: ACETAMINOPHEN 325 MG TAB PO PRN ×2 (04:58→21:58)
[2021-09-05] MEDS: BENZONATATE 100 MG CAPSULE PO PRN ×2 (04:58→11:35)
[2021-09-05 05:53] LABS: Hematocrit (blood only) 41.2 % (37-47); Hemoglobin 13.5 g/dL (12.0-16.0); Mean Corpuscular Hemoglobin 31.4 pg (25-34); Mean Corpuscular Hgb Conc 32.8 g/dL (32-36); Mean Corpuscular Volume 95.8 fL (80-100); Mean Platelet Volume 10.2 fL (7.4-10.4); Platelet Count 301 K/uL (130-400); RDW Coefficient of Variation 15.4 % (11.5-14.5); RDW Standard Deviation 53.4 fL (36.4-46.3); White Blood Count 9.39 K/uL (4.8-10.8)
[2021-09-05 06:22] LABS: Alanine Aminotransferase 29 U/L (7-52); Albumin Globulin Ratio 1.1 (0.9-2); Albumin Level 3.3 gm/dl (3.4-5.0); Alkaline Phosphatase 54 U/L (34-104); Anion Gap 8 (3-11); BUN Creatinine Ratio 36.4 (10-20); Bilirubin,Total 0.7 mg/dl (0.2-1.0); Blood Urea Nitrogen 24 mg/dl (6-23); C Reactive Protein 8.07 mg/dl (0-0.5); Calcium 8.5 mg/dl (8.5-10.1); Carbon Dioxide 24 mmol/L (21-32); Chloride 105 mmol/L (98-107); Creatinine Clr Calc Pharmacy 63.7 ml/min; Est GFR (African American) 102.3 ml/min; Est GFR (Non-African American) 88.3 ml/min; Globulin 2.9 gm/dl (2.5-4.0); Glucose 101 mg/dl (70-99(Fasting)); Sodium 137 mmol/L (136-145); Total Protein 6.2 gm/dl (6.0-8.3)
[2021-09-05 07:09] LABS: Potassium 3.9 mmol/L (3.5-5.1)
[2021-09-05] MEDS: dexAMETHasone 6 MG in SYRINGE 0 ML IV SCH (07:52)
[2021-09-05] MEDS: GLYCOPYRROLATE 1 MG TAB PO SCH ×3 (07:53→17:52)
[2021-09-05] MEDS: APIXABAN 5 MG TABLET PO SCH ×2 (07:53→17:52)
[2021-09-05] MEDS: BENZONATATE 100 MG CAPSULE PO SCH ×3 (07:53→21:58)
[2021-09-05] MEDS: GABAPENTIN 100 MG CAP PO SCH ×3 (07:54→17:52)
[2021-09-05] MEDS: AMIODARONE 200 MG TAB PO SCH (07:54)
[2021-09-05] MEDS: azaTHIOprine 50 MG TAB PO SCH (07:54)
[2021-09-05] MEDS: FAMOTIDINE 20 MG TAB PO SCH (07:54)
[2021-09-05] MEDS: PYRIDOSTIGMINE BROMIDE 60 MG TAB PO SCH ×4 (07:54→21:59)
[2021-09-05] MEDS: FLUoxetine HCL 20 MG CAP PO SCH (07:54)
[2021-09-05] MEDS: LIDOCAINE 5% 1 PATCH TD SCH (07:55)
--- NOTE | 2021-09-05 10:37 | Progress Notes ---
DATE OF SERVICE: 09/05/2021. SUBJECTIVE: I am seeing the patient in followup of myasthenia gravis. She is in the unit for COVID and COVID-related pneumonia. She is on steroids, Mestinon and Imuran. Clinically, she feels stable. She denies any ptosis, diplopia, dysarthria, dysphagia or shortness of breath or fatigable weakness . She gets short of breath with minimal exertion, but not at rest. Her spontaneous parameters on pu lmonary function, her NIHSS is greater than negative 40 x2. FVC 1.8-1.9. OBJECTIVE: VITAL SIGNS: 149/80, 78, 15, 36.9. GENERAL: The patient is awake, alert, and a good historian. No tachypnea is noted. There is normal extraocular motility. Normal eye closure without fatigue. No neck flexor extensor weakness. No jaw fatigue. Speech is not nasal. Patient is able to count to greater than 25 on 1 breath. No fatigab ility of the right deltoid, left deltoid being avoided because of shoulder pathology. No fatigabilit y of the wrist extensors or lower extremities. IMPRESSION AND PLAN: Stable myasthenia gravis. Continue monitoring respiratory parameters. If the p atient were to decline from a respiratory status, she would need intubation and she may need transfer to a tertiary care center. IVIG might be an initial option. We will follow with you. Job ID: [id number]
[2021-09-05] MEDS: REMDESIVIR 100 MG in SODIUM CHLORIDE 0.9% 230 ML IV SCH (11:44)
--- NOTE | 2021-09-05 18:27 | Hospitalist Progress Note ---
Date of Service September 05, 2021 Assessment & Plan (1) COVID-19: (2) RLL pneumonia: (3) Acute respiratory failure with hypoxia: Plan: per admitting service notes with addendum: - COVID-19 positive, symptoms started 1 week ago and progressively worsening, unknown source. Pt is vaccinated and boosted. - Procalcitonin 0.12 - Lymphocytes 1.25, neutrophils 9.47 - CXR reviewed: Airspace opacity in the right lower lung may represent atelectasis, pneumonia, and/or aspiration. 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 Does take some meds and food PO. - Proning, supportive therapy, pulmonary toilet including incentive spirometry, flutter, albuterol inhaler - Anticoagulated on Eliquis, see below 09/05 remains on 3-4 L NC Patient states she feels improved today repeat CXR: increased infiltrates? no signs of MG crisis-denies dysphagia, focal weakness or numbness continue Decadron, Remdesivir renal function and LFTs stable d/c Meropenem, Doxycycline as per Pulm Incentive spirometer, flutter valve on Eliquis already NIF qshift continue usual MG medication regimen (4) Myasthenia gravis: Plan: - On Imuran 150 mg daily as immunosuppresant, as well as pyridostigmine bromide 60 mg daily, simethicone via PEG tube - Chronic, stable for now - Pt is high risk for myasthenia crisis - discussed with her neurologist - ok to continue dexamethasone without prednisone. Dosing converted to give equivalent steroid to help prevent crisis. At home pt takes prednisone 30 mg and 50 mg alternating doses daily. She did not take meds this morning. 09/05 management per above (5) Multiple sclerosis: Plan: monitor closely (6) Paroxysmal A-fib: (7) Paroxysmal atrial flutter: Plan: - Continue on amiodarone, eliquis BID, follows with Dr. Grider as outpt DVT ppx: - teds, scds, Eliquis twice daily CODE: Full code Dispo: pending will need PT/OT evaluation lives at home with her plan of care discussed with patient in detail and at length all questions answered she is understanding, agreeable, comfortable with the plan of care Admission and Anticipated Discharge Date Admission Date: September 02, 2021 Subjective COVID-19 pneumonia, hypoxic respiratory failure, etc. Seen sitting up in bed, having dinner, on 4 L of oxygen by nasal cannula States she feels a little bit better today Breathing is improving today Still having some dry cough No chest pain, leg pain, no other symptom Review of Systems Review of Systems: all noted and negative except for above Physical Exam Physical Exam: General- oriented x 3, not in distress, speaks in sentences with no effort or accessory muscle use Eyes- anicteric Neck- no JVD Lungs- clear breath sounds bilaterally, no rales/wheezes Heart- normal rate, regular rhythm; no murmurs Abdomen- normal bowel sounds, nondistended, soft, nontender Extremities- no pretibial edema, no calf tenderness Neuro- alert, oriented x 3; no gross focal neurologic deficits Skin- warm & dry Results & Data Results & Data ([facility]) Vital Signs (Past 12 Hours) Vital Signs Temp Pulse Pulse Resp BP Pulse Ox 09/05/21 16:00 91 09/05/21 15:15 36.9 C 71 20 135/68 92 09/05/21 11:41 36.9 C 80 19 137/76 90 09/05/21 09:00 70 09/05/21 08:00 36.9 C 78 15 149/80 H 92 all noted and reviewed including below (1) RLL pneumonia Pneumonia type: due to unspecified organism Qualified Code(s): J18.9 - Pneumonia, unspecified organism
[2021-09-06] MEDS ORDERED: MELATONIN 3 MG TAB PO PRN (02:58)
[2021-09-06] MEDS: GABAPENTIN 100 MG CAP PO SCH ×3 (07:24→17:16)
[2021-09-06] MEDS: APIXABAN 5 MG TABLET PO SCH ×2 (07:24→17:15)
[2021-09-06] MEDS: GLYCOPYRROLATE 1 MG TAB PO SCH ×3 (07:25→17:16)
[2021-09-06] MEDS: PYRIDOSTIGMINE BROMIDE 60 MG TAB PO SCH ×4 (07:25→20:32)
[2021-09-06] MEDS: azaTHIOprine 50 MG TAB PO SCH (07:26)
[2021-09-06] MEDS: AMIODARONE 200 MG TAB PO SCH (07:26)
[2021-09-06] MEDS: dexAMETHasone 6 MG in SYRINGE 0 ML IV SCH (07:26)
[2021-09-06] MEDS: FLUoxetine HCL 20 MG CAP PO SCH (07:27)
[2021-09-06] MEDS: FAMOTIDINE 20 MG TAB PO SCH (07:27)
[2021-09-06] MEDS: BENZONATATE 100 MG CAPSULE PO SCH ×3 (07:32→20:32)
[2021-09-06] MEDS ORDERED: FUROSEMIDE INJ 20 MG/2 ML VIAL IV ONE (08:24)
[2021-09-06] MEDS: LIDOCAINE 5% 1 PATCH TD SCH (10:33)
[2021-09-06] MEDS: REMDESIVIR 100 MG in SODIUM CHLORIDE 0.9% 230 ML IV SCH (12:33)
--- NOTE | 2021-09-06 14:00 | Progress Notes ---
DATE OF SERVICE: 09/06/2021. SUBJECTIVE: I am seeing the patient in followup of myasthenia gravis. She has been admitted with CO VID-related pneumonia. Her NIHSS was -40 today and her vital capacity was 1.9, both of which were st able. The patient denies any fatigable weakness. She notes no double vision, ptosis, change in spee ch or swallowing. The only shortness of breath occurs when she is exerting herself. No nasality of speech or fatigable weakness of the extremities. OBJECTIVE: On exam, she is awake and alert, cooperative. She coughs occasionally, is not dyspneic a t rest. There is normal eye closure without fatigue, normal extraocular motility. No neck flexor fa tigue. Speech is not on nasal. Jaw opening does not fatigue. The right deltoid does not fatigue and is fully strong and the wrist extensors are fully strong. Lower extremity strength is full. IMPRESSION: History of myasthenia gravis with COVID pneumonia. The patient remained stable without any evidence of an exacerbation of myasthenia gravis. Job ID: [id number]
--- NOTE | 2021-09-06 18:19 | Hospitalist Progress Note ---
Date of Service September 06, 2021 Assessment & Plan (1) COVID-19: (2) RLL pneumonia: (3) Acute respiratory failure with hypoxia: Plan: per admitting service notes with addendum: - COVID-19 positive, symptoms started 1 week ago and progressively worsening, unknown source. Pt is vaccinated and boosted. - Procalcitonin 0.12 - Lymphocytes 1.25, neutrophils 9.47 - CXR reviewed: Airspace opacity in the right lower lung may represent atelectasis, pneumonia, and/or aspiration. 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 Does take some meds and food PO. - Proning, supportive therapy, pulmonary toilet including incentive spirometry, flutter, albuterol inhaler - Anticoagulated on Eliquis, see below 09/06 remains on 3-4 L SC feels about the same appears less weak repeat CXR: increased infiltrates? no signs of MG crisis-denies dysphagia, focal weakness or numbness continue Decadron completed 5 day course of Remdesivir CRP decreasing d/c Meropenem, Doxycycline as per Pulm Incentive spirometer, flutter valve on Eliquis already NIF qshift continue usual MG medication regimen (4) Myasthenia gravis: Plan: - On Imuran 150 mg daily as immunosuppresant, as well as pyridostigmine bromide 60 mg daily, simethicone via PEG tube - Chronic, stable for now - Pt is high risk for myasthenia crisis - discussed with her neurologist - ok to continue dexamethasone without prednisone. Dosing converted to give equivalent steroid to help prevent crisis. At home pt takes prednisone 30 mg and 50 mg alternating doses daily. She did not take meds this morning. 09/06 stable management per above (5) Multiple sclerosis: Plan: monitor closely (6) Paroxysmal A-fib: (7) Paroxysmal atrial flutter: Plan: - Continue on amiodarone, eliquis BID, follows with Dr. Grider as outpt DVT ppx: - teds, scds, Eliquis twice daily CODE: Full code Dispo: pending will need PT/OT evaluation lives at home with her plan of care discussed with patient in detail and at length all questions answered she is understanding, agreeable, comfortable with the plan of care Admission and Anticipated Discharge Date Admission Date: September 02, 2021 Subjective ff up for COVID 19 pneumonia, etc seen resting in chair, having dinner not in distress on 4 L NC states she feels somewhat the same still having dry cough but no chest pain, palpitations, dizziness no leg pain appetite is good no dysphagia, or any other neuro symptoms no other symptoms Review of Systems Review of Systems: all noted and negative except for above Physical Exam Physical Exam: General- oriented x 3, not in distress, speaks in sentences with no effort or accessory muscle use Eyes- anicteric Neck- no JVD Lungs-mildly decreased on the right base clear on the left Heart- normal rate, regular rhythm; no murmurs Abdomen- normal bowel sounds, nondistended, soft, nontender Extremities- no pretibial edema, no calf tenderness Neuro- alert, oriented x 3; no gross focal neurologic deficits Skin- warm & dry Results & Data Results & Data ([facility]) Vital Signs (Past 12 Hours) Vital Signs Temp Pulse Pulse Resp BP Pulse Ox 09/06/21 11:27 37.4 C 72 22 132/77 94 09/06/21 08:00 36.9 C 63 09/06/21 07:38 87 26 H 156/78 H 91 all noted and reviewed including below (1) RLL pneumonia Pneumonia type: due to unspecified organism Qualified Code(s): J18.9 - Pneumonia, unspecified organism
[2021-09-06] MEDS: ACETAMINOPHEN 325 MG TAB PO PRN (20:32)
[2021-09-07] MEDS: ACETAMINOPHEN 325 MG TAB PO PRN (06:28)
[2021-09-07 06:59] LABS: Albumin Level 3.3 gm/dl (3.4-5.0); BUN Creatinine Ratio 38.6 (10-20); Bilirubin Direct 0.2 mg/dl (0-0.2); Bilirubin,Total 0.9 mg/dl (0.2-1.0); Calcium 8.7 mg/dl (8.5-10.1); Creatinine Clr Calc Pharmacy 60.1 ml/min; Est GFR (African American) 100.3 ml/min; Est GFR (Non-African American) 86.6 ml/min; Potassium 3.9 mmol/L (3.5-5.1)
[2021-09-07] MEDS: FAMOTIDINE 20 MG TAB PO SCH (09:09)
[2021-09-07] MEDS: GLYCOPYRROLATE 1 MG TAB PO SCH ×3 (09:09→17:12)
[2021-09-07] MEDS: AMIODARONE 200 MG TAB PO SCH (09:09)
[2021-09-07] MEDS: PYRIDOSTIGMINE BROMIDE 60 MG TAB PO SCH ×4 (09:09→20:01)
[2021-09-07] MEDS: APIXABAN 5 MG TABLET PO SCH ×2 (09:10→17:11)
[2021-09-07] MEDS: GABAPENTIN 100 MG CAP PO SCH ×3 (09:10→17:11)
[2021-09-07] MEDS: FLUoxetine HCL 20 MG CAP PO SCH (09:10)
[2021-09-07] MEDS: azaTHIOprine 50 MG TAB PO SCH (09:10)
[2021-09-07] MEDS: LIDOCAINE 5% 1 PATCH TD SCH (09:11)
[2021-09-07] MEDS: dexAMETHasone 6 MG in SYRINGE 0 ML IV SCH (09:16)
[2021-09-07] MEDS: BENZONATATE 100 MG CAPSULE PO SCH ×3 (09:16→20:01)
--- NOTE | 2021-09-07 16:03 | Communication Note ---
Date of Service: September 07, 2021 I saw Colleen today and she is significantly better than she was this past Tuesday with much reduced coughing and her mental status remains clear, cranial nerves are normal there is no fatigable ptosis she can keep her cheeks puffed out for some time against resistance her neck flexors are strong and her incentive spirometry measurements now are -1500 without any fatigue. Respiratory has found negative inspiratory force is greater than -40 and good forced vital capacity. Her right shoulder and arm function is excellent both lower extremities are quite strong and at this point myasthenia seems to be the least of her issues but will still be looking in the background She remains afebrile her blood pressure 139/71 pulse is 74 O2 saturation is 97% now on 2 L of oxygen so it appears that her demand for oxygen is less she appears to be breathing relatively comfortably and does not talk about a lot of dyspnea At this point neurology is going to stop making regular visits and will simply do chart review but of course would be available should anything change for a bedside reevaluation Theo Hanson MD
--- NOTE | 2021-09-07 16:05 | Hospitalist Progress Note ---
Date of Service September 07, 2021 Assessment & Plan (1) COVID-19: (2) RLL pneumonia: (3) Acute respiratory failure with hypoxia: Plan: per admitting service notes with addendum: - COVID-19 positive, symptoms started 1 week ago and progressively worsening, unknown source. Pt is vaccinated and boosted. - Procalcitonin 0.12 - CXR reviewed: Airspace opacity in the right lower lung may represent atelectasis, pneumonia, and/or aspiration. - O2 sats in mid 80s on room air at rest, currently on 4L via NC maintaining sats at 93% 09/06 improving from 3-4 L NC to 2 L NC also feels improved today no signs of MG crisis-denies dysphagia, focal weakness or numbness, NIF good continue Decadron Day 6 completed 5 day course of Remdesivir CRP decreasing from 15 to 4 discontinued Meropenem, Doxycycline as per Pulm Incentive spirometer, flutter valve on Eliquis already Mucinex, Tessalon perles NIF qshift continue usual MG medication regimen (4) Myasthenia gravis: Plan: - On Imuran 150 mg daily, pyridostigmine bromide 60 mg daily--> continued also takes prednisone 30 mg and 50 mg alternating doses daily--> held for now as patient on Decadron 09/07 stable no signs of MG crisis appreciate Neuro service recommendations (5) Multiple sclerosis: Plan: monitor closely (6) Paroxysmal A-fib: (7) Paroxysmal atrial flutter: Plan: - Continue on amiodarone, eliquis BID DVT ppx: - teds, scds, Eliquis twice daily CODE: Full code Dispo: pending PT/OT: recommends home with home health, 24 hr care lives at home with her plan of care discussed with patient in detail and at length all questions answered she is understanding, agreeable, comfortable with the plan of care Admission and Anticipated Discharge Date Admission Date: September 02, 2021 Subjective ff up for COVID 19 pneumonia, etc seen resting in bed, comfortable sitting up on 2 L NC states she feels improved compared to yesterday has some dyspnea on exertion still has dry cough no chest pain, leg pain no dysphagia, or any new neuro symptoms appetite is good no other symptoms Review of Systems Review of Systems: all noted and negative except for above Physical Exam Physical Exam: General- oriented x 3, not in distress, speaks in sentences with no effort or accessory muscle use Eyes- anicteric Neck- no JVD Lungs- mild decrease breath sounds on the right clear on the left Heart- normal rate, regular rhythm; no murmurs Abdomen- normal bowel sounds, nondistended, soft, nontender Extremities- no pretibial edema, no calf tenderness Neuro- alert, oriented x 3; no gross focal neurologic deficits Skin- warm & dry Results & Data Results & Data ([facility]) Vital Signs (Past 12 Hours) Vital Signs Temp Pulse Pulse Resp BP Pulse Ox 09/07/21 15:39 37.3 C 74 16 139/71 97 09/07/21 15:00 69 09/07/21 10:50 36.6 C 76 22 135/82 93 09/07/21 08:22 36.6 C 66 18 139/64 96 09/07/21 08:00 77 09/07/21 05:00 36.5 C 81 20 151/80 H 88 L 09/07/21 04:47 67 all noted and reviewed including below (1) RLL pneumonia Pneumonia type: due to unspecified organism Qualified Code(s): J18.9 - Pneumonia, unspecified organism
[2021-09-07] MEDS: guaiFENesin 600 MG TABCR PO SCH (17:10)
[2021-09-08 07:10] LABS: Albumin Level 3.2 gm/dl (3.4-5.0); BUN Creatinine Ratio 41.7 (10-20); Bilirubin Direct 0.3 mg/dl (0-0.2); Calcium 8.5 mg/dl (8.5-10.1); Creatinine Clr Calc Pharmacy 70.1 ml/min; Est GFR (African American) 105.5 ml/min; Est GFR (Non-African American) 91.1 ml/min; Potassium 3.7 mmol/L (3.5-5.1); Total Protein 5.7 gm/dl (6.0-8.3)
[2021-09-08] MEDS: APIXABAN 5 MG TABLET PO SCH ×2 (09:01→16:12)
[2021-09-08] MEDS: GLYCOPYRROLATE 1 MG TAB PO SCH ×3 (09:02→16:13)
[2021-09-08] MEDS: GABAPENTIN 100 MG CAP PO SCH ×3 (09:02→16:12)
[2021-09-08] MEDS: AMIODARONE 200 MG TAB PO SCH (09:03)
[2021-09-08] MEDS: PYRIDOSTIGMINE BROMIDE 60 MG TAB PO SCH ×4 (09:03→20:12)
[2021-09-08] MEDS: azaTHIOprine 50 MG TAB PO SCH (09:04)
[2021-09-08] MEDS: dexAMETHasone 6 MG in SYRINGE 0 ML IV SCH (09:05)
[2021-09-08] MEDS: FLUoxetine HCL 20 MG CAP PO SCH (09:05)
[2021-09-08] MEDS: FAMOTIDINE 20 MG TAB PO SCH (09:05)
[2021-09-08] MEDS: guaiFENesin 600 MG TABCR PO SCH ×2 (09:06→20:11)
[2021-09-08] MEDS: LIDOCAINE 5% 1 PATCH TD SCH (09:06)
[2021-09-08] MEDS: BENZONATATE 100 MG CAPSULE PO SCH ×3 (09:27→20:11)
--- NOTE | 2021-09-08 17:20 | Hospitalist Progress Note ---
Date of Service September 08, 2021 Assessment & Plan (1) COVID-19: (2) RLL pneumonia: (3) Acute respiratory failure with hypoxia: Plan: per admitting service notes with addendum: - COVID-19 positive, symptoms started 1 week ago and progressively worsening, unknown source. Pt is vaccinated and boosted. - Procalcitonin 0.12 - CXR reviewed: Airspace opacity in the right lower lung may represent atelectasis, pneumonia, and/or aspiration. - O2 sats in mid 80s on room air at rest, currently on 4L via NC maintaining sats at 93% 09/08 improved from 3-4 L NC to 2 L NC clinically improved no signs of MG crisis-denies dysphagia, focal weakness or numbness, NIF good continue Decadron Day 7 completed 5 day course of Remdesivir CRP decreasing from 15 to 4 no need for antibiotics as per Pulm Incentive spirometer, flutter valve on Eliquis already Mucinex, Tessalon perles NIF qshift- stable continue usual MG medication regimen possible d/c home tomorrow resume usual Prednisone on discharge will need 2 step exercise test (4) Myasthenia gravis: Plan: - On Imuran 150 mg daily, pyridostigmine bromide 60 mg daily--> continued also takes prednisone 30 mg and 50 mg alternating doses daily--> held for now as patient on Decadron 09/08 has remained stable while admitted no signs of MG crisis appreciate Neuro service recommendations (5) Multiple sclerosis: Plan: monitor closely (6) Paroxysmal A-fib: (7) Paroxysmal atrial flutter: Plan: - Continue on amiodarone, eliquis BID DVT ppx: - teds, scds, Eliquis twice daily CODE: Full code Dispo: pending PT/OT: recommends home with home health, 24 hr care lives at home with her plan of care discussed with patient in detail and at length all questions answered she is understanding, agreeable, comfortable with the plan of care Admission and Anticipated Discharge Date Admission Date: September 02, 2021 Subjective ff up for COVID 19 pneumonia, acute hypoxic respiratory failure, etc seen resting in chair, on 2 L O2 via NC states she feels improved overall breathing continues to improve less cough no chest pain no leg pain no other symptoms Review of Systems Review of Systems: all noted and negative except for above Physical Exam Physical Exam: General- oriented x 3, not in distress, speaks in sentences with no effort or accessory muscle use Eyes- anicteric Neck- no JVD Lungs- clear breath sounds bilaterally, no rales, no wheezing Heart- normal rate, regular rhythm; no murmurs Abdomen- normal bowel sounds, nondistended, soft, nontender Extremities- no pretibial edema, no calf tenderness Neuro- alert, oriented x 3; no gross focal neurologic deficits Skin- warm & dry Results & Data Results & Data ([facility]) Vital Signs (Past 12 Hours) Vital Signs Temp Pulse Pulse Resp BP Pulse Ox 09/08/21 17:04 79 09/08/21 12:17 37.4 C 79 20 131/71 92 09/08/21 06:16 69 all noted and reviewed including below (1) RLL pneumonia Pneumonia type: due to unspecified organism Qualified Code(s): J18.9 - Pneumonia, unspecified organism
[2021-09-09 06:35] LABS: Albumin Level 3.1 gm/dl (3.4-5.0); BUN Creatinine Ratio 41.1 (10-20); Bilirubin Direct 0.2 mg/dl (0-0.2); Bilirubin,Total 0.9 mg/dl (0.2-1.0); Calcium 8.5 mg/dl (8.5-10.1); Creatinine Clr Calc Pharmacy 75.1 ml/min; Est GFR (Non-African American) 93.2 ml/min; Total Protein 5.7 gm/dl (6.0-8.3)
[2021-09-09] MEDS: azaTHIOprine 50 MG TAB PO SCH (08:32)
[2021-09-09] MEDS: FLUoxetine HCL 20 MG CAP PO SCH (08:32)
[2021-09-09] MEDS: FAMOTIDINE 20 MG TAB PO SCH (08:32)
[2021-09-09] MEDS: APIXABAN 5 MG TABLET PO SCH ×2 (08:32→17:16)
[2021-09-09] MEDS: AMIODARONE 200 MG TAB PO SCH (08:33)
[2021-09-09] MEDS: dexAMETHasone 6 MG in SYRINGE 0 ML IV SCH (08:33)
[2021-09-09] MEDS: LIDOCAINE 5% 1 PATCH TD SCH (08:33)
[2021-09-09] MEDS: GABAPENTIN 100 MG CAP PO SCH ×3 (08:33→17:15)
[2021-09-09] MEDS: PYRIDOSTIGMINE BROMIDE 60 MG TAB PO SCH ×4 (08:33→21:35)
[2021-09-09] MEDS: guaiFENesin 600 MG TABCR PO SCH ×2 (08:33→21:35)
[2021-09-09] MEDS: GLYCOPYRROLATE 1 MG TAB PO SCH ×3 (08:33→17:16)
[2021-09-09] MEDS: BENZONATATE 100 MG CAPSULE PO SCH ×3 (09:08→21:59)
--- NOTE | 2021-09-09 12:26 | Hospitalist Progress Note ---
Date of Service September 09, 2021 Assessment & Plan (1) Acute respiratory failure with hypoxia: Plan: 2.2 covid pneumonia. Completed 5 day course remdesivir and steroids daily. Stopping steroids now that she is off oxygen as she is very weepy and emotional. Two step test in am. (2) COVID-19: Plan: plan as above. (3) Myasthenia gravis: Plan: - On Imuran 150 mg daily, pyridostigmine bromide 60 mg daily--> continued also takes prednisone 30 mg and 50 mg alternating doses daily--> held for now as patient on Decadron no signs of MG crisis-denies dysphagia, focal weakness or numbness, NIF good (4) Multiple sclerosis: Plan: cont per outpatient medical therapy. (5) Paroxysmal A-fib: Plan: - Continue on amiodarone, eliquis BID (6) DVT prophylaxis: Plan: apixaban Full Code Dispo-PT/OT: recommends home with home health, 24 hr care lives at home with her Natasha Melendez, [facility] and Anticipated Discharge Date Admission Date: September 02, 2021 Subjective 70 yo F admitted for covid pneumonia she is weepy today reports her breathing is improved but still coughing. she is doing well off oxygen at rest . we discussed some of the challenges she might face going home if still requiring oxygen and she decidied to stay another night feels generally weak, nothing focal. tolerating PO, afebrile. Review of Systems Review of Systems: All systems were reviewed and negative except as indicated in subjective above. Physical Exam Physical Exam: CONSTITUTIONAL: WNWD, vitals as above, generally well- appearing, NAD EYES: normal conjunctivae, no scleral icterus ENT: external ear and nose normal, NECK: trachea midline, RESPIRATORY: clear to auscultation bilaterally, no crackles, rales or wheezes, normal respiratory effort CARDIOVASCULAR: regular rate and rhythm, S1 and 2 heard without murmurs, gallops or rubs, no JVD, no peripheral edema, CHEST: inspection of chest was normal GASTROINTESTINAL: soft, nontender, ND, no guarding MUSCULOSKELETAL: strength 5/5 throughout, head is normocephalic and atraumatic, SKIN: warm and dry NEUROLOGIC: . CN 2-12 grossly intact, no sensory deficit, normal cognition, normal speech, no tremor PSYCHIATRIC: alert cooperative and oriented to person, place and time. Euthymic mood, makes good eye contact, language grossly intact, recent and remote memory grossly intact. Results & Data Results & Data ([facility]) Vital Signs (Past 12 Hours) Vital Signs Temp Pulse Pulse Resp BP Pulse Ox 09/09/21 08:45 66 09/09/21 07:55 36.7 C 69 18 131/57 L 92 09/09/21 03:26 36.4 C L 75 18 130/74 95 Laboratory Results [facility] 09/09/21 05:27 Sodium 142 Potassium 4.0 Chloride 108 H Carbon Dioxide 29 BUN 23 Creatinine 0.56 L Glucose 110 H Calcium 8.5 Liver Function 09/09/21 Range/Units 05:27 Total Bilirubin 0.9 (0.2-1.0) mg/dl Direct Bilirubin 0.2 (0-0.2) mg/dl AST 20 (13-39) U/L ALT 22 (7-52) U/L Alkaline Phosphatase 53 (34-104) U/L Albumin 3.1 L (3.4-5.0) gm/dl Medications Administered Current Inpatient Medications Acetaminophen (Acetaminophen 325 Mg Tab) 650 mg PO Q4H PRN PRN Reason: Moderate Pain Stop: 10/02/21 18:58 Last Admin: 09/07/21 06:28 Dose: 650 mg Documented by: Albuterol (Albuterol Hfa 8 Gm Inhaler) 2 puffs INH Q6R PRN PRN Reason: Shortness Of Breath Stop: 10/02/21 19:16 Amiodarone HCl (Amiodarone 200 Mg Tab) 200 mg PO QAM [facility] Stop: 10/03/21 08:59 Last Admin: 09/09/21 08:33 Dose: 200 mg Documented by: Apixaban (Apixaban 5 Mg Tablet) 5 mg PO BIDM [facility] Stop: 10/02/21 16:59 Last Admin: 09/09/21 08:32 Dose: 5 mg Documented by: Azathioprine (Azathioprine 50 Mg Tab) 150 mg PO DAILY [facility] Stop: 10/03/21 08:59 Last Admin: 09/09/21 08:32 Dose: 150 mg Documented by: Benzonatate (Benzonatate 100 Mg Capsule) 100 mg PO TID [facility] Stop: 10/02/21 20:59 Last Admin: 09/09/21 09:08 Dose: 100 mg Documented by: Benzonatate (Benzonatate 100 Mg Capsule) 100 mg PO TID PRN PRN Reason: cough Stop: 10/04/21 20:59 Last Admin: 09/05/21 11:35 Dose: 100 mg Documented by: Famotidine (Famotidine 20 Mg Tab) [facility] Stop: 10/03/21 08:59 Last Admin: 09/09/21 08:32 Dose: 20 mg Documented by: Fluoxetine HCl (Fluoxetine Hcl 20 Mg Cap) 20 mg PO [facility] Stop: 10/03/21 08:59 Last Admin: 09/09/21 08:32 Dose: 20 mg Documented by: Gabapentin (Gabapentin 100 Mg Cap) 200 mg PO TIDM [facility] Stop: 10/02/21 16:59 Last Admin: 09/09/21 11:46 Dose: 200 mg Documented by: Glycopyrrolate (Glycopyrrolate 1 Mg Tab) 1 mg PO TIDM [facility] Stop: 10/02/21 16:59 Last Admin: 09/09/21 11:46 Dose: 1 mg Documented by: Guaifenesin (Guaifenesin 600 Mg Tabcr) 1,200 mg PO Q12 [facility] Stop: 10/07/21 16:29 Last Admin: 09/09/21 08:33 Dose: 1,200 mg Documented by: Dexamethasone 6 mg/ Syringe 1.5 mls @ 1 mls/min IV DAILY [facility] Stop: 09/13/21 08:59 Last Admin: 09/09/21 08:33 Dose: 1 mls/min Documented by: Lidocaine (Lidocaine 5% 1 Patch) 1 patch TD [facility] Stop: 10/04/21 15:44 Last Admin: 09/09/21 08:33 Dose: 1 patch Documented by: Melatonin (Melatonin 3 Mg Tab) 3 mg PO HS PRN PRN Reason: Sleep Stop: 10/06/21 02:57 Last Admin: 09/06/21 20:32 Dose: 3 mg Documented by: Miscellaneous (Remove Lidoderm Patch) 1 ea N/A DAILY@2100 [facility] Stop: 10/04/21 20:59 Last Admin: 09/08/21 20:15 Dose: 1 ea Documented by: Ondansetron HCl (Ondansetron Inj 2 Mg/Ml 2 Ml Vial) 4 mg IV Q4H PRN PRN Reason: Nausea And Vomiting Stop: 10/02/21 18:58 Pyridostigmine [place] (Pyridostigmine [place] 60 Mg Tab) 60 mg PO 0800,1200,1700,2100 [facility] Stop: 10/02/21 16:59 Last Admin: 09/09/21 11:46 Dose: 60 mg Documented by: Tramadol HCl (Tramadol Hcl 50 Mg Tablet) 50 mg PO Q8H PRN PRN Reason: pain Stop: 10/02/21 16:29
[2021-09-09] MEDS: ACETAMINOPHEN 325 MG TAB PO PRN (21:36)
[2021-09-10 07:12] LABS: Albumin Level 3.1 gm/dl (3.4-5.0); BUN Creatinine Ratio 43.9 (10-20); Bilirubin Direct 0.1 mg/dl (0-0.2); Bilirubin,Total 0.9 mg/dl (0.2-1.0); Calcium 8.4 mg/dl (8.5-10.1); Creatinine Clr Calc Pharmacy 73.8 ml/min; Est GFR (African American) 107.3 ml/min; Est GFR (Non-African American) 92.6 ml/min; Potassium 3.8 mmol/L (3.5-5.1); Total Protein 5.5 gm/dl (6.0-8.3)
[2021-09-10] MEDS: PYRIDOSTIGMINE BROMIDE 60 MG TAB PO SCH ×2 (08:26→12:12)
[2021-09-10] MEDS: LIDOCAINE 5% 1 PATCH TD SCH (08:26)
[2021-09-10] MEDS: BENZONATATE 100 MG CAPSULE PO SCH ×2 (08:26→14:10)
[2021-09-10] MEDS: guaiFENesin 600 MG TABCR PO SCH (08:27)
[2021-09-10] MEDS: azaTHIOprine 50 MG TAB PO SCH (08:27)
[2021-09-10] MEDS: AMIODARONE 200 MG TAB PO SCH (08:27)
[2021-09-10] MEDS: FAMOTIDINE 20 MG TAB PO SCH (08:27)
[2021-09-10] MEDS: GABAPENTIN 100 MG CAP PO SCH ×2 (08:28→12:12)
[2021-09-10] MEDS: GLYCOPYRROLATE 1 MG TAB PO SCH ×2 (08:28→12:12)
[2021-09-10] MEDS: APIXABAN 5 MG TABLET PO SCH (08:28)
[2021-09-10] MEDS: FLUoxetine HCL 20 MG CAP PO SCH (08:29)
[2021-09-10] MEDS ORDERED: predniSONE 5 MG TAB PO SCH (09:00)
--- NOTE | 2021-09-12 06:12 | Discharge Summary ---
Date of Service September 10, 2021 Admission HPI Per Admitting Provider This is a 70 yo F with PMHx of myasthenia gravis, multiple sclerosis with PEG tube, paroxysmal A. fib/a flutter on Eliquis, chronic anemia, osteoarthritis, depression, who presents with acute onset of shortness of breath, cough and fever over the past 1 week. No history of smoking or COPD. She is vaccinated and boosted for COVID-19, however has tested positive. Here in the ER she is requiring 4 L to maintain adequate O2 sats as she was in the mid 80s off oxygen. She is found to be febrile with temp of 38.3 once here in the ER. Patient notes today and yesterday she feel significantly worse, increased cough, significant fatigue where she feels like she cannot do anything. Patient is having difficulty speaking to me over the phone because of her cough and feeling so worn out. She cannot confirm her meds, but says she didn't take them today. She is agreeable to intubation in the setting of supportive ventilation for short timeframe but does not wish to remain on artificial life support. Admission Exam Per Admitting Provider Physical Exam: Vitals signs as noted above General Appearance:Moderately built and nourished, no apparent distress Head: normocephalic, Atraumatic Eyes: normal inspection, EOMI Neck: supple, Trachea midline Respiratory/Chest: Decreased breath sounds, CTA, No accessory muscle use Cardiovascular: S1, S2, No murmur Abdomen/GI:Soft, Non tender, Bowel sounds present Extremities/Musculoskeletal:normal inspection, no edema Neurologic/Psych:AAOX3, grossly no focal neurological deficits Skin: normal color, warm Principal Diagnosis Acute respiratory failure 2/2 covid pneumonia Discharge Exam CONSTITUTIONAL: WNWD, vitals as above, generally well-appearing, NAD EYES: normal conjunctivae, no scleral icterus ENT: external ear and nose normal, NECK: trachea midline, RESPIRATORY: clear to auscultation bilaterally, no crackles, rales or wheezes, normal respiratory effort CARDIOVASCULAR: regular rate and rhythm, S1 and 2 heard without murmurs, gallops or rubs, no JVD, no peripheral edema, CHEST: inspection of chest was normal GASTROINTESTINAL: soft, nontender, ND, no guarding MUSCULOSKELETAL: strength 5/5 throughout, head is normocephalic and atraumatic, SKIN: warm and dry NEUROLOGIC: . CN 2-12 grossly intact, no sensory deficit, normal cognition, normal speech, no tremor PSYCHIATRIC: alert cooperative and oriented to person, place and time. Euthymic mood, makes good eye contact, language grossly intact, recent and remote memory grossly intact. Discharge Data Allergies Allergy/AdvReac Type Severity Reaction Status Date / Time prochlorperazine Allergy Severe THROAT Verified 06/03/21 19:07 CONSTRICTING clarithromycin Allergy Intermediate RASH Verified 06/03/21 19:07 Penicillins Allergy Intermediate RASH Verified 06/03/21 19:07 amoxicillin Allergy Mild Rash Verified 06/03/21 19:07 azithromycin Allergy Mild Rash Verified 06/03/21 19:07 cephalexin Allergy Mild RASH Verified 06/03/21 19:07 erythromycin base Allergy Mild RASH Verified 06/03/21 19:07 aspirin [From Percodan] AdvReac Intermediate Hallucinati Verified 06/03/21 19:07 ng carbamazepine AdvReac Intermediate ELEVATED Verified 06/03/21 19:07 LFT LEVELS oxycodone AdvReac Intermediate HALLUCINATI Verified 06/03/21 19:07 ONS promethazine AdvReac Intermediate LEGS SHOOK Verified 06/03/21 19:07 Consultations 09/02/21 15:59 ED Decision to Admit Stat 09/03/21 13:56 Consult Neurology Routine 09/03/21 18:55 Consult [employer] Professional Routine Hospital Course (1) Acute respiratory failure with hypoxia: 2/2 covid pneumonia. She is immunocompromised on immune suppressant therapy but vaccinated. Completed 5 day course remdesivir and steroids daily during this admission. Two step test on morning of discharge revealed no need for supplemental oxygen at rest or with ambulation. (2) COVID-19: (3) Myasthenia gravis: - On Imuran 150 mg daily, pyridostigmine bromide 60 mg daily--> continued also takes prednisone 30 mg and 50 mg alternating doses daily--> held while on Decadron, restarted on discharge. no signs of MG crisis-denies dysphagia, focal weakness or numbness, NIF monitored daily by respiratory therapy and was good. (4) Multiple sclerosis: cont per outpatient medical therapy. (5) Paroxysmal A-fib: - Continue on amiodarone, eliquis BID (6) DVT prophylaxis: apixaban Full Code Dispo-home with home health, patient has caregivers already set up. Spoke with her daughter on day of discharge regarding her care plan. Close follow-up with primary care. [facility] Total Time Total Time Spent Total Time Spent (In Minutes): 60 Discharge Plan Discharge Items Patient Disposition: Home - Home Health Services Reason For Visit: COVID 19+ Discharge Diagnosis: Acute respiratory failure 2/2 covid pneumonia Condition on Discharge: Good Activity: Resume your previous activity Non-emergency contact: Primary Care Provider Call non-emergency contact if: you have any medication questions and your symptoms worsen Follow-up/Referrals: Tish King MD [Primary Care Provider] - (Date & Time 09/17/2021 11:20 AM Provider Tish King MD Department [facility] ) Diet: Regular Addtl Attending Provider Instructions: Please return to your original prednisone taper dose per pre-hospital regimen. Please remain on home isolation per current guidelines for vaccinated individuals post-infection. https://www.health.[place].gov/topics/disease/coronavirus/Pages/Coronavirus.aspx Followup with primary care physician recommended within one week of discharge to ensure you are still doing well after discharge as covid-19 symptoms can linger. Please consider repeat chest imaging in 4-6 weeks to ensure complete resolution of pneumonia. It was a pleasure taking care of you! Please call if you have any questions or problems. You can reach a [facility] hospitalist on duty at [facility] 24 hours a day by calling [phone]. Take care of yourself. DO [facility] Pending Studies at Discharge: No Stand-Alone Forms: My [facility] Medications and DC Order Prescriptions: New benzonatate 100 mg Capsule 100 mg PO TID PRN (Reason: cough) Qty: 20 RF: 0 Continued trazodone 100 mg tablet 100 mg PO HS RF: 0 gabapentin [Neurontin] 100 mg capsule 200 mg PO TIDM RF: 0 albuterol sulfate 90 mcg/actuation HFA aerosol inhaler 2 inh INHALATION Q4 PRN (Reason: Wheezing) RF: 0 fluoxetine [Prozac] 20 mg capsule 20 mg PO QAM RF: 0 melatonin 5 mg Tablet 5 mg PO HS RF: 0 glycopyrrolate 1 mg tablet 1 mg PO TIDM RF: 0 pyridostigmine bromide 60 mg tablet 60 mg PO QID RF: 0 prednisone 20 mg tablet 30 mg PO Q2D RF: 0 azathioprine [Imuran] 50 mg tablet 150 mg PO DAILY RF: 0 famotidine 20 mg tablet 20 mg PO QAM RF: 0 Eliquis 5 mg tablet 5 mg PO BIDM RF: 0 amiodarone 200 mg tablet 200 mg PO QAM RF: 0 multivitamin Tablet 1 tab PO QAM RF: 0 Macular Health Formula 5-1-7.5 mg Capsule 1 cap PO QAM RF: 0 acetaminophen [Tylenol Extra Strength] 500 mg Tablet 500 mg PO Q6H PRN (Reason: Pain) RF: 0 acetaminophen [Tylenol Extra Strength] 500 mg Tablet 500 mg PO HS RF: 0 simethicone 40 mg/0.6 mL Drops,Suspension 20 mg PO Q6H PRN (Reason: Gastric Reflux) RF: 0 Systane (propylene glycol) 0.4-0.3 % Drops 1 drp OPHTHALMIC (EYE) DIRECTED PRN (Reason: Dry Eyes) RF: 0 meloxicam 7.5 mg Tablet 7.5 mg PO DAILY RF: 0 Discharge Orders: Discharge Order (Routine); Ordered 09/10/21 Ordered By: Natasha Melendez Admission Data Admit Date/Time: 09/02/21 16:15 Attending Provider: Natasha Melendez Admit Provider: Asaf Banda Primary Care Provider: Tish King Other Providers: Asaf Banda ; Theo Hanson ; Allan San ; [place] Other Interventions: Discharge Summary Assessment (RN) Last Done: 09/10/21 15:01
== END 2021-09-10 15:35 | disposition home health service (06) | DRG 177 ==
LOC: ED 14:32 → 2S 16:15 → SUATTDRO 16:15 → 2S 18:07 → 2E 09-03 18:39

== ENCOUNTER 2021-12-08 08:42 | Observation (INO) ==
--- NOTE | 2021-11-05 16:27 | PAT Medication Instructions ---
Medication Instructions Date of Service November 05, 2021 Home Medications Medication Instructions Recorded benzonatate 100 mg capsule 100 mg PO TID PRN #20 cap 09/10/21 albuterol sulfate 90 mcg/actuation aerosol inhaler 2 inh INHALATION Q4 PRN fluoxetine 20 mg capsule (Prozac) 20 mg PO QAM gabapentin 100 mg capsule (Neurontin) 200 mg PO TIDM melatonin 5 mg tablet 5 mg PO HS trazodone 100 mg tablet 100 mg PO HS glycopyrrolate 1 mg tablet 1 mg PO TIDM pyridostigmine bromide 60 mg tablet 60 mg PO QID apixaban 5 mg tablet (Eliquis) 5 mg PO BIDM azathioprine 50 mg tablet (Imuran) 150 mg PO QAM famotidine 20 mg tablet 20 mg PO QAM prednisone 20 mg tablet 30 mg PO Q2D amiodarone 200 mg tablet 200 mg PO QAM [id number] 5 mg-zeaxanth 1 mg-bilberry 7.5 mg-herbal capsule (Macular Health Formula) 1 cap PO QAM multivitamin 1 tab PO QAM acetaminophen 500 mg tablet (Tylenol Extra Strength) 500 mg PO HS acetaminophen 500 mg tablet (Tylenol Extra Strength) 500 mg PO Q6H PRN peg 400-propylene glycol 0.4 %-0.3 % eye drops (Systane (propylene glycol)) 1 drp OPHTHALMIC (EYE) DIRECTED PRN simethicone 40 mg/0.6 mL oral drops,suspension 20 mg PO Q6H PRN meloxicam 7.5 mg tablet 7.5 mg PO QAM benzonatate 100 mg capsule 100 mg PO TID PRN Continue as directed gabapentin 100 mg capsule (Neurontin) 200 mg PO TIDM glycopyrrolate 1 mg tablet 1 mg PO TIDM pyridostigmine bromide 60 mg tablet 60 mg PO QID prednisone 20 mg tablet 30 mg PO Q2D ASK your surgeon for instructions meloxicam 7.5 mg tablet 7.5 mg PO QAM ASK your prescriber and surgeon apixaban 5 mg tablet (Eliquis) 5 mg PO BIDM azathioprine 50 mg tablet (Imuran) 150 mg PO QAM STOP taking 2 weeks before surgery [id number] 5 mg-zeaxanth 1 mg-bilberry 7.5 mg-herbal capsule (Macular Health Formula) 1 cap PO QAM DO NOT take the morning of surgery multivitamin 1 tab PO QAM simethicone 40 mg/0.6 mL oral drops,suspension 20 mg PO Q6H PRN benzonatate 100 mg capsule 100 mg PO TID PRN Take morning of surgery With a small sip of water, OTHERWISE NOTHING TO EAT OR DRINK AFTER MIDNIGHT: albuterol sulfate 90 mcg/actuation aerosol inhaler 2 inh INHALATION Q4 PRN(use if needed; please bring with you to hospital day of surgery if possible) fluoxetine 20 mg capsule (Prozac) 20 mg PO QAM famotidine 20 mg tablet 20 mg PO QAM amiodarone 200 mg tablet 200 mg PO QAM acetaminophen 500 mg tablet (Tylenol Extra Strength) 500 mg PO Q6H PRN(okay to take up to 4 hours prior to surgery if needed) peg 400-propylene glycol 0.4 %-0.3 % eye drops (Systane (propylene glycol)) 1 drp OPHTHALMIC (EYE) DIRECTED PRN(if needed) Take evening before surgery albuterol sulfate 90 mcg/actuation aerosol inhaler 2 inh INHALATION Q4 PRN(if needed) melatonin 5 mg tablet 5 mg PO HS trazodone 100 mg tablet 100 mg PO HS acetaminophen 500 mg tablet (Tylenol Extra Strength) 500 mg PO HS Other Notes If you have any questions please call us at [phone] or [phone] or [phone] or [phone]
--- NOTE | 2021-11-09 12:38 | Anesthesiology Consultation ---
Date of Service November 09, 2021 Assessment & Plan (1) Encounter for pre-operative examination: Chart Review Chart Review: Acceptable Risk for Surgery (pending PCP response to note regarding upcoming surgery and preop Covid testing results ) and Patient seen in Pre Admission Testing -Due to recent falls- will write note to PCP inquiring if patient is optimized for surgery Per PAT appt on 11/09/21, patient denies any recent travel or large group activities. No known Covid positive exposures or Covid related symptoms. No known Covid infection in the past 90 days. Pt is vaccinated for Covid. Preop Covid testing scheduled 12/04/21= will await results. Educated on importance of self quarantining, social distancing and wearing mask in public for the patient one week prior to surgery and after Covid testing done Pt last seen by neurology on 06/08/21= seen as telehealth visit for routine follow-up. Patient with history of myasthenia gravis. On target dose of Imuran . Beginning to taper down her steroids for the past several weeks. Had been doing well in terms of myasthenia but unfortunately fell while walking with grandson. Past medical history also shows history of multiple sclerosis and trigeminal neuralgia. Myasthenia gravis status post several crises over the past year particularly in the summer and spring with the PEG tube still in place as backup but with stable overall function to date. Continue amiodarone. Continue weaning off prednisone. Teaching & Discussion Pre-Anesthesia Teaching/Discussion Notes: Instructed NPO after midnight before surgery,except medications with 15 cc of water. Medication instructions provided according to the PAT guidelines. History Surgery Operation Date: 12/08/21 10:55 Proposed Procedures p Left Total Shoulder Arthroplasty versus - Javy Garnett DO s Left Reverse Total Shoulder - Javy Garnett DO Height/Weight Height: 5 ft 3 in Weight: 62.1 kg Allergies Allergy/AdvReac Type Severity Reaction Status Date / Time prochlorperazine Allergy Severe THROAT Verified 11/05/21 12:58 CONSTRICTING clarithromycin Allergy Intermediate RASH Verified 11/05/21 12:58 Penicillins Allergy Intermediate RASH Verified 11/05/21 12:58 amoxicillin Allergy Mild Rash Verified 11/05/21 12:58 azithromycin Allergy Mild Rash Verified 11/05/21 12:58 cephalexin Allergy Mild RASH Verified 11/05/21 12:58 erythromycin base Allergy Mild RASH Verified 11/05/21 12:58 aspirin [From Percodan] AdvReac Intermediate Hallucinati Verified 11/05/21 12:58 ng carbamazepine AdvReac Intermediate ELEVATED Verified 11/05/21 12:58 LFT LEVELS oxycodone AdvReac Intermediate HALLUCINATI Verified 11/05/21 12:58 ONS promethazine AdvReac Intermediate LEGS SHOOK Verified 11/05/21 12:58 Medications Home Medications Medication Instructions Recorded Confirmed Last Taken albuterol sulfate 90 mcg/actuation 2 inh INHALATION Q4 PRN 05/13/20 11/09/21 Unknown aerosol inhaler fluoxetine 20 mg capsule (Prozac) 20 mg PO QAM 05/13/20 11/09/21 06/03/21 gabapentin 100 mg capsule 200 mg PO TIDM 05/13/20 11/09/21 06/03/21 12:00 (Neurontin) melatonin 5 mg tablet 5 mg PO HS 05/13/20 11/09/21 06/02/21 trazodone 100 mg tablet 100 mg PO HS 05/13/20 11/09/21 06/02/21 glycopyrrolate 1 mg tablet 1 mg PO TIDM 12/19/20 11/09/21 06/03/21 12:00 pyridostigmine bromide 60 mg tablet 60 mg PO QID 12/19/20 11/09/21 06/03/21 12: 00 apixaban 5 mg tablet (Eliquis) 5 mg PO BIDM 02/12/21 11/09/21 06/03/21 08:00 azathioprine 50 mg tablet (Imuran) 150 mg PO QAM 02/12/21 11/09/21 06/03/21 12:00 famotidine 20 mg tablet 20 mg PO QAM 02/12/21 11/09/21 06/03/21 prednisone 20 mg tablet 30 mg PO Q2D 02/12/21 11/09/21 06/03/21 amiodarone 200 mg tablet 200 mg PO QAM 03/10/21 11/09/21 06/03/21 [id number] 5 mg-zeaxanth 1 cap PO QAM 05/26/21 11/09/21 06/03/21 1 mg-bilberry 7.5 mg-herbal capsule (DEQ Health Formula) multivitamin 1 tab PO QAM 05/26/21 11/09/21 06/03/21 acetaminophen 500 mg tablet 500 mg PO HS 06/03/21 11/09/21 06/02/21 (Tylenol Extra Strength) acetaminophen 500 mg tablet 500 mg PO Q6H PRN 06/03/21 11/09/21 Unknown (Tylenol Extra Strength) peg 400-propylene glycol 0.4 %-0.3 1 drp OPHTHALMIC (EYE) DIRECTED 06/03/21 11/09/21 Unknown % eye drops (Systane (propylene PRN glycol)) simethicone 40 mg/0.6 mL oral 20 mg PO Q6H PRN 06/03/21 11/09/21 Unknown drops,suspension meloxicam 7.5 mg tablet 7.5 mg PO QAM 09/02/21 11/09/21 Unknown benzonatate 100 mg capsule 100 mg PO TID PRN #20 cap 09/10/21 11/09/21 Unknown Past Medical History Medical History (Updated 11/10/21 @ 12:40 by Jaimee Lieberman PA-C) Atrial fibrillation On Eliquis Depression Frequent falls Most recent fall 11/01/21 Three different falls in the past year per patient (had leg weakness first time, next time wheeled walker moved out too fast, leg weakness with third fall); does have walker to ambulate States she has agency help with her at all times while home PCP did lumbar MRI recently that showed no acute abnormalities that could cause leg weakness- degenerative changes only per PCP phone note. Hip pain, right S/p hip dislocation after a fall this past year (Dr. Garnett aware) History of COVID-19 09/02/21 COVID positive and admitted to hospital ([facility]) Feeling better - residual fatigue Multiple sclerosis Asymptomatic with exception to mild incontinence Follows with neuro- stable per patient Myasthenia gravis Follows with PCP and neurologist Hx of PEG tube placement in December 2020 (was not eating well)- eating has since improved- PEG tube removed Osteoporosis Per records Poor historian RLL pneumonia COVID 09/09/21 admitted to hospital Weakness Since hospital admission for Covid in Aug 2021 - slowly improving Exercise / Class Metabolic Activity III < 4 Walking/Shop/Light housework (one flight of stairs - no chest pain or SOB - goes one foot at a time secondary to hip pain ) Past Surgical History Surgical History (Updated 11/10/21 @ 12:38 by Jaimee Lieberman PA-C) H/O tubal ligation S/P percutaneous endoscopic gastrostomy (PEG) tube placement Has since been removed S/P T&A (status post tonsillectomy and adenoidectomy) S/P total hip arthroplasty Past Anesthesia History No Hx of Anesthesia Complications (with exception to PONV ) and Other (FH of anesthesia issues unknown ) History of PONV History of PONV (improved with pre treatment with IV anti nausea medications ) and Hx of Motion Sickness (mild ) Social History Smoking Status: Never smoker Do You Dip or Chew Tobacco: No Hx Alcohol Use: No Hx Substance Use: No substance use type: does not use Review of Systems Chronic ongoing cough x years- mild - stable (usually when laying down) Patient denies chest pain, shortness of breath at rest, reflux, wheezing, palpitations. No hx of seizures, stroke, [place], apnea/snoring. No hx of blood clots or blood transfusions Physical Exam Vital Signs VITALS BP 142/83 P 66 TEMP 98.4 SP02 97% RESP 16 Constitutional no acute distress ENMT Mouth: + small oral opening; no TMJ clicking Thyromental Distance: < 3.5 Finger Breadths (2.5) Mallampati Class: III Neck + limited neck extension Respiratory normal respiratory effort; no respiratory distress Auscultation: lungs clear to auscultation bilaterally; no wheezes Cardiovascular Rate/Rhythm: regular rate and regular rhythm Heart Sounds: no murmur Vessels: no carotid bruit Musculoskeletal Spine: no pain with cervical ROM Extremities: extremities normal to inspection Psychiatric Orientation: alert Lab Results Anesthesia Preop Results Results Anesthesia Widget: WBC 10.28 K/uL (4.8-10.8) 11/09/21 Hgb 12.8 g/dL (12.0-16.0) 11/09/21 Hct 41.0 % (37-47) 11/09/21 Plt 422 K/uL (130-400) H 11/09/21 Na 142 mmol/L (136-145) 11/09/21 K 3.8 mmol/L (3.5-5.1) 11/09/21 Cl 105 mmol/L (98-107) 11/09/21 CO2 31 mmol/L (21-32) 11/09/21 BUN 20 mg/dl (6-23) 11/09/21 Creat 0.91 mg/dl (0.6-1.2) 11/09/21 Glucose Level 113 mg/dl (70-99(Fasting)) H 11/09/21 PT 10.8 Seconds (9.0-12.0) 11/09/21 PTT 22.9 Seconds (21.0-31.0) 11/09/21 INR 1.0 (0.9-1.1) 11/09/21 Blood Type A Positive 11/09/21 Antibody Screen NEGATIVE 11/09/21 Testing Electrocardiogram Date: 09/02/21 Findings: + NSR @ (79bpm ) LAFB. when compared to EKG from February 12, 2021- criteria for septal infarct no longer present per cardio. Chest X-Ray Date: 11/09/21 Findings: + NAD Echocardiogram Date: 12/26/20 EF: 60-64% LV Function: normal RWMA: + none Other Findings: + LVH (mild/concentric ) and + diastolic dysfunction (Grade I ) Valvular Disease: + MR (mild ) Mild TR. Other Testing Lumbar and thoracic spine MRI 10/14/2021 = Stable areas of nonspecific focal T2/STIR hyperintense signal within the thoracic cord which could reflect areas of demyelinating disease. No associated enhancement or new lesions identified. Thoracic and lumbar spondylosis with multilevel foraminal narrowing within the lumbar spine including moderate right-sided narrowing at L5-S1. No spinal canal stenosis. Possible unilateral right L5 pars defect. Chronic mild anterior wedging of the T6, T7, and T11 vertebral bodies. Stable upper lumbar dextroscoliosis and exaggeration of the thoracic kyphosis and lumbar lordosis. Head CT 10/02/21= There is no hemorrhage, mass effect, or evidence of acute territorial ischemia by CT criteria. There are age-related involutional changes noting mild subcortical and periventricular microangiopathic change. Hyperdense material is again seen at the skull base, likely representing embolic material. This is unchanged from prior studies. Cervical spine CT 10/02/21= There is no evidence of fracture or subluxation involving the cervical spine. Osteopenia and spondylotic change. MRI of the brain and c-spine 08/28/21= No acute intracranial abnormality. Allowing for differences in technique, similar appearance of T2 hyperintensities within the white matter of the brain consistent with the patient's history of demyelinating disease. No enhancing lesions are present to suggest active inflammation. Stable foci of T2 hyperintensity in the mid and lower cervical spinal cord again consistent with the patient's history of demyelinating disease. No enhancing cord lesions are present. Degenerative spondylosis of the midcervical spine, similar to the prior imaging. Head and neck CTA 05/13/20= Unremarkable CTA of the head and neck without aneurysm, dissection, high-grade stenosis or proximal branch occlusion.
[~2021-12-08 08:42] MED LIST changes: +ACETAMINOPHEN 500 MG TAB PO SCH; +ALLERGY Noted to ORDERED Medication SCH; +BUPIVACAINE 0.5 % 5 MG/1 ML PF 10ML VIAL ONE; +FAMOTIDINE 20 MG TAB PO SCH; -FLUO20CA20 PO; -GABA-112 PO; +GABAPENTIN 300 MG CAP PO SCH; +Ketorolac (*for OR use only*) 30 MG, dexAMETHasone 4 MG, KETAMINE HCL (**OR use only) 1... INFIL SCH; +LR 15ML/HR IV SCH; +LR 60ML/HR IV SCH; -MACULAR HEALTH PO; -MELATAB2 PO; -MULT-506 PO; -POLYSOL4 OPB; +TRANEXAMIC ACID 1,000 MG **IV Intra-op IV SCH; +TRANEXAMIC ACID 1,000 MG **IV Pre-op IV SCH; -TRAZ100T29 PO; +dexAMETHasone 4 MG TAB PO SCH
[2021-12-08] MEDS ORDERED: HYDROmorphone INJ 1 MG/ML SYRINGE IV PRN (09:38)
[2021-12-08] MEDS ORDERED: ATROPINE SULFATE 0.1 MG/ML 10ML SYR IV PRN (09:38)
[2021-12-08] MEDS ORDERED: ePHEDrine sulfate 50 MG/ML AMP IV PRN (09:38)
[2021-12-08] MEDS ORDERED: LABETALOL HCL IV 5 MG/ML 20ML IV PRN (09:38)
[2021-12-08] MEDS ORDERED: PHENYLEPHRINE 100MCG/ML 5ML SYR IV PRN (09:38)
[2021-12-08] MEDS ORDERED: ONDANSETRON INJ 2 MG/ML 2 ML VIAL IV PRN ×2 (09:38→15:10)
--- NOTE | 2021-12-08 10:25 | History & Physical Bridge Note ---
Date of Service December 08, 2021 History & Physical Bridge Note I have examined the patient, reviewed the History & Physical and in the interval since the performance of the History & Physical I have noted the following changes of clinical significance: no changes noted
[2021-12-08] MEDS ORDERED: ceFAZolin 1000MG 1,000 MG/7.5 ML SYR IV ONE (10:31)
[2021-12-08] MEDS ORDERED: ORTHO JOINT ANESTHETIC ONE (10:54)
[2021-12-08] MEDS ORDERED: fentaNYL citrate 100 MCG/2 ML VIAL ONE ×2 (11:05→11:40)
[2021-12-08] MEDS ORDERED: MIDAZOLAM HCL 1 MG/ML 2ML VIAL ONE (11:05)
[2021-12-08] MEDS ORDERED: ePHEDrine sulfate 50 MG/ML AMP ONE (11:50)
[2021-12-08] MEDS ORDERED: ONDANSETRON INJ 2 MG/ML 2 ML VIAL ONE (11:50)
[2021-12-08] MEDS ORDERED: LIDOCAINE 2% 2 ML VIAL/AMP(20MG/ML) INFIL ONE (11:50)
[2021-12-08] MEDS ORDERED: PROPOFOL IV EMULSION 10 MG/ML 20 ML VIAL IV ONE (11:50)
--- NOTE | 2021-12-08 12:48 | Operative Report ---
PG Post Operative Report Pre & Post Diagnosis Operation Date: 12/08/21 10:55 Pre-Op Diagnosis: Recurrent dislocations right hip replacement Post-Op Diagnosis: Recurrent dislocations right hip replacement I identified the patient and participated in the time-out.: Yes Procedure Operation Date: 12/08/21 10:55 Actual Procedures p Right Anterior Revision Total Hip Arthroplasty(Right) - Javy Garnett DO Surgeon Javy Garnett DO Continuous Churn Buttermaker Javy Gotti PAC Estimated Blood Loss 200 Findings Consistent with Post-Op Diagnosis Specimens None Complications none Disposition Disposition: Recovery Room Indications Colleen is a pleasant 70-year-old female who underwent a right anterior hip replacement by Dr. Vernon in 2016. Unfortunately she has been suffering from multiple dislocations of the right hip. The components appear to be in good alignment. After failing conservative treatment, she elected to proceed with a revision right hip replacement surgery. Description of Procedure Implants used: A [employer] anthology hip [place] [address] Vernon. I exchanged the polyethylene insert with a 20 degree posterior superior lip and I exchanged the Oxinium 32 mm head with a +8 32 mm Oxinium head. On December 08, 2021 Colleen arrived at [facility] for the above procedure. She was seen in the preoperative holding area and the operative extremity was identified and signed. She is given a preoperative antibiotic. She was taken back the operating room and laid on the table in supine position. She was put under general anesthesia. Right hip was then brought out to traction on a purist leg positioner. The right hip was then prepped and draped in sterile fashion. A timeout was done. The patient and the operative extremity was properly identified. The previous anterior incision was opened back up. Dissection was taken down through the fascia. The tensor muscle belly was retracted laterally and the rectus was retracted anteriorly. The capsule was exposed. The capsule was then incised and tagged for later repair. There was normal joint fluid which came out of the hip joint. No signs of infection. The hip was then dislocated and the femoral head was removed. The acetabulum was then exposed. The acetabular liner was removed and replaced with a 20 degree posterior superior lip. The wound was then irrigated. The proximal femur was then exposed. Several trials were used and a +8 32 mm head seem to be the best fit. The hip was reduced. The hip felt to be very stable. The hip was then dislocated. The final size plus 8 Oxinium 32 mm femoral head was then impacted into place. The hip was then reduced. Final fluoroscopic images showed anatomic alignment and increased length of the right hip. The wound was then irrigated. The capsule was then ti ghtly closed with #1 Vicryl suture. A 3-minute Betadine lavage was done. Surrounding soft tissues were then injected with 60 cc of an orthopedic cocktail. The deep fascia was closed with #0 PDS suture. Deep fat layer was closed with 2-0 Vicryl. Skin was closed with 2-0 Vicryl and fitz. She was then placed in a Silverlon dressing. She was then extubated and transferred to a hospital bed. She was taken to the postanesthesia care unit in stable condition. She tolerated the procedure well. Javy Gotti PA-C, was present for the entire procedure. He was critical for patient positioning, prepping, draping, retraction exposure, wound closure and application of sterile dressing. I attest to the content of the Intraoperative Record and any orders documented therein. Any exceptions are noted below.
[2021-12-08] MEDS: fentaNYL citrate 100 MCG/2 ML VIAL IV PRN ×4 (13:28→13:43)
--- NOTE | 2021-12-08 13:49 | XRay Report ---
AP PELVIS, CROSSTABLE LATERAL RIGHT HIP History: Right total hip arthroplasty. Postop. FINDINGS: The patient is status post a right total hip arthroplasty. The hardware is intact. No fract ure or dislocation. Skin fitz are in place. Evidence for prior left total hip arthroplasty. IMPRESSION: Right total hip arthroplasty. No evidence for hardware complication ACT 112: Negative or not required by law. Electronically signed by: Trenton Orourke M.D. 12/08/2021 1:47 PM
--- NOTE | 2021-12-08 13:54 | Anesthesiology Progress Note ---
Date of Service December 08, 2021 Anesthesia Post Procedure Vital Signs Vital Signs: Temp Pulse Resp BP Pulse Ox 12/08/21 13:50 71 14 141/68 H 96 12/08/21 13:40 71 15 137/72 97 12/08/21 13:30 81 23 141/69 H 96 12/08/21 13:20 79 23 151/80 H 98 12/08/21 13:10 76 16 150/80 H 99 12/08/21 13:04 36.0 C L 74 20 151/84 H 100 12/08/21 09:27 36.9 C 71 20 145/83 H 97 Pain Intensity Right Hip: Pain Intensity: 2 Transfer of Care Handoff Completed per policy Notes Mental Status: alert / awake / arousable Patient Amnestic to Procedure: Yes Nausea / Vomiting: adequately controlled Pain: adequately controlled Airway Patency, RR, SpO2: stable & adequate BP & HR: stable & adequate Hydration State: stable & adequate Anesthetic Complications: no major complications apparent and Pt Satisfied with anesthetic care Notes: The patient is awake and comfortable.
--- NOTE | 2021-12-08 14:56 | Fluoroscopy Report ---
FL hip RT 1V CLINICAL HISTORY: RT ANTERIOR TECHNIQUE: 1 views were obtained with the C-arm in the OR with the above procedure. Total fluoroscopy time was 6 seconds. Total skin dose was 0.56 mGy. Comparison: None available at the time of this dictation. FINDINGS/IMPRESSION: Intraoperative images were obtained of right hip arthroplasty revision. Please correlate with intraoperative fluoroscopy and operative report. ACT 112: Negative or not required by law. Electronically signed by: Kenrick Méndez M.D. 12/08/2021 2:54 PM
[2021-12-08] MEDS ORDERED: bisacodyL 10 MG SUPP PR PRN (15:10)
[2021-12-08] MEDS ORDERED: MAGNESIUM HYDROXIDE SUSP 30 ML UDC PO PRN (15:10)
[2021-12-08] MEDS ORDERED: NALOXONE HCL 0.4 MG/1 ML VIAL/CARP IV PRN (15:10)
[2021-12-08] MEDS ORDERED: SODIUM CHLORIDE 0.9% 1000ML 1,000 ML IV SCH (15:10)
[2021-12-08] MEDS ORDERED: HYDROmorphone INJ 0.5 MG/0.5 ML SYR IV PRN (15:10)
[2021-12-08] MEDS ORDERED: BENZONATATE 100 MG CAPSULE PO PRN (15:10)
[2021-12-08] MEDS ORDERED: SIMETHICONE 80 MG CHEW PO PRN (15:10)
[2021-12-08] MEDS ORDERED: ALBUTEROL HFA 8 GM INHALER INH PRN (15:10)
[2021-12-08] MEDS ORDERED: METOCLOPRAMIDE HCL INJ 5 MG/ML 2 ML VIAL IV PRN (15:10)
[2021-12-08] MEDS ORDERED: ARTIFICIAL TEARS OP PRN (15:52)
[2021-12-08] MEDS: ACETAMINOPHEN 500 MG TAB PO SCH ×2 (16:24→22:14)
[2021-12-08] MEDS: KETOROLAC TROMETHAMINE 15 MG/ML VIAL IV SCH ×2 (16:25→23:07)
[2021-12-08] MEDS: oxyCODONE HCL IR 5 MG TAB (IMMEDIATE RELEASE) PO PRN ×2 (16:45→22:12)
[2021-12-08] MEDS: APIXABAN 5 MG TABLET PO SCH (17:10)
[2021-12-08] MEDS: GLYCOPYRROLATE 1 MG TAB PO SCH (17:10)
[2021-12-08] MEDS: GABAPENTIN 100 MG CAP PO SCH (17:10)
[2021-12-08] MEDS: PYRIDOSTIGMINE BROMIDE 60 MG TAB PO SCH ×4 (17:42→22:45)
[2021-12-08] MEDS: ceFAZolin 2000MG 2,000 MG/15 ML SYR IV SCH (18:38)
[2021-12-08] MEDS ORDERED: MELATONIN 3 MG TAB PO SCH (21:00)
[2021-12-08] MEDS ORDERED: SENNA 8.6 MG TAB PO SCH (21:00)
[2021-12-08] MEDS ORDERED: traZODone HCL 100 MG TAB PO SCH (21:00)
[2021-12-08] MEDS: DOCUSATE SODIUM 100 MG CAP PO SCH (22:13)
[2021-12-09] MEDS: ceFAZolin 2000MG 2,000 MG/15 ML SYR IV SCH (03:56)
[2021-12-09] MEDS: KETOROLAC TROMETHAMINE 15 MG/ML VIAL IV SCH ×2 (05:05→12:51)
--- NOTE | 2021-12-09 06:28 | Orthopedic Progress Note ---
Date of Service December 09, 2021 Assessment & Plan (1) Status post revision of total hip replacement: Overall she is doing fairly well. She cannot be much pain in the right hip. She will be seen by physical therapy today for ambulation and range of motion exercises. She is on Eliquis for DVT prophylaxis. She can be discharged home later today. She will follow-up with orthopedics in 2 weeks. Subjective Colleen was seen and examined at bedside this morning. Overall she is doing fairly well. She is not having much pain in the right hip. She has been up and ambulating to the bathroom. She has no complaints. Review of Systems All systems reviewed & are unremarkable except as noted in HPI & below. Physical Exam On physical examination the right hip, the dressing is clean and dry. Her right leg is a little longer than the left. Results & Data Results & Data Laboratory Results . Diagnostic Findings Postoperative x-rays of the right hip and pelvis show the prosthesis to be in anatomic alignment without any evidence of fracture, desiccation, or loosening. PG Care Time/CCT Total # of Minutes Spent Total Time Spent with Patient: Total time spent is greater than 50% in coordination of care (as documented) at patient's floor/unit and/or counseling patient: Coding Level of Care Code 82585 Post Operative Follow-Up Diagnoses Status post revision of total hip replacement Z96.649
--- NOTE | 2021-12-09 06:30 | Discharge Summary ---
Date of Service December 09, 2021 Principal Diagnosis Same as "Discharge Diagnosis" noted below under Discharge Instructions. Discharge Exam On physical examination the right hip, the dressing is clean and dry. Her right leg is a little longer than the left. Discharge Data Procedures Performed Operation Date: 12/08/21 10:55 Actual Procedures p Right Anterior Revision Total Hip Arthroplasty(Right) - Javy Garnett DO Ordered Studies 12/08/21 05:00 US - OR guided needle placemen Routine 12/08/21 10:55 FL hip RT 1V Routine Hospital Course (1) Status post revision of total hip replacement: On December 08, 2021 Colleen arrived at [facility] and underwent a revision right hip replacement without complication. She had a general anesthetic. Postoperatively she was started on Eliquis for DVT prophylaxis and transferred to the general orthopedic floors. Her hospital course was uneventful. On postop day #1, her vital signs were stable and her pain was well controlled. She was able to participate well with physical therapy doing ambulation and range of motion exercises. She was then discharged home. She will follow-up with orthopedics in 2 weeks. PG Care Time/CCT Total # of Minutes Spent Total Time Spent with Patient: Total time spent is greater than 50% in coordination of care (as documented) at patient's floor/unit and/or counseling patient: Discharge Plan Discharge Items Patient Disposition: Home - Home Health Services Reason For Visit: Painful, Unstable Right Total Hip Discharge Diagnosis: Revision right hip replacement Activity: Per Instructions section Non-emergency contact: Surgeon Call non-emergency contact if: your wound has increased redness and your wound has increased drainage Follow-up/Referrals: Tish King MD [Primary Care Provider] - Diet: Regular Addtl Attending Provider Instructions: Activity and Therapy Recommendations: * If you are using [facility] then therapy will be provided at your home until they feel you have accomplished all of your goals. * If you are using [facility] then Physical Therapy will be provided until they feel you are ready to start Outpatient Physical Therapy. * If you are not using home therapy then Outpatient Physical Therapy should start about 3-5 days from your day of surgery. Therapy will last about 6-10 weeks * You were shown a series of exercises in the hospital. Do these exercises three times each day including the exercises you were shown in physical therapy. * Get up and walk several times each day.~ For the first four weeks, try not to stand or walk for more than one hour at a time. If you do stand or walk for more than one hour, you will not hurt anything, but your leg will likely swell.~~ * As you feel comfortable, you may change from the walker or crutches to a cane and~then to independent walking. Medications: * Narcotic You will likely be sent home from the hospital with a prescription for the narcotic pain medication that worked best throughout your stay. * Aspirin Most patients will be required to take Aspirin 81mg twice a day for 6 weeks after surgery. This is obtained [id number] and a prescription is not necessary. * Other medications may be prescribed for specific circumstances. If you have any questions, please call the office at . * Resume previous home medications unless otherwise instructed TEDs/Elastic Stockings: The white elastic stockings help limit swelling and prevent blood clots from forming in your legs. The more you wear them, the more they work. Wear them for six weeks. Dressing Care: Leave the Silverlon dressing in place for 7 days. After 7 days you may remove the dressing. If the incision is not draining then you may leave the fitz open to air. If there is a little bit of drainage or if the fitz are getting stuck on your clothing then cover the incision with a dry dressing. The fitz will be removed at your 2 week follow-up appointment. Showering: You may shower with the Silverlon dressing in place. Do not let the shower spray hit the dressing directly. Pat the Silverlon dressing dry. If the dressing becomes wet underneath, then simply remove the dressing. Keep the incision dry until you are 7 days out from the day of surgery. After 7 days you may remove the Silverlon dressing and shower with the fitz exposed. Let soapy water run over the fitz and pat them dry. Do not scrub or soak the incision. Things To Watch For: * Drainage from the incision site that occurs more than one week after your surgery. * Increased redness at the incision site. * Fever above 102 degrees Fahrenheit. * Unusual chest pain or shortness of breath. * Call [facility] at with any of the above problems Follow-Up Visit: Follow-up with Dr. Garnett's PA (Javy Gotti) 2-3 weeks after your day of surgery. He will remove your fitz and answer any questions. If you have any additional questions or concerns, Dr Garnett is usually in the office at the same time and will be available An appointment was probably scheduled when you signed-up for surgery in the office. If you have any questions call Office Instructions: More detailed instructions as well as Frequently Asked Questions were provided in a folder by our office when you signed-up for surgery. Please review these instructions when you get home. If you have any further questions or concerns, please feel free to call the office at [phone] Pending Studies at Discharge: No Stand-Alone Forms: [facility] Medications and DC Order Prescriptions: New oxycodone-acetaminophen 5-325 mg tablet 1 tab PO Q6H PRN (Reason: pain) Qty: 30 RF: 0 Continued trazodone 100 mg tablet 100 mg PO HS RF: 0 gabapentin [Neurontin] 100 mg capsule 200 mg PO TIDM RF: 0 albuterol sulfate 90 mcg/actuation HFA aerosol inhaler 2 inh INHALATION Q4 PRN (Reason: Wheezing) RF: 0 fluoxetine [Prozac] 20 mg capsule 20 mg PO QAM RF: 0 melatonin 5 mg Tablet 5 mg PO HS RF: 0 glycopyrrolate 1 mg tablet 1 mg PO TIDM RF: 0 pyridostigmine bromide 60 mg tablet 60 mg PO QID RF: 0 prednisone 20 mg tablet 30 mg PO Q2D RF: 0 azathioprine [Imuran] 50 mg tablet 150 mg PO QAM RF: 0 famotidine 20 mg tablet 20 mg PO QAM RF: 0 Eliquis 5 mg tablet 5 mg PO BIDM RF: 0 amiodarone 200 mg tablet 200 mg PO QAM RF: 0 multivitamin Tablet 1 tab PO QAM RF: 0 Macular Health Formula 5-1-7.5 mg Capsule 1 cap PO QAM RF: 0 acetaminophen [Tylenol Extra Strength] 500 mg Tablet 500 mg PO Q6H PRN (Reason: Pain) RF: 0 acetaminophen [Tylenol Extra Strength] 500 mg Tablet 500 mg PO HS RF: 0 simethicone 40 mg/0.6 mL Drops,Suspension 20 mg PO Q6H PRN (Reason: Gastric Reflux) RF: 0 Systane (propylene glycol) 0.4-0.3 % Drops 1 drp OPHTHALMIC (EYE) DIRECTED PRN (Reason: Dry Eyes) RF: 0 meloxicam 7.5 mg Tablet 7.5 mg PO QAM RF: 0 benzonatate 100 mg Capsule 100 mg PO TID PRN (Reason: cough) Qty: 20 RF: 0 Discharge Orders: Discharge Order (Routine); Ordered 12/09/21 Ordered By: Javy Garnett Admission Data Admit Date/Time: 12/08/21 13:03 Attending Provider: Javy Garnett Admit Provider: Javy Garnett Primary Care Provider: Tish King
[2021-12-09] MEDS: GABAPENTIN 100 MG CAP PO SCH ×2 (08:51→12:53)
[2021-12-09] MEDS: ACETAMINOPHEN 500 MG TAB PO SCH (08:53)
[2021-12-09] MEDS: APIXABAN 5 MG TABLET PO SCH (08:54)
[2021-12-09] MEDS: PYRIDOSTIGMINE BROMIDE 60 MG TAB PO SCH ×2 (08:55→12:53)
[2021-12-09] MEDS: GLYCOPYRROLATE 1 MG TAB PO SCH ×2 (08:56→12:52)
[2021-12-09] MEDS: DOCUSATE SODIUM 100 MG CAP PO SCH (08:57)
[2021-12-09] MEDS ORDERED: azaTHIOprine 50 MG TAB PO SCH (09:00)
[2021-12-09] MEDS ORDERED: AMIODARONE 200 MG TAB PO SCH (09:00)
[2021-12-09] MEDS ORDERED: predniSONE 10 MG TABLET PO SCH (09:00)
[2021-12-09] MEDS ORDERED: FAMOTIDINE 20 MG TAB PO SCH (09:00)
[2021-12-09] MEDS ORDERED: FLUoxetine HCL 20 MG CAP PO SCH (09:00)
[2021-12-09] MEDS ORDERED: MULTIVITAMIN TAB PO SCH (09:00)
[2021-12-09] MEDS: oxyCODONE HCL IR 5 MG TAB (IMMEDIATE RELEASE) PO PRN (09:06)
[2021-12-10] MEDS ORDERED: predniSONE 50 MG TAB PO SCH (09:00)
== END 2021-12-09 14:30 | disposition home health service (06) ==
LOC: ASU 08:42 → 3E 08:42

== ENCOUNTER 2022-04-09 08:47 | Observation (INO) ==
--- NOTE | 2022-03-10 16:30 | PAT Medication Instructions ---
Medication Instructions Date of Service March 10, 2022 Home Medications Medication Instructions Recorded benzonatate 100 mg capsule 100 mg PO TID PRN cough #20 caps 09/10/21 oxycodone-acetaminophen 5 mg-325 1 tab PO Q6H PRN pain #30 tabs /25/22 mg tablet oxycodone-acetaminophen 5 mg-325 1 tab PO Q6H PRN pain #20 tabs 05/26/22 mg tablet (Percocet) albuterol sulfate 90 mcg/actuation aerosol inhaler 2 inh inhalation Q4 PRN fluoxetine 20 mg capsule (Prozac) 20 mg PO QAM melatonin 5 mg tablet 5 mg PO HS trazodone 100 mg tablet 100 mg PO HS glycopyrrolate 1 mg tablet 1 mg PO TIDM pyridostigmine bromide 60 mg tablet 60 mg PO QID apixaban 5 mg tablet (Eliquis) 5 mg PO BIDM azathioprine 50 mg tablet (Imuran) 150 mg PO QAM famotidine 20 mg tablet 20 mg PO QAM prednisone 20 mg tablet 20 mg PO Q2D amiodarone 200 mg tablet 200 mg PO QAM [id number] 5 mg-zeaxanth 1 mg-bilberry 7.5 mg-herbal capsule (Macular Health Formula) 1 cap PO QAM multivitamin 1 tab PO QAM acetaminophen 500 mg tablet (Tylenol Extra Strength) 500 mg PO HS acetaminophen 500 mg tablet (Tylenol Extra Strength) 500 mg PO Q6H PRN peg 400-propylene glycol 0.4 %-0.3 % eye drops (Systane (propylene glycol)) 1 drp ophthalmic (eye) DIRECTED PRN simethicone 40 mg/0.6 mL oral drops,suspension 20 mg PO Q6H PRN benzonatate 100 mg capsule 100 mg PO TID PRN oxycodone-acetaminophen 5 mg-325 mg tablet (Percocet) 1 tab PO Q6H PRN Continue as directed peg 400-propylene glycol 0.4 %-0.3 % eye drops (Systane (propylene glycol)) 1 drp ophthalmic (eye) DIRECTED PRN(if needed) prednisone 20 mg tablet 20 mg PO Q2D ASK your prescriber and surgeon azathioprine 50 mg tablet (Imuran) 150 mg PO QAM apixaban 5 mg tablet (Eliquis) 5 mg PO BIDM STOP taking 2 weeks before surgery [id number] 5 mg-zeaxanth 1 mg-bilberry 7.5 mg-herbal capsule ([employer] Formula) 1 cap PO QAM DO NOT take the morning of surgery multivitamin 1 tab PO QAM benzonatate 100 mg capsule 100 mg PO TID PRN Take morning of surgery With a small sip of water, OTHERWISE NOTHING TO EAT OR DRINK AFTER MIDNIGHT: albuterol sulfate 90 mcg/actuation aerosol inhaler 2 inh inhalation Q4 PRN(use if needed; please bring with you to hospital day of surgery if possible) fluoxetine 20 mg capsule (Prozac) 20 mg PO QAM famotidine 20 mg tablet 20 mg PO QAM amiodarone 200 mg tablet 200 mg PO QAM acetaminophen 500 mg tablet (Tylenol Extra Strength) 500 mg PO Q6H PRN(if needed) oxycodone-acetaminophen 5 mg-325 mg tablet (Percocet) 1 tab PO Q6H PRN(if needed) simethicone 40 mg/0.6 mL oral drops,suspension 20 mg PO Q6H PRN glycopyrrolate 1 mg tablet 1 mg PO TIDM pyridostigmine bromide 60 mg tablet 60 mg PO QID Take evening before surgery albuterol sulfate 90 mcg/actuation aerosol inhaler 2 inh inhalation Q4 PRN(if needed) melatonin 5 mg tablet 5 mg PO HS trazodone 100 mg tablet 100 mg PO HS acetaminophen 500 mg tablet (Tylenol Extra Strength) 500 mg PO HS acetaminophen 500 mg tablet (Tylenol Extra Strength) 500 mg PO Q6H PRN(if needed ) oxycodone-acetaminophen 5 mg-325 mg tablet (Percocet) 1 tab PO Q6H PRN(if needed) benzonatate 100 mg capsule 100 mg PO TID PRN(if needed) simethicone 40 mg/0.6 mL oral drops,suspension 20 mg PO Q6H PRN(if needed) glycopyrrolate 1 mg tablet 1 mg PO TIDM pyridostigmine bromide 60 mg tablet 60 mg PO QID Other Notes If you have any questions please call us at [phone] or [phone] or [phone] or [phone]
--- NOTE | 2022-03-15 14:22 | Anesthesiology Consultation ---
Date of Service March 15, 2022 Assessment & Plan (1) Encounter for pre-operative examination: - upcoming neurology appointment per [facility] records, 04/05/22. - eliquis/ GA vs neuraxial. - PONV: pt thinks IV medication adequately controls PONV, uncertain if has needed scop patch in past. To anesthesiologist discretion if scopolamine patch to be Rx DOS. - cardiology 11/17/21 [facility]: "...Atrial flutter on amiodarone started 01/31/2021 and eliquis [id number] (age, female). Myasthenia gravis (had had multiple hospitalizations; due to weakness 12/2020); even needed a PEG placement temporarily 12/2020-06/2021); on prednisone trying to be weaned off and she is on mestinon & imuran. Mechanical falls with frequent hip dislocations...mechanical fall and dislocated her hip 3 times over the last few years; she was in [place] when this happened she saw an orthopedics who recommended she get the tendons of her hip tightened...going to see an orthopedics; for she does have left shoulder arthritis with decreased mobility...Pt doing well from cardiovascular perspective at this time-she seems to be tolerating the amio and eliquis so I would not change them-If at anytime we think her falls are worsening possibly due to amio or she is developing a tremor could stop the amio...an acceptable moderate cardiovascular risk for any upcoming orthopedic surgery no further cardiac testing necessary; ok to hold eliquis 2 days prior to procedure..." - Outpatient joint assessment: Patient is currently scheduled for inpatient pathway. If re-evaluated pending system levels during current pandemic/surgeon requests outpatient pathway, patient is NOT acceptable candidate for outpatient joint program from anesthesia standpoint. - COVID screening: Per assessment on 03/15/2022: Travel screen negative, no known COVID-19 positive contacts or current COVID-19 related symptoms in past 2 weeks. Pt vaccinated. To surgeon's discretion if preop COVID testing needed. Chart Review Chart Review: Pending: Refer to Additional Notes / Consult section and Patient seen in Pre Admission Testing Teaching & Discussion Pre-Anesthesia Teaching/Discussion Notes: Instructed NPO after midnight before surgery, except medications with 15 cc of water. Medication instructions provided according to the PAT guidelines. History Surgery Operation Date: 04/09/22 11:25 Proposed Procedures p Left Total Shoulder Arthroplasty Aye - Javy Garnett, Height/Weight Height: 5 ft 3 in Weight: 59.8 kg Allergies Allergy/AdvReac Type Severity Reaction Status Date / Time prochlorperazine Allergy Severe THROAT Verified 03/09/22 11:21 CONSTRICTING clarithromycin Allergy Intermediate RASH Verified 03/09/22 11:21 Penicillins Allergy Intermediate RASH Verified 03/09/22 11:21 amoxicillin Allergy Mild RASH Verified 03/11/22 13:33 azithromycin Allergy Mild RASH Verified 03/11/22 13:33 cephalexin Allergy Mild RASH Verified 03/09/22 11:21 erythromycin base Allergy Mild RASH Verified 03/09/22 11:21 aspirin [From Percodan] AdvReac Intermediate HALLUCINATI Verified 03/11/22 13:33 ONS carbamazepine AdvReac Intermediate ELEVATED Verified 03/09/22 11:21 LFT LEVELS oxycodone AdvReac Intermediate HALLUCINATI Verified 03/09/22 11:21 ONS promethazine AdvReac Intermediate LEGS SHOOK Verified 03/09/22 11:21 Medications Home Medications Medication Instructions Recorded Confirmed Last Taken albuterol sulfate 90 mcg/actuation 2 inh inhalation Q4 PRN Wheezing 05/13/20 03/09/22 Unknown aerosol inhaler fluoxetine 20 mg capsule (Prozac) 20 mg PO QAM 05/13/20 03/09/22 06/03/21 melatonin 5 mg tablet 5 mg PO HS 05/13/20 03/09/22 06/02/21 trazodone 100 mg tablet 100 mg PO HS 05/13/20 03/09/22 06/02/21 glycopyrrolate 1 mg tablet 1 mg PO TIDM 12/19/20 03/09/22 06/03/21 12:00 pyridostigmine bromide 60 mg tablet 60 mg PO QID 12/19/20 03/09/22 06/03/21 12:00 apixaban 5 mg tablet (Eliquis) 5 mg PO BIDM 02/12/21 03/09/22 06/03/21 08:00 azathioprine 50 mg tablet (Imuran) 150 mg PO QAM 02/12/21 03/09/22 06/03/21 12:00 famotidine 20 mg tablet 20 mg PO QAM 02/12/21 03/09/22 06/03/21 prednisone 20 mg tablet 20 mg PO Q2D 02/12/21 03/09/22 06/03/21 amiodarone 200 mg tablet 200 mg PO QAM 03/10/21 03/09/22 06/03/21 [id number]-[id number] 5 mg-zeaxanth 1 cap PO QAM 05/26/21 03/09/22 06/03/21 1 mg-bilberry 7.5 mg-herbal capsule (Macular Health Formula) multivitamin 1 tab PO QAM 05/26/21 03/09/22 06/03/21 acetaminophen 500 mg tablet 500 mg PO HS 06/03/21 03/09/22 12/07/21 23:30 (Tylenol Extra Strength) acetaminophen 500 mg tablet 500 mg PO Q6H PRN Pain 06/03/21 03/09/22 Unknown (Tylenol Extra Strength) peg 400-propylene glycol 0.4 %-0.3 1 drp ophthalmic (eye) DIRECTED 06/03/21 03/09/22 Unknown % eye drops (Systane (propylene PRN Dry Eyes glycol)) simethicone 40 mg/0.6 mL oral 20 mg PO Q6H PRN Gastric Reflux 06/03/21 03/09/22 Unknown drops,suspension benzonatate 100 mg capsule 100 mg PO TID PRN cough #20 caps 09/10/21 03/09/22 Unknown oxycodone-acetaminophen 5 mg-325 1 tab PO Q6H PRN pain #30 tabs 12/09/21 03/09/22 Unknown mg tablet oxycodone-acetaminophen 5 mg-325 1 tab PO Q6H PRN pain #20 tabs 12/10/21 03/09/22 Unknown mg tablet (Percocet) Past Medical History Medical History (Updated 03/15/22 @ 15:22 by Gwendolyn Paris PA-C) Atrial fibrillation Reason for Eliquis Follows with Dr. Grider Chronic back pain CKD (chronic kidney disease) stage 3, GFR 30-59 ml/min COPD (chronic obstructive pulmonary disease) Depression Frequent falls Most recent fall 11/01/21 Three different falls in the past year per patient (had leg weakness first time, next time wheeled walker moved out too fast, leg weakness with third fall); does have walker to ambulate States she has agency help with her at all times while home PCP did lumbar MRI recently that showed no acute abnormalities that could cause leg weakness- degenerative changes only per PCP phone note. Hip pain, right S/p hip dislocation after a fall this past year (Dr. Garnett aware) History of COVID-19 09/02/21 COVID positive and admitted to hospital ([facility]) > resolved symptoms except residual fatigue Multiple sclerosis Asymptomatic with exception to mild incontinence Follows with neuro- stable per patient Myasthenia gravis Follows with PCP and neurologist - Dr. Theo Hanson Hx of PEG tube placement in December 2020 (was not eating well)- eating has since improved- PEG tube removed Neuromuscular respiratory weakness Osteoporosis Per records Poor historian Patient denies h/o stroke, seizures, heart attack, heart failure, DM, HTN, blood clots or blood transfusions. Exercise / Class Metabolic Activity III < 4 Walking/Shop/Light housework (ambulates with rolling walker, denies CP or SOB with usual activities) Past Family History Family History Grandfather (Paternal) Family hx of colon cancer Past Surgical History Surgical History (Updated 03/15/22 @ 14:35 by Gwendolyn Paris PA-C) H/O tubal ligation History of breast augmentation History of colonoscopy 2021 Nausea and vomiting after administration of anesthetic agent pt thinks IV medication adequately controls PONV, uncertain if has needed scop patch in past S/P percutaneous endoscopic gastrostomy (PEG) tube placement Has since been removed S/P T&A (status post tonsillectomy and adenoidectomy) S/P total hip arthroplasty R/L + Right revision Right anterior TOÑA revision (12/08/21): LMA#4, atraumatic, attempt x1 at [facility]. No issues noted per post-op anesthesia progress note. Past Anesthesia History No Hx of Anesthesia Complications and No Family Hx of Anesthesia Complications History of PONV No Hx of Motion Sickness and History of PONV (pt thinks IV medication adequately controls PONV, uncertain if has needed scop patch in past) Social History Smoking Status: Never smoker Do You Dip or Chew Tobacco: No Hx Alcohol Use: No Hx Substance Use: No substance use type: does not use Review of Systems Snoring, denies witnessed apneas. Chronic cough, denies change or worsening. Patient denies chest pain, shortness of breath, dyspnea on exertion, reflux, fever, chills, wheezing, or palpitations. Physical Exam Vital Signs Vitals BP 128/76 P 69 TEMP 98.9 SP02 97% on RA RESP 17 Physical Full cervical extension range of motion without pain TMD 3.5 finger breadths Mallampati Score 1 Dentition: intact, several caps/crowns, denies chipped or loose teeth, implants or bridges Lungs: normal respiratory effort. Clear throughout to auscultation, no adventitious breath sounds Cardiac: regular rate and rhythm, no murmurs noted Carotid arteries: negative bruit bilat Lab Results Anesthesia Preop Results Results Anesthesia Widget: WBC 8.79 K/ul (4.8-10.8) 03/15/22 Hgb 11.6 g/dl (12.0-16.0) L 03/15/22 Hct 37.5 % (34.1-44.9) 03/15/22 Plt 390 K/uL (130-400) 03/15/22 Na 139 mmol/L (136-145) 03/15/22 K 4.1 mmol/L (3.5-5.1) 03/15/22 Cl 106 mmol/L (98-107) 03/15/22 CO2 26 mmol/L (21-32) 03/15/22 BUN 18 mg/dl (6-23) 03/15/22 Creat 1.06 mg/dl (0.6-1.2) 03/15/22 Glucose Level 103 mg/dl (70-99(Fasting)) H 03/15/22 PT 10.9 Seconds (9.0-12.0) 03/15/22 PTT 27.8 Seconds (21.0-31.0) 03/15/22 INR 1.0 (0.9-1.1) 03/15/22 Blood Type A Positive 03/15/22 Antibody Screen NEGATIVE 03/15/22 Testing Electrocardiogram Date: 09/02/21 NSR, rate 79 bpm Left anterior fascicular block Chest X-Ray Date: 11/09/21 Frontal and lateral radiographs of the chest demonstrate the cardiomediastinal silhouette to be within normal limits. The lungs are clear of alveolar opacities. There is no evidence for effusion bilaterally. There is no evidence for vascular congestion. There is no acute osseous pathology. IMPRESSION: 1. No acute cardiopulmonary disease. Echocardiogram Date: 12/26/20 EF 60-64% No LV segmental wall motion abnormalities Mild mitral regurgitation Grade I diastolic dysfunction Cervical Spine Date: 10/02/21 CT Skeletal structures: The skeletal structures are osteopenic. There is no evidence of fracture or subluxation involving the cervical spine. Vertebral body height and alignment are maintained. There is straightening of the cervical lordosis. Anterior osteophytes are seen throughout. The odontoid process and lateral masses are intact. The atlantoaxial articulation is preserved noting productive degenerative change. The spinous processes appear intact. There is mild to moderate multilevel cervical spondylosis. Uncovertebral and facet arthropathy contribute to neural foraminal narrowing at several levels. There is evidence of previous right-sided craniotomy. Intervertebral discs: There is moderate to advanced disc space narrowing at C4- C5 and C5-C6. Milder narrowing is seen at the remaining cervical levels. Central canal: Posterior disc osteophyte complexes at C4-C5, C5-C6, and C6-C7 likely contribute to acquired compromise of the central canal. Soft tissues: The prevertebral and paraspinous soft tissues are within normal limits. There is mild atherosclerotic calcification of the carotid bulbs. Calvarium: The visualized calvarium at the skull base appears intact. Brain parenchyma: Hyperdense postoperative material is again seen at the skull base. Partially visualized brain parenchyma at the skull base is otherwise within normal limits. Sinuses and mastoids: The visualized paranasal sinuses are clear. The mastoid air cells are well pneumatized. Lung apices: Clear as visualized. IMPRESSION: 1. There is no evidence of fracture or subluxation involving the cervical spine. 2. Osteopenia and spondylotic change as above. Other Testing Head CT 10/02/21 1. There is no hemorrhage, mass effect, or evidence of acute territorial ischemia by CT criteria. 2. Chronic and postoperative findings as above.
[~2022-04-09 08:47] MED LIST changes: -ALLERGY Noted to ORDERED Medication SCH; +ceFAZolin 1000MG 1,000 MG/7.5 ML SYR IV SCH
[2022-04-09] MEDS ORDERED: PROPOFOL IV EMULSION 10 MG/ML 20 ML VIAL IV ONE (10:00)
[2022-04-09] MEDS ORDERED: ONDANSETRON INJ 2 MG/ML 2 ML VIAL ONE ×2 (10:00→12:25)
[2022-04-09] MEDS ORDERED: MIDAZOLAM HCL 1 MG/ML 2ML VIAL ONE (10:00)
[2022-04-09] MEDS ORDERED: DEXAMETHASONE SOD INJ 4 MG/ML VIAL ONE (10:00)
[2022-04-09] MEDS ORDERED: fentaNYL citrate 100 MCG/2 ML VIAL ONE (10:00)
[2022-04-09] MEDS ORDERED: LIDOCAINE 2% 20 MG/ML 5 ML SYR IV ONE (10:22)
--- NOTE | 2022-04-09 10:35 | History & Physical Bridge Note ---
Date of Service April 09, 2022 History & Physical Bridge Note I have examined the patient, reviewed the History & Physical and in the interval since the performance of the History & Physical I have noted the following changes of clinical significance: no changes noted
[2022-04-09] MEDS ORDERED: ATROPINE SULFATE 0.1 MG/ML 10ML SYR IV PRN (10:37)
[2022-04-09] MEDS ORDERED: ePHEDrine sulfate 50 MG/ML AMP IV PRN (10:37)
[2022-04-09] MEDS ORDERED: ONDANSETRON INJ 2 MG/ML 2 ML VIAL IV PRN ×2 (10:37→15:10)
[2022-04-09] MEDS ORDERED: fentaNYL citrate 100 MCG/2 ML VIAL IV PRN (10:37)
[2022-04-09] MEDS ORDERED: ORTHO JOINT ANESTHETIC ONE (10:58)
[2022-04-09] MEDS ORDERED: SODIUM CHLORIDE 0.9% INJ 10 ML VIAL ONE (11:47)
[2022-04-09] MEDS ORDERED: ePHEDrine sulfate 50 MG/ML AMP ONE (11:47)
[2022-04-09] MEDS ORDERED: PHENYLEPHRINE 100MCG/ML 5ML SYR ONE (11:47)
--- NOTE | 2022-04-09 12:40 | Operative Report ---
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 long head biceps tendon Post-Op Diagnosis: Left Shoulder Degenerative Joint Disease with tendinopathy long head of the biceps tendon I identified the patient and participated in the time-out.: Yes Procedure Operation Date: 04/09/22 11:20 Actual Procedures p Left Reverse Total Shoulder Arthroplasty with open biceps tenodesis as a distinct and separate procedure (modifier 59) (Left) - Javy Garnett DO Surgeon Javy Garnett DO Tow Motor Operator Javy Gotti PA-C Estimated Blood Loss 200 Findings Consistent with Post-Op Diagnosis Specimens Left humeral head Description of Procedure A CPT code modifier 59: The long head of the biceps tendon was enlarged and inflamed consistent with tendinopathy. A tenodesis was opted. This was a separate and distinct portion of the procedure. For these reasons, a CPT code modifier 59 will be added to this case. Implants used: I used a [employer] Comprehensive reverse total shoulder arthroplasty system with a size 9 press fit micro humeral stem, a +6 offset humeral tray and a standard humeral bearing, a 25 mm small augment baseplate with a 6.5 mm central screw and superior and inferior locking screws, and a size 36 mm eccentric glenosphere. Colleen arrived at [facility] for the above procedure. She was seen in the preoperative holding area and the operative extremity was identified and signed. She was given a preoperative antibiotic, TXA, and an interscalene nerve block. She was taken back to the operating room, laid on table in supine position, and put under general anesthesia. She was then put into the beachchair position. The shoulder was then prepped and draped in sterile fashion. A timeout was done and the patient and the operative extremity was properly identified. A deltopectoral approach was used. Dissection was taken down through the fascia and the deltoid was retracted laterally and the conjoined tendon was retracted medially. The anterior shoulder was exposed. The biceps groove was opened up and the biceps tendon was examined extensively. The biceps tendon demonstrated enlargement and inflammatory changes consistent with longstanding inflammation in the context of osteoarthritis and cuff arthropathy. The long head of the biceps tendon was then tenodesed to the upper border of the pectoralis major. This was a separate and distinct portion of the procedure. The subscapularis was then directly released off the lesser tuberosity with a peel technique. The inferior capsule was released and the humeral head was dislocated. A canal finding reamer was sent down the center of the humeral canal. Sequential reaming up to a size 9 reamer was done. Off that reamer, a proximal humeral resection guide was placed. The proximal humerus was resected at 135 of inclination and 25 of retroversion. Osteophytes were then removed and the glenoid was exposed. Time was spent doing a complete capsular and labral release. The glenoid guide was then placed in the inferior aspect of the glenoid. A 3.2 mm Steinmann pin was then placed into the glenoid vault at 10 of inclination. The glenoid baseplate was then reamed. The final size 25 mm small augment baseplate was then impacted in the place. A 6.5 mm central screw was then placed followed by superior and inferior locking screws. A 36 mm eccentric glenosphere was then impacted into place. Surrounding soft tissues were then injected with 100 cc an orthopedic pain control cocktail. The proximal humerus was then exposed. Sequential broaching of the humerus up to a size 9 broach was done. Off that broach a +6 offset humeral tray was trialed. The shoulder was then reduced, brought through a full range of motion, and felt to be stable. The shoulder was then dislocated and the broach was removed. The final size 9 micro press-fit humeral stem was then impacted into place. A standard humeral bearing was then snapped onto a +6 offset humeral tray. The humeral tray was then impacted onto the humeral stem. The shoulder was once again reduced, brought through a full range of motion, and felt to be stable. The subscapularis was then tenodesed back to the lesser tuberosity with transosseous FiberWire sutures and side to side sutures with the arm in 45 of external rotation. A dilute betadyne lavage was then done for 3 minutes. The joint was then irrigated with normal saline solution. Hemostasis was obtained. The interval was closed with 2-0 Vicryl suture. The skin was then closed with 2-0 Vicryl and fitz. A Silverlon dressing was placed and the arm was rested in a regular arm sling. She was then extubated and transferred to a hospital bed. She taken to the postanesthesia care unit in stable condition. She tolerated the procedure well. Javy Gotti PA-C, was present for the entire procedure. He was critical for patient positioning, prepping, draping, retraction exposure, wound closure and application of sterile dressing. I attest to the content of the Intraoperative Record and any orders documented therein. Any exceptions are noted below.
--- NOTE | 2022-04-09 13:45 | XRay Report ---
XR shoulder LT min 2V routine CLINICAL HISTORY: Post shoulder surgery COMPARISON: Left shoulder radiographs August 19, 2021. FINDINGS: Alignment of the reverse total left shoulder arthroplasty is anatomic. There is no peripro sthetic fracture. No unexpected radiopaque foreign bodies are present. Left breast implant is inciden tally noted. IMPRESSION: Expected findings following total left shoulder arthroplasty. ACT 112: Negative or not required by law. Electronically signed by: Ayaz Infante M.D. 04/09/2022 1:44 PM
--- NOTE | 2022-04-09 14:16 | Anesthesiology Progress Note ---
Date of Service April 09, 2022 Anesthesia Post Procedure Vital Signs Vital Signs: Temp Pulse Pulse Resp BP Pulse Ox O2 Del Method 04/09/22 13:25 85 21 153/82 H 98 Nasal Cannula 04/09/22 13:15 90 21 160/88 H 98 Nasal Cannula 04/09/22 13:05 100 H 25 H 148/96 H 98 Oxymask 04/09/22 12:57 36.0 C L 95 H 18 159/77 H 99 Oxymask 04/09/22 09:23 36.6 C 78 20 132/84 97 Room Air O2 Flow Rate 04/09/22 13:25 2 04/09/22 13:15 2 04/09/22 13:05 5 04/09/22 12:57 5 04/09/22 09:23 Transfer of Care Handoff Completed per policy Notes Mental Status: alert / awake / arousable and participated in evaluation Patient Amnestic to Procedure: Yes Nausea / Vomiting: adequately controlled Pain: adequately controlled Airway Patency, RR, SpO2: see Notes below BP & HR: stable & adequate Hydration State: stable & adequate Anesthetic Complications: no major complications apparent and Pt Satisfied with anesthetic care Notes: Mild rom like effect(miosis/ptosis) on ipsilateral nerve block side. Reviewed X-ray and slight(?possible) elevated hemidiaphragm. Called radiology and radiologist felt it was on "edge of normal". Pt mildly short of breath intermittently("feels like I can't take a deep breath"). Should resolve over next 24-48 hours and not likely to have significant effects. Conservatively we ordered continuous pulse oximetry overnight. RNs aware.
[2022-04-09] MEDS ORDERED: BENZONATATE 100 MG CAPSULE PO PRN (15:10)
[2022-04-09] MEDS ORDERED: MAGNESIUM HYDROXIDE SUSP 30 ML UDC PO PRN (15:10)
[2022-04-09] MEDS ORDERED: ALBUTEROL HFA 8 GM INHALER INH PRN (15:10)
[2022-04-09] MEDS ORDERED: traMADol HCL 50 MG TABLET PO PRN (15:10)
[2022-04-09] MEDS ORDERED: NALOXONE HCL 0.4 MG/1 ML VIAL/CARP IV PRN (15:10)
[2022-04-09] MEDS ORDERED: METOCLOPRAMIDE HCL INJ 5 MG/ML 2 ML VIAL IV PRN (15:10)
[2022-04-09] MEDS ORDERED: bisacodyL 10 MG SUPP PR PRN (15:10)
[2022-04-09] MEDS ORDERED: HYDROmorphone INJ 0.5 MG/0.5 ML SYR IV PRN (15:10)
[2022-04-09] MEDS ORDERED: SIMETHICONE 80 MG CHEW PO PRN (15:37)
[2022-04-09] MEDS ORDERED: ARTIFICIAL TEARS OP PRN (15:43)
[2022-04-09] MEDS: SODIUM CHLORIDE 0.9% 1000ML 1,000 ML IV SCH (16:00)
[2022-04-09] MEDS: ACETAMINOPHEN 500 MG TAB PO SCH ×2 (16:38→21:10)
[2022-04-09] MEDS: pyRIDostigmine bromide 60 MG TAB PO SCH ×3 (16:39→20:43)
[2022-04-09] MEDS: KETOROLAC TROMETHAMINE 15 MG/ML VIAL IV SCH (17:34)
[2022-04-09] MEDS: ceFAZolin 2000MG 2,000 MG/15 ML SYR IV SCH (20:41)
[2022-04-09] MEDS: DOCUSATE SODIUM 100 MG CAP PO SCH (20:42)
[2022-04-09] MEDS ORDERED: SENNA 8.6 MG TAB PO SCH (21:00)
[2022-04-09] MEDS ORDERED: traZODone HCL 100 MG TAB PO SCH (21:00)
[2022-04-09] MEDS ORDERED: MELATONIN 3 MG TAB PO SCH (21:00)
[2022-04-10] MEDS: KETOROLAC TROMETHAMINE 15 MG/ML VIAL IV SCH ×3 (00:54→11:19)
[2022-04-10] MEDS ORDERED: COUGH DROP (SUGAR FREE) LOZ 24 LOZ/1 BOX BUCCAL PRN (01:46)
[2022-04-10] MEDS: SODIUM CHLORIDE 0.9% 1000ML 1,000 ML IV SCH (02:00)
[2022-04-10] MEDS: ceFAZolin 2000MG 2,000 MG/15 ML SYR IV SCH (02:06)
[2022-04-10] MEDS: ACETAMINOPHEN 500 MG TAB PO SCH (05:58)
--- NOTE | 2022-04-10 07:25 | Orthopedic Progress Note ---
Date of Service April 10, 2022 Assessment & Plan (1) Status post reverse total replacement of left shoulder: Overall she is doing very well. She is now having much pain in the left shoulder. She will be seen by physical therapy today for ambulation and range of motion exercises. She can be discharged home later today. She will follow- up with orthopedics in 2 weeks. Subjective Colleen was seen and examined at bedside this morning. Overall she is doing very well. She is not having any pain in the left shoulder. She was able to get some sleep last night. She has no complaints.. Review of Systems All systems reviewed & are unremarkable except as noted in HPI & below. Physical Exam On physical examination of the left shoulder, the dressing is clean and dry. She has active motion of her hand and her wrist. She is still some numbness in her thumb. She is wearing her sling as instructed.. Results & Data Results & Data Laboratory Results . Diagnostic Findings Postoperative x-rays of the left shoulder show the prosthesis to be in anatomic alignment without any evidence of fracture, desiccation, or loosening. PG Care Time/CCT Total # of Minutes Spent Total Time Spent with Patient: Total time spent is greater than 50% in coordination of care (as documented) at patient's floor/unit and/or counseling patient: Coding Level of Care Code 71074 Post Operative Follow-Up Diagnoses Status post reverse total replacement of left shoulder Z96.612
--- NOTE | 2022-04-10 07:26 | Discharge Summary ---
Date of Service April 10, 2022 Principal Diagnosis Same as "Discharge Diagnosis" noted below under Discharge Instructions. Discharge Exam On physical examination of the left shoulder, the dressing is clean and dry. She has active motion of her hand and her wrist. She is still some numbness in her thumb. She is wearing her sling as instructed.. Discharge Data Procedures Performed Operation Date: 04/09/22 11:20 Actual Procedures p Left Reverse Total Shoulder Arthroplasty(Left) - Javy Garnett DO Ordered Studies 04/09/22 05:00 US - OR guided needle placemen Routine Hospital Course (1) Status post reverse total replacement of left shoulder: On April 09, 2022 Colleen arrived at [facility] and underwent a left reverse shoulder replacement without complication. She had a general anesthetic and a left interscalene nerve block. Postoperatively she was placed in a sling and transferred to the general orthopedic floors. Her hospital course was uneventful. On postop day #1, her vital signs were stable and her pain was well controlled. She was able to participate well with physical therapy doing ambulation and range of motion exercises. She was then discharged home. She will follow-up with orthopedics in 2 weeks. PG Care Time/CCT Total # of Minutes Spent Total Time Spent with Patient: Total time spent is greater than 50% in coordination of care (as documented) at patient's floor/unit and/or counseling patient: Discharge Plan Discharge Items Patient Disposition: Home - Home Health Services Reason For Visit: Left Shoulder Degenerative Joint Disease Discharge Diagnosis: Left reverse shoulder replacement Activity: As commented below Non-emergency contact: Surgeon Call non-emergency contact if: your wound has increased redness and your wound has increased drainage Follow-up/Referrals: Tish King MD [Primary Care Provider] - Diet: Regular Addtl Attending Provider Instructions: Activity and Therapy Recommendations: * If you are using [facility] then therapy will be provided at your home until they feel you have accomplished all of your goals. * If you are using [facility] then Physical Therapy will be provided until they feel you are ready to start Outpatient Physical Therapy. * If you are not using home therapy then Outpatient Physical Therapy should start about 3-5 days from your day of surgery. Therapy will last about 8-12 weeks * Wear your sling for 3 weeks, unless otherwise instructed. You may remove your sling to shower and to dress, but otherwise, you should be in your sling at all times, including while sleeping * The shoulder replacement is very stable and you can use your hand while in the sling * You were shown a series of exercises in the hospital. Do these exercises daily including the exercises you were shown in physical therapy. Medications: * Narcotic You will likely be sent home from the hospital with a prescription for the narcotic pain medication that worked best throughout your stay. * Other medications may be prescribed for specific circumstances. If you have any questions, please call the office at . * Resume previous home medications unless otherwise instructed Dressing Care: Leave the Silverlon dressing in place for 7 days. After 7 days you may remove the dressing. If the incision is not draining then you may leave the fitz open to air. If there is a little bit of drainage or if the fitz are getting stuck on your clothing then cover the incision with a dry dressing. The fitz will be removed at your 2 week follow-up appointment. Showering: You may shower with the Silverlon dressing in place. Do not let the shower spray hit the dressing directly. Pat the Silverlon dressing dry. If the dressing becomes wet underneath, then simply remove the dressing. Keep the incision dry until you are 7 days out from the day of surgery. After 7 days you may remove the Silverlon dressing and shower with the fitz exposed. Let soapy water run over the fitz and pat them dry. Do not scrub or soak the incision. Things To Watch For: * Drainage from the incision site that occurs more than one week after your surgery. * Increased redness at the incision site. * Fever above 102 degrees Fahrenheit. * Unusual chest pain or shortness of breath. * Call [facility] at with any of the above problems Follow-Up Visit: Follow-up with Dr. Garnett's PA (Javy Gotti) 2-3 weeks after your day of surgery. He will remove your fitz and answer any questions. If you have any additional questions or concerns, Dr Garnett is usually in the office at the same time and will be available An appointment was probably scheduled when you signed-up for surgery in the office. If you have any questions call More detailed instructions as well as Frequently Asked Questions were provided in a folder by our office when you signed-up for surgery. Please review these instructions when you get home. If you have any further questions or concerns, please feel free to call the office at [phone] Pending Studies at Discharge: No Stand-Alone Forms: My [facility] Medications and DC Order Prescriptions: Continued oxycodone-acetaminophen [Percocet] 5-325 mg tablet 1 tab PO Q6H PRN (Reason: pain) Qty: 20 0RF trazodone 100 mg tablet 100 mg PO HS albuterol sulfate 90 mcg/actuation HFA aerosol inhaler 2 inh INHALATION Q4 PRN (Reason: Wheezing) fluoxetine [Prozac] 20 mg capsule 20 mg PO QAM melatonin 5 mg Tablet 5 mg PO HS oxycodone-acetaminophen 5-325 mg tablet 1 tab PO Q6H PRN (Reason: pain) Qty: 30 0RF glycopyrrolate 1 mg tablet 1 mg PO TIDM Rx Instructions: TAKE WITH MESTINON DOSES pyridostigmine bromide 60 mg tablet 60 mg PO QID prednisone 20 mg tablet 20 mg PO Q2D azathioprine [Imuran] 50 mg tablet 150 mg PO QAM famotidine 20 mg tablet 20 mg PO QAM Eliquis 5 mg tablet 5 mg PO BIDM amiodarone 200 mg tablet 200 mg PO QAM multivitamin Tablet 1 tab PO QAM Macular Health Formula 5-1-7.5 mg Capsule 1 cap PO QAM acetaminophen [Tylenol Extra Strength] 500 mg Tablet 500 mg PO Q6H PRN (Reason: Pain) acetaminophen [Tylenol Extra Strength] 500 mg Tablet 500 mg PO HS simethicone 40 mg/0.6 mL Drops,Suspension 20 mg PO Q6H PRN (Reason: Gastric Reflux) Systane (propylene glycol) 0.4-0.3 % Drops 1 drp OPHTHALMIC (EYE) DIRECTED PRN (Reason: Dry Eyes) benzonatate 100 mg Capsule 100 mg PO TID PRN (Reason: cough) Qty: 20 0RF Discharge Orders: Discharge Order (Routine); Ordered 04/10/22 Ordered By: Javy Garnett Admission Data Admit Date/Time: 04/09/22 12:58 Attending Provider: Javy Garnett Admit Provider: Javy Garnett Primary Care Provider: Tish King
[2022-04-10] MEDS ORDERED: dexAMETHasone 4 MG TAB PO SCH (08:00)
[2022-04-10] MEDS ORDERED: APIXABAN 5 MG TABLET PO SCH (08:00)
[2022-04-10] MEDS: DOCUSATE SODIUM 100 MG CAP PO SCH (08:01)
[2022-04-10] MEDS: pyRIDostigmine bromide 60 MG TAB PO SCH ×2 (08:15→12:52)
[2022-04-10] MEDS ORDERED: FAMOTIDINE 20 MG TAB PO SCH (09:00)
[2022-04-10] MEDS ORDERED: predniSONE 20 MG TAB PO SCH (09:00)
[2022-04-10] MEDS ORDERED: azaTHIOprine 50 MG TAB PO SCH (09:00)
[2022-04-10] MEDS ORDERED: MULTIVITAMIN TAB PO SCH (09:00)
[2022-04-10] MEDS ORDERED: AMIODARONE 200 MG TAB PO SCH (09:00)
[2022-04-10] MEDS ORDERED: FLUoxetine HCL 20 MG CAP PO SCH (09:00)
[2022-04-11] MEDS ORDERED: predniSONE 20 MG TAB PO SCH (09:00)
== END 2022-04-10 14:03 | disposition home health service (06) ==
LOC: ASU 08:47 → 3E 08:47

== ENCOUNTER 2023-12-20 22:38 | Observation (INO) ==
[2023-12-20 23:35] LABS: Basophils # (auto) 0.03 K/uL (0.00-0.20); Basophils % (auto) 0.2 %; Hematocrit (blood only) 37.9 % (37.0-47.0); Hemoglobin 12.7 g/dl (12.0-16.0); Immature Granulocytes # (auto) 0.13 K/uL (0.01-0.20); Immature Granulocytes % (auto) 0.7 %; Lymphocytes # (auto) 0.74 K/uL (1.20-3.40); Lymphocytes % (auto) 4.1 %; Mean Corpuscular Hemoglobin 30.8 pg (25.0-34.0); Mean Corpuscular Hgb Conc 33.5 g/dL (32.0-36.0); Mean Platelet Volume 11.2 fL (9.4-12.4); Monocytes # (auto) 1.22 K/uL (0.11-0.59); Monocytes % (auto) 6.7 %; Neutrophils % (auto) 88.3 %; Platelet Count 292 K/uL (130-400); RDW Coefficient of Variation 15.7 % (11.5-14.5); Red Blood Count 4.12 M/uL (4.20-5.40); White Blood Count 18.12 K/ul (4.8-10.8)
[2023-12-20 23:48] LABS: Albumin Globulin Ratio 1.4 (0.9-2); Albumin Level 4.1 gm/dl (3.4-5.0); BUN Creatinine Ratio 13.4 (10-20); Bilirubin,Total 1.3 mg/dl (0.2-1.0); Calcium 9.1 mg/dl (8.6-10.3); Creatinine Clr Calc Pharmacy 49.8 ml/min; Est GFR (African American) 81.7 ml/min; Est GFR (Non-African American) 70.5 ml/min; Globulin 2.9 gm/dl (2.5-4.0); Potassium 3.5 mmol/L (3.5-5.1)
--- NOTE | 2023-12-21 00:07 | Emergency Department Note ---
Impression & Plan Colitis Admit to the [facility] ED Provider Note NAME: TARAH FAM AGE: 72 SEX: Female INFORMANT: Patient and her son ED PROVIDER(S): Aspen Cade DO CHIEF COMPLAINT: Lower abdominal pain PLAN: Disposition: admitted to the [facility] MEDICAL DECISION MAKING: this is a 72-year-old female patient who presents with lower abdominal pain and diarrhea. The patient has a chronic cough and over the past 6 to 8 hours, every time she coughs she has severe abdominal pain. Patient had been constipated and her gave her a stool softener. She then developed diarrhea. patient's son also explains that the patient suffered a fall 2 days ago but is unsure exactly what may have been injured. The patient states that she noted pain in her left shoulder, right arm and abdomen. Upon presentation to the ER, the patient had exquisite abdominal pain with even light palpation to the suprapubic region and left lower quadrant of the abdomen. Laboratory studies revealed significant leukocytosis with a white count of 18.1. H&H were stable. Glucose was 119. Renal function was normal. Patient required multiple doses of IV Dilaudid for pain management. CT scan of the abdomen/pelvis revealed no perforated bowel but there was a moderate amount of stool noted within the intestine and there was evidence of colitis. Patient was placed on IV normal saline solution and kept NPO. Patient will be treated with IV Rocephin and IV Flagyl. [facility] care. 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 Vital Signs: reviewed and unremarkable Additional History obtained from: the patient's son who was at the bedside. The patient states that she has memory issues Chronic Medical/Social Conditions affecting care: [none] Differential Diagnosis: Perforated viscus, diverticulitis, perforated appendix, small bowel obstruction, acute traumatic injury to the abdomen Diagnostics, independently interpreted by me: Cardiac Monitoring: normal sinus rhythm at a rate of 88 Imaging studies: CT scan of the abdomen/pelvis: As per stat rad HPI: 72 year old Female arrives for evaluation of lower abdominal pain and diarrhea. The patient has a chronic cough and over the past 6 to 8 hours, every time she coughs she has severe abdominal pain. Patient had been constipated and her gave her a stool softener. She then developed diarrhea. patient's son also explains that the patient suffered a fall 2 days ago but is unsure exactly what may have been injured. The patient states that she noted pain in her left shoulder, right arm and abdomen.. PAST MEDICAL HISTORY: See Below, PAST SURGICAL HISTORY: See Below, SOCIAL HISTORY: See Below, HOME MEDICATIONS: see list ALLERGIES: see list VITALS: See Below PHYSICAL EXAMINATION: HEENT: Head - normocephalic and atraumatic Pupils are equal, round, and reactive to light. Extraocular eye muscles are intact, and sclera are anicteric. Nose - moist nasal mucosa without discharge. Mouth - moist buccal mucosa. Oropharynx is nonerythematous and there is no tonsillar exudate or edema noted. Neck: Supple; no JVD, nuchal rigidity, cervical lymphadenopathy, or auscultated bruits. Heart: Regular rate and rhythm. There is a normal S1 and S2 with no murmurs, clicks, or gallops appreciated. Lungs: Clear to auscultation bilaterally with no wheezes, rales, or rhonchi. Abdomen: Soft,Exquisitely tender to palpation in the suprapubic region and left lower quadrant. The abdomen is distended with hypoactive bowel sounds. There are no palpable pulsatile masses or hepatosplenomegaly. The patient is guarding and has rigidity and rebound noted. The exam is consistent with an acute abdomen. Extremities: No evidence of cyanosis, clubbing, or edema. There are easily palpable peripheral pulses. Skin: warm and dry with good turgor and no rashes. Emergency department treatment: teletypesetter monitor, IV Dilaudid, IV Zofran, IV normal saline bolus, IV Dilaudid, IV normal saline drip, IV Rocephin, IV Flagyl Emergency department course: The patient was evaluated in room C-9. A complete history and physical was performed. An IV lock was initiated and labs were drawn as above. An order was placed for continuous cardiac monitoring. The patient was in a normal sinus rhythm at a rate of 88. Patient was medicated with IV Dilaudid and IV Zofran. She was given a normal saline bolus. She went for CT scan of the abdomen/pelvis. Upon returning from radiology, she was given a second dose of IV Dilaudid for her abdominal pain and started on normal saline drip. CT scan showed evidence of colitis. She was started on IV Rocephin and IV Flagyl. I reviewed the results of the laboratory studies and CT findings with the patient and her son Past Med/Surg History Problem List (Updated 12/21/23 @ 03:44 by Aspen Cade DO) Colitis (Acute) Status post reverse total replacement of left shoulder (~03/2022) Post-operative state (Acute 08/26/14) Post-operative state Trochanteric bursitis of left hip SOB (shortness of breath) (Acute) Facial droop (Acute) DVT prophylaxis Discharge planning issues COVID-19 ruled out Dyspnea Encounter for pre-operative examination Status post revision of total hip replacement (~11/2021) H/O tubal ligation (Chronic) S/P T&A (status post tonsillectomy and adenoidectomy) (Chronic) S/P total hip arthroplasty (Chronic) R/L + Right revision Right anterior TOÑA revision (12/08/21): LMA#4, atraumatic, attempt x1 at [facility]. No issues noted per post-op anesthesia progress note. Depression (Chronic) Medical History (Updated 12/21/23 @ 03:44 by Aspen Cade DO) CKD (chronic kidney disease) stage 3, GFR 30-59 ml/min Neuromuscular respiratory weakness COPD (chronic obstructive pulmonary disease) Chronic back pain Osteoporosis Per records Frequent falls Most recent fall 11/01/21 Three different falls in the past year per patient (had leg weakness first time, next time wheeled walker moved out too fast, leg weakness with third fall); does have walker to ambulate States she has agency help with her at all times while home PCP did lumbar MRI recently that showed no acute abnormalities that could cause leg weakness- degenerative changes only per PCP phone note. Poor historian Atrial fibrillation Reason for Eliquis Follows with Dr. Grider Multiple sclerosis Asymptomatic with exception to mild incontinence Follows with neuro- stable per patient History of COVID-19 09/02/21 COVID positive and admitted to hospital ([facility]) > resolved symptoms except residual fatigue DVT prophylaxis Paroxysmal atrial flutter Paroxysmal A-fib Acute respiratory failure with hypoxia Hip pain, right S/p hip dislocation after a fall this past year (Dr. Garnett aware) Myasthenia gravis Follows with PCP and neurologist - Dr. Theo Hanson Hx of PEG tube placement in December 2020 (was not eating well)- eating has since improved- PEG tube removed Multiple sclerosis Surgical History (Updated 04/09/22 @ 14:24 by Javy Garnett DO) Nausea and vomiting after administration of anesthetic agent pt thinks IV medication adequately controls PONV, uncertain if has needed scop patch in past History of breast augmentation History of colonoscopy 2021 S/P percutaneous endoscopic gastrostomy (PEG) tube placement Has since been removed Family History Grandfather (Paternal) Family hx of colon cancer Social History Smoking Status: Never smoker Tobacco Type: Cigarettes Second Hand Exposure: No; Do You Dip or Chew Tobacco: No; Hx Alcohol Use: No Hx Substance Use: No Preferred Language: Yoruba Communication Ability: Effective Property Adjuster Required: No Beliefs That Will Affect Care: None marital status: Current Living Situation: Spouse and Other Current Living Situation Comment: Home- has home health aide current occupational status: retired Feels Safe at Home: Yes Safety Concerns: Feels Safe At This Time Assistive Devices: Glasses and Walker Allergies Allergies Allergy/AdvReac Type Severity Reaction Status Date / Time prochlorperazine Allergy Severe EDEMA OF Verified 12/20/23 23:31 AIRWAY clarithromycin Allergy Intermediate RASH Verified 12/20/23 23:31 Penicillins Allergy Intermediate RASH Verified 12/20/23 23:31 amoxicillin Allergy Mild RASH Verified 12/20/23 23:31 azithromycin Allergy Mild RASH Verified 12/20/23 23:31 cephalexin Allergy Mild RASH Verified 12/20/23 23:31 erythromycin base Allergy Mild RASH Verified 12/20/23 23:31 carbamazepine AdvReac Intermediate ELEVATED Verified 12/20/23 23:31 LFT LEVELS oxycodone AdvReac Intermediate HALLUCINATI Verified 12/20/23 23:31 ONS promethazine AdvReac Intermediate LEGS SHOOK Verified 12/20/23 23:31 Home Meds Home Medications Medication Instructions Recorded Confirmed albuterol sulfate 90 mcg/actuation 2 inh inhalation Q4 PRN Wheezing 05/13/20 12/21/23 aerosol inhaler fluoxetine 20 mg capsule (Prozac) 20 mg PO QAM 05/13/20 12/21/23 melatonin 5 mg tablet 5 mg PO HS 05/13/20 12/21/23 trazodone 100 mg tablet 100 mg PO HS 05/13/20 12/21/23 glycopyrrolate 1 mg tablet 1 mg PO TIDM 12/19/20 12/21/23 pyridostigmine bromide 60 mg tablet 60 mg PO QID 12/19/20 12/21/23 apixaban 5 mg tablet (Eliquis) 5 mg PO BIDM 02/12/21 12/21/23 azathioprine 50 mg tablet (Imuran) 150 mg PO QAM 02/12/21 12/21/23 famotidine 20 mg tablet 20 mg PO QAM 02/12/21 12/21/23 amiodarone 200 mg tablet 200 mg PO QAM 03/10/21 12/21/23 [id number] 5 mg-zeaxanth 1 cap PO QAM 05/26/21 12/21/23 1 mg-bilberry 7.5 mg-herbal capsule (Macular Health Formula) multivitamin 1 tab PO QAM 05/26/21 12/21/23 acetaminophen 500 mg tablet 500 mg PO HS 06/03/21 12/21/23 (Tylenol Extra Strength) acetaminophen 500 mg tablet 500 mg PO Q6H PRN Pain 06/03/21 12/21/23 (Tylenol Extra Strength) peg 400-propylene glycol 0.4 %-0.3 1 drp ophthalmic (eye) DIRECTED 06/03/21 12/21/23 % eye drops (Systane (propylene PRN Dry Eyes glycol)) gabapentin 100 mg capsule 200 mg PO TID 12/21/23 12/21/23 prednisone 10 mg tablet 15 mg PO Q OTHER DAY 12/21/23 12/21/23 Results & Data (ED) Vital Signs Vital Signs - 24 hr 12/20/23 22:40 12/20/23 22:59 12/20/23 23:23 Temperature 36.4 C L Temperature Source Temporal Artery Scan Pulse Rate 97 H 91 H Pulse Rate [Apical] Respiratory Rate 18 Respiratory Effort / Characteristics Non-Labored Respiratory Depth Normal Respiratory Pattern Regular Blood Pressure 131/92 Blood Pressure [Left Arm] Blood Pressure Mean 105 Blood Pressure Mean [Left Arm] Pulse Oximetry 97 97 Oxygen Delivery Method Room Air Room Air Oxygen Flow Rate Sepsis Recent Fever Within 48 Hours No Sepsis New/Unexplained Change in Mental Status N/A Sepsis Action Taken by Nursing No Action Required 12/20/23 23:30 12/21/23 02:05 12/21/23 02:50 Temperature Temperature Source Pulse Rate 88 Pulse Rate [Apical] 83 84 Respiratory Rate 18 18 Respiratory Effort / Characteristics Non-Labored Non-Labored Respiratory Depth Normal Normal Respiratory Pattern Regular Regular Blood Pressure Blood Pressure [Left Arm] 150/79 H 142/76 H Blood Pressure Mean Blood Pressure Mean [Left Arm] 102 98 Pulse Oximetry 98 98 Oxygen Delivery Method Room Air Nasal Cannula Oxygen Flow Rate 2 Sepsis Recent Fever Within 48 Hours Sepsis New/Unexplained Change in Mental Status Sepsis Action Taken by Nursing Laboratory Data 12/20/23 23:00 12/20/23 23:00 Lab Results 12/20/23 12/21/23 12/21/23 Range/Units 23:00 02:02 02:52 WBC 18.12 H (4.8-10.8) K/ul RBC 4.12 L (4.20-5.40) M/uL Hgb 12.7 (12.0-16.0) g/dl Hct 37.9 (37.0-47.0) % MCV 92.0 (80.0-100.0) fL MCH 30.8 (25.0-34.0) pg MCHC 33.5 (32.0-36.0) g/dL RDW Std Deviation 53.0 H (36.4-46.3) fL RDW Coeff of Sandra 15.7 H (11.5-14.5) % Plt Count 292 (130-400) K/uL MPV 11.2 (9.4-12.4) fL Immature Gran % (Auto) 0.7 % Neut % (Auto) 88.3 % Lymph % (Auto) 4.1 % Dodge % (Auto) 6.7 % Eos % (Auto) 0.0 % Baso % (Auto) 0.2 % Neut # (Auto) 16.00 H (1.40-6.50) K/uL Lymph # (Auto) 0.74 L (1.20-3.40) K/uL Dodge # (Auto) 1.22 H (0.11-0.59) K/uL Eos # (Auto) 0.00 (0.00-0.50) K/uL Baso # (Auto) 0.03 (0.00-0.20) K/uL Immature Gran # (Auto) 0.13 (0.01-0.20) K/uL Sodium 138 (136-145) mmol/L Potassium 3.5 (3.5-5.1) mmol/L Chloride 109 H (98-107) mmol/L Carbon Dioxide 21 (21-32) mmol/L Anion Gap 8 (3-11) BUN 11 (6-23) mg/dl Creatinine 0.82 (0.6-1.2) mg/dl Est Cr Clr Drug Dosing 49.8 ml/min Est GFR ( Amer) 81.7 ml/min Est GFR (Non-Af Amer) 70.5 ml/min BUN/Creatinine Ratio 13.4 (10-20) Glucose 119 H (70-99(Fasting)) mg/dl Calcium 9.1 (8.6-10.3) mg/dl Magnesium 2.1 (1.7-2.4) mg/dl Total Bilirubin 1.3 H (0.2-1.0) mg/dl AST 24 (13-39) U/L ALT 23 (7-52) U/L Alkaline Phosphatase 53 (34-104) U/L Total Protein 7.0 (6.0-8.3) gm/dl Albumin 4.1 (3.4-5.0) gm/dl Globulin 2.9 (2.5-4.0) gm/dl Albumin/Globulin Ratio 1.4 (0.9-2) Lipase 14 (11-82) U/L Urine Color Yellow Urine Appearance Clear (Clear) Urine pH 7.0 (4.5-7.5) Ur Specific Upson > 1.045 H (1.000-1.030) Urine Protein Trace H (Negative) Urine Glucose (UA) Negative (Negative) Urine Ketones Negative (Negative) Urine Blood Trace H (Negative) Urine Nitrite Negative (Negative) Urine Bilirubin Negative (Negative) Urine Urobilinogen Negative (Negative) Ur Leukocyte Esterase Negative (Negative) Urine WBC (Auto) 0-5 (0-5) /hpf Urine RBC (Auto) 3-5 H (0-2) /hpf U Hyaline Cast (Auto) 0-2 (0-2) /lpf U Epithel Cells (Auto) 0-2 (0-2) /hpf Urine Bacteria (Auto) None Seen (None Seen) Adenovirus (PCR) Not Detected (NotDetected) B. pertussis DNA (PCR) Not Detected (NotDetected) B.parapertussis DNA PCR Not Detected (NotDetected) C. pneumoniae DNA (PCR) Not Detected (NotDetected) Coronavirus OC43 (PCR) Not Detected (NotDetected) Coronavirus HKU1 (PCR) Not Detected (NotDetected) Coronavirus 229E (PCR) Not Detected (NotDetected) SARS-CoV-2 (PCR) Not Detected (NotDetected) Coronavirus NL63 (PCR) Not Detected (NotDetected) Human Metapneumovir PCR Not Detected (NotDetected) Influenza Type A (PCR) Not Detected (NotDetected) Influenza Type B (PCR) Not Detected (NotDetected) M. pneumoniae (PCR) Not Detected (NotDetected) Parainfluenza 1 (PCR) Not Detected (NotDetected) Parainfluenza 2 (PCR) Not Detected (NotDetected) Parainfluenza 3 (PCR) Not Detected (NotDetected) Parainfluenza 4 (PCR) Not Detected (NotDetected) RSV (PCR) Not Detected (NotDetected) Entero/Rhino (PCR) Not Detected (NotDetected) Administered Medications Potassium Chloride/Sodium Chloride (Normal Saline W/20 Meq Kcl) 20 meq in 1,000 mls @ 75 mls/hr IV .[id number] ONE; Protocol Stop: 12/21/23 15:46 Last Infusion: 12/21/23 04:15 Dose: 0 mls/hr Documented By: Admin: 12/21/23 02:45 Dose: 75 mls/hr Documented By: DAYRON Discontinued Medications Benzonatate (Benzonatate 100 Mg Capsule) 100 mg PO NOW ONE Stop: 12/21/23 02:17 Last Admin: 12/21/23 02:43 Dose: 100 mg Documented By: DAYRON Hydromorphone HCl (Hydromorphone Inj 0.5 Mg/0.5 Ml Syr) 0.5 mg IV NOW STA Stop: 12/21/23 00:02 Last Admin: 12/21/23 00:12 Dose: 0.5 mg Documented By: DAYRON Hydromorphone HCl (Hydromorphone Inj 0.5 Mg/0.5 Ml Syr) 0.25 mg IV NOW STA Stop: 12/21/23 01:16 Last Admin: 12/21/23 01:54 Dose: 0.25 mg Documented By: DAYRON Sodium Chloride (Nss) 500 mls @ 999 mls/hr IV .Q31M ONE Stop: 12/21/23 01:45 Last Infusion: 12/21/23 02:26 Dose: Infused Documented By: Admin: 12/21/23 01:55 Dose: 999 mls/hr Documented By: DAYRON Sodium Chloride (Nss) 500 mls @ 125 mls/hr IV .Q4H CORNELIA Stop: 01/20/24 01:14 Last Infusion: 12/21/23 02:37 Dose: Infused Documented By: Admin: 12/21/23 01:55 Dose: 125 mls/hr Documented By: DAYRON Ceftriaxone Sodium (Rocephin) 1,000 mg in 50 mls @ 100 mls/hr IV NOW STA Stop: 12/21/23 01:48 Last Infusion: 12/21/23 02:25 Dose: Infused Documented By: Admin: 12/21/23 01:55 Dose: 100 mls/hr Documented By: DAYRON Metronidazole (Flagyl) 500 mg in 100 mls @ 100 mls/hr IV NOW STA; Protocol Stop: 12/21/23 02:18 Last Infusion: 12/21/23 02:49 Dose: Infused Documented By: Admin: 12/21/23 01:55 Dose: 100 mls/hr Documented By: DAYRON Ioversol (Optiray 320 100ml) 100 ml IV ONCE ONE Stop: 12/21/23 00:34 Last Admin: 12/21/23 00:34 Dose: 92 ml Documented By: JORDON Loratadine (Loratadine 10 Mg Tab) 10 mg PO NOW ONE Stop: 12/21/23 03:12 Last Admin: 12/21/23 05:39 Dose: Not Given Documented By: ROSY Ondansetron HCl (Ondansetron Inj 2 Mg/Ml 2 Ml Vial) 4 mg IV NOW STA Stop: 12/21/23 00:02 Last Admin: 12/21/23 00:13 Dose: 4 mg Documented By: DAYRON Imaging Data Radiologist's Impression: Abdomen/Pelvis CT 12/21/23 00:01 Exam(s): CT ABDOMEN + PELVIS With Contrast IV Amt: 92 ML OPTIRAY 320 EXAM: CT Abdomen and Pelvis With Intravenous Contrast CLINICAL HISTORY: Reason for exam: eval for perforated bowel vs trauma. TECHNIQUE: Axial computed tomography images of the abdomen and pelvis with intravenous contrast. CTDI is 13.69 mGy and DLP is 565.45 mGy-cm. Automated exposure control was utilized for the study. A dose lowering technique was utilized adhering to the principles of ALARA. CONTRAST: Patient received 92 ML OPTIRAY 320 of IV contrast COMPARISON: None. FINDINGS: Lung bases: Unremarkable. No mass. No consolidation. ABDOMEN: Liver: Periportal edema versus central intrahepatic biliary distention, etiology indeterminate. Small low-attenuation structures within the left liver lobe, largest measuring 6.4 mm, likely liver cyst. Gallbladder and bile ducts: See above. Pancreas: Unremarkable. No mass. No ductal dilation. Spleen: Unremarkable. No splenomegaly. Adrenals: Unremarkable. No mass. Kidneys and ureters: Unremarkable. No solid mass. No hydronephrosis. Stomach and bowel: Thickening of the fernandes of the transverse colon and descending colon suggestive of mild colitis. Diverticulosis, predominantly to the sigmoid with no signs of diverticulitis. Mild diverticulosis muscles of the sigmoid with no signs of diverticulitis. No obstruction. PELVIS: Appendix: No findings to suggest acute appendicitis. Bladder: The urinary bladder is obscured by beam hardening artifact related to the hip prosthesis. Reproductive: Unremarkable as visualized. ABDOMEN and PELVIS: Intraperitoneal space: Unremarkable. No free air. No significant fluid collection. Bones/joints: Advanced degenerative disease of the lumbar spine with scoliosis, convexity to the right. Bilateral hip prostheses of bilateral hips with aspiration of adjacent soft tissues due to beam hardening artifact. Soft tissues: Bilateral breast implants with capsular calcifications. Vasculature: Nonspecific dilatation of the central portal veins. Lymph nodes: Unremarkable. No enlarged lymph nodes. IMPRESSION: 1. Possible scattered mild colitis. No bowel obstruction. 2. Mild diverticulosis with no signs of diverticulitis. 3. Nonspecific indeterminate central biliary distention, etiology indeterminate versus focal edema. 4. Nonspecific distention of the central portal vein with otherwise normal enhancement. Electronically signed by: Kathryn Lucia MD 12/21/23 01:04 AM Discharge Plan Visit Data Chief Complaint: Abdominal Pain Stated Complaint: SEVERE ABDOMINAL PAIN ED Provider: Aspen Cade Discharge Problem: Colitis Patient Disposition: Admitted As Inpatient Discharge Instructions Interventions: ED Discharge Assessment Last Done: 12/21/23 04:12
[2023-12-21] MEDS: HYDROmorphone INJ 0.5 MG/0.5 ML SYR IV STA ×2 (00:12→01:54)
[2023-12-21] MEDS: ONDANSETRON INJ 2 MG/ML 2 ML VIAL IV STA (00:13)
[2023-12-21] MEDS: OPTIRAY 320 100ml IV ONE (00:34)
--- NOTE | 2023-12-21 01:05 | CT Scan Report ---
Exam(s): CT ABDOMEN + PELVIS With Contrast IV Amt: 92 ML OPTIRAY 320 EXAM: CT Abdomen and Pelvis With Intravenous Contrast CLINICAL HISTORY: Reason for exam: eval for perforated bowel vs trauma. TECHNIQUE: Axial computed tomography images of the abdomen and pelvis with intravenous contrast. CTDI is 13.69 mGy and DLP is 565.45 mGy-cm. Automated exposure control was utilized for the study. A dose lowering technique was utilized adhering to the principles of ALARA. CONTRAST: Patient received 92 ML OPTIRAY 320 of IV contrast COMPARISON: None. FINDINGS: Lung bases: Unremarkable. No mass. No consolidation. ABDOMEN: Liver: Periportal edema versus central intrahepatic biliary distention, etiology indeterminate. Small low-attenuation structures within the left liver lobe, largest measuring 6.4 mm, likely liver cyst. Gallbladder and bile ducts: See above. Pancreas: Unremarkable. No mass. No ductal dilation. Spleen: Unremarkable. No splenomegaly. Adrenals: Unremarkable. No mass. Kidneys and ureters: Unremarkable. No solid mass. No hydronephrosis. Stomach and bowel: Thickening of the fernandes of the transverse colon and descending colon suggestive of mild colitis. Diverticulosis, predominantly to the sigmoid with no signs of diverticulitis. Mild diverticulosis muscles of the sigmoid with no signs of diverticulitis. No obstruction. PELVIS: Appendix: No findings to suggest acute appendicitis. Bladder: The urinary bladder is obscured by beam hardening artifact related to the hip prosthesis. Reproductive: Unremarkable as visualized. ABDOMEN and PELVIS: Intraperitoneal space: Unremarkable. No free air. No significant fluid collection. Bones/joints: Advanced degenerative disease of the lumbar spine with scoliosis, convexity to the right. Bilateral hip prostheses of bilateral hips with aspiration of adjacent soft tissues due to beam hardening artifact. Soft tissues: Bilateral breast implants with capsular calcifications. Vasculature: Nonspecific dilatation of the central portal veins. Lymph nodes: Unremarkable. No enlarged lymph nodes. IMPRESSION: 1. Possible scattered mild colitis. No bowel obstruction. 2. Mild diverticulosis with no signs of diverticulitis. 3. Nonspecific indeterminate central biliary distention, etiology indeterminate versus focal edema. 4. Nonspecific distention of the central portal vein with otherwise normal enhancement. Electronically signed by: Kathryn Lucia MD 12/21/23 01:04 AM
[2023-12-21] MEDS: SODIUM CHLORIDE 0.9% 500 ML IV SCH (01:55)
[2023-12-21] MEDS: cefTRIAXone SODIUM 1,000 MG/50 ML BAG IV STA (01:55)
[2023-12-21] MEDS: SODIUM CHLORIDE 0.9% 500 ML IV ONE (01:55)
[2023-12-21] MEDS: metroNIDAZOLE 500 MG/100 ML BAG IV STA (01:55)
[2023-12-21 02:16] LABS: Appearance Urine Clear (Clear); Bacteria Urine Automated None Seen (None Seen); Bilirubin Urine Negative (Negative); Blood Urine Trace (Negative); Cast Urine Automated 0-2 /lpf (0-2); Color Urine Yellow; Epithelial Cell Urine Auto 0-2 /hpf (0-2); Glucose Urine UA Negative (Negative); Ketones Urine Negative (Negative); Leukocyte Esterase Urine Negative (Negative); Nitrite Urine Negative (Negative); Protein Urine Trace (Negative); Specific Gravity Urine > 1.045 (1.000-1.030); Urobilinogen Urine Negative (Negative); WBC Urine Automated 0-5 /hpf (0-5)
[2023-12-21] MEDS: BENZONATATE 100 MG CAPSULE PO ONE (02:43)
[2023-12-21 02:45] LABS: Magnesium 2.1 mg/dl (1.7-2.4)
[2023-12-21] MEDS: NSS + 20MEQ KCL 20 MEQ/1,000 ML BAG IV ONE (02:45)
--- NOTE | 2023-12-21 03:11 | History & Physical Report ---
Date of Service December 21, 2023 Assessment & Plan (1) Colitis: Plan: Likely laxative induced, patient nontoxic Traumatic left shoulder pain rule out bleeding given Eliquis Rx myasthenia gravis currently on steroid and azathioprine hx PAF/paroxysmal atrial flutter, px NSR on amiodarone and Eliquis for anticoagulation COPD as per records, stable multiple sclerosis, in remission pharyngoesophageal dysphagia, hx PEG tube placement Steroid-induced hyperglycemia, previous outpatient hemoglobin A1cs less than 5.6 OBS GMF Analgesia Stool workup Supportive management for diarrhea if stool workup negative CT left shoulder, hold Eliquis until CT resulted DVT prophylaxis. SCDs while Eliquis on hold Full code Patient's family requesting updates from providers. Ms. Vicky Simpson (daughter), contact #[phone]. Mr. Conrad Puckett (son), contact #[phone]. Text document was generated using [employer] voice recognition software. It may contain grammatical or spelling errors. Kindly contact undersigned for clarification of any documentation item in qu estion. r History of Present Illness Chief Complaint: Abdominal pain Primary Care Provider: Tish King MD History obtained from patient and records. Medical history significant for PAF/paroxysmal atrial flutter as per records on Eliquis, COPD as per records, multiple sclerosis, trigeminal neuralgia, myasthenia gravis on steroid and azathioprine, pharyngoesophageal dysphagia, hx PEG tube placement. Last confinement August 2021 for respiratory failure secondary to COVID-19 pneumonia. Patient given constipation pills a few days ago. Subsequent watery diarrhea with achy abdominal discomfort. No some nausea, no emesis. Abdominal pain worse with chronic cough symptoms. Fall in the bathroom yesterday resulting in left shoulder pain. Denies head trauma or LOC. Patient denies chest pain, SOB. 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, zoroastrianism pasto Allergies Allergy/AdvReac Type Severity Reaction Status Date / Time prochlorperazine Allergy Severe EDEMA OF Verified 12/20/23 23:31 AIRWAY clarithromycin Allergy Intermediate RASH Verified 12/20/23 23:31 Penicillins Allergy Intermediate RASH Verified 12/20/23 23:31 amoxicillin Allergy Mild RASH Verified 12/20/23 23:31 azithromycin Allergy Mild RASH Verified 12/20/23 23:31 cephalexin Allergy Mild RASH Verified 12/20/23 23:31 erythromycin base Allergy Mild RASH Verified 12/20/23 23:31 carbamazepine AdvReac Intermediate ELEVATED Verified 12/20/23 23:31 LFT LEVELS oxycodone AdvReac Intermediate HALLUCINATI Verified 12/20/23 23:31 ONS promethazine AdvReac Intermediate LEGS SHOOK Verified 12/20/23 23:31 Home Medications Medication Instructions Recorded Confirmed Type albuterol sulfate 90 mcg/actuation 2 inh inhalation Q4 PRN Wheezing 05/13/20 12/21/23 History aerosol inhaler fluoxetine 20 mg capsule (Prozac) 20 mg PO QAM 05/13/20 12/21/23 History melatonin 5 mg tablet 5 mg PO HS 05/13/20 12/21/23 History trazodone 100 mg tablet 100 mg PO HS 05/13/20 12/21/23 History glycopyrrolate 1 mg tablet 1 mg PO TIDM 12/19/20 12/21/23 History pyridostigmine bromide 60 mg tablet 60 mg PO QID 12/19/20 12/21/23 History apixaban 5 mg tablet (Eliquis) 5 mg PO BIDM 02/12/21 12/21/23 History azathioprine 50 mg tablet (Imuran) 150 mg PO QAM 02/12/21 12/21/23 History famotidine 20 mg tablet 20 mg PO QAM 02/12/21 12/21/23 History amiodarone 200 mg tablet 200 mg PO QAM 03/10/21 12/21/23 History xmacugfp-whf-fpboku 5 mg-zeaxanth 1 cap PO QAM 05/26/21 12/21/23 History 1 mg-bilberry 7.5 mg-herbal capsule (Macular Health Formula) multivitamin 1 tab PO QAM 05/26/21 12/21/23 History acetaminophen 500 mg tablet 500 mg PO HS 06/03/21 12/21/23 History (Tylenol Extra Strength) acetaminophen 500 mg tablet 500 mg PO Q6H PRN Pain 06/03/21 12/21/23 History (Tylenol Extra Strength) peg 400-propylene glycol 0.4 %-0.3 1 drp ophthalmic (eye) DIRECTED 06/03/21 12/21/23 History % eye drops (Systane (propylene PRN Dry Eyes glycol)) gabapentin 100 mg capsule 200 mg PO TID 12/21/23 12/21/23 History prednisone 10 mg tablet 15 mg PO Q OTHER DAY 12/21/23 12/21/23 History Past Med/Surg History Problem List (Updated 12/21/23 @ 03:44 by Aspen Cade DO) Colitis (Acute) Status post reverse total replacement of left shoulder (~03/2022) Post-operative state (Acute 08/26/14) Post-operative state Trochanteric bursitis of left hip SOB (shortness of breath) (Acute) Facial droop (Acute) DVT prophylaxis Discharge planning issues COVID-19 ruled out Dyspnea Encounter for pre-operative examination Status post revision of total hip replacement (~11/2021) H/O tubal ligation (Chronic) S/P T&A (status post tonsillectomy and adenoidectomy) (Chronic) S/P total hip arthroplasty (Chronic) R/L + Right revision Right anterior TOÑA revision (12/08/21): LMA#4, atraumatic, attempt x1 at [facility]. No issues noted per post-op anesthesia progress note. Depression (Chronic) Medical History (Updated 12/21/23 @ 03:44 by Aspen Cade DO) CKD (chronic kidney disease) stage 3, GFR 30-59 ml/min Neuromuscular respiratory weakness COPD (chronic obstructive pulmonary disease) Chronic back pain Osteoporosis Per records Frequent falls Most recent fall 11/01/21 Three different falls in the past year per patient (had leg weakness first time, next time wheeled walker moved out too fast, leg weakness with third fall); does have walker to ambulate States she has agency help with her at all times while home PCP did lumbar MRI recently that showed no acute abnormalities that could cause leg weakness- degenerative changes only per PCP phone note. Poor historian Atrial fibrillation Reason for Eliquis Follows with Dr. Grider Multiple sclerosis Asymptomatic with exception to mild incontinence Follows with neuro- stable per patient History of COVID-19 09/02/21 COVID positive and admitted to hospital ([facility]) > resolved symptoms except residual fatigue DVT prophylaxis Paroxysmal atrial flutter Paroxysmal A-fib Acute respiratory failure with hypoxia Hip pain, right S/p hip dislocation after a fall this past year (Dr. Garnett aware) Myasthenia gravis Follows with PCP and neurologist - Dr. Theo Hanson Hx of PEG tube placement in December 2020 (was not eating well)- eating has since improved- PEG tube removed Multiple sclerosis Surgical History (Updated 04/09/22 @ 14:24 by Javy Garnett DO) Nausea and vomiting after administration of anesthetic agent pt thinks IV medication adequately controls PONV, uncertain if has needed scop patch in past History of breast augmentation History of colonoscopy 2021 S/P percutaneous endoscopic gastrostomy (PEG) tube placement Has since been removed Family History Grandfather (Paternal) Family hx of colon cancer Social History Smoking Status: Never smoker Tobacco Type: Cigarettes Second Hand Exposure: No; Do You Dip or Chew Tobacco: No; Hx Alcohol Use: No Hx Substance Use: No Preferred Language: Tristanian Communication Ability: Effective Customer Success Associate Required: No Beliefs That Will Affect Care: None marital status: Current Living Situation: Spouse and Other Current Living Situation Comment: Home- has home health aide current occupational status: retired Feels Safe at Home: Yes Safety Concerns: Feels Safe At This Time Assistive Devices: Glasses and Walker Review of Systems Review of Systems: As per HPI, all other systems reviewed and negative Physical Exam Physical Exam: GENERAL: uncomfortable, slightly anxious, lying on the right lateral decubitus position, no respiratory distress SKIN: Pallor, warm HEENT pale palpebral conjunctivae, dry buccal mucosa NECK : Supple, no tenderness CHEST : CTA, no tenderness HEART : RRR, no obvious murmurs ABDOMEN: Some distention, PEG tube in place, no tenderness EXTREMITIES : No LE swelling, minimal left shoulder tenderness, no other conspicuous deformities noted NEUROLOGIC : Coherent, facial asymmetry, gait and stance not assessed Results & Data Results & Data Vital Signs (Past 12 Hours) Vital Signs Temp Pulse Pulse Resp BP BP Pulse Ox 12/21/23 02:05 84 18 142/76 H 98 12/20/23 23:30 83 18 150/79 H 98 12/20/23 23:23 97 12/20/23 22:59 91 H 12/20/23 22:40 36.4 C L 97 H 18 131/92 97 O2 Del Method O2 Flow Rate 12/21/23 02:05 Nasal Cannula 2 12/20/23 23:30 Room Air 12/20/23 23:23 Room Air 12/20/23 22:59 12/20/23 22:40 Room Air Laboratory Results Laboratory Results WBC 18.12 K/ul (4.8-10.8) H 12/20/23 23:00 RBC 4.12 M/uL (4.20-5.40) L 12/20/23 23:00 Hgb 12.7 g/dl (12.0-16.0) 12/20/23 23:00 Hct 37.9 % (37.0-47.0) 12/20/23 23:00 MCV 92.0 fL (80.0-100.0) 12/20/23 23:00 MCH 30.8 pg (25.0-34.0) 12/20/23 23:00 MCHC 33.5 g/dL (32.0-36.0) 12/20/23 23:00 RDW Std Deviation 53.0 fL (36.4-46.3) H 12/20/23 23:00 RDW Coeff of Sandra 15.7 % (11.5-14.5) H 12/20/23 23:00 Plt Count 292 K/uL (130-400) 12/20/23 23:00 MPV 11.2 fL (9.4-12.4) 12/20/23 23:00 Immature Gran % (Auto) 0.7 % 12/20/23 23:00 Neut % (Auto) 88.3 % 12/20/23 23:00 Lymph % (Auto) 4.1 % 12/20/23 23:00 Bollinger % (Auto) 6.7 % 12/20/23 23:00 Eos % (Auto) 0.0 % 12/20/23 23:00 Baso % (Auto) 0.2 % 12/20/23 23:00 Neut # (Auto) 16.00 K/uL (1.40-6.50) H 12/20/23 23:00 Lymph # (Auto) 0.74 K/uL (1.20-3.40) L 12/20/23 23:00 [place]linger # (Auto) 1.22 K/uL (0.11-0.59) H 12/20/23 23:00 Eos # (Auto) 0.00 K/uL (0.00-0.50) 12/20/23 23:00 Baso # (Auto) 0.03 K/uL (0.00-0.20) 12/20/23 23:00 Immature Gran # (Auto) 0.13 K/uL (0.01-0.20) 12/20/23 23:00 Sodium 138 mmol/L (136-145) 12/20/23 23:00 Potassium 3.5 mmol/L (3.5-5.1) 12/20/23 23:00 Chloride 109 mmol/L (98-107) H 12/20/23 23:00 Carbon Dioxide 21 mmol/L (21-32) 12/20/23 23:00 Anion Gap 8 (3-11) 12/20/23 23:00 BUN 11 mg/dl (6-23) 12/20/23 23:00 Creatinine 0.82 mg/dl (0.6-1.2) 12/20/23 23:00 Est Cr Clr Drug Dosing 49.8 ml/min 12/20/23 23:00 Est GFR ( Amer) 81.7 ml/min 12/20/23 23:00 Est GFR (Non-Af Amer) 70.5 ml/min 12/20/23 23:00 BUN/Creatinine Ratio 13.4 (10-20) 12/20/23 23:00 Glucose 119 mg/dl (70-99(Fasting)) H 12/20/23 23:00 Calcium 9.1 mg/dl (8.6-10.3) 12/20/23 23:00 Magnesium 2.1 mg/dl (1.7-2.4) 12/20/23 23:00 Total Bilirubin 1.3 mg/dl (0.2-1.0) H 12/20/23 23:00 AST 24 U/L (13-39) 12/20/23 23:00 ALT 23 U/L (7-52) 12/20/23 23:00 Alkaline Phosphatase 53 U/L (34-104) 12/20/23 23:00 Total Protein 7.0 gm/dl (6.0-8.3) 12/20/23 23:00 Albumin 4.1 gm/dl (3.4-5.0) 12/20/23 23:00 Globulin 2.9 gm/dl (2.5-4.0) 12/20/23 23:00 Albumin/Globulin Ratio 1.4 (0.9-2) 12/20/23 23:00 Lipase 14 U/L (11-82) 12/20/23 23:00 Urine Color Yellow 12/21/23 02:02 Urine Appearance Clear (Clear) 12/21/23 02:02 Urine pH 7.0 (4.5-7.5) 12/21/23 02:02 Ur Specific [place] > 1.045 (1.000-1.030) H 12/21/23 02:02 Urine Protein Trace (Negative) H 12/21/23 02:02 Urine Glucose (UA) Negative (Negative) 12/21/23 02:02 Urine Ketones Negative (Negative) 12/21/23 02:02 Urine Blood Trace (Negative) H 12/21/23 02:02 Urine Nitrite Negative (Negative) 12/21/23 02:02 Urine Bilirubin Negative (Negative) 12/21/23 02:02 Urine Urobilinogen Negative (Negative) 12/21/23 02:02 Ur Leukocyte Esterase Negative (Negative) 12/21/23 02:02 Urine WBC (Auto) 0-5 /hpf (0-5) 12/21/23 02:02 Urine RBC (Auto) 3-5 /hpf (0-2) H 12/21/23 02:02 U Hyaline Cast (Auto) 0-2 /lpf (0-2) 12/21/23 02:02 U Epithel Cells (Auto) 0-2 /hpf (0-2) 12/21/23 02:02 Urine Bacteria (Auto) None Seen (None Seen) 12/21/23 02:02 Impressions Abdomen/Pelvis CT 12/21/23 00:01 Exam(s): CT ABDOMEN + PELVIS With Contrast IV Amt: 92 ML OPTIRAY 320 EXAM: CT Abdomen and Pelvis With Intravenous Contrast CLINICAL HISTORY: Reason for exam: eval for perforated bowel vs trauma. TECHNIQUE: Axial computed tomography images of the abdomen and pelvis with intravenous contrast. CTDI is 13.69 mGy and DLP is 565.45 mGy-cm. Automated exposure control was utilized for the study. A dose lowering technique was utilized adhering to the principles of ALARA. CONTRAST: Patient received 92 ML OPTIRAY 320 of IV contrast COMPARISON: None. FINDINGS: Lung bases: Unremarkable. No mass. No consolidation. ABDOMEN: Liver: Periportal edema versus central intrahepatic biliary distention, etiology indeterminate. Small low-attenuation structures within the left liver lobe, largest measuring 6.4 mm, likely liver cyst. Gallbladder and bile ducts: See above. Pancreas: Unremarkable. No mass. No ductal dilation. Spleen: Unremarkable. No splenomegaly. Adrenals: Unremarkable. No mass. Kidneys and ureters: Unremarkable. No solid mass. No hydronephrosis. Stomach and bowel: Thickening of the fernandes of the transverse colon and descending colon suggestive of mild colitis. Diverticulosis, predominantly to the sigmoid with no signs of diverticulitis. Mild diverticulosis muscles of the sigmoid with no signs of diverticulitis. No obstruction. PELVIS: Appendix: No findings to suggest acute appendicitis. Bladder: The urinary bladder is obscured by beam hardening artifact related to the hip prosthesis. Reproductive: Unremarkable as visualized. ABDOMEN and PELVIS: Intraperitoneal space: Unremarkable. No free air. No significant fluid collection. Bones/joints: Advanced degenerative disease of the lumbar spine with scoliosis, convexity to the right. Bilateral hip prostheses of bilateral hips with aspiration of adjacent soft tissues due to beam hardening artifact. Soft tissues: Bilateral breast implants with capsular calcifications. Vasculature: Nonspecific dilatation of the central portal veins. Lymph nodes: Unremarkable. No enlarged lymph nodes. IMPRESSION: 1. Possible scattered mild colitis. No bowel obstruction. 2. Mild diverticulosis with no signs of diverticulitis. 3. Nonspecific indeterminate central biliary distention, etiology indeterminate versus focal edema. 4. Nonspecific distention of the central portal vein with otherwise normal enhancement. Electronically signed by: Kathryn Lucia MD 12/21/23 01:04 AM Diagnostic Findings Chest x-ray as per my interpretation cardiomegaly
[2023-12-21] MEDS ORDERED: ONDANSETRON INJ 2 MG/ML 2 ML VIAL IV PRN (03:16)
[2023-12-21 03:51] LABS: Adenovirus PCR Not Detected (NotDetected); Bordetella parapertussis PCR Not Detected (NotDetected); Bordetella pertussis PCR Not Detected (NotDetected); Chlamydia pneumoniae PCR Not Detected (NotDetected); Coronavirus 229E PCR Not Detected (NotDetected); Coronavirus CoV-2 (COVID19)PCR Not Detected (NotDetected); Coronavirus HKU1 PCR Not Detected (NotDetected); Coronavirus NL63 PCR Not Detected (NotDetected); Coronavirus OC43PCR Not Detected (NotDetected); Human Metapneumovirus PCR Not Detected (NotDetected); Influenza A PCR Not Detected (NotDetected); Influenza B PCR Not Detected (NotDetected); Mycoplasma pneumoniae PCR Not Detected (NotDetected); Parainfluenza Virus 1 PCR Not Detected (NotDetected); Parainfluenza Virus 2 PCR Not Detected (NotDetected); Parainfluenza Virus 3 PCR Not Detected (NotDetected); Parainfluenza Virus 4 PCR Not Detected (NotDetected); Respiratory Syncytial VirusPCR Not Detected (NotDetected); Rhinovirus/Enterovirus PCR Not Detected (NotDetected)
[2023-12-21] MEDS ORDERED: ARTIFICIAL TEARS OP PRN (05:32)
[2023-12-21] MEDS: LORATADINE 10 MG TAB PO ONE (05:39)
[2023-12-21 07:16] LABS: Basophils # (auto) 0.02 K/uL (0.00-0.20); Basophils % (auto) 0.1 %; Eosinophils # (auto) 0.01 K/uL (0.00-0.50); Eosinophils % (auto) 0.1 %; Hematocrit (blood only) 34.1 % (37.0-47.0); Hemoglobin 11.2 g/dl (12.0-16.0); Immature Granulocytes % (auto) 0.6 %; Lymphocytes # (auto) 1.34 K/uL (1.20-3.40); Lymphocytes % (auto) 8.2 %; Mean Corpuscular Hemoglobin 30.3 pg (25.0-34.0); Mean Corpuscular Hgb Conc 32.8 g/dL (32.0-36.0); Mean Corpuscular Volume 92.2 fL (80.0-100.0); Mean Platelet Volume 11.4 fL (9.4-12.4); Monocytes # (auto) 0.96 K/uL (0.11-0.59); Monocytes % (auto) 5.9 %; Neutrophils # (auto) 13.85 K/uL (1.40-6.50); Neutrophils % (auto) 85.1 %; Platelet Count 255 K/uL (130-400); RDW Coefficient of Variation 15.5 % (11.5-14.5); RDW Standard Deviation 52.1 fL (36.4-46.3); White Blood Count 16.28 K/ul (4.8-10.8)
[2023-12-21 07:32] LABS: Calcium 7.9 mg/dl (8.6-10.3); Creatinine Clr Calc Pharmacy 54.4 ml/min; Est GFR (Non-African American) 78.5 ml/min; Potassium 3.7 mmol/L (3.5-5.1)
[2023-12-21] MEDS ORDERED: APIXABAN 5 MG TABLET PO SCH (08:00)
--- NOTE | 2023-12-21 08:08 | XRay Report ---
XR chest 1V portable HISTORY: cough COMPARISON: Chest 11/09/2021. FINDINGS: No pneumothorax. No pleural effusions. No focal lung consolidations to suggest a pneumonia. Slightly rotated study. The cardiac silhouette is likely enlarged. No evidence for pulmonary edema. There is a left shoulder prosthesis. Bilateral breast implants are noted. IMPRESSION: No acute process. ACT 112: Negative or not required by law. Electronically signed by: Trenton Orourke M.D. 12/21/2023 8:07 AM
[2023-12-21 08:35] LABS: Albumin Level 3.6 gm/dl (3.4-5.0); Bilirubin Direct 0.2 mg/dl (0-0.2); Bilirubin,Total 0.9 mg/dl (0.2-1.0); Total Protein 6.2 gm/dl (6.0-8.3)
[2023-12-21] MEDS: oxyCODONE HCL IR 5 MG TAB (IMMEDIATE RELEASE) PO PRN (08:45)
[2023-12-21] MEDS: GABAPENTIN 100 MG CAP PO SCH (08:47)
[2023-12-21] MEDS: AMIODARONE 200 MG TAB PO SCH (08:47)
[2023-12-21] MEDS: azaTHIOprine 50 MG TAB PO SCH (08:48)
[2023-12-21] MEDS: FAMOTIDINE 20 MG TAB PO SCH (08:48)
[2023-12-21] MEDS: FLUoxetine HCL 20 MG CAP PO SCH (08:49)
[2023-12-21] MEDS: pyRIDostigmine bromide 60 MG TAB PO SCH (08:49)
[2023-12-21] MEDS: GLYCOPYRROLATE 1 MG TAB PO SCH (08:49)
[2023-12-21] MEDS: predniSONE 5 MG TAB PO SCH (08:50)
[2023-12-21] MEDS: MULTIVITAMIN TAB PO SCH (08:50)
[2023-12-21] MEDS: CEROVITE ADV FORMULA TAB PO SCH (08:51)
--- NOTE | 2023-12-21 09:04 | CT Scan Report ---
CT SCAN OF THE LEFT SHOULDER WITHOUT IV CONTRAST CLINICAL HISTORY: Left shoulder pain. COMPARISON STUDY: Radiographs of the left shoulder dated 05/19/2022. TECHNIQUE: CT scan of the left shoulder is performed from the lower neck to the humeral shaft. Images are reviewed in the axial, sagittal, and coronal planes. IV contrast was not administered for this e xamination. 3-D reformats are created and assessed. A dose lowering technique was utilized adhering t o the principles of ALARA. Note that interpretation is suboptimal without current plain film correlat e. The examination is degraded by streak artifact from a left shoulder arthroplasty. CT DOSE: 386.09 mGy.cm FINDINGS: The skeletal structures are osteopenic. No fracture is seen. A left shoulder arthroplasty i s in near-anatomic alignment. No periprosthetic lucency is identified. The acromioclavicular joint is preserved. There is no evidence of joint effusion. The overlying soft tissues are normal as imaged. The visualized left upper lobe lung parenchyma appears clear. No left axillary lymphadenopathy is see n. IMPRESSION: 1. No acute bony abnormality is identified. 2. A left shoulder arthroplasty is in near-anatomic alignment. ACT 112: Negative or not required by law. Dictated: 12/21/2023 8:40 AM Transcribed: 12/21/2023 8:57 AM Gary [id number] MINISTERIO_Nina Electronically signed by: Baljeet Reinoso M.D. 12/21/2023 9:03 AM
[2023-12-21] MEDS: cefTRIAXone SODIUM 1,000 MG/50 ML BAG IV SCH (09:26)
[2023-12-21] MEDS: metroNIDAZOLE 500 MG/100 ML BAG IV SCH (10:12)
--- NOTE | 2023-12-21 10:44 | Gastrointestinal Consultation ---
Date of Consultation December 21, 2023 Assessment & Plan (1) Colitis: Abdominal pain and diarrhea seem to have been induced by the 3 Dulcolax tablets patient took prior to arrival to the hospital. CT was without po contrast and is of limited value. -Diet as tolerated as patient is requesting more food since feeling better. -If pain abdominal pain returns/worsens, consider repeating CT with po contrast. -Stool studies ordered. -Last colonoscopy in 2021 without acute findings; can consider outpatient repeat with [facility] if symptoms return/persist. Supervising Physician Co-Signing Physician Notes Agree with KALIE Helms as above Interviewed and examined patient and agree with above Abd: Soft, tender bilateral LQ, ND, +BS Continue current therapy and supportive care History of Present Illness Reason for Consultation: ?colitis Attending Physician: Stevan Mancilla MD History of Present Illness Patient is a 72 yo female who took 3 Dulcolax tablets at home due to constipation. She developed abdominal cramping and diarrhea. She presented to the hospital due to the severity of abdominal pain. Diarrhea stopped. Stool studies are ordered. She notes improvement in her symptoms of abdominal pain. She is eating a liquid diet but is asking for more food. A colonoscopy was performed in 2021 by [facility] without alarming findings. A CT during this admission was performed, unfortunately without po contrast. This scan indicated a possible colitis. UA negative. WBC 16,280. Patient takes Pyridostigmine, Azathioprine & Prednisone for Myasthenia Gravis. She had a PEG tube due to an acute exacerbation of this issue in the past. Allergies Allergy/AdvReac Type Severity Reaction Status Date / Time prochlorperazine Allergy Severe EDEMA OF Verified 12/20/23 23:31 AIRWAY clarithromycin Allergy Intermediate RASH Verified 12/20/23 23:31 Penicillins Allergy Intermediate RASH Verified 12/20/23 23:31 amoxicillin Allergy Mild RASH Verified 12/20/23 23:31 azithromycin Allergy Mild RASH Verified 12/20/23 23:31 cephalexin Allergy Mild RASH Verified 12/20/23 23:31 erythromycin base Allergy Mild RASH Verified 12/20/23 23:31 carbamazepine AdvReac Intermediate ELEVATED Verified 12/20/23 23:31 LFT LEVELS oxycodone AdvReac Intermediate HALLUCINATI Verified 12/20/23 23:31 ONS promethazine AdvReac Intermediate LEGS SHOOK Verified 12/20/23 23:31 Home Medications Medication Instructions Recorded Confirmed Type albuterol sulfate 90 mcg/actuation 2 inh inhalation Q4 PRN Wheezing 05/13/20 12/21/23 History aerosol inhaler fluoxetine 20 mg capsule (Prozac) 20 mg PO QAM 05/13/20 12/21/23 History melatonin 5 mg tablet 5 mg PO HS 05/13/20 12/21/23 History trazodone 100 mg tablet 100 mg PO HS 05/13/20 12/21/23 History glycopyrrolate 1 mg tablet 1 mg PO TIDM 12/19/20 12/21/23 History pyridostigmine bromide 60 mg tablet 60 mg PO QID 12/19/20 12/21/23 History apixaban 5 mg tablet (Eliquis) 5 mg PO BIDM 02/12/21 12/21/23 History azathioprine 50 mg tablet (Imuran) 150 mg PO QAM 02/12/21 12/21/23 History famotidine 20 mg tablet 20 mg PO QAM 02/12/21 12/21/23 History amiodarone 200 mg tablet 200 mg PO QAM 03/10/21 12/21/23 History agydavkx-zni-utdyka 5 mg-zeaxanth 1 cap PO QAM 05/26/21 12/21/23 History 1 mg-bilberry 7.5 mg-herbal capsule (Macular Health Formula) multivitamin 1 tab PO QAM 05/26/21 12/21/23 History acetaminophen 500 mg tablet 500 mg PO HS 06/03/21 12/21/23 History (Tylenol Extra Strength) acetaminophen 500 mg tablet 500 mg PO Q6H PRN Pain 06/03/21 12/21/23 History (Tylenol Extra Strength) peg 400-propylene glycol 0.4 %-0.3 1 drp ophthalmic (eye) DIRECTED 06/03/21 12/21/23 History % eye drops (Systane (propylene PRN Dry Eyes glycol)) gabapentin 100 mg capsule 200 mg PO TID 12/21/23 12/21/23 History prednisone 10 mg tablet 15 mg PO Q OTHER DAY 12/21/23 12/21/23 History Patient History Medical History (Updated 12/21/23 @ 03:44 by Aspen Cade DO) CKD (chronic kidney disease) stage 3, GFR 30-59 ml/min Neuromuscular respiratory weakness COPD (chronic obstructive pulmonary disease) Chronic back pain Osteoporosis Per records Frequent falls Most recent fall 11/01/21 Three different falls in the past year per patient (had leg weakness first time, next time wheeled walker moved out too fast, leg weakness with third fall); does have walker to ambulate States she has agency help with her at all times while home PCP did lumbar MRI recently that showed no acute abnormalities that could cause leg weakness- degenerative changes only per PCP phone note. Poor historian Atrial fibrillation Reason for Eliquis Follows with Dr. Grider Multiple sclerosis Asymptomatic with exception to mild incontinence Follows with neuro- stable per patient History of COVID-19 09/02/21 COVID positive and admitted to hospital ([facility]) > resolved symptoms except residual fatigue DVT prophylaxis Paroxysmal atrial flutter Paroxysmal A-fib Acute respiratory failure with hypoxia Hip pain, right S/p hip dislocation after a fall this past year (Dr. Garnett aware) Myasthenia gravis Follows with PCP and neurologist - Dr. Theo Hanson Hx of PEG tube placement in December 2020 (was not eating well)- eating has since improved- PEG tube removed Multiple sclerosis Surgical History (Updated 04/09/22 @ 14:24 by Javy Garnett DO) Nausea and vomiting after administration of anesthetic agent pt thinks IV medication adequately controls PONV, uncertain if has needed scop patch in past History of breast augmentation History of colonoscopy 2021 S/P percutaneous endoscopic gastrostomy (PEG) tube placement Has since been removed Family History Grandfather (Paternal) Family hx of colon cancer Social History Smoking Status: Never smoker Tobacco Type: Cigarettes Second Hand Exposure: No; Do You Dip or Chew Tobacco: No; Hx Alcohol Use: No Hx Substance Use: No Preferred Language: Guatemalan Communication Ability: Impaired Production Hand Required: No Beliefs That Will Affect Care: None marital status: Current Living Situation: Spouse and Other Current Living Situation Comment: Home- has home health aide current occupational status: retired Feels Safe at Home: Yes Safety Concerns: Feels Safe At This Time Assistive Devices: Walker Review of Systems Constitutional: no fever and no chills Respiratory: no cough and no dyspnea Cardiovascular: no chest pain Gastrointestinal: + abdominal pain (improving); no diarrhe a/loose stools (resolved) Physical Exam Constitutional: well developed Respiratory: normal respiratory effort Cardiovascular: Rate/Rhythm: regular rate Gastrointestinal (Abdomen): normal bowel sounds, soft, nontender, no hepatosplenomegaly Results & Data Vital Signs (Past 12 Hours) Vital Signs Temp Pulse Pulse Pulse Resp BP BP 12/21/23 07:23 36.8 C 60 18 148/74 H 12/21/23 04:35 37.3 C 82 18 157/77 H 12/21/23 02:50 88 12/21/23 02:05 84 18 142/76 H 12/20/23 23:30 83 18 150/79 H 12/20/23 23:23 12/20/23 22:59 91 H 12/20/23 22:40 36.4 C L 97 H 18 131/92 Pulse Ox O2 Del Method O2 Flow Rate 12/21/23 07:23 97 Room Air 12/21/23 04:35 97 Room Air 12/21/23 02:50 12/21/23 02:05 98 Nasal Cannula 2 12/20/23 23:30 98 Room Air 12/20/23 23:23 97 Room Air 12/20/23 22:59 12/20/23 22:40 97 Room Air PG Care Time/CCT Total # of Minutes Spent Total Time Spent with Patient: Total time spent is greater than 50% in coordination of care (as documented) at patient's floor/unit and/or counseling patient: Coding Level of Care Code 96793 INT INP/OBS CARE 3/75MIN Diagnoses Colitis K52.9
--- OUTSIDE RECORDS SUMMARY | 2023-12-21 12:49 | External Medical Summary ---
Author Name Unknown Address Unknown Organization [id number]:[facility] [place] [address] Laboratory Report Ordering Provider Test Date Status LISA AGUILAR 10/17/2023 10:27:08 Final Observation Date Value Abnormality Reference (Units ) Status WBC, Total 10/17/2023 10:27:08 6.46 4.00-10.8 0 (K/uL) Final RBC 10/17/2023 10:27:08 3.89 3.85-5.15 (M/uL) Final Hemoglobin 10/17/2023 10:27:08 12.1 12.0-15.3 (g/dL) Final HCT 10/17/2023 10:27:08 40.3 36.0-45.2 (%) Final MCV 10/17/2023 10:27:08 103.6 81.5-97.5 (fL) Final MCH 10/17/2023 10:27:08 31.1 27.0-34.0 (pg) Final MCHC 10/17/2023 10:27:08 30.0 32.0-36.0 (g/dL) Final RDW 10/17/2023 10:27:08 16.4 11.5-15.5 (%) Final Platelets 10/17/2023 10:27:08 328 140-400 (K /uL) Final MPV 10/17/2023 10:27:08 10.3 6.6-11.1 ( fL) Final Performing Location [facility] [place] [address]
--- OUTSIDE RECORDS SUMMARY | 2023-12-21 12:49 | External Medical Summary ---
Author Name Unknown Address Unknown Organization K09:[facility] [address] [place] [address] Laboratory Report Ordering Provider Test Date Status LISA AGUILAR 10/17/2023 10:27:08 Final Observation Date Value Abnormality Reference (Units ) Status BUN 10/17/2023 10:27:08 13 6-20 (mg/dL) Final Creatinine 10/17/2023 10:27:08 0.9 0.5-1.0 (mg/dL) Final Glomerular filtration rate/1.73 sq M.predicted [Volume Rate/Area] in Serum, Plasma or Blood by Creatinine-based formula (CKD-EPI) 10/17/2023 10:27:08 64 >=60 (mL/min) Final eGFR is calculated based on the CKD-EPI 2020 equation Sodium 10/17/2023 10:27:08 142 135-146 (m mol/L) Final Potassium 10/17/2023 10:27:08 3.9 3.5-5.1 (m mol/L) Final Cl 10/17/2023 10:27:08 106 98-107 (mm ol/L) Final CO2 10/17/2023 10:27:08 24 22-32 (mmo l/L) Final Anion gap 10/17/2023 10:27:08 12 7-15 (mmol /L) Final Glucose 10/17/2023 10:27:08 141 Above high normal 70 -120 (mg/dL) Final Albumin 10/17/2023 10:27:08 3.7 Below low normal 3.8 -5.0 (g/dL) Final AST (Aspartate aminotransferase) 10/17/2023 10:27:08 31 10-35 (U/L) Fin al Alk Phos 10/17/2023 10:27:08 39 35-130 (U/ L) Final Bilirubin, Total 10/17/2023 10:27:08 0.5 <=1 .2 (mg/dL) Final Calcium 10/17/2023 10:27:08 9.0 8.4-10.2 ( mg/dL) Final Protein 10/17/2023 10:27:08 5.4 Below low normal 6.0 -8.3 (g/dL) Final ALT (Alanine aminotransferase) 10/17/2023 10:27:08 31 10-35 (U/L) Maulik ramirez Performing Location [facility] [address] [place] [address]
--- OUTSIDE RECORDS SUMMARY | 2023-12-21 12:49 | External Medical Summary | Summary of Care ---
Author Name Unknown Organization [facility] Address [address] [place] [address] Phone [phone] Care Team Providers Care Product Safety Consultant Name Role Phone Tish King MD Primary Care Provider Reason for Visit * Reason Comments Outpatient Testing Encounter Details Date Type Department Care Team (Late st Contact Info) Description 10/17/2023 11:10 AM EDT Laboratory Laboratory [facility] [place] [address] [place] [address] [facility] [address] [place] [address] Arrived Allergies Active Allergy Reactions Criticality Noted Date Comments Amoxicillin Rash 01/20/1998 Clarithromycin Rash 07/23/2011 Carbamazepine Liver complications (Please comment) 03/24/2012 Elevated LFT Cephalexin Rash 01/20/1998 Erythromycin Rash 01/20/1998 Oxycodone-Aspirin 02/01/2021 Other reaction(s): psychological reaction "hallucinated" Penicillins Rash 07/23/2011 Percodan 01/20/1998 hallucinate Prochlorperazine Edema airway High 01/20/1998 Promethazine Neuro complications (Please comment) 09/12/1998 Spastic LE Azithromycin Rash 07/23/2011 documented as of this encounter (statuses as of 10/17/2023) Medications Medication Sig Dispensed Refills Start Date End Date Status [facility] MISC Take by mouth. 0 04/04/2014 Active Melatonin 5 MG Tablet Take 1 Tablet by mouth at bedtime. 0 Active Acetaminophen 500 MG Oral Tablet Take 1 Tablet by mouth every 6 hours as needed for Pain (daily at bedtime). 0 Active Polyethyl Glycol-Propyl Glycol 0.4-0.3 % Ophthalmic Solution Instill into eye as needed for Dry eyes. 0 Active Multivitamin Adult Oral Tablet Take 1 Tab by mouth daily. 0 Active Amiodarone HCl 200 MG Oral Tablet (Cordarone)Indicat ions:Typical atrial flutter (HCC) take 1 tablet by mouth every morning 90 Tablet 3 10/14/2022 Active Glycopyrrolate 1 MG Oral Tablet (Robinul) Take 1 Tablet by mouth in the morning and 1 Tablet at noon and 1 Tablet before bedtime. With mestinon doses. 270 Tablet 3 12/02/2022 Active traZODone HCl 100 MG Oral Tablet (Desyrel) take 1 tablet by mouth BEFORE BEDTIME 90 Tablet 3 02/03/2023 Active Apixaban 5 MG Oral Tablet (Eliquis)Indicatio ns:Atrial flutter, paroxysmal (HCC) take 1 tablet by mouth IN THE MORNING then 1 tablet by mouth BEFORE BEDTIME 180 Tablet 1 06/16/2023 Active Albuterol Sulfate HFA 108 (90 Base) MCG/ACT Inhalation Aerosol SolutionIndication s:Chronic cough Inhale 2 Puffs by mouth every 4 hours as needed for Wheezing. 18 g 3 07/12/2023 Active pyRIDostigmine [place] 60 MG Oral Tablet (Mestinon) ADMINISTER 1 TABLET INTO PEG TUBE 4 TIMES A DAY (MORNING, NOON, EVENING, AND BEDTIME) 120 Tablet 5 07/20/2023 Active Gabapentin 100 MG Oral Capsule (Neurontin)Indicat ions:Other chronic pain Take 2 Capsules by mouth in the morning and 2 Capsules at noon and 2 Capsules before bedtime. 540 Capsule 3 07/21/2023 Active FLUoxetine HCl 20 MG Oral Capsule (PROzac)Indication s:Adjustment disorder with depressed mood take 1 capsule by mouth every morning 90 Capsule 3 08/23/2023 Active azaTHIOprine 50 MG Oral Tablet (Imuran) take 3 tablets by mouth once daily 90 Tablet 2 08/23/2023 Active Famotidine 20 MG Oral Tablet (Pepcid)Indication s:Pharyngoesophage al dysphagia Take by mouth 1 tablet daily 90 Tablet 1 09/08/2023 Active predniSONE 10 MG Oral Tablet (Deltasone) One and one half tablets orally in am every other day 66 Tablet 3 10/17/2023 Active documented as of this encounter (statuses as of 10/17/2023) Active Problems Problem Noted Date Diagnosed Date Chronic obstructive pulmonary disease 10/10/2023 Sacroiliitis 11/01/2022 Upper airway cough syndrome 08/17/2022 Post-viral cough syndrome 08/17/2022 Pneumonia due to COVID-19 virus 09/17/2021 Macular degeneration of left eye 04/29/2021 History of right hip replacement 04/29/2021 Atrial flutter, paroxysmal 2020 Pharyngoesophageal dysphagia 05/22/2020 Myasthenia gravis, acetylcholine receptor antibo dy positive 09/07/2019 Senile osteoporosis 03/06/2018 Fecal incontinence due to anorectal disorder Trigeminal neuralgia 02/08/2008 Other specified forms of hearing loss 06/11/2003 Overview: right ear, s/p vestibular schwanoma surgery Multiple sclerosis 01/31/2003 Ptosis of right eyelid Adjustment disorder with anxious mood documented as of this encounter (statuses as of 10/17/2023) Resolved Problems Problem Noted Date Diagnosed Date Resolved Date Neuromuscular respiratory weakness 04/21/2022 04/21/2022 Chronic kidney disease, stage 3a 08/31/2021 11/01/2022 Overview: Per CKD protocol Acute respiratory failure with hypoxia 01/20/2021 01/20/2021 Chronic obstructive pulmonary disease 01/20/2021 04/21/2022 Myasthenia gravis, acetylcho line receptor antibody positive 01/12/2021 01/20/2021 Gastrostomy status 06/03/2020 Moderate malnutrition 05/26/20202021 Mild malnutrition 05/18/2020 05/27/2020 Chronic obstructive pulmonary disease 09/07/2019 09/10/2019 Encounter for examination fo r normal comparison and control in clinical research program 11/16/2017 02/18/2020 Overview: DO NOT DELETE [facility] DETECT Study: Project # [id number], [employer]: Donnie Vazquez, PhD. SUMMARY: Goal: Establish test characteristics (sensitivity, specificity, PPV, NPV) of a circulating tumor DNA (ctDNA)-based test for cancer. Hypothesis: Circulating tumor DNA (ctDNA) and elevated protein biomarkers (together, the marker panel) can be detected in asymptomatic individuals with early cancer. Specific Aim 1: Determine the prevalence of a positive marker panel test in a prospective clinical cohort of 10,000 asymptomatic women ages 65 to 75 years. Specific Aim 2: Determine the sensitivity, specificity, positive predictive value (PPV) and negative predictive value (NPV) of a marker panel test to identify histologically proven cancers that develop within 5-years of the marker panel evaluation. CONTACTS: During normal business hours, contact study staff at ; after hours [employer] via the [facility] directional bore operator . Please contact study team before resolving/deleting from patients problem list. Study phone number: [phone]. Diagnosis changed due to Research Module. Go to Snapshot for study details. Encounter for examination fo r normal comparison and control in clinical research program 11/16/2017 03/18/2022 Overview: DO NOT DELETE - [facility] [place] DETECT Study: Project # [id number], [employer]: Conrad Holguin, MS, MPH. SUMMARY: Goal: Establish test characteristics (sensitivity, specificity, PPV, NPV) of a circulating tumor DNA (ctDNA)-based test for cancer. - Hypothesis: Circulating tumor DNA (ctDNA) and elevated protein biomarkers (together, the marker panel) can be detected in asymptomatic individuals with early cancer. - Specific Aim 1: Determine the prevalence of a positive marker panel test in a prospective clinical cohort of 10,000 asymptomatic women ages 65 to 75 years. - Specific Aim 2: Determine the sensitivity, specificity, positive predictive value (PPV) and negative predictive value (NPV) of a marker panel test to identify histologically proven cancers that develop within 5-years of the marker panel evaluation. - CONTACTS: During normal business hours, contact study staff at ; after hours [employer] via the [facility] directional bore operator . - Please contact study team before resolving/deleting from patients problem list. Study phone number: [phone]. Diagnosis changed due to Research Module. Go to Snapshot for study details. Gastroesophageal reflux dise ase without esophagitis 04/07/2015 04/10/2018 Osteoporosis 02/06/2014 03/06/2018 Family history of stroke 10/03/200702/2021 ADVANCE DIRECTIVE INFORMATION 04/12/2005 03/25/2021 Overview: Yes, Patient instructed to provide copy of advance directive for provider to review and to be scanned into Electronic Medical Record Major depressive disorder 06/11/2003 Overview: ICD-10 update of inactive term Hemorrhoid 03/25/2021 Myasthenia gravis with (acute) exacerbation 01/12/2021 Bulbar myasthenia gravis documented as of this encounter (statuses as of 10/17/2023) Immunizations Name Administration Dates Next Due COVID-19 mRNA, LNP-s, No Pre serve, 2-Dose Series ([employer]) 03/25/2021,10/08/2020,09/12/2020 Hepatitis B, 20+ yrs 02/10/2018,07/28/2016,06/28 PPD 10/30/2007 Pneumococcal Conjugate Vacc, 13 Valent (Prevnar) 07/29/2015 Pneumococcal Polysaccharide PPV23 (Pneumovax) 04/03/2020,2013 Season Influenza, Quad, PF, Adjuvanted, 65+ Yrs, IM (FLUAD) 04/03/2020 Seasonal Influenza, PF, 6 M & above, IM , (FluLaval or Fluzone) 04/11/2018,06/14/2017 Seasonal Influenza, Quadriva lent Hd (Fluzone Hd) 05/09/2023 Seasonal Influenza, Quadriva lent, No Preserve, IM 04/15/2016 Seasonal Influenza, Split, I IV3, With Preserve, Inj 04/07/2015,04/04/2014,03/30/2013,03/24,04/15/2011,04/17/2010,06/13/2009 ,05/27/2008,05/31/2007,06/07/2006 Seasonal Influenza, Trivalen t, Adjuvanted, 65+ yrs 05/01/2019 TDAP (age 10 and older)(Boostrix) 05/01/2019 TDAP (age 11 and older)(Adacel) 01/25/2009 Typhoid Vaccine Oral (Vivotif) 05/02/2019 Varicella Zoster Vaccine (Adult) 05/08/2007 Zoster Vaccine Recombinant (Shingrix) 10/12/2018 ,05/26/2018 documented as of this encounter Social History Tobacco Use Types Packs/Day Years Used Date Smoking Tobacco: Never Smokeless Tobacco: Never Alcohol Use Standard Drinks/Week Comments No 0 (1 standard drink = 0.6 oz pur e alcohol) PHQ-2 Answer Date Recorded PHQ-2 Score -1 06/03/2020 Hunger Vital Sign Answer Date Recorded Worried About Running Out of Food in the Last Ye ar Never true 04/03/2020 Ran Out of Food in the Last Year Never true 04/03/2020 Sex and Gender Information Value Date Recorded Sex Assigned at Female 09/07/2019 1:56 PM EST Gender Identity Female 09/07/2019 1:56 PM EST Sexual Orientation Straight 09/07/2019 1: 56 PM EST Job Start Date Occupation Industry Not on file Not on file Not on file documented as of this encounter Functional Status Functional Status Response Date of Assess ment Are you deaf or do you have serious difficulty h earing? No 12/23/2020 Are you blind or do you have serious difficulty seeing, even when wearing glasses? No 12/23/2020 Do you have serious difficul ty walking or climbing stairs? (5 years old or older) No 12/23/2020 Do you have difficulty dress ing or bathing? (5 years old or older) No 12/23/2020 Because of a physical, menta l, or emotional condition, do you have difficulty doing errands alone such as visiting a doctor s office or shopping? (15 years old or older) No 12/24/19 Cognitive Status Response Date of Assessm ent Because of a physical, menta l, or emotional condition, do you have serious difficulty concentrating, remembering, or making decisions? (5 years old or older) No 12/23/2020 documented as of this encounter Plan of Treatment Upcoming Encounters Date Type Department Care Team (Late st Contact Info) Description 11/16/2023 1:00 PM EDT Office Visit Family Practice [facility] [address] [place] [address] Tish King MD [address] [place] [id number] 01/23/2024 11:20 AM EDT Office Visit Neurology [facility] [address] [facility] [place] [address] Theo Hanson MD [address] [place] [address] 07/06/2024 12:00 PM EST Imaging Radiology [address] [place] [address] Health Maintenance Due Date Last Done Comments Alpha-1 Antitrypsin 1966 Cologuard 1993 Fecal Occult Blood Test 08/26/2002 08/26/19 02, 04/17/2000, 04/09/1999 Sigmoidoscopy 08/10/2006 08/10/2001 Depression Screening 06/03/2021 06/03/2020 COVID-19 Vaccine ( season) 2023 03/25/2021, 10/08/2020, 09/12/2020 Mammogram 07/05/2024 07/05/2023, 09/16, 10/12/2021, Additional history exists O2 ASSESSMENT COMPLETED IN PAST YEAR FOR COPD 10/16/2024 10/17/2023 DXA Scan 11/23/2024 11/23/2022, 10/16, 10/27/2020, Additional history exists Lipid Panel 05/09/2028 05/09/2023, 04/17, 02/26/2013, Additional history exists DTaP,Tdap,and Td Vaccines (3 - Td or Tdap) 05/01/2029 05/01/2019, 01/25/2009, 01/25/2002 Colonoscopy 03/08/2032 03/08/2022, 02/16, 03/07/2017, Additional history exists Colorectal Cancer Screening 03/08/2032 MENINGOCOCCAL (MENACTRA/MENVEO) Aged Out 02/22/2003 No longer eligible based on patient's age to complete this topic Hepatitis B Completed 02/10/2018, 07/18, 06/28/2016 Zoster Vaccines Completed 10/12/2018, 11/0 03/2018, 05/08/2007 Pneumococcal Vaccine: 65+ Years Completed 04/03/2020, 07/29/2015, 2013 VITAMIN D LEVEL ONCE IN A LIFETIME-USE SMARTSET# [id number] Completed 04/14/2023, 03/06/2018, 10/06/2016, Additional history exists Influenza Vaccine (FLU shot) Completed , 04/03/2020, 05/01/2019, Additional history exists GARDASIL-HPV IMMUNIZATION SERIES Aged Out No longer eligible based on patient's age to complete this topic documented as of this encounter Medical Devices Not on filedocumented as of this encounter Advance Directives Documents on File Type Date Recorded Patient Manager Lvn Expl anation Power of Utility Tender Carding 03/12/2005 Latest Code Status on File Code Status Date Activated Date Inactivated Comments Full Code 12/23/2020 6:04 PM 01/02/2021 4:54 PM This o rder reflects the patients wishes and were consensually agreed upon. Question Answer Comments Discussion of Advance Directives occurred with: Patient Code Status History Code Status Date Activated Date Inactivated Comments Full Code 12/20/2020 3:38 AM 12/21/2020 8:43 PM This or erika reflects the patients wishes and were consensually agreed upon. Question Answer Comments Discussion of Advance Directives occurred with: Patient Full Code 12/20/2020 2:44 AM 12/20/2020 3:38 AM This or erika reflects the patients wishes and were consensually agreed upon. Question Answer Comments Discussion of Advance Directives occurred with: Not Discussed Full Code 05/14/2020 2:51 PM 05/28/2020 6:30 PM Thi s order reflects the patients wishes and were consensually agreed upon. Question Answer Comments Discussion of Advance Directives occurred with: Not Discussed None 04/01/2005 9:34 AM 04/01/2005 9:34 AM Healthcare Agents on File Name Relationship Healthcare Agent Relationship Communication JOHNSON Simpson Adult Child Health Care Po wer of Utility Tender Carding Care Teams Product Safety Consultant Relationship Specialty Start Date End Date Tish King MD [address] [place] [address] PCP - General Internal Medicine 03/18/21 documented as of this encounter
--- OUTSIDE RECORDS SUMMARY | 2023-12-21 12:49 | External Medical Summary | Summary of Care ---
Author Name Unknown Organization [facility] Address [address] [place] [address] Phone [phone] Care Team Providers Care Records Management Associate Name Role Phone Tish King MD Primary Care Provider Encounter Details Date Type Department Care Team (Late st Contact Info) Description 12/19/2023 Refill Access Center, [facility] [address] [facility] *DO NOT REMOVE THIS DEPARTMENT* [place] [address] Services, Scheduling [address] [place] [address] Allergies Active Allergy Reactions Criticality Noted Date [...] as of this encounter (statuses as of 12/19/2023) Medications Medication Sig Dispensed Refills Start Date End Date Status [facility] PO MISC Take by mouth. 04/04/2014 Active Melatonin 5 MG Tablet Take 1 Tablet by mouth at bedtime. Active Acetaminophen 500 MG Oral Tablet Take 1 Tablet by mouth every 6 hours as needed for Pain (daily at bedtime). Active Polyethyl Glycol-Propyl Glycol 0.4-0.3 % Ophthalmic Solution Instill into eye as needed for Dry eyes. Active Multivitamin Adult Oral Tablet Take 1 Tab by mouth daily. Active Glycopyrrolate 1 MG Oral Tablet (Robinul) Take 1 Tablet by mouth in the morning and 1 Tablet at noon and 1 Tablet before bedtime. With mestinon doses. 270 Tablet 3 12/02/2022 Active traZODone HCl 100 MG Oral Tablet (Desyrel) take 1 tablet by mouth BEFORE BEDTIME 90 Tablet 3 02/03/2023 Active Apixaban 5 MG Oral Tablet (Eliquis)Indicat ions:Atrial flutter, paroxysmal (HCC) take 1 tablet by mouth IN THE MORNING then 1 tablet by mouth BEFORE BEDTIME 180 Tablet 1 06/16/2023 Active Albuterol Sulfate HFA 108 (90 Base) MCG/ACT Inhalation Aerosol SolutionIndicati ons:Chronic cough Inhale 2 Puffs by mouth every 4 hours as needed for Wheezing. 18 g 3 07/12/2023 Active pyRIDostigmine Stevenson 60 MG Oral Tablet (Mestinon) ADMINISTER 1 TABLET INTO PEG TUBE 4 TIMES A DAY (MORNING, NOON, EVENING, AND BEDTIME) 120 Tablet 5 07/20/2023 Active Gabapentin 100 MG Oral Capsule (Neurontin)Indic ations:Other chronic pain Take 2 Capsules by mouth in the morning and 2 Capsules at noon and 2 Capsules before bedtime. 540 Capsule 3 07/21/2023 Active FLUoxetine HCl 20 MG Oral Capsule (PROzac)Indicati ons:Adjustment disorder with depressed mood take 1 capsule by mouth every morning 90 Capsule 3 08/23/2023 Active Famotidine 20 MG Oral Tablet (Pepcid)Indicati ons:Pharyngoesop hageal dysphagia Take by mouth 1 tablet daily 90 Tablet 1 09/08/2023 Active predniSONE 10 MG Oral Tablet (Deltasone) One and one half tablets orally in am every other day 66 Tablet 3 10/17/2023 Active Amiodarone HCl 200 MG Oral Tablet (Cordarone)Indic ations:Typical atrial flutter (HCC) take 1 tablet by mouth every morning 90 Tablet 1 11/03/2023 Active azaTHIOprine 50 MG Oral Tablet (Imuran) take 3 tablets by mouth once daily 90 Tablet 2 12/19/2023 Active azaTHIOprine 50 MG Oral Tablet (Imuran) take 3 tablets by mouth once daily 90 Tablet 2 11/08/2023 Discontinue d(Refill) documented as of this encounter (statuses as of 12/19/2023) Active Problems Problem Noted Date Diagnosed Date COPD, group B, by GOLD 2017 classification 10/23 Overview: Per COPD GOLD Classification Sacroiliitis 11/01/2022 Upper airway cough syndrome 08/17/2022 [...] as of this encounter (statuses as of 12/19/2023) Resolved Problems Problem Noted Date Diagnosed Date Resolved Date Chronic obstructive pulmonary disease 10/10/2023 10/27/2023 Overview: Per COPD GOLD Classification Neuromuscular respiratory weakness 04/21/2022 04/21/2022 Chronic kidney disease, stage 3a 08/31/2021 11/01/2022 Overview: Per CKD protocol Acute respiratory failure with hypoxia 01/20/2021 01/20/2021 Chronic obstructive pulmonary disease 01/20/2021 04/21/2022 Myasthenia gravis, acetylcho line receptor antibody positive 01/12/2021 01/20/2021 Gastrostomy status 06/03/2020 03/03/202 2 Moderate malnutrition 05/26/20202021 Mild malnutrition 05/18/2020 05/27/2020 Chronic obstructive pulmonary disease 09/07/2019 09/10/2019 Encounter for examination fo r normal comparison and control in clinical research program 11/16/2017 02/18/2020 Overview: DO NOT DELETE [facility] Study: Project # [id number], Machinery Engineer: Donnie Vazquez, PhD. SUMMARY: Goal: Establish test [...] contact study staff at ; after hours Machinery Engineer via the [facility] hospital set o type operator . Please contact study team before resolving/deleting from patients problem list. Study phone number: [phone]. Diagnosis changed due to Research Module. Go to Snapshot for study details. Encounter for examination fo r normal comparison and control in clinical research program 11/16/2017 03/18/2022 Overview: DO NOT DELETE - [facility] Study: Project # [id number], Machinery Engineer: Conrad Holguin, MS, MPH. SUMMARY: Goal: Establish [...] contact study staff at ; after hours Machinery Engineer via the [facility] hospital set o type operator . - Please contact study team before resolving/deleting from patients problem list. Study phone number: [phone]. Diagnosis changed due to Research Module. Go [...] as of this encounter (statuses as of 12/19/2023) Immunizations Name Administration Dates Next Due COVID-19 mRNA, LNP-s, No Pre serve, 2-Dose Series ([employer]) 03/25/2021,10/08/2020,09/12/2020 Hepatitis B, 20+ yrs 02/10/2018,07/28/2016,06/28 PPD [...] 05/01/2019 TDAP (age 10 and older)(Boostrix) 05/01/2019 TDAP, Age 7 and older, IM (Adacel) 01/25/2009 Typhoid Vaccine Oral (Vivotif) 05/02/2019 Varicella [...] No 12/23/2020 documented as of this encounter Miscellaneous Notes * Telephone Encounter - Lauren Hanson MD - 12/19/2023 3:26 PM EDTSigned Prescriptions: Disp Refills azaTHIOprine 50 MG Oral Tablet (Imuran) 90 Tab*2 Sig: take 3 tablets by mouth once dailyAuthorizing Provider: LAUREN HANSON * Telephone Encounter - Matt Leo OSA - 12/19/2023 2:49 PM EDT Neuroscience Phone Call Form- Clinic has 24-48 hours to respond to caller If caller is calling back before that timeframe- There is no need to send another message to the pool, update current TE [facility] Neurology Pool- All messages go through the [facility] Neuro Scrap Drop Crane Operator- [id number] Neurology Pool Numbers- [place] and [facility] patients - follow normal process Ops [facility] Neurology ([place])- [id number] Ops req [facility] ([place]- [facility] and [facility] Only)- [id number] Neurosurgery Pool Numbers- [place] patients- follow normal process Ops req Neurosurgery [facility] ([place])- [id number] Ops req Neurosurgery [facility] ([place] Only) [id number] Requested Information from caller: Who is calling facility name: Oscar reyes RN that fills pt medication at home Provider patient is established with: Susan Ruiz What is the concern or issue they are having: pt is in need of refills azaTHIOprine 50 MG Oral Tablet How long has the issue been going on: n/a Any additional details to add: no Phone number for nurse to call back: [phone] office number [facility] Are forms needed? no Please make sure you verify pharmacy for anything medication related. Form to be used for established patients only (not new patients) documented in this encounter Plan of Treatment Upcoming Encounters Date Type Department Care Team (Late st Contact Info) Description 01/23/2024 11:20 AM EDT Office Visit Neurology [facility] [address] [place] [address] Lauren Hanson MD [address] [place] [address] 03/16/2024 11:40 AM EDT Office Visit Family Practice [facility] [address] [place] [address] Tish King MD [address] [place] [address] 07/06/2024 12:00 PM EST Imaging Radiology [address] [place] [address] Health Maintenance Due Date Last Done Comments [...] 02/10/2018, 07/18, 06/28/2016 Zoster Vaccines Completed 10/12/2018, 03/2018, 05/08/2007 Pneumococcal Vaccine: 65+ Years Completed 04/03/2020, 07/29/2015, 2013 VITAMIN D LEVEL ONCE IN A LIFETIME-USE SMARTSET# [id number] Completed 04/14/2023, 03/06/2018, 10/06/2016, Additional history exists Influenza Vaccine (FLU shot) Completed , 04/03/2020, 05/01/2019, Additional history exists GARDASIL-HPV IMMUNIZATION SERIES Aged Out No longer eligible based on patient's age to complete this topic documented as of this encounter Medical Devices Not on filedocumented as of this encounter Advance Directives Documents on File Type Date Recorded Patient Diamond Wheel Edger Expl anation Power of Box Truck Owner Operator 03/12/2005 * Full Code (Latest Code Status on File) Date Activated Date Inactivated Comments 12/23/2020 6:04 PM 01/02/2021 4:54 PM This order re flects the patients wishes and were consensually agreed upon. Question Answer Comments Discussion of Advance Directives occurred with: Patient * Full Code Date Activated Date Inactivated Comments 12/20/2020 3:38 AM 12/21/2020 8:43 PM This order ref lects the patients wishes and were consensually agreed upon. Question Answer Comments Discussion of Advance Directives occurred with: Patient * Full Code Date Activated Date Inactivated Comments 12/20/2020 2:44 AM 12/20/2020 3:38 AM This order ref lects the patients wishes and were consensually agreed upon. Question Answer Comments Discussion of Advance Directives occurred with: Not Discussed * Full Code Date Activated Date Inactivated Comments 05/14/2020 2:51 PM 05/28/2020 6:30 PM This order reflects the patients wishes and were consensually agreed upon. Question Answer Comments Discussion of Advance Directives occurred with: Not Discussed * No Code Status Date Activated Date Inactivated Comments 04/01/2005 9:34 AM 04/01/2005 9:34 AM Healthcare Agents on File Name Relationship Healthcare Agent Relationship Communication POA Vicky Calvin Adult Child Health Care Po wer of Box Truck Owner Operator Care Teams Records Management Associate Relationship Specialty Start Date End Date Tish King MD [address] [place] [address] PCP - General Internal Medicine 03/18/21 documented as of this encounter
--- OUTSIDE RECORDS SUMMARY | 2023-12-21 12:49 | External Medical Summary | Summary of Care ---
Author Name Unknown Organization [facility] Address [address] [place] [address] Phone [phone] Care Team Providers Care Dormitory Maid Name Role Phone Tish King MD Primary Care Provider Reason for Visit * Reason Comments eRx-Medication Refill Encounter Details Date Type Department Care Team (Late st Contact Info) Description 11/28/2023 Refill Neurology [facility] [address] [place] [address] Susan Ruiz PA-C [address] [place] [address] Allergies Active Allergy Reactions Criticality Noted Date [...] as of this encounter (statuses as of 11/29/2023) Medications Medication Sig Dispensed Refills Start Date End Date Status [facility] PO MISC Take by mouth. 0 04/04/2014 Active [...] 1 Tab by mouth daily. 0 Active Glycopyrrolate 1 MG Oral Tablet (Robinul) [...] Wheezing. 18 g 3 07/12/2023 Active pyRIDostigmine Sandy 60 MG Oral Tablet (Mestinon) ADMINISTER 1 [...] mouth once daily 90 Tablet 2 11/08/2023 Active documented as of this encounter (statuses as of 11/29/2023) Active Problems Problem Noted Date Diagnosed Date [...] as of this encounter (statuses as of 11/29/2023) Resolved Problems Problem Noted Date Diagnosed Date [...] program 11/16/2017 02/18/2020 Overview: DO NOT DELETE [facility] Study: Project # [id number], Chocolate Maker: Donnie Vazquez, PhD. SUMMARY: Goal: Establish test [...] contact study staff at ; after hours Chocolate Maker via the [facility] hospital mva still operator . Please contact study team before resolving/deleting from patients problem list. Study phone number: [phone]. Diagnosis changed due to Research Module. Go to Snapshot for study details. Encounter for examination fo r normal comparison and control in clinical research program 11/16/2017 03/18/2022 Overview: DO NOT DELETE - [employer] DETECT Study: Project # [id number], Chocolate Maker: Conrad Holguin, MS, MPH. SUMMARY: Goal: Establish [...] contact study staff at ; after hours Chocolate Maker via the [facility] hospital mva still operator . - Please contact study team before resolving/deleting from patients problem list. Study phone number: [phone]. Diagnosis changed due to Research Module. Go [...] as of this encounter (statuses as of 11/29/2023) Immunizations Name Administration Dates Next Due COVID-19 mRNA, LNP-s, No Pre serve, 2-Dose Series ([employer]) 03/25/2021,10/08/2020,09/12/2020 Hepatitis B, 20+ yrs 02/10/2018,07/28/2016,06/28 PPD [...] encounter Miscellaneous Notes * Telephone Encounter - Pipo Long RPh - 11/29/2023 9:56 AM EDTRefused Prescriptions: Disp Refills azaTHIOprine 50 MG Oral Tablet (Imuran) 90 Tab*2 Sig: TAKE 3 TABLETS BY MOUTH ONCE DAILY Refused By: PIPO LONG Reason for Refusal: Duplicate Request * Telephone Encounter - Brandon Julio - 11/29/2023 6:04 AM EDTPending Prescriptions: Disp Refills azaTHIOprine 50 MG Oral Tablet [Pharmacy M*90 Tab*2 Sig: take 3 tablets by mouth once daily * Telephone Encounter - Brandon Julio - 11/29/2023 6:02 AM EDT Did you pend patient's preferred pharmacy and medication before forwarding?yes Pharmacy: [id number] [address] [facility] Pending Prescriptions: Disp Refills azaTHIOprine 50 MG Oral Tablet (Imuran) [*90 Tab*2 Sig: TAKE 3 TABLETS BY MOUTH ONCE DAILY Last Visit: 10/17/2023 (in office), 01/31/2023 (telemedicine) Next Visit: 01/23/2024 If no future appointments scheduled, and last appointment is greater than a year ago, please schedule patient for a follow-up appointment Last date the medication was ordered: 11/08/2023 Is this request for a controlled substance?No Urine Drug Screen: Results for orders placed or performed during the hospital encounter of 05/14/20 TOX SCREEN, URINE, W/O CONFIRMATION Result Value Amphetamine NEGATIVE Benzodiazepines NEGATIVE Cannabinoids NEGATIVE Cocaine Metabolite NEGATIVE HYDROCODONE NEGATIVE Morphine / Codeine NEGATIVE OXYCODONE NEGATIVE METHADONE METABOLITE NEGATIVE NOTE: THE ABOVE SCREENING RESULTS ARE PRESUMPTIVE AND CAN ONLY BE USED FOR MEDICAL PURPOSES. CONFIRMATORY TESTING IS AVAILABLE UPON REQUEST. Cutoff Concentration *Note: Due to a large number of results and/or encounters for the requested time period, some results have not been displayed. A complete set of results can be found in Results Review. Patient Phone Numbers Labs: Lab Results Component Value Date/Time CREAT 0.9 10/17/2023 10:27 AM CREAT 0.91 11/09/2021 12:00 AM CREAT 0.6 (L) 02/10/2021 06:28 AM CREAT 0.7 05/28/2020 05:55 AM POTASSIUM 3.9 10/17/2023 10:27 AM POTASSIUM 3.8 11/09/2021 12:00 AM POTASSIUM 4.0 02/10/2021 06:28 AM POTASSIUM 3.9 05/28/2020 05:55 AM TSH 1.17 05/09/2023 03:38 PM TSH 0.78 05/15/2020 07:34 AM LDLCALC 115 05/09/2023 03:38 PM LDLCALC 130 (H) 05/01/2019 03:28 PM LDLDIRECT NOT APPLICABLE 02/26/2013 09:04 AM ALT 31 10/17/2023 10:27 AM ALT 18 05/23/2020 07:04 AM HGBA1C 5.6 12/29/2020 07:58 AM HGBA1C 5.5 02/23/2011 11:35 AM documented in this encounter Plan of Treatment Upcoming Encounters Date Type Department Care Team (Late st Contact Info) Description 12/16/2023 1:00 PM EDT Office Visit Family [facility] [address] [place] [address] Chaparrita Singh CRNP [address] [place] [address] 01/23/2024 11:20 AM EDT Office Visit Neurology [facility] [address] [facility] [place] [address] Theo Hanson MD [address] [facility] [place] [address] 03/16/2024 11:40 AM EDT Office Visit Family Practice [facility] [address] [place] [address] Tish King MD [address] [place] [address] 07/06/2024 12:00 PM EST Imaging Radiology [facility] [address] [facility] [address] [place] [address] Health Maintenance Due Date Last Done Comments [...] D LEVEL ONCE IN A LIFETIME-USE SMARTSET# [id number] Completed 04/14/2023, 03/06/2018, 10/06/2016, Additional history exists Influenza Vaccine (FLU shot) Completed , 04/03/2020, 05/01/2019, Additional history exists GARDASIL-HPV IMMUNIZATION SERIES Aged Out No longer eligible based on patient's age to complete this topic documented as of this encounter Medical Devices Not on filedocumented as of this encounter Advance Directives Documents on File Type Date Recorded Patient Byproducts Operator Expl anation Power of Ux Interaction Designer 03/12/2005 Latest Code Status on File Code [...] Relationship Healthcare Agent Relationship Communication POA Vicky Kiely Adult Child Health Care Po wer of Ux Interaction Designer Care Teams Dormitory Maid Relationship Specialty Start Date End Date Tish King MD [address] [place] [address] PCP - General Internal Medicine 03/18/21 documented as of this encounter
--- OUTSIDE RECORDS SUMMARY | 2023-12-21 12:49 | External Medical Summary | Summary of Care ---
Author Name Unknown Organization [facility] Address [address] [place] [address] Phone [phone] Care Team Providers Care Investigative Agent Name Role Phone Radha King MD Primary Care Provider Reason for Visit * Reason Comments eRx-Medication Refill Encounter Details Date Type Department Care Team (Late st Contact Info) Description 11/02/2023 Refill Cardiology, [facility] [address] [place] [address] Susan Grider, [address] [place] [address] Typical atrial flutter (HCC) Allergies Active Allergy Reactions Criticality Noted Date [...] as of this encounter (statuses as of 11/03/2023) Medications Medication Sig Dispensed Refills Start Date End Date Status [facility] PO MISC Take by mouth. 0 [...] Wheezing. 18 g 3 07/12/2023 Active pyRIDostigmine [place] 60 MG Oral Tablet (Mestinon) ADMINISTER 1 [...] every morning 90 Tablet 1 11/03/2023 Active Amiodarone HCl 200 MG Oral Tablet (Cordarone)Indic ations:Typical atrial flutter (HCC) take 1 tablet by mouth every morning 90 Tablet 3 10/14/2022 Discontinued documented as of this encounter (statuses as of 11/03/2023) Active Problems Problem Noted Date Diagnosed Date [...] as of this encounter (statuses as of 11/03/2023) Resolved Problems Problem Noted Date Diagnosed Date Resolved Date Chronic obstructive pulmonary disease 10/10/2023 10/27/2023 Overview: Per COPD GOLD Classification Neuromuscular respiratory weakness 04/21/2022 04/21/2022 Chronic kidney disease, stage 3a 08/31/2021 11/01/2022 Overview: Per CKD protocol Acute respiratory failure with hypoxia 01/20/2021 01/20/2021 Chronic obstructive pulmonary disease 01/20/2021 04/21/2022 Myasthenia gravis, acetylcho line receptor antibody positive 01/12/2021 01/20/2021 Gastrostomy status 06/03/2020 2 Moderate malnutrition 05/26/20202021 Mild malnutrition 05/18/2020 05/27/2020 Chronic obstructive pulmonary disease 09/07/2019 09/10/2019 Encounter for examination fo r normal comparison and control in clinical research program 11/16/2017 02/18/2020 Overview: DO NOT DELETE [facility] DETECT Study: Project # [id number], Inclusion Teacher: Donnie Vazquez, PhD. SUMMARY: Goal: Establish test [...] contact study staff at ; after hours Inclusion Teacher via the [facility] cloth washer operator . Please contact study team before resolving/deleting from patients problem list. Study phone number: [phone]. Diagnosis changed due to Research Module. Go to Snapshot for study details. Encounter for examination fo r normal comparison and control in clinical research program 11/16/2017 03/18/2022 Overview: DO NOT DELETE - [employer] DETECT Study: Project # [id number], Inclusion Teacher: Conrad Holguin, MS, MPH. SUMMARY: Goal: Establish [...] contact study staff at ; after hours Inclusion Teacher via the [facility] cloth washer operator . - Please contact study team before resolving/deleting from patients problem list. Study phone number: [phone]. Diagnosis changed due to Research Module. Go [...] as of this encounter (statuses as of 11/03/2023) Immunizations Name Administration Dates Next Due COVID-19 mRNA, LNP-s, No Pre serve, 2-Dose Series ([employer]) 03/25/2021,10/08/2020,09/12/2020 Hepatitis B, 20+ yrs 02/10/2018,07/28/2016,06/28 PPD [...] (15 years old or older) No 12/24/19 21 Cognitive Status Response Date of Assessm ent Because of a physical, menta l, or emotional condition, do you have serious difficulty concentrating, remembering, or making decisions? (5 years old or older) No 12/23/2020 documented as of this encounter Miscellaneous Notes * Telephone Encounter - Radha King MD - 11/03/2023 12:36 PM EDT Signed Prescriptions: Disp Refills Amiodarone HCl 200 MG Oral Tablet (Cordaro*90 Tab*1 Sig: take 1 tablet by mouth every morningAuthorizing Provider: RADHA KING * Telephone Encounter - Radha King MD - 11/03/2023 12:36 PM EDT I see her next month. Will discuss re-establishing with Cardiology. * Telephone Encounter - Roxi Reid LPN - 11/03/2023 11:57 AM EDTPending Prescriptions: Disp Refills Amiodarone HCl 200 MG Oral Tablet [Pharmac*90 Tab*3 Sig: take 1 tablet by mouth every morning * Telephone Encounter - Roxi Reid [employer] - 11/03/2023 11:56 AM EDT Did you pend patient's preferred pharmacy and medication before forwarding?yes Pharmacy: [id number] Pending Prescriptions: Disp Refills Amiodarone HCl 200 MG Oral Tablet (Cordar*90 Tab*3 Sig: take 1 tablet by mouth every morning Last Visit: 11/17/2021 (in office), Visit date not found (telemedicine) Next Visit: Visit date not found If no future appointments scheduled, and last appointment is greater than a year ago, please schedule patient for a follow-up appointment Last date the medication was ordered: 10/14/22 Is this request for a controlled substance?No [...] AM CREAT 0.91 11/09/2021 12:00 AM CREAT 0.7 05/28/2020 05:55 AM POTASSIUM 3.9 10/17/2023 10:27 AM POTASSIUM 3.8 11/09/2021 12:00 AM POTASSIUM 3.9 05/28/2020 05:55 AM TSH 1.17 05/09/2023 03:38 PM TSH 0.78 05/15/2020 07:34 AM LDLCALC 115 05/09/2023 03:38 PM LDLCALC 130 (H) 05/01/2019 03:28 PM LDLDIRECT NOT APPLICABLE 02/26/2013 09:04 AM ALT 31 10/17/2023 10:27 AM ALT 18 05/23/2020 07:04 AM HGBA1C 5.6 12/29/2020 07:58 AM HGBA1C 5.5 02/23/2011 11:35 AM * Telephone Encounter - Berna Scott CMA - 11/02/2023 10:48 AM EDTPending Prescriptions: Disp Refills Amiodarone HCl 200 MG Oral Tablet [Pharmac*90 Tab*3 Sig: take 1 tablet by mouth every morning * Telephone Encounter - Berna Scott CMA - 11/02/2023 10:47 AM EDT Patient has not been seen by cardiology since 2021. Defer to PCP for refills/follow up. documented in this encounter Plan of Treatment Upcoming Encounters Date Type Department Care Team (Late st Contact Info) Description 11/16/2023 1:00 PM EDT Office Visit Family Practice [facility] [address] [address] Radha King MD [address] [place] [id number] 01/23/2024 11:20 AM EDT Office Visit Neurology [facility] [place] [address] [facility] [place] [address] Theo Hanson MD [address] [facility] [place] [address] 07/06/2024 12:00 PM EST Imaging Radiology [address], [place] [address] [facility] [address] [address] Health Maintenance Due Date Last Done Comments [...] D LEVEL ONCE IN A LIFETIME-USE SMARTSET# [id number] Completed 04/14/2023, 03/06/2018, 10/06/2016, Additional history exists Influenza Vaccine (FLU shot) Completed , 04/03/2020, 05/01/2019, Additional history exists GARDASIL-HPV IMMUNIZATION SERIES Aged Out No longer eligible based on patient's age to complete this topic documented as of this encounter Medical Devices Not on filedocumented as of this encounter Visit Diagnoses Diagnosis Typical atrial flutter (HCC) Atrial flutter documented in this encounter Advance Directives Documents on File Type Date Recorded Patient Solvent Station Attendant Expl anation Power of Data Modeling Specialist 03/12/2005 Latest Code Status on File Code [...] Relationship Healthcare Agent Relationship Communication POA Vicky Simpson Adult Child Health Care Po wer of Data Modeling Specialist Care Teams Investigative Agent Relationship Specialty Start Date End Date Radha King MD [address] [id number] PCP - General Internal Medicine 03/18/21 documented as of this encounter
--- OUTSIDE RECORDS SUMMARY | 2023-12-21 12:49 | External Medical Summary | Summary of Care ---
Author Name Unknown Organization [facility] Address [address] [place] [address] Phone [phone] Care Team Providers Care Funeral Home Makeup Artist Name Role Phone Tish King MD Primary Care Provider Reason for Visit * Reason Comments Return Neuro Encounter Details Date Type Department Care Team (Late st Contact Info) Description 10/17/2023 9:20 AM EDT Office Visit Neurology [facility] [address] [facility] [place] [address] [facility] Hanson MD [facility] [address] Myasthenia gravis (HCC)*; Multiple sclerosis (HCC) Allergies Active Allergy Reactions Criticality Noted [...] Dispensed Refills Start Date End Date Status [facility] PO MISC Take by mouth. 0 04/04/2014 [...] Wheezing. 18 g 3 07/12/2023 Active pyRIDostigmine [place] 60 MG Oral Tablet (Mestinon) ADMINISTER 1 [...] other day 66 Tablet 3 10/17/2023 Active predniSONE 20 MG Oral Tablet (Deltasone) One tablet orally every other morning 45 Tablet 3 01/31/2023 4 Discontinued documented as of this encounter (statuses [...] program 11/16/2017 02/18/2020 Overview: DO NOT DELETE [facility] ISABEL Study: Project # [id number], Maintenance Service Technician: Donnie Vazquez, PhD. SUMMARY: Goal: Establish test [...] contact study staff at ; after hours Maintenance Service Technician via the [facility] hospital arresting gear operator . Please contact study team before resolving/deleting from patients problem list. Study phone number: [phone]. Diagnosis changed due to Research Module. Go to Snapshot for study details. Encounter for examination fo r normal comparison and control in clinical research program 11/16/2017 03/18/2022 Overview: DO NOT DELETE - [facility] DETECT Study: Project # [id number], Maintenance Service Technician: Conrad Holguin, MS, MPH. SUMMARY: Goal: Establish [...] contact study staff at ; after hours Maintenance Service Technician via the [facility] hospital arresting gear operator . - Please contact study team before resolving/deleting from patients problem list. Study phone number: [phone]. Diagnosis changed due to Research Module. Go [...] mRNA, LNP-s, No Pre serve, 2-Dose Series ([employer]) 03/25/2021,10/08/2020,09/12/2020 Hepatitis B, 20+ yrs 02/10/2018,07/28/2016,06/28 PPD [...] on file documented as of this encounter Last Filed Vital Signs Vital Sign Reading Time Taken Comments Blood Pressure 108/60 10/17/2023 9:53 AM EDT Pulse 79 10/17/2023 9:53 AM EDT Temperature 37 C (98.6 F) 10/17/2023 9:53 AM EDT Respiratory Rate - - Oxygen Saturation 97% 10/17/2023 9:53 AM EDT Inhaled Oxygen Concentration - - Weight 56.1 kg (123 lb 9.6 oz) 10/17/2023 9:53 A M EDT Height - - Body Mass Index 21.89 09/20/2023 10:28 AM EST documented in this encounter Functional Status Functional Status Response [...] No 12/23/2020 documented as of this encounter Progress Notes * Theo Hanson MD - 10/17/2023 10:24 AM EDT CLINIC NOTES Neurology [facility] [place] [address] [facility] [address] Colleen Navarro [id number] NEUROLOGY OUTPATIENT NOTE 10/17/2023 HISTORY: Colleen is 72 years old has longstanding relatively low-grade multiple sclerosis with a gait disturbance but unfortunately some fecal and urinary incontinence due to a midthoracic cord lesion. She also has had myasthenia gravis probably close to 15-20 years initially manifested by some ptosis then some diplopia and back about 3-4 years ago a fairly aggressive phase during which she had significant pharyngeal weakness dysphagia dysarthria severe diplopia and severe bilateral ptosis with some mild respiratory impairment as well and required placement of a PEG tube and initiation of high dose steroids and Imuran. Prior to that she had been managed by variable doses of every other day prednisone and was managingfairly well when taken in combination with Mestinon She did develop COVID about 2 years ago was in the hospital and I saw her in consultation on a daily basis then and at that point she was on moderate daily doses of steroids and her current dose of Imuran 150 mg but managed to get through the illness without any significant respiratory muscle weakness and after that point we began to taper her prednisone back to an [id number] dosing and she is currently down to 20 mg every other day 150 mg of Imuran and Mestinon 60 mg 3 to 4 times a day. In terms of the myasthenia she is virtually asymptomatic and the only MS symptoms she seems to havethe incontinence and perhaps a mild degree of gait disturbance but her gait is limited by significant lower back discomfort and I suggested that she may want to contact her primary care physician andthink about a pain management referral as all she is doing now is some Tylenol She is here today with the nurse who tends to her several days a week and she has a series of nurses care for during the day from [facility] and her medications are administered regularly by that services well Otherwise her health has been stable She is a little cognitively impaired and this has been coming on for some time. How much of this isdue to the steroids how much may be due to a degenerative disorder is academic question at this point as imaging studies have shown nothing of significance other than some mild demyelinating plaques Past Medical History: Diagnosis Date ADVANCE DIRECTIVE INFORMATION 04/12/2005 Depressive disorder, not elsewhere classified suicide attempt in her early 40's Family history of stroke 10/03/2007 Hemorrhoid History of right hip replacement 04/29/2021 Macular degeneration of left eye 04/29/2021 Multiple sclerosis (HCC) Myasthenia gravis, acetylcholine receptor antibody positive (HCC) 2015 OTHER 07/18/2003 floater in L eye secondary to bleed Other specified forms of hearing loss 06/11/2003 Trigeminal neuralgia 02/08/2008 Urinary incontinence, urge Past Surgical History: Procedure Laterality Date COLONOSCOPY, DIAGNOSTIC (RECTUM) 03/07/2017 hyperplastic polyp/COLONOSCOPY FLEXIBLE PROXIMAL DIAGNOSTIC performed by Chasity Chamberlain MD at ENDOSCOPY [facility] COLONOSCOPY, DIAGNOSTIC (RECTUM) 03/08/2022 sigmoid diverticulosis, other colunga normal / biopsies normal / 5 year recall / COLONOSCOPY FLEXIBLE PROXIMAL DIAGNOSTIC performed by Yaritza Harvey MD at ENDOSCOPY [facility] COLORECTAL CANCER SCREEN; NOT AT RISK 01/2007 repeat 10 yrs DEXA SCAN/BONE MINERAL AXIAL 03/2006 no meds needed, repeat 2007 EGD, FLEXIBLE, PLACE GASTRO TUBE N/A 01/01/2021 ESOPHAGOGASTRODUODENOSCOPY (EGD), FLEXIBLE, TRANSORAL, WITH PERCUTANEOUS GASTROSTOMY INSERTION performed by Malick Paige DO at OR [facility] ENLARGEMENT OF BREAST W/IMPLANT Bilateral 1990 INCISE SPINAL COLUMN/NERVE ROOT(S) 05/19/2012 Robert bryson, [facility] trigem neurl INFORMATION 1992 vestibular schwanoma- removed L-/S-SPINE PARAVERTEBRAL FACET INJ,1 LEVEL 05/11/2016 L-/S-SPINE PARAVERTEBRAL FACET INJ, 1 LEVEL performed by Reyes Jain DO at OR [facility] L-/S-SPINE PARAVERTEBRAL FACET INJ,1 LEVEL 05/24/2016 L-/S-SPINE PARAVERTEBRAL FACET INJ, 1 LEVEL performed by Reyes aJin, at OR [facility] L-/S-SPINE PARAVERTEBRL FACET INJ,2 LEVELS 05/24/2016 L-/S-SPINE PARAVERTEBRAL FACET INJ, 2 LEVELS performed by Stonewall Maria Del Carmen Jain DO at OR [facility] LAP SURGICAL, GASTROSTOMY N/A 01/01/2021 LAPAROSCOPIC GASTROSTOMY WITHOUT RECONSTRUCION GASTRIC TUBE performed by Malick Paige DO at OR [facility] LIGATE/CUT OVIDUCT(S) 1982 LIGATE/CUT OVIDUCT(S) MISCELLANEOUS ORDER ([facility] ONLY) Bilateral 04/17/2019 Dr. Matute-bilateral ptosis repair REMOVE TONSILS & ADENOIDS, UNDER 12 REVISE UPPER EYELID 08/06/2010 both eyes upper lid blepharoplasties with levator advancement, Dr. 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: [employer] Tobacco Use Smoking status: Never Smokeless tobacco: Never Vaping Use Vaping Use: Never used Substance and Sexual Activity Alcohol use: No Drug use: No Sexual activity: Yes Partners: Male control/protection: Surgical Comment: tubal Other Topics Concern Service Not Asked Blood Transfusions Not Asked Caffeine Concern Not Asked Occupational Exposure Not Asked Hobby Hazards Not Asked Sleep Concern Not Asked Stress Concern Not Asked Weight Concern Not Asked Special Diet Yes Comment: takes ca Back Care Not Asked Exercise Yes Bike Helmet Not Asked Seat Belt Not Asked Self-Exams Yes Social History Narrative 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 [facility] Social Determinants of Health Financial Resource Strain: Not on file Food Insecurity: No Food Insecurity (04/03/2020) Hunger Vital Sign Worried About Running Out of Food in the Last Year: Never true Ran Out of Food in the Last Year: Never true Transportation Needs: Not on file Physical Activity: Not on file Stress: Not on file Social Connections: Not on file Intimate Partner Violence: Not on file Housing Stability: Not on file Family History Problem Relation Age of Onset Mental Disorder Mother Sudden Mother suicide early 20s Gastro-intestinal disorder Father bleeding ulcer Heart Disorder Father valve dis Glaucoma Father Stroke Father 85 Eye Problems Father AMD Macular degeneration Father Blindness Father Sudden Brother (Half) 22 suicide Colon cancer Grandfather (Paternal) ? Esophageal cancer Aunt (Unspecified) Heart Disorder Grandmother (Paternal) mi in her 50's, h/o RF Stroke Grandmother (Maternal) 57 Breast Cancer Cousin (Maternal) Breast Cancer Cousin (Paternal) Current Outpatient Medications Medication Sig Dispense Refill MACULAR HEALTH PO MISC Take by mouth. Melatonin 5 MG Tablet Take 1 Tablet by mouth at bedtime. Acetaminophen 500 MG Oral Tablet Take 1 Tablet by mouth every 6 hours as needed for Pain (daily at bedtime). Polyethyl Glycol-Propyl Glycol 0.4-0.3 % Ophthalmic Solution Instill into eye as needed for Dry eyes. Multivitamin Adult Oral Tablet Take 1 Tab by mouth daily. Amiodarone HCl 200 MG Oral Tablet (Cordarone) take 1 tablet by mouth every morning 90 Tablet 3 Glycopyrrolate 1 MG Oral Tablet (Robinul) Take 1 Tablet by mouth in the morning and 1 Tablet at noon and 1 Tablet before bedtime. With mestinon doses. 270 Tablet 3 traZODone HCl 100 MG Oral Tablet (Desyrel) take 1 tablet by mouth BEFORE BEDTIME 90 Tablet 3 Apixaban 5 MG Oral Tablet (Eliquis) take 1 tablet by mouth IN THE MORNING then 1 tablet by mouth BEFORE BEDTIME 180 Tablet 1 Albuterol Sulfate HFA 108 (90 Base) MCG/ACT Inhalation Aerosol Solution Inhale 2 Puffs by mouth every 4 hours as needed for Wheezing. 18 g 3 pyRIDostigmine [place] 60 MG Oral Tablet (Mestinon) ADMINISTER 1 TABLET INTO PEG TUBE 4 TIMES A DAY(MORNING, NOON, EVENING, AND BEDTIME) 120 Tablet 5 Gabapentin 100 MG Oral Capsule (Neurontin) Take 2 Capsules by mouth in the morning and 2 Capsules at noon and 2 Capsules before bedtime. 540 Capsule 3 FLUoxetine HCl 20 MG Oral Capsule (PROzac) take 1 capsule by mouth every morning 90 Capsule 3 azaTHIOprine 50 MG Oral Tablet (Imuran) take 3 tablets by mouth once daily 90 Tablet 2 Famotidine 20 MG Oral Tablet (Pepcid) Take by mouth 1 tablet daily 90 Tablet 1 predniSONE 10 MG Oral Tablet (Deltasone) One and one half tablets orally in am every other day 66 Tablet 3 No current facility-administered medications for this visit. Review of patient's allergies indicates: Allergen Reactions Prochlorperazine Edema airway Amoxicillin Rash Biaxin [Clarithromycin] Rash Carbamazepine Liver complications (Please comment) Elevated LFT Cephalexin Rash Erythromycin Rash Oxycodone-Aspirin Other reaction(s): psychological reaction "hallucinated" Penicillins Rash Percodan hallucinate Promethazine Neuro complications (Please comment) Spastic LE Zithromax [Azithromycin] Rash REVIEW OF SYSTEMS: With the exception of historical items included in the history of present illness above, a 12-point systems review was normal. PHYSICAL EXAM: BP 108/60 (BP Site: Right Arm, BP Position: Sitting, BP Cuff Size: Regular) | Pulse 79 | Temp 37 C (98.6 F) (Tympanic) | Wt 56.1 kg (123 lb 9.6 oz) | LMP 12/04/2003 | SpO2 97% | BMI 21.89 kg/m | BSA 1.58 m She is awake alert oriented a little tangential in her thinking and still very confused about her medications and repetitious. I did not not do a full mini- mental status test today as was clear that she did have some immediate recall issues and also some long-term issues as well as she was not clear about when she had been in the hospital for her COVID and really had no recall of seeing me there till she had to be reminded several times she was in too much pain today to have any significant gait testing but was no drift or pronation sign tremor tics choreiform activity in lower extremity facility rapid repetitive motions seem to be quite good with intact reflexes equivocal toes no Farhan signs good strength no fatigable weakness of her eyes no neck flexor weakness and grossly intact sensation LABORATORY: I am going to obtain a CBC and CMP today as a snow have not been done for some time IMAGING: No imaging is needed but if she is referred to pain management they may well want an MRI of the lumbar spine ASSESSMENT AND PLAN: Myasthenia gravis currently under good control with some residual steroid effects and with steroid induced osteoporosis. Plan is to reduce her alternate day prednisone 15 mg every other day and to continue the Imuran and Mestinon Multiple sclerosis with fecal and urinary incontinence largely stable and not requiring any active intervention Some of the immunosuppressive agents she is taken for the myasthenia may in theory be providing a little suppression of her MS activity is well Cognitive impairment likely a mixed picture not helped certainly by the steroids but I think reflective of at least minimum cognitive impairment and likely an early dementia I see no point in adding Aricept at this time as I doubt it would have any benefit and the side effect profile in might introduce on top of her other issues would be unacceptable IE more gastric upset, potential diarrhea superimposed upon her incontinence etcetera Plan is to see her back in 3 months' time and to continue to try to reduce the prednisone although I think reduction beyond 10 mg every other day is unlikely in view of how long she has been on this agent I spent a total of 20-29 minutes (exact time 25 mins) on the date of service in preparation, delivery, and documentation of the care provided to Colleen Navarro excluding any time spent in the performance of separately billed services. The above note was generated utilizing voice recognition technology may have spelling errors punctuation errors pronoun usage errors and syntax errors Theo Hanson MD documented in this encounter Nursing Notes * Farzana Abreu LPN - 10/17/2023 9:53 AM EDT Chief Complaint Patient presents with Return Neuro documented in this encounter Plan of Treatment Upcoming Encounters Date Type Department Care Team (Late st Contact Info) Description 10/17/2023 11:10 AM EDT Laboratory Laboratory [facility] [place] [address] [place] [phone] Geena Sanford [address] [address] [id number] Arrived 11/16/2023 1:00 PM EDT Office Visit [facility] [address] [facility] [place] [address] Tish King MD [address] [facility] [place] [address] 01/23/2024 11:20 AM EDT Office Visit Neurology [facility] [address] [facility] [place] [address] Theo Hanson MD [address] [facility] [place] [address] 07/06/2024 12:00 PM EST Imaging Radiology [address] [place] [address] Pending Results Name Type Priority Associated Diagnoses Date /Time COMPREHENSIVE METABOLIC PANEL Lab Routine Myasthenia gravis (HCC) 10/17/2023 10:27 AM EDT Health Maintenance Due Date Last Done Comments [...] D LEVEL ONCE IN A LIFETIME-USE SMARTSET# [id number] Completed 04/14/2023, 03/06/2018, 10/06/2016, Additional history exists Influenza Vaccine (FLU shot) Completed , 04/03/2020, 05/01/2019, Additional history exists GARDASIL-HPV IMMUNIZATION SERIES Aged Out No longer eligible based on patient's age to complete this topic documented as of this encounter Medical Devices Not on filedocumented as of this encounter Procedures Procedure Name Priority Date/Time Associated Diagnosis Comments CBC Routine 10/17/2023 10:27 AM EDT Myasthenia gravis (HCC) documented in this encounter Results * CBC (10/17/2023 10:27 AM EDT) WBC 6.46 4.00 - 10.80 K/uL 10/17/2023 10:33 AM EDT [facility]- RBC 3.89 3.85 - 5.15 M/uL 10/17/2023 10:33 AM EDT [facility] 56- HGB 12.1 12.0 - 15.3 g/dL 10/17/2023 10:33 AM EDT [facility] 56- HCT 40.3 36.0 - 45.2 % 10/17/2023 10:33 AM EDT [facility] 56- MCV 103.6 81.5 - 97.5 fL 10/17/2023 10:33 AM EDT [facility] 56- MCH 31.1 27.0 - 34.0 pg 10/17/2023 10:33 AM EDT [facility] 56-02 MCHC 30.0 32.0 - 36.0 g/dL 10/17/2023 10:33 AM EDT [facility] 56 RDW 16.4 11.5 - 15.5 % 10/17/2023 10:33 AM EDT [facility] 56 PLT 328 140 - 400 K/uL 10/17/2023 10:33 AM EDT [address] MPV 10.3 6.6 - 11.1 fL 10/17/2023 10:33 AM EDT [facility] 56 Blood Venous blood specimen / Unknown Venipuncture / Unknown 10/17/2023 10:27 AM EDT 10/17/2023 10:27 AM EDT Theo Hanson MD LAB BLOOD ORDERABLES [address] [place] [address] documented in this encounter Visit Diagnoses Diagnosis Myasthenia gravis (HCC)- Primary Myasthenia gravis without exacerbation Multiple sclerosis (HCC) Multiple sclerosis documented in this encounter Advance Directives Documents on File Type Date Recorded Patient Supervisor Backfilling Expl anation Power of Tomb Maker Helper 03/12/2005 Latest Code Status on File Code [...] Adult Child Health Care Po wer of Tomb Maker Helper Care Teams Funeral Home Makeup Artist Relationship Specialty Start Date End Date Tish King MD [address] [facility] [place] [address] PCP - General Internal Medicine 03/18/21 documented as of this encounter
--- OUTSIDE RECORDS SUMMARY | 2023-12-21 12:49 | External Medical Summary | Summary of Care ---
Author Name Unknown Organization [facility] Address [address] [place] [address] Phone [phone] Care Team Providers Care Operator Catalyst Concentration Name Role Phone Tish King MD Primary Care Provider Reason for Visit * Reason Comments eRx-Medication Refill Encounter Details Date Type Department Care Team (Late st Contact Info) Description 11/08/2023 Refill Neurology [facility] [address] [place] [address] Susan Ruiz PA-C [address] [place] [address] Allergies Active Allergy Reactions Criticality Noted Date [...] as of this encounter (statuses as of 11/08/2023) Medications Medication Sig Dispensed Refills Start Date End Date Status [facility] PO MISC Take by mouth. 0 [...] Wheezing. 18 g 3 07/12/2023 Active pyRIDostigmine [place] 60 MG Oral Tablet (Mestinon) ADMINISTER 1 [...] once daily 90 Tablet 2 11/08/2023 Active azaTHIOprine 50 MG Oral Tablet (Imuran) take 3 tablets by mouth once daily 90 Tablet 2 08/23/2023 Discontinued documented as of this encounter (statuses as of 11/08/2023) Active Problems Problem Noted Date Diagnosed Date [...] as of this encounter (statuses as of 11/08/2023) Resolved Problems Problem Noted Date Diagnosed Date [...] [facility] DETECT Study: Project # [id number], Beekeeper: Donnie Vazquez, PhD. SUMMARY: Goal: Establish test [...] contact study staff at ; after hours Beekeeper via the [facility] hospital local operator . Please contact study team before resolving/deleting from patients problem list. Study phone number: [phone]. Diagnosis changed due to Research Module. Go to Snapshot for study details. Encounter for examination fo r normal comparison and control in clinical research program 11/16/2017 03/18/2022 Overview: DO NOT DELETE - [employer] DETECT Study: Project # [id number], Beekeeper: Conrad Holguin, MS, MPH. SUMMARY: Goal: Establish [...] contact study staff at ; after hours Beekeeper via the [facility] hospital local operator . - Please contact study team before resolving/deleting from patients problem list. Study phone number: [phone]. Diagnosis changed due to Research Module. Go [...] as of this encounter (statuses as of 11/08/2023) Immunizations Name Administration Dates Next Due COVID-19 mRNA, LNP-s, No Pre serve, 2-Dose Series ([employer]) 03/25/2021,10/08/2020,09/12/2020 Hepatitis B, 20+ yrs 02/10/2018,07/28/2016,06/28 PPD [...] Miscellaneous Notes * Telephone Encounter - Pipo Stratton RP - 11/08/2023 2:40 PM EDTSigned Prescriptions: Disp Refills azaTHIOprine 50 MG Oral Tablet (Imuran) 90 Tab*2 Sig: take 3 tablets by mouth once daily Authorizing Provider: LAUREN GONZALEZ User: PIPO STRATTON * Telephone Encounter - Brandon Julio - 11/08/2023 2:11 PM EDTPending Prescriptions: Disp Refills azaTHIOprine 50 MG Oral Tablet [Pharmacy M*90 Tab*2 Sig: take 3 tablets by mouth once daily * Telephone Encounter - Brandon Julio two - 11/08/2023 2:09 PM EDT Did you pend patient's preferred pharmacy and medication before forwarding?yes Pharmacy: [facility] [id number] Pending Prescriptions: Disp Refills azaTHIOprine 50 MG Oral Tablet (Imuran) [*90 Tab*2 Sig: take 3 tablets by mouth once daily Last Visit: 10/17/2023 (in office), 01/31/2023 (telemedicine) Next Visit: 01/23/2024 If no future appointments scheduled, and last appointment is greater than a year ago, please schedule patient for a follow-up appointment Last date the medication was ordered: 08/23/2023 Is this request for a controlled substance?No [...] Description 11/16/2023 1:00 PM EDT Office Visit [facility] [address] [address] Tish King MD [address] [place] [address] 01/23/2024 11:20 AM EDT Office Visit Neurology [facility] [address] [place] [address] Lauren Gonzalez MD [address] [place] [address] 07/06/2024 12:00 PM EST Imaging Radiology [address], [place] [address] [place] [address] Health Maintenance Due Date Last Done Comments [...] D LEVEL ONCE IN A LIFETIME-USE SMARTSET# [id number] Completed 04/14/2023, 03/06/2018, 10/06/2016, Additional history exists Influenza Vaccine (FLU shot) Completed , 04/03/2020, 05/01/2019, Additional history exists GARDASIL-HPV IMMUNIZATION SERIES Aged Out No longer eligible based on patient's age to complete this topic documented as of this encounter Medical Devices Not on filedocumented as of this encounter Advance Directives Documents on File Type Date Recorded Patient Director General Expl anation Power of Aircraft Engine Cylinder Mechanic 03/12/2005 Latest Code Status on File Code [...] Adult Child Health Care Po wer of Aircraft Engine Cylinder Mechanic Care Teams Operator Catalyst Concentration Relationship Specialty Start Date End Date Tish King MD [address] [place] [address] PCP - General Internal Medicine 03/18/21 documented as of this encounter
--- OUTSIDE RECORDS SUMMARY | 2023-12-21 12:50 | External Medical Summary | Summary of Care ---
Author Name Unknown Organization [facility] Address [address] [place] [address] Phone [phone] Care Team Providers Care Park Maintenance Technician Name Role Phone Tish King MD Primary Care Provider Reason for Visit * Reason Comments Acute Headache Tuesday ni ght into Tuesday morning located at base of neck and forehead. She would like to know what she can take if it recurs. No associated n/v, dizziness or change in vision. Encounter Details Date Type Department Care Team (Latest Contact Info) Description 10/10/2023 3:00 PM EDT Office Visit Family Practice [facility] 132 [facility] [place] [address] Tish King MD 132 [facility] [place] [address] Acute nonintractable headache, unspecified headache type*; Multiple sclerosis (HCC); Myasthenia gravis (HCC); Atrial flutter, paroxysmal (HCC); Chronic obstructive pulmonary disease, unspecified COPD type (HCC) Allergies Active Allergy Reactions Criticality Noted [...] as of this encounter (statuses as of 10/10/2023) Medications Medication Sig Dispensed Refills Start Date End Date Status [facility] PO MISC Take by mouth. 0 [...] mestinon doses. 270 Tablet 3 12/02/2022 Active predniSONE 20 MG Oral Tablet (Deltasone) One tablet orally every other morning 45 Tablet 3 01/31/2023 Active Additional Information Patient not taking.Reported on 08/31/2023 traZODone HCl 100 MG Oral Tablet (Desyrel) [...] Wheezing. 18 g 3 07/12/2023 Active pyRIDostigmine [place] 60 MG Oral Tablet (Mestinon) ADMINISTER 1 [...] tablet daily 90 Tablet 1 09/08/2023 Active documented as of this encounter (statuses as of 10/10/2023) Active Problems Problem Noted Date Diagnosed Date [...] as of this encounter (statuses as of 10/10/2023) Resolved Problems Problem Noted Date Diagnosed Date [...] 11/16/2017 02/18/2020 Overview: DO NOT DELETE [facility] DETECT Study: Project # [id number], Interlibrary Loan Specialist: Donnie Vazquez, PhD. SUMMARY: Goal: Establish test [...] contact study staff at ; after hours Interlibrary Loan Specialist via the [facility] [place] boat hoist operator helper . Please contact study team before resolving/deleting from patients problem list. Study phone number: [phone]. Diagnosis changed due to Research Module. Go to Snapshot for study details. Encounter for examination fo r normal comparison and control in clinical research program 11/16/2017 03/18/2022 Overview: DO NOT DELETE - [facility] DETECT Study: Project # [id number], Interlibrary Loan Specialist: Conrad Holguin, MS, MPH. SUMMARY: Goal: Establish [...] contact study staff at ; after hours Interlibrary Loan Specialist via the [facility] [place] boat hoist operator helper . - Please contact study team before resolving/deleting from patients problem list. Study phone number: [phone]. Diagnosis changed due to Research Module. Go [...] as of this encounter (statuses as of 10/10/2023) Immunizations Name Administration Dates Next Due COVID-19 mRNA, LNP-s, No Pre serve, 2-Dose Series (eziCONEX) 03/25/2021,10/08/2020,09/12/2020 Hepatitis B, 20+ yrs 02/10/2018,07/28/2016,06/28 PPD [...] Date Smoking Tobacco: Never Smokeless Tobacco: Never Tobacco Cessation:Counseling Given: Not Answered Alcohol Use Standard Drinks/Week Comments No 0 [...] Sign Reading Time Taken Comments Blood Pressure 98/70 10/10/2023 3:03 PM EDT Pulse 70 10/10/2023 3:03 PM EDT Temperature - - Respiratory Rate - - Oxygen Saturation 96% 10/10/2023 3:03 PM EDT Inhaled Oxygen Concentration - - Weight - - Height - - Body Mass Index - - documented in this encounter Functional Status Functional [...] No 12/23/2020 documented as of this encounter Patient Instructions * Patient Instructions* Tish King MD - 10/10/2023 3:36 PM EDT For A "Killer of a headache": -- take Extra strength tylenol, follow instructions on bottle. May take 30- 45minutes to kick in -- if hasn't improved in an hour, can also add ibuprofen or aleve -- if that doesn't help, please call to speak with a nurse. documented in this encounter Progress Notes * Tish King MD - 10/10/2023 3:18 PM EDT Images from the original note were not included. History of Present Illness Colleen Navarro is a 72 year old female that presents for Acute (Headache Tuesday night into Tuesday morning located at base of neck and forehead. She would like to know what she can take if it recurs. No associated n/v, dizziness or change in vision. ) Tuesday into Tuesday morning. "Killer of a headache" in back of head and forehead. No visual changes, photophobia, nausea, paresthesias, weakness, balance issues. [place] worse laying down. No sore throat, no cough, no diarrhea. No head trauma. No medication changes. Took a couple tylenol #3 that were in the house, after a couple hours was able to sleep. Headache gone next AM. Worried about what to do next time and what to have on hand in case has severe headache like this again. Accompanied by Nicho. Current medications and allergies reviewed. Past medical history and problem list reviewed. Physical Exam Vitals: 10/10/23 1503 Pulse: 70 SpO2: 96% BP: 98/70 BP Readings from Last 3 Encounters: 10/10/23 98/70 09/20/23 108/62 07/12/23 138/78 Wt Readings from Last 3 Encounters: 09/20/23 54.9 kg (121 lb) 07/12/23 53.1 kg (117 lb) 05/09/23 54.8 kg (120 lb 12.8 oz) Physical Exam Vitals and nursing note reviewed. Constitutional: General: She is not in acute distress. Appearance: Normal appearance. She is not ill-appearing. HENT: Head: Normocephalic and atraumatic. Eyes: Pupils: Pupils are equal, round, and reactive to light. Neck: Thyroid: No thyroid mass, thyromegaly or thyroid tenderness. Cardiovascular: Rate and Rhythm: Normal rate and regular rhythm. Heart sounds: No murmur heard. Pulmonary: Effort: Pulmonary effort is normal. Breath sounds: Normal breath sounds. Musculoskeletal: Right lower leg: No edema. Left lower leg: No edema. Lymphadenopathy: Cervical: No cervical adenopathy. Skin: General: Skin is warm and dry. Neurological: General: No focal deficit present. Mental Status: She is alert. She is disoriented. Cranial Nerves: No cranial nerve deficit. Sensory: No sensory deficit. Motor: No weakness. Coordination: Coordination normal. Gait: Gait normal. Deep Tendon Reflexes: Reflexes normal. I have reviewed the following results: CMP, TSH, and CBC Assessment and Plan Acute nonintractable headache, unspecified headache type Etiology not clear. No red flags. Headache has resolved. Patient Instructions For A "Killer of a headache": -- take Extra strength tylenol, follow instructions on bottle. May take 30- 45minutes to kick in -- if hasn't improved in an hour, can also add ibuprofen or aleve -- if that doesn't help, please call to speak with a nurse. Multiple sclerosis (HCC) Myasthenia gravis (HCC) Atrial flutter, paroxysmal (HCC) Chronic obstructive pulmonary disease, unspecified COPD type (HCC) Wrap-Up Follow Up: Return for already has f/u. please print AVS. | For: already has f/u. please print AVS Time: I spent a total of 20-29 minutes (exact time 22 mins) on the date of service in preparation, delivery, and documentation of the care provided to Colleen Navarro excluding any time spent in the performance of separately billed services. documented in this encounter Plan of Treatment Upcoming Encounters Date Type Department Care Team (Late st Contact Info) Description 10/17/2023 9:20 AM EDT Office Visit [place] [address] [place] [address] [facility] [address] 11/16/2023 1:00 PM EDT Office Visit Family Practice [facility] [address] [place] [address] Tish King MD [address] [place] [address] 07/06/2024 12:00 PM EST Imaging Radiology [address] 132 [place] [address] Health Maintenance Due Date Last Done Comments Alpha-1 Antitrypsin 1966 Cologuard 1993 Fecal Occult Blood Test 08/26/2002 08/26/19 02, 04/17/2000, 04/09/1999 Sigmoidoscopy 08/10/2006 08/10/2001 Depression Screening 06/03/2021 06/03/2020 COVID-19 Vaccine ( season) 2023 03/25/2021, 10/08/2020, 09/12/2020 Mammogram 07/05/2024 07/05/2023, 09/16, 10/12/2021, Additional history exists O2 ASSESSMENT COMPLETED IN PAST YEAR FOR COPD 10/09/2024 10/10/2023 DXA Scan 11/23/2024 11/23/2022, 10/16, 10/27/2020, Additional [...] D LEVEL ONCE IN A LIFETIME-USE SMARTSET# [id number] Completed 04/14/2023, 03/06/2018, 10/06/2016, Additional history exists Influenza Vaccine (FLU shot) Completed , 04/03/2020, 05/01/2019, Additional history exists GARDASIL-HPV IMMUNIZATION SERIES Aged Out No longer eligible based on patient's age to complete this topic documented as of this encounter Medical Devices Not on filedocumented as of this encounter Visit Diagnoses Diagnosis Acute nonintractable headache, unspecified headache type- Primary Multiple sclerosis (HCC) Multiple sclerosis Myasthenia gravis (HCC) Myasthenia gravis without exacerbation Atrial flutter, paroxysmal (HCC) Atrial flutter Chronic obstructive pulmonary disease, unspecified COPD type (HCC) documented in this encounter Advance Directives Documents on File Type Date Recorded 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
--- OUTSIDE RECORDS SUMMARY | 2023-12-21 12:50 | External Medical Summary | Summary of Care ---
Author Name Unknown Organization [facility] Address [address] [place] [address] Phone [phone] Care Team Providers Care Bench Worker Name Role Phone Tish King MD Primary Care Provider Reason for Visit * Reason Comments Follow Up Here follow up pulm. * Evaluate & Treat - Unlimited Visits (Within 10 days (routine)) - Authorized Specialty Diagnoses / Procedures Referred By Contdeepthi t Referred To Contact Pulmonary Diseases / Pulmonary Diagnoses Chronic cough Lili Spencer DO 132 [facility] [place] [address] Referral ID Status Reason Start Date Expiration Date Visits Requested Visits Authorized [id number] Authorized Specialty Services Required 3 [phone] Encounter Details Date Type Department Care Team (Late st Contact Info) Description 09/20/2023 10:20 AM EST Office Visit Pulmonary Medicine, [facility] 132 [facility] [place] [address] Nishant Mott MD [address] [place] [phone] Upper airway cough syndrome* Allergies Active Allergy Reactions Criticality Noted Date [...] as of this encounter (statuses as of 09/20/2023) Medications Medication Sig Dispensed Refills Start Date [...] Wheezing. 18 g 3 07/12/2023 Active pyRIDostigmine [place] 60 MG Oral Tablet (Mestinon) ADMINISTER 1 [...] as of this encounter (statuses as of 09/20/2023) Active Problems Problem Noted Date Diagnosed Date Sacroiliitis 11/01/2022 Upper airway cough syndrome 08/17/2022 [...] as of this encounter (statuses as of 09/20/2023) Resolved Problems Problem Noted Date Diagnosed Date [...] 02/18/2020 Overview: DO NOT DELETE [facility] DETECT Study: Project # [id number], Ammonia Refrigeration Technician: Donnie Vazquez, PhD. SUMMARY: Goal: Establish [...] contact study staff at ; after hours Ammonia Refrigeration Technician via the [facility] mellowing machine operator . Please contact study team before resolving/deleting from patients problem list. Study phone number: [phone]. Diagnosis changed due to Research Module. Go to Snapshot for study details. Encounter for examination fo r normal comparison and control in clinical research program 11/16/2017 03/18/2022 Overview: DO NOT DELETE - [facility] DETECT Study: Project # [id number], Ammonia Refrigeration Technician: Conrad Holguin, MS, MPH. SUMMARY: Goal: [...] contact study staff at ; after hours Ammonia Refrigeration Technician via the [facility] mellowing machine operator . - Please contact study team before resolving/deleting from patients problem list. Study phone number: [phone]. Diagnosis changed due to Research Module. Go [...] as of this encounter (statuses as of 09/20/2023) Immunizations Name Administration Dates Next Due COVID-19 mRNA, LNP-s, No Pre serve, 2-Dose Series ([email or web address]) 03/25/2021,10/08/2020,09/12/2020 Hepatitis B, 20+ yrs 02/10/2018,07/28/2016,06/28 PPD [...] Sign Reading Time Taken Comments Blood Pressure 108/62 09/20/2023 10:28 AM EST Pulse - - Temperature 36.6 C (97.9 F) 09/20/2023 10:[address] Respiratory Rate 16 09/20/2023 10:28 AM EST Oxygen Saturation 97% 09/20/2023 10:29 AM EST ra-amb Inhaled Oxygen Concentration - - Weight 54.9 kg (121 lb) 09/20/2023 10:28 AM EST Height 160 cm (5' 3") 09/20/2023 10:28 AM EST Body Mass Index 21.43 09/20/2023 10:28 AM EST documented in this [...] as of this encounter Progress Notes * Nishant Mott MD - 09/20/2023 10:40 AM EST 09/20/2023 Pulmonary Medicine, [address] [id number] [phone] Colleen Navarro 1950 female 72 year old Attending Physician Documentation: 72 - year-old female, significant past medical history of myasthenia gravis, multiple sclerosis, atrial flutter, care facility resident, presenting for pulmonary follow-up. Pulmonary function testing 09/2022 shows normal ventilatory pattern. FEV1 1.87 L, 89% of predicted.Flow volume Loop shows normal ventilatory pattern. No bronchodilator response is noted. Lung volume study shows normal lung volumes. Gas transfer study shows mild gas transfer defect which persists after adjustment for alveolar volume.IMPRESSION: Normal ventilatory pattern. Methacholine challenge test is recommended if reactive airway disease is a clinical concern. Patient has been compliant with nasal inhaler along with acid suppression without improvement in cough symptoms. ENT evaluation revealed bilateral impacted serum in which was removed, normal vocal cord examination, overall impression consistent with neurogenic cough /upper airway cough. Patient describes occasional episodes of dry cough, postnasal drainage, denies high grade fever. Describes fatigue and weakness with occasional shortness of breath on ADLs. Ambulatory with walker at baseline. Patient is compliant with Baseline immunosuppressive therapy including Imuran, Mestinon, prednisonefor MS/MG. Also compliant with maintenance anticoagulation therapy including apixaban and antiarrhythmic therapy, amiodarone. Current bronchodilator therapy includes rare use of albuterol HFA. Physical examination significant for class 3 throat, trace oral pharyngeal erythema, clear lung morales, and no evidence of volume overload. Overall clinical picture consistent with Neurogenic cough, post viral cough, upper airway cough. Flonase and famotidine therapy will be continued. Patient will be followed up in 1 year to reassess symptoms status and reviewed spirometry and recommendations from ENT. Assessment: Neurogenic Cough Upper airway cough History of multiple Sclerosis History of myasthenia gravis, on Imuran and prednisone taper A flutter , Amiodarone therapy status COVID viral illness May 2022 Follow Up: Return in about 1 year (around 09/19/2024) for Clinic Visit. | For: Clinic Visit | Check-out note: Neurogenic Cough Upper airway cough History of multiple Sclerosis History of myasthenia gravis, on Imuran and prednisone taper A flutter , amiodarone therapy status Recent COVID viral illness May 2022 Plan: C/w Acid suppression and Flonase Follow Neurology recommendations regarding prednisone taper and Imuran therapy for MS Call with change in respiratory symptoms status F/u 1 year Nishant Mott MD Subjective CC: Chief Complaint Patient presents with Follow Up Here follow up pulm. HPI: Nursing Notes: Marlene Aguirre LPN 09/20/23 1032 Signed Interm History/Respiratory Symptoms Cough: frequesnt, clear phelgm Hemoptysis: no Sinus Symptoms: NO Hospitalizations: NO ED Trips: NO Triggers: nonea Nocturnal: occ cough CPAP/BiPAP/O2: no Flu Vaccine: 2022 Pneumovax: 2016 Prevnar: 2019 COVID 19: X3 Objective Filed Vitals: 09/20/23 1028 09/20/23 1029 BP: 108/62 Resp: 16 Temp: 36.6 C (97.9 F) TempSrc: Tympanic SpO2: 97% 97% Weight: 54.9 kg (121 lb) Height: 1.6 m (5' 3") Exam: Const: No signs of acute distress present. Head/Face: Normal on inspection. Eyes: Conjunctivae clear. Pupils equal round and reactive to light. ENMT: Oropharynx: No erythema, exudate or masses. Posterior pharynx is normal. Neck: Supple and symmetric. Resp: Respiratory examination as outlined above CV: Rate is regular. Rhythm is regular. No heart murmur appreciated. Extremities: No edema of the lower limbs bilaterally. Skin: Skin is warm and dry. Neuro: Coordination normal. No involuntary movement. Psych: Patient's attitude is cooperative. Mood is normal. Affect is normal. Tests reviewed with the patient: No imaging results in the last 6 months Available Radiologic data was reviewed by me in PACS. The images were shown to the patient and findings were discussed with the patient. HOME MEDICATIONS: Famotidine 20 MG Oral Tablet (Pepcid) azaTHIOprine 50 MG Oral Tablet (Imuran) FLUoxetine HCl 20 MG Oral Capsule (PROzac) Gabapentin 100 MG Oral Capsule (Neurontin) pyRIDostigmine [place] 60 MG Oral Tablet (Mestinon) Albuterol Sulfate HFA 108 (90 Base) MCG/ACT Inhalation Aerosol Solution Apixaban 5 MG Oral Tablet (Eliquis) traZODone HCl 100 MG Oral Tablet (Desyrel) Glycopyrrolate 1 MG Oral Tablet (Robinul) Amiodarone HCl 200 MG Oral Tablet (Cordarone) Multivitamin Adult Oral Tablet Polyethyl Glycol-Propyl Glycol 0.4-0.3 % Ophthalmic Solution Acetaminophen 500 MG Oral Tablet [facility] PO MISC predniSONE 20 MG Oral Tablet (Deltasone) Melatonin 5 MG Tablet ROS: No reported history of Hemoptysis, Hematemesis, Melena No reported history of Dysuria, Hematuria, Flank Pain No reported history of chronic headache, seizures No reported history of Fall or trauma . No reported history of recent change in weight or appetite. Past Medical History: Diagnosis Date ADVANCE DIRECTIVE [...] performed by Chasity Chamberlain MD at ENDOSCOPY [facility] COLONOSCOPY, DIAGNOSTIC (RECTUM) 03/08/2022 sigmoid diverticulosis, other colunga normal / biopsies normal / 5 year recall / COLONOSCOPY FLEXIBLE PROXIMAL DIAGNOSTIC performed by Yaritza Harvey MD at ENDOSCOPY [facility] COLORECTAL CANCER SCREEN; NOT AT RISK 01/2007 repeat 10 yrs DEXA SCAN/BONE MINERAL AXIAL 03/2006 no meds needed, repeat 2007 EGD, FLEXIBLE, PLACE GASTRO TUBE N/A 01/01/2021 ESOPHAGOGASTRODUODENOSCOPY (EGD), FLEXIBLE, TRANSORAL, WITH PERCUTANEOUS GASTROSTOMY INSERTION performed by Malick Paige DO at [place] [facility] ENLARGEMENT OF BREAST W/IMPLANT Bilateral 1989 INCISE SPINAL COLUMN/NERVE ROOT(S) 05/19/2012 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 L-/S-SPINE PARAVERTEBRAL FACET INJ,1 LEVEL 05/11/2016 L-/S-SPINE PARAVERTEBRAL FACET INJ, 1 LEVEL performed by Reyes Maria Del Carmen Jain DO at [facility] L-/S-SPINE PARAVERTEBRAL FACET INJ,1 LEVEL 05/24/2016 L-/S-SPINE PARAVERTEBRAL FACET INJ, 1 LEVEL performed by Reyes Jain DO at OR [facility] L-/S-SPINE PARAVERTEBRL FACET INJ,2 LEVELS 05/24/2016 L-/S-SPINE PARAVERTEBRAL FACET INJ, 2 LEVELS performed by [place] Maria Del Carmen Jain DO at OR [facility] LAP SURGICAL, GASTROSTOMY N/A 01/01/2021 LAPAROSCOPIC GASTROSTOMY WITHOUT RECONSTRUCION GASTRIC TUBE performed by Malick Paige DO at [facility] LIGATE/CUT OVIDUCT(S) 1982 LIGATE/CUT OVIDUCT(S) MISCELLANEOUS ORDER ([facility] ONLY) Bilateral 04/17/2019 Dr. Matute-bilateral ptosis repair REMOVE TONSILS & ADENOIDS, UNDER 12 REVISE UPPER EYELID 08/06/2010 both eyes upper lid blepharoplasties with levator advancement, Dr. 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: [employer] Tobacco Use Smoking status: Never Smokeless tobacco: Never Vaping Use Vaping Use: Never used Substance and Sexual Activity Alcohol use: No Drug use: No Sexual activity: Yes Partners: Male control/protection: Surgical Comment: tubal Other Topics Concern Special Diet Yes Comment: takes ca Exercise Yes Self-Exams Yes Social History Narrative 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 [employer] Social Determinants of Health Food Insecurity: No Food Insecurity (04/03/2020) Hunger Vital Sign Worried About Running Out of Food in the Last Year: Never true Ran Out of Food in the Last Year: Never true Family History Problem Relation Age of Onset [...] Cancer Cousin (Maternal) Breast Cancer Cousin (Paternal) Review of patient's allergies indicates: Allergen Reactions Prochlorperazine Edema airway Amoxicillin Rash Biaxin [Clarithromycin] Rash Carbamazepine Liver complications (Please comment) Elevated LFT Cephalexin Rash Erythromycin Rash Oxycodone-Aspirin Other reaction(s): psychological reaction "hallucinated" Penicillins Rash Percodan hallucinate Promethazine Neuro complications (Please comment) Spastic LE Zithromax [Azithromycin] Rash documented in this encounter Nursing Notes * Marlene Aguirre LPN - 09/20/2023 10:30 AM EST Interm History/Respiratory Symptoms Cough: frequesnt, clear phelgm Hemoptysis: no Sinus Symptoms: NO Hospitalizations: NO ED Trips: NO Triggers: nonea Nocturnal: occ cough CPAP/BiPAP/O2: no Flu Vaccine: 2022 Pneumovax: 2016 Prevnar: 2020 COVID 19: X3 documented in this encounter Plan of Treatment Upcoming Encounters Date Type Department Care Team (Late st Contact Info) Description 10/17/2023 9:20 AM EDT Office Visit [facility] [address] Theo Hanson [facility] [address] [facility] [address] 11/16/2023 1:00 PM EDT Office Visit Family Practice [facility] 132 [facility] [place] [address] iTsh King MD [facility] [address] 07/06/2024 12:00 PM EST Imaging Radiology [address] [facility] [place] [address] Scheduled Referrals Name Type Priority Associated Diagnoses Orde r Schedule PULMONARY REFERRAL OP Referral Within 10 days (routine) Chronic cough Ordered: 07/12/2023 Health Maintenance Due Date Last Done Comments Cologuard 1993 Fecal Occult Blood Test 08/26/2002 08/26/19 02, 04/17/2000, 04/09/1999 Sigmoidoscopy 08/10/2006 08/10/2001 Depression Screening 06/03/2021 06/03/2020 COVID-19 Vaccine ( season) 2023 03/25/2021, 10/08/2020, 09/12/2020 Mammogram 07/05/2024 07/05/2023, 09/16, 10/12/2021, Additional history exists DXA Scan 11/23/2024 11/23/2022, 10/16, 10/27/2020, Additional [...] D LEVEL ONCE IN A LIFETIME-USE SMARTSET# [id number] Completed 04/14/2023, 03/06/2018, 10/06/2016, Additional history exists Influenza Vaccine (FLU shot) Completed , 04/03/2020, 05/01/2019, Additional history exists GARDASIL-HPV IMMUNIZATION SERIES Aged Out No longer eligible based on patient's age to complete this topic documented as of this encounter Medical Devices Not on filedocumented as of this encounter Visit Diagnoses Diagnosis Upper airway cough syndrome- Primary Cough documented in this encounter Advance Directives Documents on File Type Date Recorded 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
--- OUTSIDE RECORDS SUMMARY | 2023-12-21 12:50 | External Medical Summary | Summary of Care ---
Author Name Unknown Organization [facility] Address [address] [place] [address] Phone [phone] Care Team Providers Care Grain Sampler Name Role Phone Tish King MD Primary Care Provider Reason for Visit * Reason Onset Date Comments Medication Refill 09/08/2023 Famotidine 20 mg tablet Encounter Details Date Type Department Care Team (Late st Contact Info) Description 09/08/2023 Refill Pulmonary Medicine Terell Hurley [address] [place] [id number] Nishant Medina MD [address] [address] Pharyngoesophageal dysphagia* Allergies Active Allergy Reactions Criticality Noted Date [...] as of this encounter (statuses as of 09/08/2023) Medications Medication Sig Dispensed Refills Start Date [...] Wheezing. 18 g 3 07/12/2023 Active pyRIDostigmine [place] 60 MG Oral Tablet (Mestinon) ADMINISTER 1 [...] tablet daily 90 Tablet 1 09/08/2023 Active Famotidine 20 MG Oral Tablet (Pepcid)Indicati ons:Pharyngoesop hageal dysphagia Take by mouth 1 tablet daily 90 Tablet 1 03/02/2023 Discontinue d(Refill) documented as of this encounter (statuses as of 09/08/2023) Active Problems Problem Noted Date Diagnosed Date [...] as of this encounter (statuses as of 09/08/2023) Resolved Problems Problem Noted Date Diagnosed Date [...] 11/16/2017 02/18/2020 Overview: DO NOT DELETE [facility] DETECT Study: Project # [id number], Firer Low Pressure: Donnie Vazquez, PhD. SUMMARY: Goal: Establish test [...] contact study staff at ; after hours Firer Low Pressure via the [facility] hospital clamp forklift operator . Please contact study team before resolving/deleting from patients problem list. Study phone number: [phone]. Diagnosis changed due to Research Module. Go to Snapshot for study details. Encounter for examination fo r normal comparison and control in clinical research program 11/16/2017 03/18/2022 Overview: DO NOT DELETE [employer] DETECT Study: Project # [id number], Firer Low Pressure: Conrad Holguin, MS, MPH. SUMMARY: Goal: Establish [...] contact study staff at ; after hours Firer Low Pressure via the [facility] hospital clamp forklift operator . - Please contact study team before resolving/deleting from patients problem list. Study phone number: [phone]. Diagnosis changed due to Research Module. Go [...] as of this encounter (statuses as of 09/08/2023) Immunizations Name Administration Dates Next Due COVID-19 mRNA, LNP-s, No Pre serve, 2-Dose Series ([employer]) 03/25/2021,10/08/2020,09/12/2020 Hepatitis B, 20+ yrs 02/10/2018,07/28/2016,06/28 PPD [...] encounter Miscellaneous Notes * Telephone Encounter - Nishant Medina MD - 09/08/2023 8:42 AM EST Signed Prescriptions: Disp Refills Famotidine 20 MG Oral Tablet (Pepcid) 90 Tab*1 Sig: Take by mouth 1 tablet daily Authorizing Provider: NISHANT MEDINA * Telephone Encounter - Marlene Aguirre LPN - 09/08/2023 7:40 AM EST m documented in this encounter Plan of Treatment Upcoming Encounters Date Type Department Care Team (Late st Contact Info) Description 09/20/2023 10:20 AM EST Office Visit Pulmonary Medicine, [facility] [address] [facility] [place] [address] Nishant Medina MD [address] [place] [address] 10/17/2023 9:20 AM EDT Office Visit Neurology [facility] [address] [place] [address] Theo Hanson MD [address] [place] [address] 11/16/2023 1:00 PM EDT Office Visit Family Practice [facility] [address] [place] [address] Tish King MD [address] [address] 07/06/2024 12:00 PM EST Imaging Radiology [address] [address] Health Maintenance Due Date Last Done Comments [...] D LEVEL ONCE IN A LIFETIME-USE SMARTSET# [id number] Completed 04/14/2023, 03/06/2018, 10/06/2016, Additional history exists Influenza Vaccine (FLU shot) Completed , 04/03/2020, 05/01/2019, Additional history exists GARDASIL-HPV IMMUNIZATION SERIES Aged Out No longer eligible based on patient's age to complete this topic documented as of this encounter Medical Devices Not on filedocumented as of this encounter Visit Diagnoses Diagnosis Pharyngoesophageal dysphagia- Primary Dysphagia, pharyngoesophageal phase documented in this encounter Advance Directives Documents on File Type Date Recorded 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
[2023-12-21] MEDS: traZODone HCL 100 MG TAB PO SCH (21:26)
[2023-12-21] MEDS: MELATONIN 3 MG TAB PO SCH (21:26)
[2023-12-21] MEDS: ACETAMINOPHEN 500 MG TAB PO SCH (21:26)
[2023-12-22] MEDS: ACETAMINOPHEN 500 MG TAB PO PRN (05:10)
[2023-12-22 07:20] LABS: Hemoglobin 10.7 g/dl (12.0-16.0); Mean Corpuscular Hemoglobin 30.5 pg (25.0-34.0); Mean Corpuscular Hgb Conc 32.4 g/dL (32.0-36.0); Mean Platelet Volume 11.2 fL (9.4-12.4); Platelet Count 265 K/uL (130-400); RDW Coefficient of Variation 15.6 % (11.5-14.5); RDW Standard Deviation 53.8 fL (36.4-46.3); Red Blood Count 3.51 M/uL (4.20-5.40); White Blood Count 7.43 K/ul (4.8-10.8)
[2023-12-22 07:42] LABS: Albumin Globulin Ratio 1.3 (0.9-2); Albumin Level 3.2 gm/dl (3.4-5.0); BUN Creatinine Ratio 16.3 (10-20); Bilirubin,Total 0.8 mg/dl (0.2-1.0); Calcium 8.2 mg/dl (8.6-10.3); Est GFR (African American) 84.2 ml/min; Est GFR (Non-African American) 72.6 ml/min; Globulin 2.5 gm/dl (2.5-4.0); Magnesium 2.3 mg/dl (1.7-2.4); Phosphorus 3.2 mg/dl (2.5-4.9); Potassium 3.9 mmol/L (3.5-5.1); Total Protein 5.7 gm/dl (6.0-8.3)
[2023-12-22] MEDS: APIXABAN 5 MG TABLET PO SCH (09:44)
--- NOTE | 2023-12-22 15:22 | Discharge Summary ---
Date of Service December 22, 2023 Admission HPI Per Admitting Provider History obtained from patient and records. Medical history significant for PAF/paroxysmal atrial flutter as per records on Eliquis, COPD as per records, multiple sclerosis, trigeminal neuralgia, myasthenia gravis on steroid and azathioprine, pharyngoesophageal dysphagia, hx PEG tube placement. Last confinement August 2021 for respiratory failure secondary to COVID-19 pneumonia. Patient given constipation pills a few days ago. Subsequent watery diarrhea with achy abdominal discomfort. No some nausea, no emesis. Abdominal pain worse with chronic cough symptoms. Fall in the bathroom yesterday resulting in left shoulder pain. Denies head trauma or LOC. Patient denies chest pain, SOB. 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, jain pasto Admission Exam Per Admitting Provider GENERAL: uncomfortable, slightly anxious, lying on the right lateral decubitus position, no respiratory distress SKIN: Pallor, warm HEENT pale palpebral conjunctivae, dry buccal mucosa NECK : Supple, no tenderness CHEST : CTA, no tenderness HEART : RRR, no obvious murmurs ABDOMEN: Some distention, PEG tube in place, no tenderness EXTREMITIES : No LE swelling, minimal left shoulder tenderness, no other conspicuous deformities noted NEUROLOGIC : Coherent, facial asymmetry, gait and stance not assessed Principal Diagnosis Mild colitis, leukocytosis, diarrhea after laxative use, abd. pain Discharge Exam GENERAL: WD/WN F in NAD HEENT : NC/AT NECK : Supple, no tenderness CHEST : CTA, no tenderness HEART : RRR, no obvious murmurs ABDOMEN: mildly tender to palpation at lower quadrants, soft, no guarding, + bowel sounds EXTREMITIES : No LE swelling, minimal left shoulder tenderness, moves extremities NEUROLOGIC : awake, alert, cooperative, able to answer simple questions appropriately, speech fluent, moves extremities SKIN: warm, dry Discharge Data Allergies Allergy/AdvReac Type Severity Reaction Status Date / Time prochlorperazine Allergy Severe EDEMA OF Verified 12/20/23 23:31 AIRWAY clarithromycin Allergy Intermediate RASH Verified 12/20/23 23:31 Penicillins Allergy Intermediate RASH Verified 12/20/23 23:31 amoxicillin Allergy Mild RASH Verified 12/20/23 23:31 azithromycin Allergy Mild RASH Verified 12/20/23 23:31 cephalexin Allergy Mild RASH Verified 12/20/23 23:31 erythromycin base Allergy Mild RASH Verified 12/20/23 23:31 carbamazepine AdvReac Intermediate ELEVATED Verified 12/20/23 23:31 LFT LEVELS oxycodone AdvReac Intermediate HALLUCINATI Verified 12/20/23 23:31 ONS promethazine AdvReac Intermediate LEGS SHOOK Verified 12/20/23 23:31 Consultations 12/21/23 02:07 ED Decision to Admit Stat 12/21/23 08:20 Consult Gastroenterology Routine Ordered Studies 12/21/23 00:01 CT Abd and Pelvis [CT abd pelvis IV con only] Stat FINDINGS: Lung bases: Unremarkable. No mass. No consolidation. ABDOMEN: Liver: Periportal edema versus central intrahepatic biliary distention, etiology indeterminate. Small low-attenuation structures within the left liver lobe, largest measuring 6.4 mm, likely liver cyst. Gallbladder and bile ducts: See above. Pancreas: Unremarkable. No mass. No ductal dilation. Spleen: Unremarkable. No splenomegaly. Adrenals: Unremarkable. No mass. Kidneys and ureters: Unremarkable. No solid mass. No hydronephrosis. Stomach and bowel: Thickening of the fernandes of the transverse colon and descending colon suggestive of mild colitis. Diverticulosis, predominantly to the sigmoid with no signs of diverticulitis. Mild diverticulosis muscles of the sigmoid with no signs of diverticulitis. No obstruction. PELVIS: Appendix: No findings to suggest acute appendicitis. Bladder: The urinary bladder is obscured by beam hardening artifact related to the hip prosthesis. Reproductive: Unremarkable as visualized. ABDOMEN and PELVIS: Intraperitoneal space: Unremarkable. No free air. No significant fluid collection. Bones/joints: Advanced degenerative disease of the lumbar spine with scoliosis, convexity to the right. Bilateral hip prostheses of bilateral hips with aspiration of adjacent soft tissues due to beam hardening artifact. Soft tissues: Bilateral breast implants with capsular calcifications. Vasculature: Nonspecific dilatation of the central portal veins. Lymph nodes: Unremarkable. No enlarged lymph nodes. IMPRESSION: 1. Possible scattered mild colitis. No bowel obstruction. 2. Mild diverticulosis with no signs of diverticulitis. 3. Nonspecific indeterminate central biliary distention, etiology indeterminate versus focal edema. 4. Nonspecific distention of the central portal vein with otherwise normal enhancement. 12/21/23 07:39 CT shoulder LT wo con Stat FINDINGS: The skeletal structures are osteopenic. No fracture is seen. A left shoulder arthroplasty is in near-anatomic alignment. No periprosthetic lucency is identified. The acromioclavicular joint is preserved. There is no evidence of joint effusion. The overlying soft tissues are normal as imaged. The visualized left upper lobe lung parenchyma appears clear. No left axillary lymphadenopathy is seen. IMPRESSION: 1. No acute bony abnormality is identified. 2. A left shoulder arthroplasty is in near-anatomic alignment. Hospital Course (1) Colitis: Leukocytosis possibly laxative induced, patient nontoxic CT abd./pelv - 1. Possible scattered mild colitis. No bowel obstruction. 2. Mild diverticulosis with no signs of diverticulitis. 3. Nonspecific indeterminate central biliary distention, etiology indeterminate versus focal edema. 4. Nonspecific distention of the central portal vein with otherwise normal enhancement. No diarrhea or any BM in the hospital so not able to obtain stool studies Abd. pain much improved WBC elevated 18 K on admission, now normalized On Rocephin and flagyl, will DC on cipro + flagyl for total of 5 days - PCP and outpt GI follow up GI inpt consulted and discussed with Traumatic left shoulder s/p fall CT shoulder obtained - 1. No acute bony abnormality is identified. 2. A left shoulder arthroplasty is in near-anatomic alignment. Currently denies any issues/pain w/ shoulder Chronic conditions: myasthenia gravis currently on steroid and azathioprine hx PAF/paroxysmal atrial flutter, px NSR on amiodarone and Eliquis for an ticoagulation COPD as per records, stable multiple sclerosis, in remission pharyngoesophageal dysphagia, hx PEG tube placement Steroid-induced hyperglycemia, previous outpatient hemoglobin A1cs less than 5.6 Total Time Total Time Spent Total Time Spent (In Minutes): 40 Discharge Plan Discharge Items Patient Disposition: Home - Home Health Services Reason For Visit: ABDOMINAL PAIN Discharge Diagnosis: Mild colitis, leukocytosis, diarrhea after laxative use, abd. pain Activity: Per Instructions section Non-emergency contact: Primary Care Provider and Cytogenetics Technologist Call non-emergency contact if: you have any medication questions and your symptoms worsen Follow-up/Referrals: Tish King MD [Primary Care Provider] - (Date & Time 12/27/2023 10:00 AM Provider Bhakti Nolen CRNP Department Family Practice [facility] ) Diet: Regular Addtl Attending Provider Instructions: Follow up with your primary care doctor and photostat operator helper. The appointment with your primary care doctor was scheduled for you for 12/27/2023. Finish antibiotic course as prescribed. Pending Studies at Discharge: No Stand-Alone Forms: [facility], Smoking Cessation Medications and DC Order Prescriptions: New ciprofloxacin HCl 500 mg tablet 500 mg PO BID 3 Days Qty: 6 0RF metronidazole 500 mg tablet 500 mg PO TID 3 Days Qty: 9 0RF Continued trazodone 100 mg tablet 100 mg PO HS albuterol sulfate 90 mcg/actuation HFA aerosol inhaler 2 inh INHALATION Q4 PRN (Reason: Wheezing) fluoxetine [Prozac] 20 mg capsule 20 mg PO QAM melatonin 5 mg Tablet 5 mg PO HS glycopyrrolate 1 mg tablet 1 mg PO TIDM Rx Instructions: TAKE WITH MESTINON DOSES pyridostigmine bromide 60 mg tablet 60 mg PO QID azathioprine [Imuran] 50 mg tablet 150 mg PO QAM famotidine 20 mg tablet 20 mg PO QAM Eliquis 5 mg tablet 5 mg PO BIDM amiodarone 200 mg tablet 200 mg PO QAM multivitamin Tablet 1 tab PO QAM Macular Health Formula 5-1-7.5 mg Capsule 1 cap PO QAM acetaminophen [Tylenol Extra Strength] 500 mg Tablet 500 mg PO Q6H PRN (Reason: Pain) acetaminophen [Tylenol Extra Strength] 500 mg Tablet 500 mg PO HS Systane (propylene glycol) 0.4-0.3 % Drops 1 drp OPHTHALMIC (EYE) DIRECTED PRN (Reason: Dry Eyes) prednisone 10 mg tablet 15 mg PO Q OTHER DAY gabapentin 100 mg capsule 200 mg PO TID Admission Data Admit Date/Time: 12/21/23 03:14 Attending Provider: Stevan Mancilla Admit Provider: Reese Aguilar Primary Care Provider: Tish King Other Providers: Reese Aguilar; Gerald Gentile; [place]
== END 2023-12-22 17:54 | disposition home health service (06) ==
LOC: ED 22:38 → 3N 22:38
DX: K52.9 Noninfective gastroenteritis and colitis, unspecified; J44.9 Chronic obstructive pulmonary disease, unspecified; Z80.0 Family history of malignant neoplasm of digestive organs; W19.XXXA Unspecified fall, initial encounter; Z86.16 Personal history of COVID-19; Z88.6 Allergy status to analgesic agent; M25.512 Pain in left shoulder; Z79.52 Long term (current) use of systemic steroids; Z93.1 Gastrostomy status; G70.00 Myasthenia gravis without (acute) exacerbation; T38.0X5A Adverse effect of glucocorticoids and synthetic analogues, initial encounter; R73.9 Hyperglycemia, unspecified; Z88.1 Allergy status to other antibiotic agents; G35 Multiple sclerosis; Z88.0 Allergy status to penicillin; I48.92 Unspecified atrial flutter; Z79.899 Other long term (current) drug therapy; Y92.002 Bathroom of unspecified non-institutional (private) residence as the place of occurrence of the external cause; G50.0 Trigeminal neuralgia; R13.14 Dysphagia, pharyngoesophageal phase; Z88.8 Allergy status to other drugs, medicaments and biological substances; I48.0 Paroxysmal atrial fibrillation; Z79.01 Long term (current) use of anticoagulants; K57.30 Diverticulosis of large intestine without perforation or abscess without bleeding